=== PATIENT | male | born 1975 | race Hispanic/Latino ===

== ENCOUNTER 2017-07-21 18:07 | Inpatient (IN) | payer SELFPAY ==
[2017-07-21 19:30] LABS: Hematocrit 21.2 % (42.0-52.0); Mean Platelet Volume 7.4 fL (7.4-10.4); Red Blood Cell (RBC) Count 2.09 mill/uL (4.70-6.10); White Blood Cell (WBC) Count 7.4 thou/uL (4.8-10.8)
[2017-07-21 19:42] LABS: ALT (SGPT) 27 U/L (8-55); AST (SGOT) 47 U/L (5-34); Alkaline Phosphatase 99 U/L (40-150); Anion Gap 10 mmol/L (10-20); BUN (Urea Nitrogen) 8 mg/dL (8.9-20.6); Bilirubin, Total 2.2 mg/dL (0.2-1.2); Calc. Creatinine Clearance 0 mL/min (70-130); Calcium 8.4 mg/dL (7.8-10.44); Carbon Dioxide 21 mmol/L (22-29); Chloride 88 mmol/L (98-107); Estimated GFR-MDRD 59; Globulin 4.4 g/dL (2.4-3.5); Protein, Total 6.5 g/dL (6.0-8.3)
[2017-07-21 19:53] LABS: Macrocytosis SLIGHT = 6-15 cells (100X) (0-5/hpf); Neutrophil 27 % (42-75); Polychromasia SLIGHT = 2-3 cells (100X) (0-2/hpf); Reactive Lymphocytes 1 % (0-10)
[2017-07-21] MEDS ORDERED: Potassium Chloride 20 MEQ TAB ONE (20:04)
[2017-07-21] MEDS ORDERED: Potassium Chloride 40 MEQ in Sodium Chloride 0.9% 500 ML IVPB SCH (21:00)
--- NOTE | 2017-07-21 21:43 | HP ---
PRIMARY CARE PROVIDER: [facility]. CHIEF COMPLAINT: Generalized weakness. HISTORY OF PRESENT ILLNESS: Mr. Ortiz is a pleasant 42-year-old gentleman, who was seen at [facility] on 07/21/2017. He was sent to the emergency room by his primary care pro vider. He reports that he has a history of liver disease. He was on medications and ran out of his medicat ions a week ago. He went to his clinic for a refill of medications. He was advised to have blood w ork prior refill. He had the blood work done. He was contacted by his primary care provider office earlier today and advised to go to the emergency room because of electrolyte abnormalities. He reports that he has been feeling weak over the last several days. Yesterday and today, he report s having falls at home. He denies any head trauma. He denies any loss of consciousness. He denies any chest pain. His family reports that there has been no confusion or agitation. REVIEW OF SYSTEMS: The following complete review of systems was negative, unless otherwise mentione d in the HPI or below: Constitutional: Weight loss or gain, sense of well-being, ability to conduc t usual activities, exercise tolerance. Skin/Breast: Rash, itching, changes in hair growth or loss , nail changes, breast lumps, tenderness, swelling, nipple discharge. Eyes: Vision, double vision, tearing, blind spots, pain. ENT/Mouth: Headaches (location, time of onset, duration, precipitatin g factors), vertigo, lightheadedness, injury. Vision, double vision, tearing, blind spots, pain, nos e bleeding, colds, obstruction, discharge, dental difficulties, gingival bleeding, dentures, neck st iffness, pain, tenderness, masses in thyroid or other areas. Cardiovascular: Precordial pain, subs ternal distress, palpitations, syncope, dyspnea on exertion, orthopnea, nocturnal paroxysmal dyspnea , edema, cyanosis, hypertension, heart murmurs, varicosities, phlebitis, claudication. Respiratory: Pain, shortness of breath, wheezing, stridor, cough, hemoptysis, fever or night sweats. Gastroint estinal: Poor appetite, dysphagia, indigestion, abdominal pain, heartburn, eructation, nausea, vomi ting, hematemesis, jaundice, constipation, or diarrhea, abnormal stools (rayna-colored, tarry, bloody , greasy, foul smelling), flatulence, hemorrhoids, recent changes in bowel habits. Genitourinary: Urgency, frequency, dysuria, nocturia, hematuria, polyuria, oliguria, unusual (or change in) color o f urine, stones, hesitancy, change in size of stream, dribbling, acute retention or incontinence, li francois, potency. Musculoskeletal: Pain, swelling, redness or heat of muscles or joints, limitation, of motion, muscular weakness, atrophy, cramps. Neurologic/Psychiatric: Convulsions, paralyses, jennifer mor, incoordination, parasthesias, difficulties with memory of speech, sensory or motor disturbances , or muscular coordination (ataxia, tremor), emotional problems, anxiety, depression, previous psych iatric care, unusual perceptions, hallucinations. Allergy/Immunologic: Skin rash, anemia, bleeding tendency, polydipsia, polyuria, intolerance to heat or cold. PAST MEDICAL HISTORY: Significant for alcohol abuse, liver cirrhosis, diabetes mellitus type 2, rec suman abscess. PAST SURGICAL HISTORY: Significant for incision and drainage of rectal abscess. SOCIAL HISTORY: The patient reports that he has not had any alcohol in 3 months. He denies tobacco use. He denies recreational drug use. PSYCHIATRIC HISTORY: Significant for anxiety and depression. FAMILY HISTORY: He denies any family history of liver disease. ALLERGIES: No known drug allergies. CURRENT MEDICATIONS: He is not taking any medications at this time. He does not recall the names o f his previous medications. PHYSICAL EXAMINATION: GENERAL: Mr. Ortiz is awake and alert, not in acute distress. VITAL SIGNS: Blood pressure is 144/68, pulse is 73. His breathing at rate of 16, and saturating 99 % on room air. He is afebrile. EYES He has scleral icterus. He has conjunctival pallor. ENT: Moist mucosal membranes, no oropharyngeal erythema or exudates. NECK: Supple, nontender, normal range of movement. Trachea is midline. RESPIRATORY: Accessory muscles of breathing are not active. Chest wall movements are symmetric hari aterally. LUNGS: Clear to auscultation without wheeze, rhonchi, or crepitations. CARDIOVASCULAR: S1 and S2 are heard, regular. Peripheral pulses are palpable. No carotid bruit, n o pericardial rub. ABDOMEN: Soft, nontender, bowel sounds heard, distended, no hepatomegaly, no splenomegaly. MUSCULOSKELETAL: Power is 5/5 in all 4 extremities. He has bilateral lower extremity pitting edema . NEUROLOGIC: Cranial nerves II through XII are intact. Deep tendon reflexes are 2+. He has a flapp ing tremor. PSYCHIATRIC: Normal mood, normal affect, patient is oriented to time, place, and person. SKIN: No rashes or subcutaneous nodules. LYMPHATIC: No cervical lymphadenopathy. LABORATORY DATA: Mr. Ortiz's labs and investigations were reviewed. He had an electrocardiogram, which shows normal sinus rhythm, no ST changes to suggest an acute coronary syndrome. Laboratory in vestigation show hyponatremia with sodium of 117, hypokalemia with potassium 2.3, decreased carbon d ioxide of 21, elevated creatinine of 1.33, last known creatinine 0.79 on 03/17/2017, elevated total bilirubin 2.2, last known total bilirubin 2.0 on 03/17/2017, elevated AST of 47, normal ALT, normal alkaline phosphatase, elevated BNP of 187.9, and decreased albumin of 2.1. He has a white count of 7400, macrocytic anemia with hemoglobin of 7.1, last known hemoglobin 9.4 on 03/17/2017, and thrombo cytopenia with platelet count of 123,000, last known platelet count 54,000 on 03/17/2017. ASSESSMENT AND PLAN: Mr. Ortiz is a pleasant 42-year-old gentleman, who was seen at [facility]. His problem list includes: 1. Hyponatremia: The etiology is unclear, could be secondary to liver disease or due to medication s. We will start normal saline. Consult Nephrology. Repeat sodium level. 2. Hypokalemia: Could be secondary to medications, which he is no longer taking. We will replenis h potassium and recheck potassium level. 3. Anemia: Most likely anemia of liver disease. We will repeat hemoglobin level. 4. Chronic liver disease. His liver function tests appear to be stable. 5. Thrombocytopenia: Stable, likely secondary to liver disease. 6. Diabetes mellitus type 2: Start Accu-Cheks and insulin sliding scale. 7. Acute on chronic renal failure: Hydrate and recheck creatinine. Consult Nephrology for renal i nsufficiency as well as for electrolyte abnormalities. LEVEL OF RISK: Moderate. LEVEL OF COMPLEXITY: Moderate.
[2017-07-21 21:50] LABS: Cholesterol 68 mg/dl (< 200 Desired); LDL Cholesterol, Calculated 45 mg/dL
[2017-07-21] MEDS ORDERED: Ondansetron ODT 4 MG TAB SL PRN (22:33)
[2017-07-21] MEDS ORDERED: Ondansetron HCl/PF 4 MG/2 ML Vial IVP PRN (22:33)
[2017-07-21] MEDS ORDERED: Acetaminophen 325 MG TAB PO PRN (22:33)
[2017-07-21] MEDS ORDERED: Sodium Chloride 0.9% 1,000 ML IV SCH (22:33)
[2017-07-21 22:53] VITALS: BMI 35.2
[2017-07-21] MEDS: NS 0.9% w/ 40 MEQ KCL 1,000 ML IV SCH (23:51)
[2017-07-22] MEDS: NS 0.9% w/ 40 MEQ KCL 1,000 ML IV SCH (01:19)
[2017-07-22] MEDS: Potassium Chloride 40 MEQ in Sodium Chloride 0.9% 500 ML IVPB SCH ×3 (02:05→14:31)
[2017-07-22 04:13] LABS: Potassium, Urine Less than 10.0 mmol/L; Sodium, Urine Less than 20 mmol/L (Not Available)
[2017-07-22 05:31] LABS: Anion Gap 4 mmol/L (10-20); BUN (Urea Nitrogen) 7 mg/dL (8.9-20.6); Calc. Creatinine Clearance 166 mL/min (70-130); Calcium 8.4 mg/dL (7.8-10.44); Carbon Dioxide 28 mmol/L (22-29); Chloride 97 mmol/L (98-107); Estimated GFR-MDRD Greater than 90
[2017-07-22 05:40] LABS: Band 3 % (5-11); Hematocrit 19.5 % (42.0-52.0); Mean Platelet Volume 6.8 fL (7.4-10.4); Neutrophil 38 % (42-75); Red Blood Cell (RBC) Count 1.92 mill/uL (4.70-6.10); White Blood Cell (WBC) Count 5.4 thou/uL (4.8-10.8)
--- NOTE | 2017-07-22 10:12 | CON ---
DATE OF CONSULTATION: 07/22/2017 CONSULTING PHYSICIAN: Dr. Aguilar REASON FOR CONSULTATION: Acute anemia and hyponatremia. REASON FOR ADMISSION: Weakness. HISTORY OF PRESENT ILLNESS: This is a 42-year-old male with history of alcohol use, liver cirrhosis who came to the hospital with weakness and was found to have hyponatremia with hypokalemia . Nephrology was consulted. The sodium was 118, 117 yesterday and this morning was 126 with IV hyd ration and potassium was 2.5. The patient is still very weak and family was at the bedside. PAST MEDICAL HISTORY: Positive for alcohol abuse, also liver cirrhosis, type 2 diabetes and sepsis. PAST SURGICAL HISTORY: Incision and drainage of rectal abscess. HOME MEDICATIONS: None. ALLERGIES: No known drug allergies. SOCIAL HISTORY: No smoking, alcohol or drug abuse. The patient did not have any alcohol in the las t 3 months. FAMILY HISTORY: No history of any kidney disease. REVIEW OF SYSTEMS: The following complete review of systems was negative, unless otherwise mentioned in the HPI or below: Constitutional: Weight loss or gain, ability to conduct usual activities. Skin: Rash, itching. Eyes: Double vision, pain. ENT/Mouth: Nose bleeding, neck stiffness, pain, tenderness. Cardiovascular: Palpitations, dyspnea on exertion, orthopnea. Respiratory: Shortness of breath, wheezing, cough, hemoptysis, fever or night sweats. Gastrointestinal: Poor appetite, abdominal pain, heartburn, nausea, vomiting, constipation, or diarrhea. Genitourinary: Urgency, frequency, dysuria, nocturia. Musculoskeletal: Pain, swelling. Neurologic/Psychiatric: Anxiety, depression. Allergy/Immunologic: Skin rash, bleeding tendency. PHYSICAL EXAMINATION: GENERAL: This is a well-built male in no apparent distress. VITAL SIGNS: Temperature 98.4, pulse 70, respirations 18, blood pressure 132/73. HEENT: Atraumatic, normocephalic. Oral mucosa is moist. NECK: Supple, no masses. CARDIOVASCULAR: S1, S2 heard. Rate and rhythm regular. RESPIRATORY: Clear. ABDOMEN: Soft. MUSCULOSKELETAL: No tenderness noted. DERMATOLOGIC: No skin rash. NEUROLOGIC: Alert, awake. PSYCHIATRIC: Mood and affect normal. LABORATORY: Sodium is 126, 117, potassium is 2.5, BUN 4, creatinine is 3.8. ASSESSMENT AND PLAN: 1. Severe hyponatremia, sodium level is corrected too fast and recommend to stop the IV fluids, viraj l give 1 dose of desmopressin and continue to replace potassium. 2. Hypokalemia, replaced. 3. Hypochloremia. 4. Edema, controlled. 5. Anemia, rule out any bleed. 6. Cirrhosis. Overall, prognosis is poor. Would recommend desmopressin and stop IV fluids. Continue close monito ring of sodium and monitor sodium q.6 h. We will follow.
--- NOTE | 2017-07-22 10:12 | PDOC.PN ---
- Subjective Encounter Start Date: 07/22/17 Encounter Start Time: 07:20 Pt seen for followup re: hyponatremia. Says he feels better. denies chest pain , shortness of breath, fevers or chills. no nausea or vomiting. - Objective MAR Reviewed: Yes Vital Signs & Weight: Vital Signs (12 hours) Temp Pulse Resp BP BP Pulse Ox 07/22/17 08:25 96.2 F L 73 18 137/83 99 07/22/17 04:00 98.4 F 71 18 132/73 100 07/21/17 22:30 97.8 F 71 18 145/73 H 100 Weight Weight 231 lb 5 oz I&O: 07/21/17 07/22/17 07/23/17 06:59 06:59 06:59 Intake Total 240 Output Total 1450 Balance -1210 Result Diagrams: 07/22/17 04:59 07/22/17 04:59 EKG Reviewed by me: Yes (tele: NSR) Phys Exam - Physical Examination Obese HEENT: moist MMs, oral pharynx no lesions Neck: supple Respiratory: no wheezing, no rales, no rhonchi, clear to auscultation bilateral Cardiovascular: RRR, no rub Gastrointestinal: soft, non-tender, no distention, positive bowel sounds Musculoskeletal: pulses present, edema present Neurological: non-focal, normal sensation, moves all 4 limbs Lymphatic: no nodes Psychiatric: normal affect, A&O x 3 Skin: no rash, normal turgor, cap refill <2 seconds Dx/Plan (1) Hyponatremia Code(s): E87.1 - HYPO-OSMOLALITY AND HYPONATREMIA Status: Acute (2) Hypokalemia Code(s): E87.6 - HYPOKALEMIA Status: Acute (3) Hypomagnesemia Code(s): E83.42 - HYPOMAGNESEMIA Status: Acute (4) DM2 (diabetes mellitus, type 2) Status: Chronic (5) Alcoholic liver disease Code(s): K70.9 - ALCOHOLIC LIVER DISEASE, UNSPECIFIED Status: Chronic (6) Obesity (BMI 30-39.9) Code(s): E66.9 - OBESITY, UNSPECIFIED Status: Chronic - Plan plan discussed w/ family, PT/OT, out of bed/ambulate, DVT proph w/SCDs * . Replace potassium and magnesium. Continue normal saline. RAEGAN resolved. Continue insulin sliding scale. Review of Systems - Review of Systems Constitutional: Weakness. negative: Fever, Chills, Sweats, Malaise Respiratory: negative: Cough, Dry, Shortness of Breath, Hemoptysis, SOB with Excertion, Pleuritic Pain, Sputum, Wheezing Cardiovascular: negative: Chest Pain, Palpitations, Orthopnea, Paroxysmal Noc. Dyspnea, Edema, Light Headedness Gastrointestinal: negative: Nausea, Vomiting, Abdominal Pain, Diarrhea, Constipation, Melena, Hematochezia Genitourinary: negative: Dysuria, Frequency, Incontinence, Hematuria, Retention - Medications/Allergies Allergies/Adverse Reactions: Allergies Allergy/AdvReac Type Severity Reaction Status Date / Time No Known Drug Allergies Allergy Verified 01/10/17 16:55 Medications: Current Medications Potassium Chloride 40 meq/ (Sodium Chloride) 520 mls @ 130 mls/hr IVPB Q6H [facility] Stop: 07/22/17 17:59 Last Admin: 07/22/17 09:16 Dose: 520 mls Sodium Chloride (Flush - Normal Saline) 10 ml IVF Q12HR [facility] Last Admin: 07/22/17 09:17 Dose: 10 ml Sodium Chloride (Flush - Normal Saline) 10 ml IVF PRN PRN PRN Reason: Saline Flush
[2017-07-22] MEDS ORDERED: Dextrose 5% in Water 500 ML IV SCH (13:00)
[2017-07-22] MEDS ORDERED: Dextrose 50% Abboject 50 ML SYRINGE SLOW IVP PRN (15:20)
[2017-07-22] MEDS ORDERED: Dextrose 5% in Water 1,000 ML IV PRN (15:20)
[2017-07-22] MEDS ORDERED: Magnesium Sulfate 3 GM in Sodium Chloride 0.9% 100 ML IVPB SCH (15:30)
[2017-07-22] MEDS: HumaLOG 300 UNITS/3 ML VIAL SC PRN (18:10)
[2017-07-23 06:03] LABS: Anion Gap 6 mmol/L (10-20); BUN (Urea Nitrogen) 6 mg/dL (8.9-20.6); Calc. Creatinine Clearance 172 mL/min (70-130); Calcium 8.7 mg/dL (7.8-10.44); Carbon Dioxide 26 mmol/L (22-29); Chloride 104 mmol/L (98-107); Estimated GFR-MDRD Greater than 90
[2017-07-23 06:17] LABS: Anisocytosis SLIGHT = 6-15 cells (100X) (0-5/hpf); Hematocrit 21.2 % (42.0-52.0); Hypochromia SLIGHT = 6-15 cells (100X) (0-5/hpf); Macrocytosis SLIGHT = 6-15 cells (100X) (0-5/hpf); Mean Platelet Volume 7.2 fL (7.4-10.4); Polychromasia SLIGHT = 2-3 cells (100X) (0-2/hpf); Red Blood Cell (RBC) Count 2.07 mill/uL (4.70-6.10); White Blood Cell (WBC) Count 5.6 thou/uL (4.8-10.8)
[2017-07-23 06:23] LABS: Neutrophil 31 % (42-75)
[2017-07-23 06:25] LABS: Target Cells SLIGHT = 2-5 cells (100X) (0-1/hpf)
[2017-07-23] MEDS ORDERED: Potassium Chloride 20 MEQ TAB PO SCH (06:30)
[2017-07-23] MEDS ORDERED: Potassium Chloride 40 MEQ in Sodium Chloride 0.9% 500 ML IVPB SCH (07:00)
[2017-07-23] MEDS: Potassium Chloride 20 MEQ TAB PO SCH ×2 (09:58→14:43)
[2017-07-23] MEDS: HumaLOG 300 UNITS/3 ML VIAL SC PRN (11:39)
--- NOTE | 2017-07-23 13:05 | PDOC.PN ---
- Subjective Encounter Start Date: 07/23/17 Encounter Start Time: 08:00 Pt seen for followup re: hyponatremia. Denies chest pain, shortness of breath, fevers or chills. No nausea or vomiting. - Objective MAR Reviewed: Yes Vital Signs & Weight: Vital Signs (12 hours) Temp Pulse Resp BP BP BP Pulse Ox 07/23/17 12:38 98.1 F 76 16 123/73 100 07/23/17 08:00 97.8 F 81 16 128/76 100 07/23/17 04:00 99.1 F 85 20 148/72 H 98 Weight Weight 222 lb 3.2 oz I&O: 07/22/17 07/23/17 07/24/17 06:59 06:59 06:59 Intake Total 240 2057 920 Output Total 1450 2250 Balance -1210 -193 920 Result Diagrams: 07/23/17 05:03 07/23/17 05:03 Additional Labs: Accuchecks 07/23/17 07/23/17 07/22/17 11:07 05:35 20:28 POC Glucose 209 H 121 H 131 H 07/22/17 07/22/17 17:03 07:03 POC Glucose 193 H 143 H EKG Reviewed by me: Yes (Tele: NSR) Phys Exam - Physical Examination Constitutional: NAD HEENT: sclera anicteric, oral pharynx no lesions Neck: supple Respiratory: no wheezing, no rales, no rhonchi, clear to auscultation bilateral Cardiovascular: RRR, gallop Gastrointestinal: soft, positive bowel sounds Musculoskeletal: pulses present Neurological: moves all 4 limbs Psychiatric: normal affect Skin: no rash, cap refill <2 seconds Dx/Plan (1) Hyponatremia Code(s): E87.1 - HYPO-OSMOLALITY AND HYPONATREMIA Status: Acute (2) Hypokalemia Code(s): E87.6 - HYPOKALEMIA Status: Acute (3) Hypomagnesemia Code(s): E83.42 - HYPOMAGNESEMIA Status: Acute (4) DM2 (diabetes mellitus, type 2) Status: Chronic (5) Alcoholic liver disease Code(s): K70.9 - ALCOHOLIC LIVER DISEASE, UNSPECIFIED Status: Chronic (6) Obesity (BMI 30-39.9) Code(s): E66.9 - OBESITY, UNSPECIFIED Status: Chronic - Plan DVT proph w/SCDs * . Replace potassium Sodium level improved. Check magnesium, phosphorus. Likely home 1-2 days. DC telemetry, transfer to medical floor. Review of Systems - Review of Systems Constitutional: negative: Fever, Chills, Sweats, Weakness, Malaise Respiratory: negative: Cough, Dry, Shortness of Breath, Hemoptysis, SOB with Excertion, Pleuritic Pain, Sputum, Wheezing Cardiovascular: negative: Chest Pain, Palpitations, Orthopnea, Paroxysmal Noc. Dyspnea, Edema, Light Headedness Gastrointestinal: negative: Nausea, Vomiting, Abdominal Pain, Diarrhea, Constipation, Melena, Hematochezia - Medications/Allergies Allergies/Adverse Reactions: Allergies Allergy/AdvReac Type Severity Reaction Status Date / Time No Known Drug Allergies Allergy Verified 01/10/17 16:55 Medications: Current Medications Dextrose/Water (Dextrose 50%) 25 gm SLOW IVP PRN PRN PRN Reason: Hypoglycemia Glucagon (Glucagon) 1 mg IM PRN PRN PRN Reason: Hypoglycemia Dextrose/Water (D5w) 1,000 mls @ 0 mls/hr IV .Q0M PRN; As Directed PRN Reason: Hypoglycemia Insulin Human Lispro (Humalog) 0 units SC .MILD SLIDING SCALE PRN PRN Reason: Mild Correctional Scale Last Admin: 07/23/17 11:39 Dose: 4 unit Potassium Chloride (K-Dur) 40 meq PO Q4H [facility] Stop: 07/23/17 13:31 Last Admin: 07/23/17 09:58 Dose: 40 meq Sodium Chloride (Flush - Normal Saline) 10 ml IVF Q12HR [facility] Last Admin: 07/23/17 09:59 Dose: Not Given Sodium Chloride (Flush - Normal Saline) 10 ml IVF PRN PRN PRN Reason: Saline Flush
[2017-07-23 13:30] LABS: ALT (SGPT) 24 U/L (8-55); AST (SGOT) 43 U/L (5-34); Alkaline Phosphatase 105 U/L (40-150); Bilirubin, Total 2.1 mg/dL (0.2-1.2); Protein, Total 6.6 g/dL (6.0-8.3)
[2017-07-23] MEDS ORDERED: SODIUM CHLORIDE 0.9% IVPB SCH (14:15)
[2017-07-23] MEDS ORDERED: POTASSIUM PHOSPHATE IVPB SCH (14:15)
[2017-07-24] MEDS: traMADol HCl 50 MG TAB PO PRN ×2 (00:13→12:58)
[2017-07-24 06:50] LABS: #Eosinphils 0.2 thou/uL (0.0-0.7); #Lymphocytes 2.9 thou/uL (1.20-3.40); #Monocytes 0.9 thou/uL (0.11-0.59); #Neutrophils 2.3 thou/uL (1.40-6.50); %Basophils 0.7 % (0.0-1.0); %Eosinophils 2.4 % (0.0-10.0); %Lymphocytes 46.3 % (21.0-51.0); %Monocytes 14.2 % (0.0-10.0); Hematocrit 20.3 % (42.0-52.0); Mean Platelet Volume 7.4 fL (7.4-10.4); Red Blood Cell (RBC) Count 1.98 mill/uL (4.70-6.10); White Blood Cell (WBC) Count 6.3 thou/uL (4.8-10.8)
[2017-07-24 07:16] LABS: Anion Gap 6 mmol/L (10-20); BUN (Urea Nitrogen) 7 mg/dL (8.9-20.6); Calc. Creatinine Clearance 166 mL/min (70-130); Calcium 8.4 mg/dL (7.8-10.44); Carbon Dioxide 26 mmol/L (22-29); Chloride 107 mmol/L (98-107); Estimated GFR-MDRD Greater than 90
[2017-07-24 09:31] LABS: Magnesium 0.9 mg/dL (1.6-2.6); Phosphorus 3.7 mg/dL (2.3-4.7)
[2017-07-24] MEDS ORDERED: Magnesium Sulfate 4 GM in Sodium Chloride 0.9% 250 ML 250 ML IVPB SCH (11:00)
[2017-07-24] MEDS ORDERED: Magnesium Oxide 400 MG TAB PO SCH ×2 (11:00→21:00)
--- NOTE | 2017-07-24 14:49 | DIS ---
DATE OF ADMISSION: 07/21/2017 DATE OF DISCHARGE: 07/24/2017 PRIMARY CARE PROVIDER: [facility]. DISCHARGE DIAGNOSES: 1. Hyponatremia, improved. 2. Hypokalemia, resolved. 3. Hypomagnesemia, magnesium being replaced. 4. Anemia, received packed RBC transfusion. CONDITION OF PATIENT AT THE TIME OF DISCHARGE: Stable. I assessed Mr. Ortiz on the day of discharge. He denies any chest pain or shortness of breath. Vi suman signs are stable. S1 and S2 are heard, regular. Lungs are clear to auscultation bilaterally. CONSULTATIONS DURING THIS HOSPITALIZATION: Nephrology, Dr. Arndt. DISCHARGE MEDICATIONS: Magnesium 400 mg 2 times a day for 10 days. HOSPITAL COURSE: Mr. Ortiz is a pleasant 42-year-old gentleman, who was admitted to [facility] on 07/21/2017 for multiple electrolyte abnormalities. He received intravenous f luids. He was seen by Nephrology Service. He received potassium and magnesium supplementation. He is being discharged home in a stable condition. He has been advised to follow up with his primary care provider's office in 3-5 days. His electroly kris as well as hemoglobin will need to be checked. He is receiving packed RBC transfusion prior to discharge. On the day of discharge, Mr. Ortiz has sodium 135, potassium 3.7, creatinine 0.84, calcium 8.4, daniel sphorus 3.7, magnesium 0.9, for which he is receiving 4 g of magnesium intravenously as well as oral magnesium supplementation. During this hospitalization, he had total bilirubin 2.1, direct bilirub in 1.0, AST 43, ALT 24, alkaline phosphatase 105, ammonia 62, triglyceride 66, cholesterol 68, LDL c holesterol 45, HDL cholesterol 10. TSH was normal. Cortisol level was also normal. Many thanks for allowing me to participate in your patient's care. Please feel free to contact me w ith any questions or concerns. DISCHARGE DESTINATION: Home. TOTAL AMOUNT OF TIME SPENT COORDINATING THIS DISCHARGE: 35 minutes.
[2017-07-24 15:52] VITALS: BP 130/76; TEMP 98.1
== END 2017-07-24 17:46 | disposition home or self-care (01) | DRG 641 ==
LOC: ERS 18:07 → 2NO 22:21
PROVIDERS: ADMIT Internal Medicine; ATTEND Internal Medicine
PROC: 30233N1 Transfusion of Nonautologous Red Blood Cells into Peripheral Vein, Percutaneous Approach (ICD-10-PCS; principal; 2017-07-24)
DX: E87.1 Hypo-osmolality and hyponatremia (principal); E11.22 Type 2 diabetes mellitus with diabetic chronic kidney disease; D69.6 Thrombocytopenia, unspecified; E83.42 Hypomagnesemia; E87.6 Hypokalemia; K70.30 Alcoholic cirrhosis of liver without ascites; D63.8 Anemia in other chronic diseases classified elsewhere; N18.9 Chronic kidney disease, unspecified
CPT/HCPCS: 36415; 36416; 36430; 80048; 80053; 80061; 80076; 82140; 82436; 82533; 82570; 83735; 83880; 84100; 84133; 84295; 84300; 84443; 85025; 86850; 86900; 86901; 93005; 96361; 96365; A4216; J2597; J3475; J3480; J7050; P9016

== ENCOUNTER 2017-08-02 13:05 | Inpatient (IN) | payer SELFPAY ==
[2017-08-02 13:45] LABS: Hematocrit 22.3 % (42.0-52.0); Mean Platelet Volume 6.6 fL (7.4-10.4); Red Blood Cell (RBC) Count 2.16 mill/uL (4.70-6.10); White Blood Cell (WBC) Count 5.8 thou/uL (4.8-10.8)
[2017-08-02 14:15] LABS: PTT 44.7 SEC (22.9-36.1); Prothrombin Time 24.8 SEC (12.0-14.7)
[2017-08-02 14:19] LABS: ALT (SGPT) 17 U/L (8-55); AST (SGOT) 47 U/L (5-34); Alkaline Phosphatase 127 U/L (40-150); Anion Gap 8 mmol/L (10-20); BUN (Urea Nitrogen) 8 mg/dL (8.9-20.6); Bilirubin, Total 1.8 mg/dL (0.2-1.2); Calc. Creatinine Clearance 0 mL/min (70-130); Carbon Dioxide 23 mmol/L (22-29); Chloride 89 mmol/L (98-107); Estimated GFR-MDRD 83; Globulin 4.5 g/dL (2.4-3.5); Protein, Total 6.4 g/dL (6.0-8.3)
[2017-08-02 14:21] LABS: Anisocytosis SLIGHT = 6-15 cells (100X) (0-5/hpf); Band 1 % (5-11); Hypochromia SLIGHT = 6-15 cells (100X) (0-5/hpf); Metamyelocyte 1 % (0-0); Neutrophil 81 % (42-75)
[2017-08-02] MEDS ORDERED: Potassium Chloride 20 MEQ TAB ONE (14:44)
[2017-08-02] MEDS ORDERED: HumaLOG 300 UNITS/3 ML VIAL SC PRN ×2 (15:51)
[2017-08-02] MEDS ORDERED: Acetaminophen 325 MG TAB PO PRN (15:51)
[2017-08-02] MEDS ORDERED: Dextrose 5% in Water 1,000 ML IV PRN (15:51)
[2017-08-02] MEDS ORDERED: Eucerin (Mineral Oil/Petrolatum,White) 30 gm Jar TOP PRN (15:51)
[2017-08-02] MEDS ORDERED: Ondansetron ODT 4 MG TAB PO PRN (15:51)
[2017-08-02] MEDS ORDERED: Mag-Al 1200 mg/1200 mg/30 ML UDCUP PO PRN (15:51)
[2017-08-02] MEDS ORDERED: Ondansetron HCl/PF 4 MG/2 ML Vial IVP PRN (15:51)
[2017-08-02] MEDS ORDERED: Milk Of Magnesia 30 ML UDCUP PO PRN (15:51)
[2017-08-02] MEDS ORDERED: Sodium Chloride 0.65% Nasal 44 ML BOT EA NARE PRN (15:51)
[2017-08-02] MEDS ORDERED: Artificial Tears 18 DROP/0.9 ML EA EYE PRN (15:51)
[2017-08-02] MEDS ORDERED: Dextrose 50% Abboject 50 ML SYRINGE SLOW IVP PRN (15:51)
[2017-08-02] MEDS ORDERED: Diabetic Tussin 200 MG/10 ML UDCUP PO PRN (15:51)
--- NOTE | 2017-08-02 16:09 | HP ---
PRIMARY CARE PHYSICIAN: [facility]. REASON FOR ADMISSION: Ascites, hyponatremia, and hypokalemia. HISTORY OF PRESENT ILLNESS: A 42-year-old male who has alcoholic cirrhosis who presented t o emergency room with a complaint of gradual distention of abdomen as well as bilateral increasing l ower extremity pitting edema. He reports that he gained almost 40 pounds since last discharge from hospital. This patient was recently discharged from hospital on 07/24/2017. He reports that his ab domen is more distended than before and he has more pedal edema. He is making urine after Lasix, bu t not significantly. He denies any cramps. He denies any chest pain, palpitation, or shortness of breath. He denies any constipation, melena, hematochezia, or diarrhea. Today, in the emergency room, patient had routine workup done and showed hemoglobin 7.3. His previo us hemoglobin was 6.7. His sodium is 117 and potassium is 2.9. His ammonia is also elevated. His magnesium is also low. At this point, we are admitting this patient in the hospital for further jennifer atment. PAST MEDICAL HISTORY: Alcoholic cirrhosis; alcoholism; history of diabetes, diet controlled. PAST SURGICAL HISTORY: Left perirectal abscess requiring incision and drainage. PAST PSYCHIATRIC HISTORY: Anxiety and depression. SOCIAL HISTORY: Patient has a history of alcohol abuse, but he reports that, for the last 5 months, he has not drunk any alcohol. He denies any smoking. He denies any other illicit drug abuse. FAMILY HISTORY: No strong family history of premature coronary artery disease, stroke, or cancer. ALLERGIES: No known drug allergies. CURRENT HOME MEDICATIONS: Lasix 20 mg b.i.d., Aldactone 50 mg p.o. b.i.d., magnesium oxide 400 mg t wice daily, Onglyza 2.5 mg p.o. daily, and aspirin 81 mg p.o. daily. REVIEW OF SYSTEMS: The following complete review of systems was negative, unless otherwise mentione d in the HPI or below: Constitutional: Weight loss or gain, ability to conduct usual activities. Skin: Rash, itching. Eyes: Double vision, pain. ENT/Mouth: Nose bleeding, neck stiffness, pain, tenderness. Cardiovascular: Palpitations, dyspnea on exertion, orthopnea. Respiratory: Shortnes s of breath, wheezing, cough, hemoptysis, fever or night sweats. Gastrointestinal: Poor appetite, abdominal pain, heartburn, nausea, vomiting, constipation, or diarrhea. Genitourinary: Urgency, fr equency, dysuria, nocturia. Musculoskeletal: Pain, swelling. Neurologic/Psychiatric: Anxiety, de pression. Allergy/Immunologic: Skin rash, bleeding tendency. Please see my HPI for pertinent posi tives and negatives. All other review of systems reviewed and negative except as mentioned in the H PI. EMERGENCY ROOM COURSE: Patient is receiving magnesium sulfate 1 gram, potassium chloride 40 mEq p.o . one time dose given. PHYSICAL EXAMINATION: VITAL SIGNS: On arrival, blood pressure 119/73, pulse 86, respiratory rate 20, temperature 98.2, sa turation 100% on room air, weight 115.2 kilograms. GENERAL: Patient is currently alert, awake, in no obvious acute distress. HEENT: Head: Normocephalic and atraumatic. Eyes: Pupils round and reactive to light. Extraocula r muscles intact. ENT: Oropharynx within normal limits. Moist mucous membranes. No oral lesions. No pharyngeal erythema and no exudate. NECK: Supple. Range of motion is normal. No meningeal signs of irritation. LUNGS: Clear to auscultation without any rhonchi or rales. CARDIAC: S1, S2 regular without any murmur. ABDOMEN: Ascites present, obesity present, no peritoneal signs, no guarding, no rigidity, no reboun d. BACK: Unremarkable, no CVA tenderness. EXTREMITIES: Upper extremities, passive movement of all joints are normal. Lower extremity, the lo wer extremity pitting edema noted. Good peripheral pulsation. SKIN: No skin rash. HEMATOLOGICAL SYSTEM: No lymphadenopathy. NEUROLOGIC: The patient is alert and oriented x3. Cranial nerves II-XII intact. Motor and sensati on within normal limits. No asterixis noted. Plantar bilateral flexor. No cerebellar sign. SIGNIFICANT LABS: CBC: WBC 5.8, hemoglobin 7.3, MCV 103, platelets 103. INR 2.2. BMP: Sodium 11 7, potassium 2.8, chloride 89, carbon dioxide 23, BUN 8, creatinine 0.99, glucose 126, calcium 8.0, magnesium 1.2. LFT: Bilirubin 1.8, AST 47, ALT 17, alkaline phosphatase 127, albumin 1.9, ammonia 78. BNP 137.1. Alcohol level less than 10. car refinisher showing normal sinus rhythm. EKG, based on my review, normal sinus rhythm without any ischemic changes. ASSESSMENT AND PLAN: 1. Anasarca. This patient has anasarca clinically. He has ascites, significantly increased bilate ral pitting edema. He has fluid overload status and his anasarca is related with cirrhosis of liver with chronic liver failure. This patient will need aggressive diuresis to make him euvolemic, and during that period, we will monitor renal function, weight, electrolytes, and replace electrolytes a ccordingly. 2. Ascites, likely due to alcoholic liver cirrhosis with portal hypertension. We will do therapeut ic paracentesis, and we will send fluid analysis with albumin, protein, LDH, glucose, culture and ce ll count. 3. Hyperammonemia patient will be given lactulose 20 grams p.o. t.i.d. Patient does not have any h epatic encephalopathy. He does not have any asterixis. We will repeat an ammonia level tomorrow. 4. Coagulopathy due to liver disease. We will give him vitamin K 10 mg p.o. one time dose and we w ill repeat PT/INR tomorrow. 5. Abnormal electrolytes with hyponatremia, likely due to hypervolemic hyponatremia from cirrhosis of liver with portal hypertension. At this point, the patient does not have any symptoms associated with hyponatremia. Patient will not need any specific treatment other than fluid restriction and a ggressive diuresis to treat his sodium. We will monitor BMP daily basis. 6. Hypokalemia. The patient was given potassium chloride 40 mEq p.o. in the emergency room. We wi ll continue with 40 mEq p.o. three times daily and monitor daily BMP. 7. Hypomagnesemia. Patient has received 1 gram magnesium in the emergency room. I will give him a nother 4 gram IV magnesium, and will repeat magnesium level tomorrow. 8. Macrocytic anemia. We will continue with folic acid, vitamin B12, and thiamine therapy while in hospital. 9. Thrombocytopenia. We will avoid antiplatelet as well as avoid heparin product. 10. Severe hypoalbuminemia due to liver disease. If patient's blood pressure goes low, then we viraj l consider giving him albumin infusion for diuretic response. 11. Deep venous thrombosis prophylaxis. Sequential compression device boots. 11. Gastrointestinal prophylaxis. Pepcid 20 mg p.o. b.i.d. 12. Code status: The patient is FULL CODE. The patient is making his decision by himself. Disposition plan based on clinical course. We are expecting patient's stay in hospital more than 2 midnights. Plan of care discussed with the patient and family member at bedside in the emergency ro om.
[2017-08-02] MEDS ORDERED: Magnesium Sulfate 4 GM in Sodium Chloride 0.9% 250 ML 250 ML IVPB SCH (16:15)
[2017-08-02 16:26] LABS: Bilirubin Negative (Negative); Blood, Urine Trace (Negative); Glucose, Urine (Dipstick) Negative (Negative); Ketone, Urine Negative (Negative); Nitrite Negative (Negative); Protein, Urine (Dipstick) Negative (Neg-Trace); Urobilinogen 0.2 mg/dL (0.2-1.0)
[2017-08-02 16:38] LABS: Bacteria/HPF None Seen HPF (None Seen); Hyaline Casts/LPF NONE SEEN LPF (0-3 Hyaline); RBC/HPF None Seen HPF (0-3); Squamous Epithelial 0-3 HPF (0-3); WBC/HPF 0-3 HPF (0-3)
[2017-08-02] MEDS: Potassium Chloride 20 MEQ TAB PO SCH ×2 (17:11→20:30)
[2017-08-02 17:15] VITALS: BMI 35.8
--- NOTE | 2017-08-02 19:58 | ULT ---
LIMITED ULTRASOUND: 08/02/17 HISTORY: Exam requested to evaluate for ascites. FINDINGS/IMPRESSION: The four quadrant evaluation of the abdomen demonstrates a small amount of free fluid in the left up per and lower quadrants. No significant ascites is seen for paracentesis. POS: [facility]
--- NOTE | 2017-08-02 20:27 | ADD-HP ---
ADDENDUM Diabetes type 2. We will continue insulin as per sliding scale per protocol. Diabetic diet will be given.
[2017-08-02] MEDS: Magnesium Oxide 400 MG TAB PO SCH (20:30)
[2017-08-03 04:24] LABS: Anion Gap 5 mmol/L (10-20); BUN (Urea Nitrogen) 7 mg/dL (8.9-20.6); Calc. Creatinine Clearance 190 mL/min (70-130); Calcium 8.2 mg/dL (7.8-10.44); Carbon Dioxide 29 mmol/L (22-29); Chloride 95 mmol/L (98-107); Estimated GFR-MDRD Greater than 90; Magnesium 1.7 mg/dL (1.6-2.6); Phosphorus 2.9 mg/dL (2.3-4.7)
[2017-08-03 04:27] LABS: Band 1 % (5-11); Hematocrit 20.8 % (42.0-52.0); Mean Platelet Volume 7.1 fL (7.4-10.4); Metamyelocyte 1 % (0-0); Neutrophil 42 % (42-75); Red Blood Cell (RBC) Count 2.03 mill/uL (4.70-6.10); Target Cells SLIGHT = 2-5 cells (100X) (0-1/hpf); White Blood Cell (WBC) Count 5.6 thou/uL (4.8-10.8)
[2017-08-03] MEDS: Furosemide 40 MG/4 ML VIAL SLOW IVP SCH ×2 (05:41→14:04)
[2017-08-03] MEDS: Ferrous Sulfate 325 MG TAB PO SCH (08:10)
[2017-08-03] MEDS: Cyanocobalamin (Vitamin B-12) 1,000 MCG TAB PO SCH (08:10)
[2017-08-03] MEDS: Folic Acid 1 MG TAB PO SCH (08:11)
[2017-08-03] MEDS: Potassium Chloride 20 MEQ TAB PO SCH ×3 (08:11→22:19)
[2017-08-03] MEDS: Spironolactone 100 MG TAB PO SCH (08:12)
[2017-08-03] MEDS: Multivitamin W/ Minerals 1 TAB PO SCH (08:12)
[2017-08-03] MEDS: Magnesium Oxide 400 MG TAB PO SCH ×2 (08:12→22:19)
[2017-08-03] MEDS: Phytonadione 10 MG/ML AMP PO SCH (08:13)
--- NOTE | 2017-08-03 10:34 | PDOC.PN ---
- Subjective Encounter Start Date: 08/03/17 Encounter Start Time: 08:55 -: old records requested/rev pt is feeling better, less abdominal distension, less edema leg, no jerome or hematochesia - Objective Resuscitation Status: Resuscitation Status FULL:Full Resuscitation MAR Reviewed: Yes Vital Signs & Weight: Vital Signs (12 hours) Temp Pulse Resp BP Pulse Ox 08/03/17 08:14 98.7 F 89 20 129/71 98 08/03/17 03:55 98.6 F 86 20 127/73 98 08/03/17 00:00 98.6 F 85 20 116/64 97 Weight Weight 226 lb 4.8 oz I&O: 08/02/17 08/03/17 08/04/17 06:59 06:59 06:59 Intake Total 0 Balance 0 Result Diagrams: 08/03/17 03:24 08/03/17 03:24 Additional Labs: Accuchecks 08/03/17 08/02/17 06:26 21:00 POC Glucose 110 114 H Phys Exam - Physical Examination Constitutional: NAD HEENT: PERRLA, moist MMs, sclera anicteric Neck: no JVD, supple Respiratory: no wheezing, no rales, no rhonchi Cardiovascular: RRR, no significant murmur, no rub Gastrointestinal: soft, non-tender ascites+ Musculoskeletal: pulses present, edema present Neurological: non-focal, normal sensation, moves all 4 limbs Lymphatic: no nodes Psychiatric: normal affect, A&O x 3 Skin: no rash, normal turgor Dx/Plan (1) Anasarca Code(s): R60.1 - GENERALIZED EDEMA Status: Acute (2) Hyperammonemia Code(s): E72.20 - DISORDER OF UREA CYCLE METABOLISM, UNSPECIFIED Status: Resolved (3) Hypokalemia Code(s): E87.6 - HYPOKALEMIA Status: Acute (4) Hypomagnesemia Code(s): E83.42 - HYPOMAGNESEMIA Status: Acute (5) Hyponatremia Code(s): E87.1 - HYPO-OSMOLALITY AND HYPONATREMIA Status: Acute (6) Alcoholic cirrhosis of liver with ascites Code(s): K70.31 - ALCOHOLIC CIRRHOSIS OF LIVER WITH ASCITES Status: Chronic (7) Alcoholic liver disease Code(s): K70.9 - ALCOHOLIC LIVER DISEASE, UNSPECIFIED Status: Chronic (8) Alcoholism Code(s): F10.20 - ALCOHOL DEPENDENCE, UNCOMPLICATED Status: Chronic (9) Coagulopathy Status: Chronic (10) DM2 (diabetes mellitus, type 2) Status: Chronic (11) Diabetes type 2, controlled Code(s): E11.9 - TYPE 2 DIABETES MELLITUS WITHOUT COMPLICATIONS Status: Chronic (12) Macrocytic anemia Code(s): D53.9 - NUTRITIONAL ANEMIA, UNSPECIFIED Status: Chronic (13) Obesity (BMI 30-39.9) Code(s): E66.9 - OBESITY, UNSPECIFIED Status: Chronic (14) Thrombocytopenia Code(s): D69.6 - THROMBOCYTOPENIA, UNSPECIFIED Status: Chronic - Plan cont current plan of care * continue IV lasix, aldactone and fluid restriction * sodium improving * will transfuse 1 unit PRBC * consult GI for anemia and cirrhosis * will replace electrolytes and monitor * medication reviewed as below * symptomatic treatment. Review of Systems - Review of Systems ENT: negative: Ear Pain, Ear Discharge, Nose Pain, Nose Discharge, Nose Congestion, Mouth Pain, Mouth Swelling, Throat Pain, Throat Swelling, Other Respiratory: negative: Cough, Dry, Shortness of Breath, Hemoptysis, SOB with Excertion, Pleuritic Pain, Sputum, Wheezing Cardiovascular: Edema. negative: Chest Pain, Palpitations, Orthopnea, Paroxysmal Noc. Dyspnea, Light Headedness, Other Gastrointestinal: negative: Nausea, Vomiting, Abdominal Pain, Diarrhea, Constipation, Melena, Hematochezia, Other Genitourinary: negative: Dysuria, Frequency, Incontinence, Hematuria, Retention , Other Musculoskeletal: negative: Neck Pain, Shoulder Pain, Arm Pain, Back Pain, Hand Pain, Leg Pain, Foot Pain, Other Skin: negative: Rash, Lesions, Antwan, Bruising, Other - Medications/Allergies Allergies/Adverse Reactions: Allergies Allergy/AdvReac Type Severity Reaction Status Date / Time No Known Drug Allergies Allergy Verified 08/02/17 16:40 Medications: Current Medications Acetaminophen (Tylenol) 650 mg PO Q4H PRN PRN Reason: Headache/Fever or Pain Al Hydroxide/Mg Hydroxide (Maalox) 30 ml PO Q6H PRN PRN Reason: Heartburn or Indigestion Artificial Tears (Tears Naturale) 0 drop EA EYE PRN PRN PRN Reason: Dry Eyes Cyanocobalamin (Vitamin B-12) 1,000 mcg PO DAILY [facility] Last Admin: 08/03/17 08:10 Dose: 1,000 mcg Dextrose/Water (Dextrose 50%) 25 gm SLOW IVP PRN PRN PRN Reason: Hypoglycemia Ferrous Sulfate (Feosol) 325 mg PO QAM-WM [facility] Last Admin: 08/03/17 08:10 Dose: 325 mg Folic Acid (Folvite) 1 mg PO DAILY [facility] Last Admin: 08/03/17 08:11 Dose: 1 mg Furosemide (Lasix) 40 mg SLOW IVP 0600,1400 [facility] Last Admin: 08/03/17 05:41 Dose: 40 mg Glucagon (Glucagon) 1 mg IM PRN PRN PRN Reason: Hypoglycemia Guaifenesin (Robitussin Sf) 200 mg PO Q4H PRN PRN Reason: Cough Dextrose/Water (D5w) 1,000 mls @ 0 mls/hr IV .Q0M PRN; As Directed PRN Reason: Hypoglycemia Insulin Human Lispro (Humalog) 0 units SC .MODERATE SLIDING SC PRN PRN Reason: Moderate Correctional Scale Insulin Human Lispro (Humalog) 0 units SC .BEDTIME SLIDING SC PRN PRN Reason: Bedtime Correctional Scale Iron/Minerals/Multivitamins (Theragran M) 1 tab PO DAILY [facility] Last Admin: 08/03/17 08:12 Dose: 1 tab Lactulose (Lactulose) 20 gm PO TID [facility] Last Admin: 08/03/17 08:10 Dose: 20 gm Magnesium Hydroxide (Milk Of Magnesium) 30 ml PO DAILYPRN PRN PRN Reason: Constipation Magnesium Oxide (Magnesium Oxide) 400 mg PO BID [facility] Last Admin: 08/03/17 08:12 Dose: 400 mg Mineral Oil/White Petrolatum (Eucerin Cream) 0 gm TOP BIDPRN PRN PRN Reason: Dry Skin Ondansetron HCl (Zofran Odt) 4 mg PO Q6H PRN PRN Reason: Nausea/Vomiting Ondansetron HCl (Zofran) 4 mg IVP Q6H PRN PRN Reason: Nausea/Vomiting Phytonadione (Aquamephyton) 10 mg PO DAILY [facility] Stop: 08/05/17 09:00 Last Admin: 08/03/17 08:13 Dose: 10 mg Potassium Chloride (K-Dur) 40 meq PO TID [facility] Last Admin: 08/03/17 08:11 Dose: 40 meq Sodium Chloride (Schuyler Nasal [place] 0.65%) 0 ml EA NARE QIDPRN PRN PRN Reason: Nasal Congestion Spironolactone (Aldactone) 50 mg PO QA-[facility] Last Admin: 08/03/17 08:12 Dose: 50 mg Thiamine HCl (Thiamine) 100 mg PO DAILY [facility] Last Admin: 08/03/17 08:13 Dose: 100 mg
[2017-08-03] MEDS ORDERED: ISOVUE-370 76%-LOCM 1 ML ONE (13:33)
[2017-08-03] MEDS ORDERED: GoLYTELY 4,000 ml Bottle PO SCH (18:00)
[2017-08-03 18:55] LABS: Iron 87 ug/dL (65-175)
--- NOTE | 2017-08-03 23:59 | CON ---
DATE OF CONSULTATION: 08/03/2017 REQUESTING PHYSICIAN: Dr. Delgado. REASON FOR CONSULTATION: Cirrhosis and anemia. HISTORY OF PRESENT ILLNESS: Nitin Ortiz junior is a 42-year-old man with a recent diagnosis of alc oholic cirrhosis, diagnosed several months ago. He has a history of diabetes, depression, and anxie ty, and was diagnosed with cirrhosis on the basis of imaging and characteristic lab abnormalities [facility] in January. At that time, he was advised to quit drinking alcohol. He had been drinking beer quite heavily from morning to night every day, and he was actually able to stop this f or the past 5 months. He has not seen a tile erector. He has never undergone EGD or colonoscopy. I do not see any AFP level. He did have an abdominal ultrasound in January, which showed coarsened li romeo echotexture as well as diminished flow in the main portal vein. He has been on diuretics, Lasix 20 mg, and spironolactone 50 mg daily that he has not been following a low sodium diet. He present ed to the hospital with several weeks of weight gain and an increasing lower extremity edema and abd ominal distention. He gained 40 pounds in the past 2-3 weeks, there has been no other symptoms of a bdominal pain or chest pain, diarrhea, constipation, melena, or hematochezia, no altered mental stat us. He denies any overt bleeding from anywhere. On initial evaluation, hemoglobin was found to be 7.3 and this drifted down to 6.9. Note hemoglobin was in the 10-11 range a few months ago. He has been treated with IV Lasix and given oral vitamin K. He says that his swelling and abdominal disten tion are much improved today from yesterday. We are consulted due to the anemia, and history of cir rhosis. REVIEW OF SYSTEMS: Full review of systems including constitutional, head, eyes, ears, nose, throat, GI, , cardiovascular, respiratory, musculoskeletal, and neurologic systems is negative except as noted in the HPI. PAST MEDICAL HISTORY: 1. Alcoholic cirrhosis, perirectal abscess, status post incision and drainage in 2017. 2. Diabetes. 3. Depression/anxiety. ALLERGIES: No known drug allergies. INPATIENT MEDICATIONS: Vitamin B12, ferrous sulfate once daily, folic acid, Lasix 40 mg IV q.12 janet rs, sliding scale insulin, multivitamin, lactulose 20 mg t.i.d., magnesium oxide 400 mg b.i.d., andres min K 10 mg daily, thiamine, Aldactone 50 mg daily. SOCIAL HISTORY: The patient quit drinking alcohol 5 months ago. Prior to that alcohol abuse was quite heavy. No smoking, no drug use. FAMILY HISTORY: Negative for liver disease. Negative for gastrointestinal illness or malignancy. PHYSICAL EXAMINATION: VITAL SIGNS: Temperature 98.7, pulse 89, blood pressure 129/71, and 98% oxygen saturation on room a ir. GENERAL: No acute distress. HEART: Regular rate and rhythm. LUNGS: Clear to auscultation bilaterally. ABDOMEN: Mild distention, but soft and nontender to palpation. No fluid wave. EXTREMITIES: 2+ bilateral lower extremity edema. The patient says is much improved from yesterday. SKIN: No jaundice, no rashes were palpable. EYES: No scleral icterus. Extraocular movements are intact. ENT: Mucous membranes moist, no oral lesions. LYMPH: No submandibular, supraclavicular lymphadenopathy. THYROID: Nontender to palpation. LABORATORY STUDIES: Hemoglobin initially 7.3, drifted down to 6.9 today. MCV elevated to 102. WBC 5.6, platelets low 105. Sodium initially 117, now 126. Potassium is 3.4, BUN 7, creatinine 0.76. INR 2.3, ammonia only 53, total bilirubin 1.8, alkaline phosphatase 127, AST 47, ALT 17, albumin 1. 9. BNP 137.1. Urinalysis negative. Alcohol level is undetectable. Back in 05/2016 viral hepatiti s serologies were negative for hepatitis B and C. IMAGING STUDIES: In 01/2017, abdominal ultrasound showed coarse liver echotexture and diminished fl ow in the main portal vein. Limited ultrasound from earlier today demonstrated some small amount of fluid in the left abdomen, but no significant ascites and so paracenteses was not performed. ASSESSMENT AND PLAN: 1. Alcoholic cirrhosis. 2. Anasarca, improving today with IV diuresis. 3. Coagulopathy, secondary to cirrhosis. 4. Macrocytic anemia, worsening over the past few months, with no evidence of overt gastrointestina l bleeding. I had a long discussion with the patient about what does indeed appear to be alcohol ci rrhosis. It does not appear he has had any real improvement in liver synthetic function, and it jackson s appear he has evidence of portal hypertension, despite having quit alcohol over the past 5 months. I discussed the importance of a low sodium diet with the patient, he needs to be getting less than 2000 mg of sodium per day. Diuretics will probably need to be adjusted upward on hospital discharg e. I would use Lasix and spironolactone at a ratio of 20-50. He does seem to be responding well to IV diuretics at this point. Regarding other potential issues with cirrhosis, he does not appear to have any signs or symptoms of hepatic encephalopathy. The lactulose is giving him diarrhea and I am not really sure that the lac tulose is necessary. He needs a baseline CT scan of the abdomen for HCC screening as well as an AFP level. I will go ahe ad and order this. Regarding the anemia, this is macrocytic, but with quite significant recent decline. Occult GI blee ding is certainly a possibility. He needs an EGD at any rate to screen for esophageal varices. We will plan to perform EGD and colonoscopy this admission. We will administer bowel preparation tonig ht and plan for the procedure tomorrow. Thank you for the consultation. Please call with questions or concerns.
--- NOTE | 2017-08-04 00:29 | CT ---
CT OF THE ABDOMEN WITH CONTRAST 08/03/17 COMPARISON: None. HISTORY: Cirrhosis with ascites. TECHNIQUE: Multiple contiguous axial images were obtained in a CT of the abdomen with contrast. PO contrast was administered. Coronal reformats were performed. FINDINGS: There are calcified gallstones in the gallbladder. The liver is nodular and cirrhotic. The spleen is normal in size. There is a recanalized paraumbilical vein. Minimal retroperitoneal varices are seen . The kidneys, adrenal glands, and pancreas are unremarkable. No focal liver lesions are seen. The por suman vein appears patent without focal abnormality. Atherosclerotic calcifications are seen in the ao rta. Degenerative changes are seen in the spine. The visualized inferior thorax is unremarkable. IMPRESSION: 1. Cholelithiasis. 2. Cirrhosis with mild sequela of portal hypertension. 3. No suspicious liver mass is identified. POS: [facility]
[2017-08-04 05:01] LABS: ALT (SGPT) 17 U/L (8-55); AST (SGOT) 41 U/L (5-34); Alkaline Phosphatase 103 U/L (40-150); Anion Gap 7 mmol/L (10-20); BUN (Urea Nitrogen) 7 mg/dL (8.9-20.6); Bilirubin, Total 1.7 mg/dL (0.2-1.2); Calc. Creatinine Clearance 163 mL/min (70-130); Calcium 8.6 mg/dL (7.8-10.44); Carbon Dioxide 28 mmol/L (22-29); Chloride 100 mmol/L (98-107); Estimated GFR-MDRD Greater than 90; Globulin 4.3 g/dL (2.4-3.5); Phosphorus 3.2 mg/dL (2.3-4.7); Protein, Total 6.2 g/dL (6.0-8.3)
[2017-08-04 05:21] LABS: Hematocrit 22.5 % (42.0-52.0); Hypochromia SLIGHT = 6-15 cells (100X) (0-5/hpf); Mean Platelet Volume 7.1 fL (7.4-10.4); Neutrophil 61 % (42-75); Red Blood Cell (RBC) Count 2.17 mill/uL (4.70-6.10); Target Cells SLIGHT = 2-5 cells (100X) (0-1/hpf); White Blood Cell (WBC) Count 5.5 thou/uL (4.8-10.8)
[2017-08-04] MEDS: Furosemide 40 MG/4 ML VIAL SLOW IVP SCH ×2 (06:08→14:52)
[2017-08-04] MEDS: Spironolactone 100 MG TAB PO SCH (08:38)
[2017-08-04] MEDS: Ferrous Sulfate 325 MG TAB PO SCH (08:40)
[2017-08-04] MEDS: Cyanocobalamin (Vitamin B-12) 1,000 MCG TAB PO SCH (08:41)
[2017-08-04] MEDS: Magnesium Oxide 400 MG TAB PO SCH ×2 (08:42→20:52)
[2017-08-04] MEDS: Folic Acid 1 MG TAB PO SCH (08:42)
[2017-08-04] MEDS: Multivitamin W/ Minerals 1 TAB PO SCH (08:42)
[2017-08-04] MEDS: Phytonadione 10 MG/ML AMP PO SCH (08:42)
[2017-08-04] MEDS: Potassium Chloride 20 MEQ TAB PO SCH ×3 (08:44→20:51)
[2017-08-04] MEDS ORDERED: Magnesium Sulfate 4 GM in Sodium Chloride 0.9% 250 ML 250 ML IVPB SCH (09:45)
--- NOTE | 2017-08-04 10:45 | PDOC.PN ---
- Subjective Encounter Start Date: 08/04/17 Encounter Start Time: 08:55 Patient seen and examined. No new complaints. No overnight events - Objective Resuscitation Status: Resuscitation Status FULL:Full Resuscitation MAR Reviewed: Yes Vital Signs & Weight: Vital Signs (12 hours) Temp Pulse Resp BP BP Pulse Ox 08/04/17 08:00 98.1 F 99 18 141/74 H 98 08/04/17 05:12 98.4 F 96 18 118/64 95 08/04/17 00:26 97.7 F 91 20 159/74 H 96 Weight Weight 226 lb 6.636 oz I&O: 08/03/17 08/04/17 08/05/17 06:59 06:59 06:59 Intake Total 1450 Balance 1450 Result Diagrams: 08/04/17 04:20 08/04/17 04:20 Additional Labs: Accuchecks 08/04/17 08/03/17 08/03/17 05:14 19:46 17:41 POC Glucose 105 131 H 133 H 08/03/17 12:05 POC Glucose 172 H Phys Exam - Physical Examination Constitutional: NAD HEENT: PERRLA, moist MMs, sclera anicteric Neck: no JVD, supple Respiratory: no wheezing, no rales, no rhonchi Cardiovascular: RRR, no significant murmur, no rub Gastrointestinal: soft, non-tender, no distention, positive bowel sounds Musculoskeletal: pulses present, edema present Neurological: non-focal, normal sensation, moves all 4 limbs Psychiatric: normal affect, A&O x 3 Skin: no rash, normal turgor Dx/Plan (1) Anasarca Code(s): R60.1 - GENERALIZED EDEMA Status: Acute (2) Hyperammonemia Code(s): E72.20 - DISORDER OF UREA CYCLE METABOLISM, UNSPECIFIED Status: Resolved (3) Hypokalemia Code(s): E87.6 - HYPOKALEMIA Status: Resolved (4) Hypomagnesemia Code(s): E83.42 - HYPOMAGNESEMIA Status: Acute (5) Hyponatremia Code(s): E87.1 - HYPO-OSMOLALITY AND HYPONATREMIA Status: Resolved (6) Alcoholic cirrhosis of liver with ascites Code(s): K70.31 - ALCOHOLIC CIRRHOSIS OF LIVER WITH ASCITES Status: Chronic (7) Alcoholic liver disease Code(s): K70.9 - ALCOHOLIC LIVER DISEASE, UNSPECIFIED Status: Chronic (8) Alcoholism Code(s): F10.20 - ALCOHOL DEPENDENCE, UNCOMPLICATED Status: Chronic (9) Coagulopathy Status: Chronic (10) DM2 (diabetes mellitus, type 2) Status: Chronic (11) Diabetes type 2, controlled Code(s): E11.9 - TYPE 2 DIABETES MELLITUS WITHOUT COMPLICATIONS Status: Chronic (12) Macrocytic anemia Code(s): D53.9 - NUTRITIONAL ANEMIA, UNSPECIFIED Status: Chronic (13) Obesity (BMI 30-39.9) Code(s): E66.9 - OBESITY, UNSPECIFIED Status: Chronic (14) Thrombocytopenia Code(s): D69.6 - THROMBOCYTOPENIA, UNSPECIFIED Status: Chronic - Plan cont current plan of care, plan discussed w/ family * today plan for EGD and colonoscopy * continue diuresis * replace magnesium * medication reviewed as below * symptomatic treatment * will consider discharge tomorrow. Review of Systems - Review of Systems ENT: negative: Ear Pain, Ear Discharge, Nose Pain, Nose Discharge, Nose Congestion, Mouth Pain, Mouth Swelling, Throat Pain, Throat Swelling, Other Respiratory: negative: Cough, Dry, Shortness of Breath, Hemoptysis, SOB with Excertion, Pleuritic Pain, Sputum, Wheezing Cardiovascular: Edema. negative: Chest Pain, Palpitations, Orthopnea, Paroxysmal Noc. Dyspnea, Light Headedness, Other Gastrointestinal: negative: Nausea, Vomiting, Abdominal Pain, Diarrhea, Constipation, Melena, Hematochezia, Other Genitourinary: negative: Dysuria, Frequency, Incontinence, Hematuria, Retention , Other Musculoskeletal: negative: Neck Pain, Shoulder Pain, Arm Pain, Back Pain, Hand Pain, Leg Pain, Foot Pain, Other Skin: negative: Rash, Lesions, Antwan, Bruising, Other - Medications/Allergies Allergies/Adverse Reactions: Allergies Allergy/AdvReac Type Severity Reaction Status Date / Time No Known Drug Allergies Allergy Verified 08/02/17 16:40 Medications: Current Medications Acetaminophen (Tylenol) 650 mg PO Q4H PRN PRN Reason: Headache/Fever or Pain Al Hydroxide/Mg Hydroxide (Maalox) 30 ml PO Q6H PRN PRN Reason: Heartburn or Indigestion Artificial Tears (Tears Naturale) 0 drop EA EYE PRN PRN PRN Reason: Dry Eyes Cyanocobalamin (Vitamin B-12) 1,000 mcg PO DAILY [facility] Last Admin: 08/04/17 08:41 Dose: Not Given Dextrose/Water (Dextrose 50%) 25 gm SLOW IVP PRN PRN PRN Reason: Hypoglycemia Ferrous Sulfate (Feosol) 325 mg PO QAM-WM [facility] Last Admin: 08/04/17 08:40 Dose: Not Given Folic Acid (Folvite) 1 mg PO DAILY [facility] Last Admin: 08/04/17 08:42 Dose: Not Given Furosemide (Lasix) 40 mg SLOW IVP 0600,1400 [facility] Last Admin: 08/04/17 06:08 Dose: Not Given Glucagon (Glucagon) 1 mg IM PRN PRN PRN Reason: Hypoglycemia Guaifenesin (Robitussin Sf) 200 mg PO Q4H PRN PRN Reason: Cough Dextrose/Water (D5w) 1,000 mls @ 0 mls/hr IV .Q0M PRN; As Directed PRN Reason: Hypoglycemia Magnesium Sulfate 4 gm/ Sodium (Chloride) 258 mls @ 86 mls/hr IVPB 0945 [facility] Stop: 08/04/17 12:44 Insulin Human Lispro (Humalog) 0 units SC .MODERATE SLIDING SC PRN PRN Reason: Moderate Correctional Scale Last Admin: 08/03/17 14:03 Dose: 2 unit Insulin Human Lispro (Humalog) 0 units SC .BEDTIME SLIDING SC PRN PRN Reason: Bedtime Correctional Scale Iron/Minerals/Multivitamins (Theragran M) 1 tab PO DAILY [facility] Last Admin: 08/04/17 08:42 Dose: Not Given Lactulose (Lactulose) 20 gm PO TID [facility] Last Admin: 08/04/17 08:42 Dose: Not Given Magnesium Hydroxide (Milk Of Magnesium) 30 ml PO DAILYPRN PRN PRN Reason: Constipation Magnesium Oxide (Magnesium Oxide) 400 mg PO BID [facility] Last Admin: 08/04/17 08:42 Dose: Not Given Mineral Oil/White Petrolatum (Eucerin Cream) 0 gm TOP BIDPRN PRN PRN Reason: Dry Skin Ondansetron HCl (Zofran Odt) 4 mg PO Q6H PRN PRN Reason: Nausea/Vomiting Ondansetron HCl (Zofran) 4 mg IVP Q6H PRN PRN Reason: Nausea/Vomiting Phytonadione (Aquamephyton) 10 mg PO DAILY [facility] Stop: 08/05/17 09:00 Last Admin: 08/04/17 08:42 Dose: Not Given Potassium Chloride (K-Dur) 40 meq PO TID [facility] Last Admin: 08/04/17 08:44 Dose: Not Given Sodium Chloride ([place] Nasal [place] 0.65%) 0 ml EA NARE QIDPRN PRN PRN Reason: Nasal Congestion Spironolactone (Aldactone) 50 mg PO QA-[facility] Last Admin: 08/04/17 08:38 Dose: 50 mg Thiamine HCl (Thiamine) 100 mg PO DAILY [facility] Last Admin: 08/04/17 08:44 Dose: Not Given
[2017-08-04] MEDS ORDERED: Propofol 200 MG/20 ML VIAL ONE (15:44)
--- NOTE | 2017-08-04 20:54 | OP ---
DATE OF PROCEDURE: 08/04/2017 PROCEDURE: Esophagogastroduodenoscopy and colonoscopy. PREOPERATIVE DIAGNOSIS: Severe anemia and cirrhosis. PROCEDURE IN DETAIL: Informed consent was obtained from the patient. He was sedated with total int ravenous anesthesia. The bite block was placed and the endoscope was advanced easily to the second portion of the duodenum and retroflexion was performed in the stomach. The esophagus had one column of grade II small varices and 2 columns grade I small varices. The GE junction was normal. There was a cluster of varices in the gastric fundus without stigmata of recent bleeding. The stomach was otherwise normal. The pylorus and first and second portions of the duodenum were normal. The sandra ent was turned around. Rectal exam was performed and was normal. The colonoscope was advanced to t he terminal ileum without difficulty. The mucosa of the terminal ileum was normal. The ileocecal v alve and appendiceal orifice were clearly identified. The preparation quality was good. The coloni c mucosa was normal throughout. Retroflexed views in the rectum were normal. IMPRESSION: 1. Single column of grade II small varix and two small grade I varices. 2. Cluster of varices in the gastric fundus without stigmata of recent bleeding. 3. Otherwise normal esophagogastroduodenoscopy. 4. Normal colonoscopy. RECOMMENDATIONS: 1. Start propranolol 10 mg 3 times a day. 2. Low salt diet. 3. Dr. Lin will be back tomorrow.
[2017-08-05 05:50] LABS: Anion Gap 10 mmol/L (10-20); BUN (Urea Nitrogen) 7 mg/dL (8.9-20.6); Calc. Creatinine Clearance 157 mL/min (70-130); Calcium 8.8 mg/dL (7.8-10.44); Carbon Dioxide 26 mmol/L (22-29); Chloride 101 mmol/L (98-107); Estimated GFR-MDRD Greater than 90; Magnesium 1.3 mg/dL (1.6-2.6)
[2017-08-05] MEDS: Furosemide 40 MG/4 ML VIAL SLOW IVP SCH ×2 (06:13→13:32)
[2017-08-05] MEDS ORDERED: Magnesium Sulfate 4 GM, Admixture Fee 1 EACH in Sodium Chloride 0.9% 250 ML 250 ML IVPB SCH (07:45)
[2017-08-05] MEDS ORDERED: Potassium Chloride 20 MEQ TAB PO SCH (08:00)
[2017-08-05] MEDS: Ferrous Sulfate 325 MG TAB PO SCH (09:40)
[2017-08-05] MEDS: Magnesium Oxide 400 MG TAB PO SCH (09:41)
[2017-08-05] MEDS: Cyanocobalamin (Vitamin B-12) 1,000 MCG TAB PO SCH (09:41)
[2017-08-05] MEDS: Multivitamin W/ Minerals 1 TAB PO SCH (09:41)
[2017-08-05] MEDS: Folic Acid 1 MG TAB PO SCH (09:41)
[2017-08-05] MEDS: Spironolactone 100 MG TAB PO SCH (09:42)
[2017-08-05] MEDS: Phytonadione 10 MG/ML AMP PO SCH (09:45)
--- NOTE | 2017-08-05 11:48 | PDOC.PN ---
- Subjective Encounter Start Date: 08/05/17 Encounter Start Time: 09:35 Patient seen and examined. No new complaints. No overnight events - Objective Resuscitation Status: Resuscitation Status FULL:Full Resuscitation MAR Reviewed: Yes Vital Signs & Weight: Vital Signs (12 hours) Temp Pulse Resp BP Pulse Ox 08/05/17 08:00 97.2 F L 71 16 08/05/17 07:43 97.2 F L 71 16 121/75 97 08/05/17 04:00 98.5 F 76 18 143/79 H 97 08/05/17 00:00 98.2 F 79 18 123/73 97 Weight Weight 212 lb 1 oz I&O: 08/04/17 08/05/17 08/06/17 06:59 06:59 06:59 Intake Total 1450 1500 240 Balance 1450 1500 240 Result Diagrams: 08/04/17 04:20 08/05/17 04:35 Additional Labs: Accuchecks 08/05/17 08/04/17 08/04/17 04:30 19:40 17:11 POC Glucose 102 156 H 105 08/04/17 11:42 POC Glucose 109 Phys Exam - Physical Examination Constitutional: NAD HEENT: PERRLA, moist MMs, sclera anicteric Neck: no JVD, supple Respiratory: no wheezing, no rales, no rhonchi Cardiovascular: RRR, no significant murmur, no rub Gastrointestinal: soft, non-tender, no distention, positive bowel sounds Musculoskeletal: no edema, pulses present Neurological: non-focal, normal sensation, moves all 4 limbs Psychiatric: normal affect, A&O x 3 Skin: no rash, normal turgor Dx/Plan (1) Anasarca Code(s): R60.1 - GENERALIZED EDEMA Status: Acute (2) Hyperammonemia Code(s): E72.20 - DISORDER OF UREA CYCLE METABOLISM, UNSPECIFIED Status: Resolved (3) Hypokalemia Code(s): E87.6 - HYPOKALEMIA Status: Resolved (4) Hypomagnesemia Code(s): E83.42 - HYPOMAGNESEMIA Status: Acute (5) Hyponatremia Code(s): E87.1 - HYPO-OSMOLALITY AND HYPONATREMIA Status: Resolved (6) Alcoholic cirrhosis of liver with ascites Code(s): K70.31 - ALCOHOLIC CIRRHOSIS OF LIVER WITH ASCITES Status: Chronic (7) Alcoholic liver disease Code(s): K70.9 - ALCOHOLIC LIVER DISEASE, UNSPECIFIED Status: Chronic (8) Alcoholism Code(s): F10.20 - ALCOHOL DEPENDENCE, UNCOMPLICATED Status: Chronic (9) Coagulopathy Status: Chronic (10) DM2 (diabetes mellitus, type 2) Status: Chronic (11) Diabetes type 2, controlled Code(s): E11.9 - TYPE 2 DIABETES MELLITUS WITHOUT COMPLICATIONS Status: Chronic (12) Macrocytic anemia Code(s): D53.9 - NUTRITIONAL ANEMIA, UNSPECIFIED Status: Chronic (13) Obesity (BMI 30-39.9) Code(s): E66.9 - OBESITY, UNSPECIFIED Status: Chronic (14) Thrombocytopenia Code(s): D69.6 - THROMBOCYTOPENIA, UNSPECIFIED Status: Chronic - Plan cont current plan of care * medication reviewed as below * symptomatic treatment * see discharge marine. Review of Systems - Review of Systems ENT: negative: Ear Pain, Ear Discharge, Nose Pain, Nose Discharge, Nose Congestion, Mouth Pain, Mouth Swelling, Throat Pain, Throat Swelling, Other Respiratory: negative: Cough, Dry, Shortness of Breath, Hemoptysis, SOB with Excertion, Pleuritic Pain, Sputum, Wheezing Cardiovascular: negative: Chest Pain, Palpitations, Orthopnea, Paroxysmal Noc. Dyspnea, Edema, Light Headedness, Other Gastrointestinal: negative: Nausea, Vomiting, Abdominal Pain, Diarrhea, Constipation, Melena, Hematochezia, Other Genitourinary: negative: Dysuria, Frequency, Incontinence, Hematuria, Retention , Other Musculoskeletal: negative: Neck Pain, Shoulder Pain, Arm Pain, Back Pain, Hand Pain, Leg Pain, Foot Pain, Other - Medications/Allergies Allergies/Adverse Reactions: Allergies Allergy/AdvReac Type Severity Reaction Status Date / Time No Known Drug Allergies Allergy Verified 08/02/17 16:40 Medications: Current Medications Acetaminophen (Tylenol) 650 mg PO Q4H PRN PRN Reason: Headache/Fever or Pain Al Hydroxide/Mg Hydroxide (Maalox) 30 ml PO Q6H PRN PRN Reason: Heartburn or Indigestion Artificial Tears (Tears Naturale) 0 drop EA EYE PRN PRN PRN Reason: Dry Eyes Cyanocobalamin (Vitamin B-12) 1,000 mcg PO DAILY [facility] Last Admin: 08/05/17 09:41 Dose: 1,000 mcg Dextrose/Water (Dextrose 50%) 25 gm SLOW IVP PRN PRN PRN Reason: Hypoglycemia Ferrous Sulfate (Feosol) 325 mg PO QAM-[facility] Last Admin: 08/05/17 09:40 Dose: 325 mg Folic Acid (Folvite) 1 mg PO DAILY [facility] Last Admin: 08/05/17 09:41 Dose: 1 mg Furosemide (Lasix) 40 mg SLOW IVP 0600,1400 [facility] Last Admin: 08/05/17 06:13 Dose: 40 mg Glucagon (Glucagon) 1 mg IM PRN PRN PRN Reason: Hypoglycemia Guaifenesin (Robitussin Sf) 200 mg PO Q4H PRN PRN Reason: Cough Dextrose/Water (D5w) 1,000 mls @ 0 mls/hr IV .Q0M PRN; As Directed PRN Reason: Hypoglycemia Insulin Human Lispro (Humalog) 0 units SC .MODERATE SLIDING SC PRN PRN Reason: Moderate Correctional Scale Last Admin: 08/03/17 14:03 Dose: 2 unit Insulin Human Lispro (Humalog) 0 units SC .BEDTIME SLIDING SC PRN PRN Reason: Bedtime Correctional Scale Iron/Minerals/Multivitamins (Theragran M) 1 tab PO DAILY [facility] Last Admin: 08/05/17 09:41 Dose: 1 tab Lactulose (Lactulose) 20 gm PO TID [facility] Last Admin: 08/05/17 09:41 Dose: 20 gm Magnesium Hydroxide (Milk Of Magnesium) 30 ml PO DAILYPRN PRN PRN Reason: Constipation Magnesium Oxide (Magnesium Oxide) 400 mg PO BID [facility] Last Admin: 08/05/17 09:41 Dose: 400 mg Mineral Oil/White Petrolatum (Eucerin Cream) 0 gm TOP BIDPRN PRN PRN Reason: Dry Skin Ondansetron HCl (Zofran Odt) 4 mg PO Q6H PRN PRN Reason: Nausea/Vomiting Ondansetron HCl (Zofran) 4 mg IVP Q6H PRN PRN Reason: Nausea/Vomiting Potassium Chloride (K-Dur) 40 meq PO QAM-[facility] Last Admin: 08/05/17 09:40 Dose: 40 meq Propranolol HCl (Inderal) 10 mg PO Q8H [facility] Last Admin: 08/05/17 09:44 Dose: 10 mg Sodium Chloride ([place] Nasal [place] 0.65%) 0 ml EA NARE QIDPRN PRN PRN Reason: Nasal Congestion Sodium Chloride (Flush - Normal Saline) 10 ml IVF Q12HR [facility] Last Admin: 08/05/17 09:53 Dose: 10 ml Sodium Chloride (Flush - Normal Saline) 10 ml IVF PRN PRN PRN Reason: Saline Flush Spironolactone (Aldactone) 50 mg PO QAM-WM [facility] Last Admin: 08/05/17 09:42 Dose: 50 mg Thiamine HCl (Thiamine) 100 mg PO DAILY [facility] Last Admin: 08/05/17 09:41 Dose: 100 mg
--- NOTE | 2017-08-05 13:45 | DIS ---
DATE OF ADMISSION: 08/02/2017 DATE OF DISCHARGE: 08/05/2017 PRIMARY CARE PHYSICIAN: [facility]. DISCHARGE DISPOSITION: Home. PRIMARY DISCHARGE DIAGNOSES: 1. Anasarca due to cirrhosis of liver. 2. Hypomagnesemia. 3. Hypokalemia, hyponatremia, hyperammonemia. 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 PRIMARY PROCEDURE/OPERATION: The patient had upper endoscopy which showed esophageal varices. Lower endoscopy was normal. RADIOLOGICAL INVESTIGATION: Abdomen ultrasound and CT abdomen and pelvis was consistent with cirrhosis of liver with ascites. SIGNIFICANT LABORATORY DATA: WBC 5.5, hemoglobin 7.7, platelet 104, INR 2.3, sodium 132, potassium 4.5, BUN 7, creatinine 0.88, calcium 8.8, magnesium 1.3, AST 47, ALT 17, alkaline phosphatase 127, BNP 137.1, ferritin 717.86. Tumor marker 33.9. Urinalysis unremarkable. Alcohol level less than 10. ANDREWS negative. DISCHARGE MEDICATIONS: Vitamin B12 1000 mcg p.o. daily, ferrous sulfate 325 mg p.o. daily, folic acid 1 mg p.o. daily, Lasix 40 mg p.o. daily, lactulose 20 grams p.o. t.i.d., magnesium oxide 400 mg p.o. b.i.d., multivitamin 1 tablet p.o. daily, potassium chloride 20 mEq p.o. daily, Inderal 10 mg p.o. q.8 hourly , Onglyza 2.5 mg p.o. daily, Aldactone 100 mg p.o. daily, thiamine 100 mg p.o. daily. CONTRAINDICATIONS: None. CODE STATUS: FULL CODE. INPATIENT GLASS ENGRAVER: Dr. Christina was consulted while in the hospital and he did upper and lower endoscopy. TEST RESULTS PENDING ON DISCHARGE: None. ALLERGIES: No known drug allergy. DISCHARGE PLAN: Post hospital, the patient will follow up with Dr. Lin and primary care physician. The patient is given instruction about diet as well as fluid restriction 1000 mL per day. HOSPITAL COURSE: A 42-year-old male who has previous history of alcoholism and chronic alcoholic liver disease, which gradually converted to alcoholic cirrhosis of liver. At this time, the patient came to emergency room with abdominal distention and increasing bilateral lower extremity edema. Patient was found with anasarca. He was having ascites. This patient was also having very low dilutional hyponatremia with sodium 117. We admitted him to medical floor. We treated him with aggressive diuresis. With diuresis, his sodium improved to 132. By the time of discharge, his potassium was replaced with potassium supplementation. His magnesium was also replaced with IV as well as oral magnesium supplementation while in hospital. This patient has a hemoglobin low while in hospital 6.9 and he was given 1 unit of blood transfusion. Because of anemia and cirrhosis history, we consulted GI and they did upper and lower endoscopy and patient was found with varices. After that we started Inderal therapy. Lower endoscopy and colonoscopy was normal. While in hospital, the patient had significant good diuretic response, now his ascites completely resolved. He did not require any paracentesis. His edema is significantly improved. We discussed with the patient about salt restriction and fluid restriction. At this point, I strongly advised this patient to follow up with the GI periodically for monitoring of cirrhosis. The patient is seen and examined at bedside today. Please see my progress note from today for further details. All new medication prescriptions given to him. Total time spent on discharge day 31 minutes. MTDD
[2017-08-05 14:06] VITALS: BP 132/76; TEMP 98.8
== END 2017-08-05 15:12 | disposition home or self-care (01) | DRG 433 ==
LOC: ERS 13:05 → T4-B 14:49
PROVIDERS: ADMIT Internal Medicine; ATTEND Internal Medicine
PROC: 30233N1 Transfusion of Nonautologous Red Blood Cells into Peripheral Vein, Percutaneous Approach (ICD-10-PCS; 2017-08-03)
PROC: 0DJ08ZZ Inspection of Upper Intestinal Tract, Via Natural or Artificial Opening Endoscopic (ICD-10-PCS; principal; 2017-08-04)
PROC: 0DJD8ZZ Inspection of Lower Intestinal Tract, Via Natural or Artificial Opening Endoscopic (ICD-10-PCS; 2017-08-04)
DX: K70.31 Alcoholic cirrhosis of liver with ascites (principal); E87.1 Hypo-osmolality and hyponatremia; D68.4 Acquired coagulation factor deficiency; E72.20 Disorder of urea cycle metabolism, unspecified; K76.6 Portal hypertension; E11.8 Type 2 diabetes mellitus with unspecified complications; I85.10 Secondary esophageal varices without bleeding; D69.6 Thrombocytopenia, unspecified; E83.42 Hypomagnesemia; E87.6 Hypokalemia; F10.20 Alcohol dependence, uncomplicated; E88.09 Other disorders of plasma-protein metabolism, not elsewhere classified; F41.9 Anxiety disorder, unspecified; F32.9 Major depressive disorder, single episode, unspecified; E66.9 Obesity, unspecified; Z68.32 Body mass index [BMI] 32.0-32.9, adult; D53.9 Nutritional anemia, unspecified; I86.4 Gastric varices
CPT/HCPCS: 36415; 36416; 36430; 74160; 76705; 80048; 80053; 80307; 81003; 81015; 82105; 82140; 82390; 82728; 83516; 83540; 83550; 83735; 83880; 84100; 85025; 85610; 85730; 86038; 86850; 86900; 86901; 93005; 96365; A4216; J1940; J2704; J3430; J3475; J7050; P9016

== ENCOUNTER 2017-09-28 14:49 | Inpatient (IN) | payer SELFPAY ==
[2017-09-28] MEDS ORDERED: Ibuprofen 800 MG TAB ONE (15:45)
--- NOTE | 2017-09-28 16:29 | RAD ---
SINGLE VIEW CHEST: Date: 09/28/17 COMPARISON: None. HISTORY: Right foot infection after stepping on a screw 2 weeks ago. Chest pain. FINDINGS: Single view of the chest shows an enlarged cardiomediastinal silhouette. There is no evidence of cons olidation, mass, or pleural effusion. IMPRESSION: Cardiomegaly. POS: NANI
--- NOTE | 2017-09-28 16:30 | RAD ---
3 VIEWS RIGHT FOOT: Date: 09/28/17 COMPARISON: 06/25/14. HISTORY: Right foot pain after stepping on a screw 2 weeks ago. Right foot infection. FINDINGS: Three views of the right foot show moderate diffuse soft tissue swelling. Diabetic vascular calcifica tions are seen. No osseous erosions are seen. No radiopaque foreign body is present. IMPRESSION: No evidence of radiopaque foreign body or significant osseous erosions. POS: KANDY
[2017-09-28 17:00] LABS: #Lymphocytes 1.1 thou/uL (1.20-3.40); #Monocytes 1.4 thou/uL (0.11-0.59); #Neutrophils 6.8 thou/uL (1.40-6.50); %Basophils 0.1 % (0.0-1.0); %Eosinophils 0.5 % (0.0-10.0); %Monocytes 14.7 % (0.0-10.0); Hematocrit 21.5 % (42.0-52.0); Mean Platelet Volume 7.9 fL (7.4-10.4); Red Blood Cell (RBC) Count 2.03 mill/uL (4.70-6.10); White Blood Cell (WBC) Count 9.3 thou/uL (4.8-10.8)
[2017-09-28 17:24] LABS: Macrocytosis SLIGHT = 6-15 cells (100X) (0-5/hpf); Polychromasia SLIGHT = 2-3 cells (100X) (0-2/hpf); Target Cells SLIGHT = 2-5 cells (100X) (0-1/hpf)
[2017-09-28 17:27] LABS: ALT (SGPT) 11 U/L (8-55); AST (SGOT) 22 U/L (5-34); Alkaline Phosphatase 116 U/L (40-150); Anion Gap 12 mmol/L (10-20); BUN (Urea Nitrogen) 21 mg/dL (8.9-20.6); Bilirubin, Total 1.5 mg/dL (0.2-1.2); CK (CPK) 111 U/L (30-200); Calc. Creatinine Clearance 0 mL/min (70-130); Calcium 8.2 mg/dL (7.8-10.44); Carbon Dioxide 19 mmol/L (22-29); Chloride 97 mmol/L (98-107); Estimated GFR-MDRD 45; Globulin 4.5 g/dL (2.4-3.5); Protein, Total 6.6 g/dL (6.0-8.3)
[2017-09-28] MEDS ORDERED: Piperacillin/Tazobactam 4.5 GM in Sodium Chloride 0.9% 100 ML IVPB SCH (17:45)
[2017-09-28] MEDS ORDERED: Dextrose 5% in Water 1,000 ML IV PRN (19:27)
[2017-09-28] MEDS ORDERED: Dextrose 50% Abboject 50 ML SYRINGE SLOW IVP PRN (19:27)
[2017-09-28] MEDS ORDERED: Clindamycin/D5W 300 MG/50 ML BAG IVPB SCH (19:29)
[2017-09-28] MEDS: Clindamycin/D5W 300 MG in Premix Bag 1 BAG IVPB SCH (21:37)
[2017-09-28 22:01] VITALS: BMI 33.7
--- NOTE | 2017-09-28 22:31 | CON ---
DATE OF CONSULTATION: 09/28/2017 HISTORY OF PRESENT ILLNESS: This is a 42-year-old with alcoholic cirrhosis who also has diabetes alex litus followed by the [facility]. He evidently stepped on a screw with his right foot danita r the fifth metatarsal head about 2 weeks ago and he though this healed up. He was seen at the [facility] yesterday for a medicine refill and evidently nothing was addressed in regards to hi s foot, but he presented here due to a worsening appearance of his foot with no fever. He reports so me chills, but once again, no fever and states he is very anxious and may have just been shaking. He was admitted by the hospitalist service following evaluation in the emergency room. His white count on admission was normal and his hemoglobin was depressed at 7.2 with a platelet count of 95,000. Fo ot x-ray showed no gas in the subcutaneous tissues. PAST MEDICAL HISTORY: As noted includes alcoholic cirrhosis, although the patient has abstained from alcohol use for the past 6 months according to his spouse. He was admitted recently for ascites and hypokalemia and began on spironolactone as well as vitamin supplements. PAST SURGICAL HISTORY: Includes a left perirectal abscess I&D about 1 year ago per the patient. SOCIAL HISTORY: He is , nonsmoker and nondrinker. ALLERGIES: None known. CURRENT MEDICATIONS: Includes spironolactone 100 mg a day. He was Onglyza 2.5 a day and aspirin 81 a day; however, he ran out of Onglyza and was started on metformin by the [facility] yeste rday. PHYSICAL EXAMINATION: GENERAL: He is an alert and cooperative gentleman. VITAL SIGNS: Afebrile. Blood pressure 140/80 and heart rate 80. NECK: No carotid bruits, no JVD. LUNGS: Clear to auscultation. CARDIAC: Regular rate and rhythm and he does have a holosystolic murmur at the left lower sternal ivanna rder. ABDOMEN: Obese and nontender. No palpable liver. EXTREMITIES: He has palpable femoral, popliteal and dorsalis pedis pulses bilateral. He has swellin g of his right foot with no tenderness over the dorsum of his foot. There is erythema at the dorsal area adjacent to the toes. He has some purple discoloration of the fifth toe with a slight skin da kdown between the toes. He has no significant swelling over the plantar aspect of his foot and no te nderness or erythema. ASSESSMENT PLAN: At this time, the patient is to be admitted for IV antibiotics and will be reassess ed tomorrow to determine whether any surgical intervention is needed.
--- NOTE | 2017-09-28 23:23 | HP ---
DATE OF ADMISSION: 09/28/2017 PRIMARY CARE PHYSICIAN: [facility]. CHIEF COMPLAINT: Injury to right foot. HISTORY OF PRESENT ILLNESS: The patient is a 42-year-old diabetic who presents to the emergency depa rtment complaining of right foot infection. The patient reportedly stepped on a screw approximately 2 weeks ago. The patient was seen and assessed at another facility and has been on Levaquin and clin damycin since yesterday, he has taken a total of 2 doses. He reports that his foot is more swollen a nd he does have pus, oozing from the site. The patient reports that his capillary blood glucose was 198 today. He also reports that he has a history of liver cirrhosis and diabetic neuropathy. He den ies chest pain, fever, diarrhea or constipation. He does report possible subjective chills. REVIEW OF SYSTEMS: The following complete review of systems was negative, unless otherwise mentioned in the HPI or below: Constitutional: Weight loss or gain, sense of well-being, ability to conduct usual activities, exerc ise tolerance. Skin/Breast: Rash, itching, changes in hair growth or loss, nail changes, breast lumps, tenderness, swelling, nipple discharge. Eyes: Vision, double vision, tearing, blind spots, pain. ENT/Mouth: Headaches (location, time of onset, duration, precipitating factors), vertigo, lightheade dness, injury. Vision, double vision, tearing, blind spots, pain, nose bleeding, colds, obstruction, discharge, dental difficulties, gingival bleeding, dentures, neck stiffness, pain, tenderness, masses in thyroid or other areas. Cardiovascular: Precordial pain, substernal distress, palpitations, syncope, dyspnea on exertion, or thopnea, nocturnal paroxysmal dyspnea, edema, cyanosis, hypertension, heart murmurs, varicosities, ph lebitis, claudication. Respiratory: Pain, shortness of breath, wheezing, stridor, cough, hemoptysis, fever or night sweats. Gastrointestinal: Poor appetite, dysphagia, indigestion, abdominal pain, heartburn, eructation, naus ea, vomiting, hematemesis, jaundice, constipation, or diarrhea, abnormal stools (aryna-colored, tarry, bloody, greasy, foul smelling), flatulence, hemorrhoids, recent changes in bowel habits. Genitourinary: Urgency, frequency, dysuria, nocturia, hematuria, polyuria, oliguria, unusual (or brittany nge in) color of urine, stones, hesitancy, change in size of stream, dribbling, acute retention or in continence, libido, potency. Musculoskeletal: Pain, swelling, redness or heat of muscles or joints, limitation, of motion, muscul ar weakness, atrophy, cramps. Neurologic/Psychiatric: Convulsions, paralyses, tremor, incoordination, paresthesias, difficulties w ith memory of speech, sensory or motor disturbances, or muscular coordination (ataxia, tremor), emoti onal problems, anxiety, depression, previous psychiatric care, unusual perceptions, hallucinations. Allergy/Immunologic: Skin rash, anemia, bleeding tendency, polydipsia, polyuria, intolerance to heat or cold. PAST MEDICAL HISTORY: Significant for diabetes type 2, uncontrolled; diabetic neuropathy; hepatic ci rrhosis; hyponatremia. The patient reports that his tetanus immunization is within the last 5-6 year s. PAST SURGICAL HISTORY: Positive for rectal abscess removal in 02/2017. PSYCHIATRIC HISTORY: Positive for depression and anxiety. SOCIAL HISTORY: Positive for a drinker, former alcoholic. He has been clean for approximately 5-6 m [facility]. Denies drug use. Lives at home. FAMILY HISTORY: Reviewed and noncontributory to this case. HOME MEDICATIONS: Include aspirin 81 mg q. day, Lasix 20 mg b.i.d., Onglyza 2.5 mg q. day, Aldactone 50 mg once a day, magnesium oxide 400 mg b.i.d., propranolol 10 mg t.i.d., clindamycin 300 mg t.i.d. , Levaquin 750 mg q. day. DRUG ALLERGIES: The patient has no known drug allergies. PHYSICAL EXAMINATION: VITAL SIGNS: Temperature of 98.2, blood pressure 109/64, pulse 85, respirations 18, satting 100% on room air. GENERAL: He is in no acute distress, pleasant, cooperative, coherent. HEAD: Normocephalic and atraumatic. EYES: PERRL. Extraocular muscles are intact. There is scleral icterus. NECK: Normal range of motion. Trachea is midline. LUNGS: Clear to auscultation. No wheezing, no rhonchi. CARDIAC: Normal sinus rhythm. No murmurs, regurgitation or gallops. The patient does have a systol ic ejection murmur 3/6. ABDOMEN: Nontender, nondistended. Positive bowel sounds. EXTREMITIES: No clubbing or cyanosis. There is erythema with purulent discharge on the fifth metata rsal of the right foot. SKIN: As stated, erythema and increased warmth on the ventral surface of the right lower extremity. PSYCHIATRIC: Normal affect. NEUROLOGIC: Full range of motion in all extremities. Cranial nerves II-XII grossly intact. Alert a nd oriented x3. LABORATORY DATA AND IMAGES: CMP shows sodium of 124, potassium 4.0, chloride 97, CO2 of 19, BUN 21, creatinine 1.67, creatine kinase of 111, glucose 207, total bilirubin 1.5, albumin 2.1, alkaline phos phatase 116, AST 22, ALT 11. CBC shows a white count of 9.3, hemoglobin 7.2, hematocrit 21.5, MCV 10 6.0, platelet count 95. CRP of 2.66. ESR of 34. X-ray of the right foot shows no evidence of radio paque foreign body or significant osseous erosions. Chest x-ray shows cardiomegaly, no acute pulmona ry disease. ASSESSMENT: 1. Diabetic foot infection. 2. Diabetes, type 2, uncontrolled. 3. Hepatic cirrhosis. 4. Chronic kidney injury, stage 3. PLAN: The patient will be admitted to the medicine floor. General Surgery evaluated the patient in the emergency department. The General Surgery felt that it was appropriate for the Vascular Surgery Service to assess the patient for possible incision and drainage. We will also consult the Infectiou s Disease Service as the patient is immunosuppressed. We will empirically treat him with Zosyn and c lindamycin. We will place the patient on sliding scale insulin regimen with capillary blood glucose checks q.a.c. and at bedtime. The patient's electrolytes will be followed via daily labs and we will replete any deficiencies accordingly. Deep venous thrombosis prophylaxis will be provided with sequ ential compression devices.
[2017-09-29] MEDS: Clindamycin/D5W 300 MG in Premix Bag 1 BAG IVPB SCH ×2 (03:11→13:20)
[2017-09-29 04:44] LABS: #Eosinphils 0.1 thou/uL (0.0-0.7); #Lymphocytes 1.7 thou/uL (1.20-3.40); #Monocytes 1.2 thou/uL (0.11-0.59); #Neutrophils 5.6 thou/uL (1.40-6.50); %Lymphocytes 19.9 % (21.0-51.0); %Monocytes 14.1 % (0.0-10.0); Hematocrit 19.4 % (42.0-52.0); Mean Platelet Volume 7.7 fL (7.4-10.4); Red Blood Cell (RBC) Count 1.85 mill/uL (4.70-6.10); White Blood Cell (WBC) Count 8.6 thou/uL (4.8-10.8)
[2017-09-29] MEDS ORDERED: FLU VACC QS2017-18 36 mo. & older 0.5 ML SYRINGE IM ONE (09:00)
--- NOTE | 2017-09-29 11:29 | CON ---
DATE OF CONSULTATION: 09/29/2017 REASON FOR CONSULTATION: Right foot perforating injury with inflammatory process. HISTORY OF PRESENT ILLNESS: A 42-year-old who has a history of type 2 diabetes, neuropathy, liver di sease secondary to alcoholism who sustained a perforating injury to the right forefoot lateral aspect while he was wearing his shoes and walking outside. The event occurred about 2 weeks prior to admission and initially no inflammatory changes were noticed and then a week before he noticed worsening inflammatory changes; went to his physician at [facility], was given Levaqu in and clindamycin, which he took one day of treatment thus far and because of persistence of changes , he came to the emergency room and was admitted. Initial findings; the vital signs were essentially normal and physical exam not remarkable except for the erythema and purulent discharge in the distal lateral forefoot. White cell count 9.3, hemoglobin 7.2 and platelets 95. CRP 2.66, creatinine 1.67 , CK 111, bilirubin 1.5, AST 22, ALT 11 and alkaline phosphatase 116. Blood cultures thus far negati ve and patient currently receiving clindamycin. Denies headaches, no visual symptoms, sore throat, o dynophagia, dysphagia, no chest pain, no dyspnea, no abdominal pain. Some diarrhea, voiding without difficulty. No back pain. No other joint symptoms. PAST MEDICAL HISTORY: Type 2 diabetes with neuropathy; liver cirrhosis, probably from alcoholism in the past and rectal abscess removal earlier this year. SOCIAL HISTORY: Former alcoholism. Nonsmoker. Lives with his mother. FAMILY HISTORY: Noncontributory. ALLERGIES: Negative. PHYSICAL EXAMINATION: VITAL SIGNS: Essentially normal. SKIN: Shows the area of erythema in the fifth digit right foot at the MPJ skin site with purulent dr ainage perforating entry site on the bottom aspect, an area of ulceration in the dorsal aspect at the MPJ had skin site. No lymphadenopathy. HEENT: Ocular movements are conjugate. Sclerae are white. Pupils are equal. Oral cavity with nume michelle teeth in fairly decent shape. NECK: Supple. No jugular venous distention. LUNGS: Clear to auscultation and percussion. HEART: S1, S2 with regular rate. No S3 or S4. ABDOMEN: Soft without ascites. No distention, no organomegaly, no bladder distention. EXTREMITIES: No joint inflammatory activity outside the involved area. Pulses are 2+ in dorsalis pe dis and posterior tibialis. Plantar responses are flexure. NEUROLOGIC: Cognitive function appears to be intact. LABORATORY AND IMAGING DATA: His white cell count is 8.6, hemoglobin 6.5, MCV 104 and platelets 87,0 00. Creatinine 1.67, sodium 124, carbon dioxide 19. Liver profile with bilirubin of 1.5. Transamin ases normal, alkaline phosphatase normal, albumin 2.1 and 2 sets of blood cultures pending thus far. We have an imaging study with foot x-ray with diffuse soft tissue swelling and some vascular calcifi cations. No bony abnormalities. Chest x-ray with cardiomegaly. ASSESSMENT: Type 2 diabetes with neuropathy, perforating injury, right foot with inflammatory proces s of fifth MPJ. DISCUSSION: Differential diagnosis includes cellulitis abscess and septic arthritis/osteomyelitis. MRI without contrast right foot to determine further intervention if necessary, switch him to Zosyn a nd view the nature of the injury.
--- NOTE | 2017-09-29 12:46 | PDOC.PN ---
- Subjective Encounter Start Date: 09/29/17 Encounter Start Time: 10:15 Subjective: is npo, going to OR at 12 noon -: no pain now - Objective MAR Reviewed: Yes Vital Signs & Weight: Vital Signs (12 hours) Temp Pulse Pulse Resp BP BP Pulse Ox 09/29/17 08:00 97.8 F 76 18 135/72 100 09/29/17 06:25 98.4 F 75 16 134/74 100 09/29/17 06:12 98.3 F 76 16 137/77 100 09/29/17 04:00 98.3 F 76 18 137/77 100 Weight Admit Weight 222 lb Weight 222 lb I&O: 09/28/17 09/29/17 09/30/17 06:59 06:59 06:59 Intake Total 950 Balance 950 Result Diagrams: 09/29/17 04:29 09/28/17 16:47 Additional Labs: Accuchecks 09/28/17 22:05 POC Glucose 277 H Phys Exam - Physical Examination HEENT: PERRLA, moist MMs Neck: no JVD, supple Respiratory: no wheezing, no rales Cardiovascular: RRR, no significant murmur Gastrointestinal: soft, non-tender, positive bowel sounds Musculoskeletal: pulses present right 5th toe and web has purulence with edema Neurological: non-focal, moves all 4 limbs Psychiatric: A&O x 3 Dx/Plan (1) Right foot ulcer Code(s): L97.519 - NON-PRS CHRONIC ULCER OTH PRT RIGHT FOOT W UNSP SEVERITY Status: Acute (2) Alcoholic liver disease Code(s): K70.9 - ALCOHOLIC LIVER DISEASE, UNSPECIFIED Status: Chronic (3) DM2 (diabetes mellitus, type 2) Status: Chronic Qualifiers: Diabetes mellitus complication status: with unspecified complications Diabetes mellitus snf insulin use: without adjunct faculty for medical terminology use Qualified Code( s): E11.8 - Type 2 diabetes mellitus with unspecified complications (4) Macrocytic anemia Code(s): D53.9 - NUTRITIONAL ANEMIA, UNSPECIFIED Status: Chronic (5) Obesity (BMI 30-39.9) Code(s): E66.9 - OBESITY, UNSPECIFIED Status: Chronic - Plan got 1 unit prbc this am, repeat cbc at 4pm, may transfuse if Hb<7g -: is on zosyn -: on lasix, spironolactone and feso4 -: alb is 2.1 -: is going to OR for debridement, await culture results * . Review of Systems - Medications/Allergies Allergies/Adverse Reactions: Allergies Allergy/AdvReac Type Severity Reaction Status Date / Time No Known Drug Allergies Allergy Verified 08/02/17 16:40 Medications: Current Medications Dextrose/Water (Dextrose 50%) 25 gm SLOW IVP PRN PRN PRN Reason: Hypoglycemia Ferrous Sulfate (Feosol) 325 mg PO QAM-[facility] Folic Acid (Folvite) 1 mg PO DAILY [facility] Furosemide (Lasix) 40 mg PO DAILY [facility] Glucagon (Glucagon) 1 mg IM PRN PRN PRN Reason: Hypoglycemia Dextrose/Water (D5w) 1,000 mls @ 0 mls/hr IV .Q0M PRN; As Directed PRN Reason: Hypoglycemia Piperacillin Sod/Tazobactam Sod 3.375 gm/ Miscellaneous Medication 1 each/ Sodium Chloride 100 mls @ 200 mls/hr IVPB Q6HR [facility] Insulin Human Regular (Humulin R) 0 units SC .MILD SLIDING SCALE PRN PRN Reason: Mild Correctional Scale Lactulose (Lactulose) 20 gm PO TID [facility] Last Admin: 09/28/17 21:37 Dose: 20 gm Propranolol HCl (Inderal) 10 mg PO Q8H [facility] Last Admin: 09/29/17 07:40 Dose: 10 mg Sodium Chloride (Flush - Normal Saline) 10 ml IVF Q12HR [facility] Last Admin: 09/28/17 22:14 Dose: 10 ml Sodium Chloride (Flush - Normal Saline) 10 ml IVF PRN PRN PRN Reason: Saline Flush Spironolactone (Aldactone) 100 mg PO QAM-[facility] Thiamine HCl (Thiamine) 100 mg PO DAILY [facility]
[2017-09-29] MEDS: Spironolactone 100 MG TAB PO SCH (13:16)
[2017-09-29] MEDS: Ferrous Sulfate 325 MG TAB PO SCH (13:16)
[2017-09-29] MEDS: Furosemide 40 MG TAB PO SCH (13:16)
[2017-09-29] MEDS: Folic Acid 1 MG TAB PO SCH (13:16)
[2017-09-29] MEDS: Piperacillin/Tazobactam 3.375 GM, Admixture Fee 1 EACH in Sodium Chloride 0.9% 100 ML IVPB SCH ×2 (13:40→18:57)
[2017-09-29] MEDS ORDERED: Ondansetron HCl/PF 4 MG/2 ML Vial ONE (15:18)
[2017-09-29] MEDS ORDERED: Propofol 200 MG/20 ML VIAL ONE (15:18)
[2017-09-29] MEDS ORDERED: PHENYLEPHRINE-NS 100 MCG/ML 10 ML SYRINGE ONE (15:18)
[2017-09-29] MEDS ORDERED: Lidocaine 1% PF 5 ML VIAL ONE (15:18)
[2017-09-29] MEDS ORDERED: Fentanyl 100 MCG/2 ML VIAL ONE (17:06)
[2017-09-29] MEDS ORDERED: Midazolam HCl 2 mg/2 ml Vial ONE (17:06)
[2017-09-29] MEDS ORDERED: HYDROcodone/Acetaminophen 5/325 mg Tablet PO PRN (18:33)
[2017-09-29] MEDS ORDERED: Fentanyl 100 MCG/2 ML VIAL SLOW IVP PRN (18:33)
[2017-09-29 19:36] LABS: #Lymphocytes 1.6 thou/uL (1.20-3.40); #Neutrophils 5.4 thou/uL (1.40-6.50); %Basophils 0.1 % (0.0-1.0); %Eosinophils 0.6 % (0.0-10.0); %Lymphocytes 19.7 % (21.0-51.0); %Monocytes 12.9 % (0.0-10.0); Hematocrit 22.4 % (42.0-52.0); Mean Platelet Volume 7.4 fL (7.4-10.4); Red Blood Cell (RBC) Count 2.19 mill/uL (4.70-6.10); White Blood Cell (WBC) Count 8.1 thou/uL (4.8-10.8)
--- NOTE | 2017-09-29 20:33 | OP ---
PREOPERATIVE DIAGNOSIS: Gangrene, right foot. POSTOPERATIVE DIAGNOSIS: Gangrene, right foot. PROCEDURE: Amputation of the right fifth toe and metatarsal head with debridement of necrotic tissue . SURGEON: Costa Mendez M.D. ANESTHESIA: LMA. ESTIMATED BLOOD LOSS: Less than 10 mL PROCEDURE IN DETAIL: After adequate anesthesia had been obtained, the patient was prepped and draped . Purulent material was emanating from the base of the fifth toe and this was cultured. The toe was then amputated and examination revealed that the infection had tracked proximally along the dorsal a spect of the fifth metatarsal. Metatarsal head was amputated and necrotic tissue debrided. There wa s no evidence of deep plantar space infection. Vessels for the most part were thrombosed in regards to the digital vessels. After irrigation, the wound was packed and dressed. The patient tolerated t he procedure well.
[2017-09-30] MEDS: Piperacillin/Tazobactam 3.375 GM, Admixture Fee 1 EACH in Sodium Chloride 0.9% 100 ML IVPB SCH ×5 (00:27→23:23)
[2017-09-30 04:49] LABS: Anion Gap 8 mmol/L (10-20); BUN (Urea Nitrogen) 16 mg/dL (8.9-20.6); Calc. Creatinine Clearance 98 mL/min (70-130); Calcium 7.9 mg/dL (7.8-10.44); Carbon Dioxide 21 mmol/L (22-29); Chloride 106 mmol/L (98-107); Estimated GFR-MDRD 56
[2017-09-30 05:09] LABS: Band 1 % (5-11); Hematocrit 21.2 % (42.0-52.0); Macrocytosis SLIGHT = 6-15 cells (100X) (0-5/hpf); Mean Platelet Volume 7.7 fL (7.4-10.4); Metamyelocyte 1 % (0-0); Myelocyte 1 % (0-0); Neutrophil 40 % (42-75); Red Blood Cell (RBC) Count 2.07 mill/uL (4.70-6.10); Rouleaux Formation SLIGHT = 1-5 cells (100X) (None Seen); White Blood Cell (WBC) Count 7.8 thou/uL (4.8-10.8)
[2017-09-30] MEDS: HYDROcodone/Acetaminophen 5/325 mg Tablet PO PRN ×2 (08:55→18:11)
[2017-09-30] MEDS: Furosemide 40 MG TAB PO SCH (08:56)
[2017-09-30] MEDS: Folic Acid 1 MG TAB PO SCH (08:56)
[2017-09-30] MEDS: Ferrous Sulfate 325 MG TAB PO SCH (08:56)
[2017-09-30] MEDS: Spironolactone 100 MG TAB PO SCH (08:57)
--- NOTE | 2017-09-30 12:30 | PRG ---
DATE OF SERVICE: 09/30/2017 SUBJECTIVE: Patient had an amputation of the right fifth toe and distal metatarsal yesterday. MRI w as canceled because of that. The patient denies any headaches. No shortness of breath or cough. No chest pain, no abdominal pain. OBJECTIVE: VITAL SIGNS: Normal. LUNGS: Clear. HEART: S1, S2 regular rate. ABDOMEN: Soft, not distended. EXTREMITIES: Right foot with bulky dressing, which was not removed. Microbiology with Staph aureus, pending susceptibilities. One set of blood cultures with gram-positi ve cocci. ASSESSMENT AND DISCUSSION: Type 2 diabetes with neuropathy and perforating injury with right foot, s tatus post fifth ray amputation of his right foot with no Staphylococcus aureus retrieved from the si te. One out of two sets of blood cultures with gram-positive cocci yet to be fully identified and robledo sceptibility tested. Depending on the results of the blood culture, then patient might need IV or ju st oral antimicrobial therapy following the susceptibilities of the organism isolated from the foot. If the patient has Staphylococcus aureus retrieved from one set of blood culture, then he will requi re at least 2 weeks of IV Rocephin in the outpatient setting. If the blood culture is just a coagula se-negative Staphylococcus, then we can probably treat him with oral Keflex or a different combinatio n if it is MRSA retrieved from the foot. The patient has adequate blood supply and should be able to heal. The duration of therapy will be around 14 days.
--- NOTE | 2017-09-30 13:36 | PDOC.PN ---
- Subjective Encounter Start Date: 09/30/17 Encounter Start Time: 09:35 Subjective: feels better, no pain - Objective MAR Reviewed: Yes Vital Signs & Weight: Vital Signs (12 hours) Temp Pulse Resp BP BP Pulse Ox 09/30/17 11:51 98.1 F 71 18 107/69 100 09/30/17 08:00 98.8 F 75 18 136/73 99 09/30/17 04:38 98.8 F 76 20 147/80 H 100 Weight Admit Weight 222 lb Weight 222 lb I&O: 09/29/17 09/30/17 10/01/17 06:59 06:59 06:59 Intake Total 950 1500 Output Total 1200 Balance 950 300 Result Diagrams: 09/30/17 03:11 09/30/17 03:11 Additional Labs: Accuchecks 09/30/17 09/30/17 09/30/17 11:43 07:50 04:06 POC Glucose 171 H 140 H 129 H 09/29/17 09/29/17 21:27 16:46 POC Glucose 176 H 130 H Phys Exam - Physical Examination HEENT: PERRLA, moist MMs Neck: no JVD, supple Respiratory: no wheezing, no rales Cardiovascular: RRR, no significant murmur Gastrointestinal: soft, non-tender, positive bowel sounds Musculoskeletal: pulses present right foot in dressing Neurological: non-focal, moves all 4 limbs Psychiatric: A&O x 3 Dx/Plan (1) Right foot ulcer Code(s): L97.519 - NON-PRS CHRONIC ULCER OTH PRT RIGHT FOOT W UNSP SEVERITY Status: Acute Comment: s/p amp of right 5th toe with metatarsal head 09/30/17 (2) Alcoholic liver disease Code(s): K70.9 - ALCOHOLIC LIVER DISEASE, UNSPECIFIED Status: Chronic (3) DM2 (diabetes mellitus, type 2) Status: Chronic Qualifiers: Diabetes mellitus complication status: with unspecified complications Diabetes mellitus parts counterman insulin use: without parts counterman use Qualified Code( s): E11.8 - Type 2 diabetes mellitus with unspecified complications (4) Macrocytic anemia Code(s): D53.9 - NUTRITIONAL ANEMIA, UNSPECIFIED Status: Chronic (5) Obesity (BMI 30-39.9) Code(s): E66.9 - OBESITY, UNSPECIFIED Status: Chronic - Plan is on zosyn -: await final culture results, prelim blood cs has gm+ve cocci -: wound cs are growing staph aureus -: is on lasix, spirono and propranolol for liver disease -: oral iron, to amb in hallway as tolerated * . Review of Systems - Medications/Allergies Allergies/Adverse Reactions: Allergies Allergy/AdvReac Type Severity Reaction Status Date / Time No Known Drug Allergies Allergy Verified 08/02/17 16:40 Medications: Current Medications Hydrocodone Bitart/Acetaminophen (Marissa 5/325) 1 tab PO Q4H PRN PRN Reason: Mild-Moderate Pain (1-5) Hydrocodone Bitart/Acetaminophen (Marissa 5/325) 2 tab PO Q4H PRN PRN Reason: Moderate to Severe Pain (6-10) Last Admin: 09/30/17 08:55 Dose: 2 tab Dextrose/Water (Dextrose 50%) 25 gm SLOW IVP PRN PRN PRN Reason: Hypoglycemia Fentanyl (Sublimaze) 25 mcg SLOW IVP Q2H PRN PRN Reason: Severe Pain (7-10) Ferrous Sulfate (Feosol) 325 mg PO QAM-[facility] Last Admin: 09/30/17 08:56 Dose: 325 mg Folic Acid (Folvite) 1 mg PO DAILY [facility] Last Admin: 09/30/17 08:56 Dose: 1 mg Furosemide (Lasix) 40 mg PO DAILY [facility] Last Admin: 09/30/17 08:56 Dose: 40 mg Glucagon (Glucagon) 1 mg IM PRN PRN PRN Reason: Hypoglycemia Dextrose/Water (D5w) 1,000 mls @ 0 mls/hr IV .Q0M PRN; As Directed PRN Reason: Hypoglycemia Piperacillin Sod/Tazobactam Sod 3.375 gm/ Miscellaneous Medication 1 each/ Sodium Chloride 100 mls @ 200 mls/hr IVPB Q6HR [facility] Last Admin: 09/30/17 12:18 Dose: 100 mls Insulin Human Regular (Humulin R) 0 units SC .MILD SLIDING SCALE PRN PRN Reason: Mild Correctional Scale Lactulose (Lactulose) 20 gm PO TID [facility] Last Admin: 09/30/17 08:57 Dose: 20 gm Pantoprazole Sodium (Protonix) 40 mg PO BID [facility] Last Admin: 09/30/17 08:57 Dose: 40 mg Propranolol HCl (Inderal) 10 mg PO Q8H [facility] Last Admin: 09/30/17 12:18 Dose: Not Given Sodium Chloride (Flush - Normal Saline) 10 ml IVF Q12HR [facility] Last Admin: 09/30/17 08:57 Dose: 10 ml Sodium Chloride (Flush - Normal Saline) 10 ml IVF PRN PRN PRN Reason: Saline Flush Spironolactone (Aldactone) 100 mg PO QAM-[facility] Last Admin: 09/30/17 08:57 Dose: 100 mg Thiamine HCl (Thiamine) 100 mg PO DAILY [facility] Last Admin: 09/30/17 08:56 Dose: 100 mg
[2017-09-30] MEDS: Insulin Regular 300 UNITS/3 ML VIAL SC PRN (21:17)
[2017-10-01] MEDS: Piperacillin/Tazobactam 3.375 GM, Admixture Fee 1 EACH in Sodium Chloride 0.9% 100 ML IVPB SCH ×4 (05:57→23:29)
[2017-10-01 06:02] LABS: Anion Gap 7 mmol/L (10-20); BUN (Urea Nitrogen) 15 mg/dL (8.9-20.6); Calc. Creatinine Clearance 104 mL/min (70-130); Carbon Dioxide 22 mmol/L (22-29); Chloride 106 mmol/L (98-107); Estimated GFR-MDRD 60
[2017-10-01 06:09] LABS: Band 6 % (5-11); Hematocrit 21.4 % (42.0-52.0); Hypochromia SLIGHT = 6-15 cells (100X) (0-5/hpf); Mean Platelet Volume 7.6 fL (7.4-10.4); Neutrophil 27 % (42-75); Red Blood Cell (RBC) Count 2.07 mill/uL (4.70-6.10); White Blood Cell (WBC) Count 5.9 thou/uL (4.8-10.8)
[2017-10-01] MEDS: Ferrous Sulfate 325 MG TAB PO SCH (08:30)
[2017-10-01] MEDS: Folic Acid 1 MG TAB PO SCH (08:30)
[2017-10-01] MEDS: Spironolactone 100 MG TAB PO SCH (08:30)
[2017-10-01] MEDS: Furosemide 40 MG TAB PO SCH (08:30)
--- NOTE | 2017-10-01 11:45 | PDOC.PN ---
- Subjective Encounter Start Date: 10/01/17 Encounter Start Time: 10:10 Subjective: feels better, is amb in room - Objective MAR Reviewed: Yes Vital Signs & Weight: Vital Signs (12 hours) Temp Pulse Resp BP BP Pulse Ox 10/01/17 08:00 98.2 F 70 16 10/01/17 07:52 98.2 F 70 16 149/81 H 98 10/01/17 05:09 97.6 F 70 16 105/63 99 10/01/17 00:00 97.6 F 67 18 109/63 100 Weight Admit Weight 222 lb Weight 222 lb I&O: 09/30/17 10/01/17 10/02/17 06:59 06:59 06:59 Intake Total 1500 Output Total 1200 Balance 300 Result Diagrams: 10/01/17 04:33 10/01/17 04:33 Additional Labs: Accuchecks 10/01/17 09/30/17 09/30/17 04:07 16:44 11:43 POC Glucose 140 H 156 H 171 H Phys Exam - Physical Examination HEENT: PERRLA, moist MMs Neck: no JVD, supple Respiratory: no wheezing, no rales Cardiovascular: RRR, no significant murmur Gastrointestinal: soft, non-tender, positive bowel sounds Musculoskeletal: pulses present right forefoot in dressing Neurological: non-focal, moves all 4 limbs Psychiatric: A&O x 3 Dx/Plan (1) Right foot ulcer Code(s): L97.519 - NON-PRS CHRONIC ULCER OTH PRT RIGHT FOOT W UNSP SEVERITY Status: Acute Comment: s/p amp of right 5th toe with metatarsal head 09/30/17 (2) Alcoholic liver disease Code(s): K70.9 - ALCOHOLIC LIVER DISEASE, UNSPECIFIED Status: Chronic (3) DM2 (diabetes mellitus, type 2) Status: Chronic Qualifiers: Diabetes mellitus complication status: with unspecified complications Diabetes mellitus fci insulin use: without intermediate school teacher use Qualified Code( s): E11.8 - Type 2 diabetes mellitus with unspecified complications (4) Macrocytic anemia Code(s): D53.9 - NUTRITIONAL ANEMIA, UNSPECIFIED Status: Chronic (5) Obesity (BMI 30-39.9) Code(s): E66.9 - OBESITY, UNSPECIFIED Status: Chronic - Plan wound cs shows mssa -: blood cs 1/2 is growing micrococcus likely contaminant -: is on zosyn for now -: on propranolol, spirono and lasix for cirrhosis -: oral iron, fentanyl and narco prn for pain * . Review of Systems - Medications/Allergies Allergies/Adverse Reactions: Allergies Allergy/AdvReac Type Severity Reaction Status Date / Time No Known Drug Allergies Allergy Verified 08/02/17 16:40 Medications: Current Medications Hydrocodone Bitart/Acetaminophen (Bylas 5/325) 1 tab PO Q4H PRN PRN Reason: Mild-Moderate Pain (1-5) Last Admin: 10/01/17 08:30 Dose: 1 tab Hydrocodone Bitart/Acetaminophen (Bylas 5/325) 2 tab PO Q4H PRN PRN Reason: Moderate to Severe Pain (6-10) Last Admin: 09/30/17 18:11 Dose: 2 tab Dextrose/Water (Dextrose 50%) 25 gm SLOW IVP PRN PRN PRN Reason: Hypoglycemia Fentanyl (Sublimaze) 25 mcg SLOW IVP Q2H PRN PRN Reason: Severe Pain (7-10) Ferrous Sulfate (Feosol) 325 mg PO QAM-[facility] Last Admin: 10/01/17 08:30 Dose: 325 mg Folic Acid (Folvite) 1 mg PO DAILY [facility] Last Admin: 10/01/17 08:30 Dose: 1 mg Furosemide (Lasix) 40 mg PO DAILY [facility] Last Admin: 10/01/17 08:30 Dose: 40 mg Glucagon (Glucagon) 1 mg IM PRN PRN PRN Reason: Hypoglycemia Dextrose/Water (D5w) 1,000 mls @ 0 mls/hr IV .Q0M PRN; As Directed PRN Reason: Hypoglycemia Piperacillin Sod/Tazobactam Sod 3.375 gm/ Miscellaneous Medication 1 each/ Sodium Chloride 100 mls @ 200 mls/hr IVPB Q6HR [facility] Last Admin: 10/01/17 05:57 Dose: 100 mls Insulin Human Regular (Humulin R) 0 units SC .MILD SLIDING SCALE PRN PRN Reason: Mild Correctional Scale Last Admin: 09/30/17 21:17 Dose: 2 unit Lactulose (Lactulose) 20 gm PO TID [facility] Last Admin: 10/01/17 08:31 Dose: 20 gm Pantoprazole Sodium (Protonix) 40 mg PO BID [facility] Last Admin: 10/01/17 08:30 Dose: 40 mg Propranolol HCl (Inderal) 10 mg PO Q8H [facility] Last Admin: 10/01/17 03:47 Dose: 10 mg Sodium Chloride (Flush - Normal Saline) 10 ml IVF Q12HR [facility] Last Admin: 10/01/17 08:31 Dose: 10 ml Sodium Chloride (Flush - Normal Saline) 10 ml IVF PRN PRN PRN Reason: Saline Flush Last Admin: 10/01/17 05:58 Dose: 10 ml Spironolactone (Aldactone) 100 mg PO QAM-[facility] Last Admin: 10/01/17 08:30 Dose: 100 mg Thiamine HCl (Thiamine) 100 mg PO DAILY [facility] Last Admin: 10/01/17 08:30 Dose: 100 mg
[2017-10-01] MEDS: Insulin Regular 300 UNITS/3 ML VIAL SC PRN (13:10)
[2017-10-01] MEDS: HYDROcodone/Acetaminophen 5/325 mg Tablet PO PRN (18:03)
[2017-10-02] MEDS: Piperacillin/Tazobactam 3.375 GM, Admixture Fee 1 EACH in Sodium Chloride 0.9% 100 ML IVPB SCH ×2 (05:45→12:33)
[2017-10-02 07:48] VITALS: TEMP 97.4
[2017-10-02] MEDS: Folic Acid 1 MG TAB PO SCH (08:40)
[2017-10-02] MEDS: Furosemide 40 MG TAB PO SCH (08:40)
[2017-10-02] MEDS: Ferrous Sulfate 325 MG TAB PO SCH (08:40)
[2017-10-02] MEDS: Spironolactone 100 MG TAB PO SCH (08:40)
--- NOTE | 2017-10-02 11:55 | PDOC.PN ---
- Subjective Encounter Start Date: 10/02/17 Encounter Start Time: 08:00 Subjective: feels better, is amb in room - Objective MAR Reviewed: Yes Vital Signs & Weight: Vital Signs (12 hours) Temp Pulse Resp BP BP Pulse Ox 10/02/17 08:18 97.4 F L 73 16 10/02/17 07:45 97.4 F L 73 16 148/82 H 99 10/02/17 05:51 72 120/75 10/02/17 04:53 97.7 F 71 18 132/76 99 10/02/17 01:10 97.8 F 71 18 154/84 H 100 Weight Admit Weight 222 lb Weight 222 lb Result Diagrams: 10/01/17 04:33 10/01/17 04:33 Additional Labs: Accuchecks 10/02/17 10/02/17 10/01/17 11:35 06:30 20:37 POC Glucose 292 H 108 162 H 10/01/17 10/01/17 09/30/17 16:47 11:25 20:45 POC Glucose 140 H 215 H 180 H Phys Exam - Physical Examination HEENT: PERRLA, moist MMs Neck: no JVD, supple Respiratory: no wheezing, no rales Cardiovascular: RRR, no significant murmur Gastrointestinal: soft, non-tender, positive bowel sounds Musculoskeletal: pulses present right forefoot in dressing Neurological: non-focal, moves all 4 limbs Psychiatric: A&O x 3 Dx/Plan (1) Right foot ulcer Code(s): L97.519 - NON-PRS CHRONIC ULCER OTH PRT RIGHT FOOT W UNSP SEVERITY Status: Acute Comment: s/p amp of right 5th toe with metatarsal head 09/30/17 (2) Alcoholic liver disease Code(s): K70.9 - ALCOHOLIC LIVER DISEASE, UNSPECIFIED Status: Chronic (3) DM2 (diabetes mellitus, type 2) Status: Chronic Qualifiers: Diabetes mellitus complication status: with unspecified complications Diabetes mellitus alf insulin use: without tank terminal gauger use Qualified Code( s): E11.8 - Type 2 diabetes mellitus with unspecified complications (4) Macrocytic anemia Code(s): D53.9 - NUTRITIONAL ANEMIA, UNSPECIFIED Status: Chronic (5) Obesity (BMI 30-39.9) Code(s): E66.9 - OBESITY, UNSPECIFIED Status: Chronic - Plan keflex for 14 days -: wound care to teach dressing changes to pt and -: may dc home * .
[2017-10-02] MEDS: Insulin Regular 300 UNITS/3 ML VIAL SC PRN (12:33)
[2017-10-02] MEDS: HYDROcodone/Acetaminophen 5/325 mg Tablet PO PRN (14:27)
[2017-10-02 15:57] VITALS: BP 132/72
--- NOTE | 2017-10-02 19:13 | DIS ---
DATE OF ADMISSION: 09/28/2017 DATE OF DISCHARGE: 10/02/2017 DISCHARGE DISPOSITION: Home. PRIMARY DISCHARGE DIAGNOSIS: Right 5th toe ulcer, status post amputation of 5th toe with metatarsal head. SECONDARY DISCHARGE DIAGNOSES: Chronic microcytic anemia due to cirrhosis, alcoholic liver disease, diabetes mellitus type 2 and obesity. PROCEDURES DONE DURING HOSPITALIZATION: Right foot x-ray done showed no radiopaque foreign body or s ignificant osseous erosions. The patient had amputation of right fifth toe and metatarsal head with debridement of necrotic tissue, done by Dr. Mendez on 09/29/2017. Wound cultures grew Staph aureus se nsitive to cephalosporins. Discharge hemoglobin and hematocrit 7 and 21. Had a drop of hemoglobin t o 6.5 grams on the with transfusion of 2 units, MCV is 103, platelet count is chronically low at 89. Discharge BUN and creatinine is 15 and 1.3. Total bilirubin 1.5, CRP was 2.6, albumin 2.1, hep atitis C antibody nonreactive, HIV 1 and 2 nonreactive. INPATIENT CONSULTS: Dr. Gonzalez for Infectious Disease and Dr. Mendez for Vascular Surgery. DISCHARGE MEDICATIONS: Keflex 500 mg p.o. three times daily for a total of 14 days, ferrous sulfate 325 mg p.o. twice daily, vitamin B12 1000 mcg p.o. daily, Lasix 40 mg p.o. daily, metformin 500 mg p. o. twice daily, multivitamin 1 tab once daily, Protonix 40 mg p.o. daily, K-Dur 20 mEq p.o. daily, pr opranolol 10 mg p.o. 3 times daily and spironolactone 100 mg p.o. daily. ALLERGIES: No known drug allergies. BRIEF COURSE DURING HOSPITALIZATION: The patient initially got admitted on the with the right f ifth toe ulcer. He apparently stepped down a screw approximately 2 weeks prior to hospitalization. The right forefoot was swollen with pus oozing from the web between 5th and 4th toes on the right joaquín t. of above between fifth and fourth toes on the right foot with necrotic tissue. He was evaluated by Dr. Mendez. The patient had amputation of right fifth toe with metatarsal head. He was on IV anti biotics and has been switched over to Keflex based on cultures. The patient was also given 2 units o f packed cells for his chronic microcytic anemia which worsened during his stay here. He needs to co ntinue ferrous sulfate, vitamin B12, and folic acid as before. Wound Care consultation was requested during his stay here postop and patient and family will be taught dressing changes. He needs to con tinue Keflex for another 14 days. He needs to follow up with Dr. Mendez in 2 weeks. Otherwise, hemod ynamically stable and will be shortly discharged home. Please see a [id number] documentation on [facility] for the day of discharge.
== END 2017-10-02 15:55 | disposition home or self-care (01) | DRG 256 ==
LOC: ERS 14:49 → T4-B 19:49
PROVIDERS: ADMIT Internal Medicine Addiction Medicine; ATTEND Internal Medicine Addiction Medicine
PROC: 0Y6X0Z0 Detachment at Right 5th Toe, Complete, Open Approach (ICD-10-PCS; principal; 2017-09-28)
PROC: 0JDQ0ZZ Extraction of Right Foot Subcutaneous Tissue and Fascia, Open Approach (ICD-10-PCS; 2017-09-28)
PROC: 30233N1 Transfusion of Nonautologous Red Blood Cells into Peripheral Vein, Percutaneous Approach (ICD-10-PCS; 2017-09-29)
DX: E11.52 Type 2 diabetes mellitus with diabetic peripheral angiopathy with gangrene (principal); E11.22 Type 2 diabetes mellitus with diabetic chronic kidney disease; E11.40 Type 2 diabetes mellitus with diabetic neuropathy, unspecified; N18.3 Chronic kidney disease, stage 3 (moderate); E11.65 Type 2 diabetes mellitus with hyperglycemia; E11.621 Type 2 diabetes mellitus with foot ulcer; D50.9 Iron deficiency anemia, unspecified; K70.30 Alcoholic cirrhosis of liver without ascites; E66.9 Obesity, unspecified; S99.821A Other specified injuries of right foot, initial encounter; L97.519 Non-pressure chronic ulcer of other part of right foot with unspecified severity
CPT/HCPCS: 36415; 36416; 36430; 71010; 80048; 80053; 82550; 85025; 85652; 86140; 86803; 86850; 86900; 86901; 87040; 87070; 87077; 87149; 87186; 87205; 87389; 88305; 90471; 90682; 93005; 96365; 96366; 96375; A4216; G0008; J1815; J2001; J2250; J2405; J2543; J2704; J3010; J3370; J3490; J7050; P9016; Q2036

== ENCOUNTER 2017-11-23 18:50 | Inpatient (IN) | payer OTHER, SELFPAY ==
[2017-11-23 19:15] LABS: Base Excess-Venous -2.7 mmol/L (-30.0-30.0); CO2 Tension (PvCO2) 36.8 mmHg (41.0-51.0); Calcium, Ionized 1.19 mmol/L (1.12-1.32); O2 Tension (PvO2) 36.9 mmHg (35.0-45.0); Potassium 3.5 mmol/L (3.4-4.7); T. Carbon Dioxide 23.1 mmol/L (1.0-85.0); pH (Venous) 7.384 (7.35-7.45); vO2 Saturation-calc 69.9 % (0.0-100.0)
[2017-11-23 19:24] LABS: #Eosinphils 0.1 thou/uL (0.0-0.7); #Lymphocytes 1.5 thou/uL (1.20-3.40); #Monocytes 0.5 thou/uL (0.11-0.59); #Neutrophils 2.1 thou/uL (1.40-6.50); %Basophils 0.2 % (0.0-1.0); %Eosinophils 2.4 % (0.0-10.0); %Lymphocytes 36.2 % (21.0-51.0); %Monocytes 11.4 % (0.0-10.0); %Neutrophils 49.8 % (42.0-75.0); Hemoglobin 9.1 g/dL (14.0-18.0); Mean Corpuscular HGB CONC 31.1 g/dL (32.0-36.0); Mean Corpuscular Hemoglobin 33.2 pg (27.0-31.0); Mean Platelet Volume 9.7 fL (7.4-10.4); Platelet Count 72 thou/uL (130-400); RBC Distribution Width 13.2 % (11.5-14.5); Red Blood Cell (RBC) Count 2.72 mill/uL (4.70-6.10); White Blood Cell (WBC) Count 4.2 thou/uL (4.8-10.8)
[2017-11-23 19:27] LABS: Bilirubin Negative (Negative); Blood, Urine Small (Negative); Clarity CLEAR (Clear); Glucose, Urine (Dipstick) >=1000 mg/dL (Negative); Leukocyte Negative (Negative); Nitrite Negative (Negative); Protein, Urine (Dipstick) Negative (Neg-Trace); Specific Gravity, Urine 1.029 (1.002-1.036); Urobilinogen 0.2 mg/dL (0.2-1.0); pH, Urine 6.5 (5.0-9.0)
[2017-11-23 19:39] LABS: Squamous Epithelial 0-3 HPF (0-3); WBC/HPF 0-3 HPF (0-3)
[2017-11-23 19:40] LABS: Bacteria/HPF None Seen HPF (None Seen); Hyaline Casts/LPF NONE SEEN LPF (0-3 Hyaline)
[2017-11-23 19:43] LABS: MDiff Complete? YES; Macrocytosis SLIGHT = 6-15 cells (100X) (0-5/hpf); PLT Morphology Comment Appears Decreased; Polychromasia SLIGHT = 2-3 cells (100X) (0-2/hpf); Target Cells SLIGHT = 2-5 cells (100X) (0-1/hpf); Tear Drops SLIGHT = 2-5 cells (100X) (0-1/hpf)
[2017-11-23 19:52] LABS: ALT (SGPT) 32 U/L (8-55); AST (SGOT) 48 U/L (5-34); Albumin 2.5 g/dL (3.5-5.0); Alkaline Phosphatase 361 U/L (40-150); Anion Gap 13 mmol/L (10-20); BUN (Urea Nitrogen) 8 mg/dL (8.9-20.6); Bilirubin, Total 1.7 mg/dL (0.2-1.2); Calc. Creatinine Clearance 0 mL/min (70-130); Carbon Dioxide 20 mmol/L (22-29); Chloride 90 mmol/L (98-107); Estimated GFR-MDRD 42; Globulin 5.2 g/dL (2.4-3.5); Potassium 3.5 mmol/L (3.5-5.1); Protein, Total 7.7 g/dL (6.0-8.3)
[2017-11-23 20:05] LABS: Glucose 914 mg/dL (70-105); Sodium 119 mmol/L (136-145)
[2017-11-23] MEDS ORDERED: Potassium Chloride 20 MEQ TAB ONE (20:14)
[2017-11-23] MEDS ORDERED: Insulin Regular 100 units/100 ml in NS IVPB SCH (20:15)
[2017-11-23] MEDS ORDERED: Ondansetron ODT 4 MG TAB SL PRN (23:42)
[2017-11-23] MEDS ORDERED: Ondansetron HCl/PF 4 MG/2 ML Vial IVP PRN (23:42)
[2017-11-23] MEDS ORDERED: Acetaminophen 325 MG TAB PO PRN (23:42)
[2017-11-24 01:54] VITALS: BMI 32.0
[2017-11-24 02:23] LABS: Hemoglobin A1c 9.5 % (4.0-6.0)
[2017-11-24 02:37] LABS: Anion Gap 8 mmol/L (10-20); BUN (Urea Nitrogen) 7 mg/dL (8.9-20.6); Calc. Creatinine Clearance 113 mL/min (70-130); Calcium 8.7 mg/dL (7.8-10.44); Carbon Dioxide 24 mmol/L (22-29); Chloride 104 mmol/L (98-107); Estimated GFR-MDRD 70; Glucose 352 mg/dL (70-105); Potassium 3.1 mmol/L (3.5-5.1); Sodium 133 mmol/L (136-145)
[2017-11-24] MEDS ORDERED: Insulin Regular 300 UNITS/3 ML VIAL SC PRN (03:07)
[2017-11-24] MEDS ORDERED: Dextrose 50% Abboject 50 ML SYRINGE SLOW IVP PRN (03:07)
[2017-11-24] MEDS ORDERED: Dextrose 5% in Water 1,000 ML IV PRN (03:07)
[2017-11-24] MEDS ORDERED: Potassium Chloride 20 MEQ TAB PO SCH (03:15)
[2017-11-24] MEDS ORDERED: Calcium Carbonate 500 MG ChewTAB PO PRN (05:23)
[2017-11-24] MEDS ORDERED: Senokot 8.6 MG TAB PO PRN (05:23)
[2017-11-24] MEDS ORDERED: Ondansetron HCl/PF 4 MG/2 ML Vial IVP PRN (05:23)
[2017-11-24] MEDS ORDERED: Ondansetron ODT 4 MG TAB PO PRN (05:23)
[2017-11-24 05:42] LABS: Magnesium 1.4 mg/dL (1.6-2.6)
--- NOTE | 2017-11-24 05:43 | HP ---
DATE OF ADMISSION: 11/23/2017 PRIMARY CARE PHYSICIAN: [facility]. CHIEF COMPLAINT: High blood sugar. HISTORY OF PRESENT ILLNESS: Patient is a 42-year-old male with diabetes mellitus type 2 and liver ci rrhosis, presented to the hospital with elevated blood sugar. His blood glucometer kept reading high . He also complained of polydipsia, polyuria. He has been noncompliant with his medications except for metformin. He has been drinking a lot of sugary sodas recently. He denies any fevers, chills, f ocal neurologic deficit, chest pain, nausea, vomiting, diarrhea. In the emergency room, his blood glucose was 914 with a sodium of 119. He was started on insulin dri p. His serum osmolarity was 308 with negative ketones. PAST MEDICAL HISTORY: 1. Diabetes mellitus type 2. 2. Cirrhosis of the liver. 3. Chronic alcoholism, quit drinking last year. 4. Medication noncompliance. 5. Anxiety and depression. PAST SURGICAL HISTORY: Rectal abscess removal in 2017. ALLERGIES: The patient denies any drug allergies. CURRENT HOME MEDICATIONS: Inderal 10 mg three times daily, Aldactone 100 mg daily, Lasix 40 mg daily , gabapentin 300 mg at bedtime. He used to be on Onglyza in the past. SOCIAL HISTORY: Patient currently lives at home. He is a former alcoholic. He has been clean for l ast 7-8 months. No drug use. FAMILY HISTORY: Negative for premature coronary artery disease. REVIEW OF SYSTEMS: The following complete review of systems was negative, unless otherwise mentioned in the HPI or below: Constitutional: Weight loss or gain, ability to conduct usual activities. Skin: Rash, itching. Eyes: Double vision, pain. ENT/Mouth: Nose bleeding, neck stiffness, pain, tenderness. Cardiovascular: Palpitations, dyspnea on exertion, orthopnea. Respiratory: Shortness of breath, wheezing, cough, hemoptysis, fever or night sweats. Gastrointestinal: Poor appetite, abdominal pain, heartburn, nausea, vomiting, constipation, or diarr hea. Genitourinary: Urgency, frequency, dysuria, nocturia. Musculoskeletal: Pain, swelling. Neurologic/Psychiatric: Anxiety, depression. Allergy/Immunologic: Skin rash, bleeding tendency. PHYSICAL EXAMINATION: VITAL SIGNS: Temperature 98.5, respirations 20, pulse rate of 106, blood pressure 169/94 with O2 sat uration 100% on room air. GENERAL: A 42-year-old male in no apparent distress, on insulin drip. HEENT: Head is atraumatic, normocephalic. Sclerae are anicteric. Dry mucous membrane, no oral lesi on. NECK: Supple, no JVD appreciated. No carotid bruit. LUNGS: Clear to auscultation bilaterally. No wheezing, rales or rhonchi. HEART: S1, S2 present. Regular rate and rhythm. No murmur, rubs or gallops. ABDOMEN: Soft, nontender, bowel sounds present. EXTREMITIES: No edema or calf tenderness. NEUROLOGIC: Grossly nonfocal, moves all four extremities. PSYCHIATRY: Alert, awake, oriented x3. SKIN: Warm and dry. LYMPH NODES: No palpable lymph nodes in the neck. PERIPHERAL VASCULAR: Radial pulses palpable bilaterally. MUSCULOSKELETAL: No joint swelling or tenderness. LABORATORY FINDINGS: As discussed above. Ketones were negative. Repeat serum osmolality is 289, po tassium on admission was 3.5, repeat potassium was 3.1, creatinine 1.76 on admission, total bilirubin 1.7, albumin 2.5. CBC showed WBC 4.2 with hemoglobin 9.1. IMPRESSION: 1. Severe hyperglycemia requiring insulin drip. 2. Uncontrolled diabetes mellitus type 2. 3. Cirrhosis of the liver with thrombocytopenia, hypoalbuminemia. 4. Acute kidney injury on chronic kidney disease stage 2 secondary to osmotic diuresis. 5. Abnormal liver function tests secondary to cirrhosis. 6. Hyponatremia secondary to hyperglycemia. 7. Medication noncompliance. 8. Obesity with a BMI of 32. 9. The patient is currently admitted to intermediate care unit. Insulin drip will be discontinued. We will start him on sliding scale. We will replace electrolytes. We will check magnesium and phos phorus. We will transfer the patient to medical floor. We will consult dietitian for education. Hi s A1c this admission is 9.5. Lifestyle modification was emphasized. We will discontinue fluids late r today. DISPOSITION: Probably home in 24-48 hours. Plan of care was discussed with the patient in detail. He stated understanding.
[2017-11-24] MEDS ORDERED: Magnesium 2 GM/NS 0.9% 100 ML 2 GM in Premix Bag 1 BAG IVPB SCH (06:00)
[2017-11-24 06:01] LABS: Phosphorus 1.6 mg/dL (2.3-4.7)
[2017-11-24] MEDS: NS 0.9% w/ 40 MEQ KCL 1,000 ML IV SCH ×2 (06:07→12:03)
[2017-11-24 07:58] LABS: #Eosinphils 0.2 thou/uL (0.0-0.7); #Lymphocytes 2.3 thou/uL (1.20-3.40); #Monocytes 0.5 thou/uL (0.11-0.59); #Neutrophils 2.5 thou/uL (1.40-6.50); %Basophils 0.5 % (0.0-1.0); %Eosinophils 3.1 % (0.0-10.0); %Lymphocytes 41.8 % (21.0-51.0); %Monocytes 8.9 % (0.0-10.0); %Neutrophils 45.7 % (42.0-75.0); Hemoglobin 8.7 g/dL (14.0-18.0); Mean Corpuscular Hemoglobin 34.8 pg (27.0-31.0); Mean Platelet Volume 9.1 fL (7.4-10.4); Platelet Count 71 thou/uL (130-400); RBC Distribution Width 13.4 % (11.5-14.5); Red Blood Cell (RBC) Count 2.49 mill/uL (4.70-6.10); White Blood Cell (WBC) Count 5.5 thou/uL (4.8-10.8)
[2017-11-24 08:17] LABS: Anion Gap 9 mmol/L (10-20); BUN (Urea Nitrogen) 6 mg/dL (8.9-20.6); Calc. Creatinine Clearance 123 mL/min (70-130); Calcium 8.6 mg/dL (7.8-10.44); Carbon Dioxide 23 mmol/L (22-29); Chloride 106 mmol/L (98-107); Estimated GFR-MDRD 77; Glucose 258 mg/dL (70-105); Magnesium 1.8 mg/dL (1.6-2.6); Potassium 3.6 mmol/L (3.5-5.1); Sodium 134 mmol/L (136-145)
[2017-11-24] MEDS: Famotidine 20 MG TAB PO SCH ×2 (08:30→21:40)
[2017-11-24] MEDS: Docusate 100 MG CAP PO SCH ×2 (08:30→21:40)
[2017-11-24] MEDS: NPH, Human Insulin Isophane 300 UNIT/3 ML VIAL SC SCH (09:38)
[2017-11-24] MEDS: K-Phos Neutral 250 MG TAB PO SCH ×4 (09:38→21:40)
[2017-11-24] MEDS: Propranolol 10 MG TAB PO SCH ×3 (09:38→21:40)
[2017-11-24] MEDS: Insulin Regular 300 UNITS/3 ML VIAL SC PRN (17:32)
[2017-11-25 04:54] LABS: Anion Gap 8 mmol/L (10-20); BUN (Urea Nitrogen) 6 mg/dL (8.9-20.6); Calc. Creatinine Clearance 121 mL/min (70-130); Calcium 8.6 mg/dL (7.8-10.44); Carbon Dioxide 24 mmol/L (22-29); Chloride 105 mmol/L (98-107); Estimated GFR-MDRD 76; Glucose 245 mg/dL (70-105); Magnesium 1.2 mg/dL (1.6-2.6); Potassium 3.7 mmol/L (3.5-5.1); Sodium 133 mmol/L (136-145)
[2017-11-25] MEDS: Insulin Regular 300 UNITS/3 ML VIAL SC PRN ×2 (05:52→11:33)
[2017-11-25 07:41] VITALS: BP 132/76; TEMP 98
[2017-11-25] MEDS ORDERED: Magnesium 2 GM/NS 0.9% 100 ML 4 GM in Premix Bag 1 BAG IVPB SCH (08:00)
[2017-11-25] MEDS ORDERED: Magnesium Sulfate 4 GM, Admixture Fee 1 EACH in Sodium Chloride 0.9% 250 ML 250 ML IVPB SCH (08:15)
[2017-11-25] MEDS: Propranolol 10 MG TAB PO SCH ×2 (08:18→14:56)
[2017-11-25] MEDS: NPH, Human Insulin Isophane 300 UNIT/3 ML VIAL SC SCH (08:18)
[2017-11-25] MEDS: Docusate 100 MG CAP PO SCH (08:18)
[2017-11-25] MEDS: Famotidine 20 MG TAB PO SCH (08:18)
[2017-11-25] MEDS: K-Phos Neutral 250 MG TAB PO SCH ×2 (08:18→11:38)
[2017-11-25] MEDS ORDERED: hydrOXYzine Pamoate 25 mg Capsule PO PRN (08:40)
[2017-11-25] MEDS ORDERED: traMADol HCl 50 MG TAB PO PRN (08:40)
[2017-11-25] MEDS ORDERED: metFORMIN 500 MG TAB PO SCH ×2 (08:45→17:00)
[2017-11-25] MEDS ORDERED: FLU VACC QS2017-18 36 mo. & older 0.5 ML SYRINGE IM ONE (09:00)
[2017-11-25] MEDS ORDERED: Spironolactone 100 MG TAB PO SCH (09:00)
[2017-11-25] MEDS ORDERED: Ferrous Sulfate 325 MG TAB PO SCH (09:00)
[2017-11-25] MEDS ORDERED: Clopidogrel Bisulfate 75 MG TAB ONE (14:40)
--- NOTE | 2017-11-25 18:00 | DIS ---
DATE OF ADMISSION: 11/24/2017 DATE OF DISCHARGE: 11/25/2017 DISCHARGE DIAGNOSES: 1. Medical noncompliance. 2. Hyperglycemia. 3. Diabetes mellitus type 2, uncontrolled. 4. History of liver cirrhosis. 5. Chronic alcoholism, status post remission. 6. Anxiety. 7. Depression. 8. Dehydration secondary to osmotic diuresis. CONSULTATIONS: None. PROCEDURES: None. HISTORY AND PHYSICAL: Mr. Ortiz is a 42-year-old male with diabetes. His said he takes his medicines as prescribed, but continues to drink sugary sodas. He presented in the emerg ency department 11/24/2017 complaining of high blood sugar. When it was checked, it was found to be in the 900 range. He had polydipsia, polyuria. We were subsequently called for admission for acute kidney injury due to increased creatinine, and blood sugar of . Of note, his ketones were negat ramo. Sodium was originally read as low, though likely due to pseudohyponatremia. HOSPITAL COURSE: The patient was seen and examined by Dr. Jules on the morning of 11/24/2017. He wa s started on insulin drip and IV fluids. His gap quickly closed and he was weaned off the drip and p laced on the sliding scale insulin and transferred to the floor. Overnight on 11/24/2017 to 11/25/19, the patient's blood sugar remained in the 200 range. He was eating well. He was no longer dehyd rated and repeat creatinine in the morning of 11/25/2017 was normal at 1.0. He was subsequently disc harged with outpatient followup, a new prescription for his diabetic medications and told to take the m and follow up with his primary doctor. PHYSICAL EXAMINATION: The patient was seen and examined on the day of discharge. Discharge plan and disposition were discussed with the patient [id number] at the bedside. DISCHARGE MEDICATIONS: 1. Iron sulfate 325 mg p.o. b.i.d. 2. Lasix 40 mg p.o. daily, hold until he sees his PCP. 3. Gabapentin 300 mg p.o. at bedtime. 4. Hydroxyzine 25 mg p.o. at bedtime p.r.n. insomnia. 5. Metformin 500 mg p.o. b.i.d. 6. Pantoprazole 40 mg p.o. daily. 7. Potassium chloride 20 mEq daily, to hold until he sees his PCP. 8. Inderal 10 mg p.o. t.i.d. 9. Spironolactone 100 mg p.o. daily, to hold until he sees his PCP. 10. Tramadol 50 mg p.o. q.6 hours p.r.n. A new script was sent in for his metformin. FOLLOWUP APPOINTMENTS: Primary care physician, [facility] within a week. DISCHARGE CONDITION: Stable. DISPOSITION: Being discharged home via private vehicle. DISCHARGE DIET: Diabetic, heart healthy diet recommended. DISCHARGE ACTIVITY: As tolerated.
== END 2017-11-25 15:39 | disposition home or self-care (01) | DRG 638 ==
LOC: ERS 18:50 → IMCU/EMU 20:28 → T4-B 11-24 07:21
PROVIDERS: ADMIT Internal Medicine; ATTEND Internal Medicine
DX: E11.65 Type 2 diabetes mellitus with hyperglycemia (principal); N17.9 Acute kidney failure, unspecified; K70.30 Alcoholic cirrhosis of liver without ascites; E87.1 Hypo-osmolality and hyponatremia; Z79.4 Long term (current) use of insulin; Z79.84 Long term (current) use of oral hypoglycemic drugs; R63.1 Polydipsia; Z91.14 Patient's other noncompliance with medication regimen; F41.8 Other specified anxiety disorders; N18.2 Chronic kidney disease, stage 2 (mild); E66.9 Obesity, unspecified; Z68.32 Body mass index [BMI] 32.0-32.9, adult
CPT/HCPCS: 36415; 36416; 80048; 80053; 81003; 81015; 82010; 82330; 82803; 83036; 83735; 83930; 84100; 85025; 96361; 96365; 96366; J1815; J3475; J7050

== ENCOUNTER 2018-05-27 19:43 | Emergency (ER) | payer OTHER, SELFPAY | END 2018-05-27 20:07 | disposition left against medical advice (07) | LOC: ERS 19:43 | DX: Z53.21 Procedure and treatment not carried out due to patient leaving prior to being seen by health care provider (principal) | CPT/HCPCS: 93005 ==

== ENCOUNTER 2018-11-29 20:26 | Inpatient (IN) | payer SELFPAY ==
[2018-11-29 21:25] LABS: #Eosinphils 0.1 thou/uL (0.0-0.7); #Lymphocytes 1.6 thou/uL (1.20-3.40); #Monocytes 0.8 thou/uL (0.11-0.59); #Neutrophils 3.3 thou/uL (1.40-6.50); %Basophils 0.8 % (0.0-1.0); %Eosinophils 1.1 % (0.0-10.0); %Lymphocytes 27.5 % (21.0-51.0); %Monocytes 14.1 % (0.0-10.0); %Neutrophils 56.5 % (42.0-75.0); Hemoglobin 7.2 g/dL (14.0-18.0); Mean Corpuscular HGB CONC 34.5 g/dL (32.0-36.0); Mean Platelet Volume 6.6 fL (7.4-10.4); Platelet Count 155 thou/uL (130-400); RBC Distribution Width 11.5 % (11.5-14.5); Red Blood Cell (RBC) Count 2.05 mill/uL (4.70-6.10); White Blood Cell (WBC) Count 5.8 thou/uL (4.8-10.8)
--- NOTE | 2018-11-29 21:39 | RAD ---
PORTABLE CHEST: 11/29/18 HISTORY: Altered mental status. Confusion. COMPARISON: 09/28/17 study. Heart size is enlarged. Pulmonary vessels are mildly prominent. Appears stable as compared to the juvenal or exam. No interstitial edema or focal infiltrate. IMPRESSION: Marked cardiomegaly. POS: [facility]
[2018-11-29 21:42] LABS: Acetaminophen Less than 6.0 mcg/mL (10.0-30.0); Alcohol 38 mg/dL (Less than 10); Salicylate Less than 8.0 mg/dL (15.0-30.0)
[2018-11-29 21:44] LABS: ALT (SGPT) 36 U/L (8-55); AST (SGOT) 76 U/L (5-34); Albumin 2.6 g/dL (3.5-5.0); Alkaline Phosphatase 112 U/L (40-150); Anion Gap 13 mmol/L (10-20); BUN (Urea Nitrogen) 30 mg/dL (8.9-20.6); Bilirubin, Total 0.6 mg/dL (0.2-1.2); CK (CPK) 1143 U/L (30-200); Calc. Creatinine Clearance 0 mL/min (70-130); Calcium 8.2 mg/dL (7.8-10.44); Carbon Dioxide 19 mmol/L (22-29); Chloride 97 mmol/L (98-107); Estimated GFR-MDRD 52; Globulin 3.3 g/dL (2.4-3.5); Glucose 149 mg/dL (70-105); Lipase 36 U/L (8-78); Potassium 4.9 mmol/L (3.5-5.1); Protein, Total 5.9 g/dL (6.0-8.3); Sodium 124 mmol/L (136-145)
--- NOTE | 2018-11-29 21:46 | CT ---
CT OF BRAIN PERFORMED WITHOUT CONTRAST ENHANCEMENT: 11/29/18 HISTORY: Altered mental status. COMPARISON: 12/16/16 study. Ventricular and cisternal system is within normal limits. There is no signs of intracerebral hemorrha ge or extra-axial fluid collections. Mastoid air cells and visualized sinuses are clear. IMPRESSION: No acute intracranial abnormalities. POS: [facility]
[2018-11-29 21:56] LABS: INR-International Normal Ratio 1.3; Prothrombin Time 16.5 SEC (12.0-14.7)
[2018-11-30] MEDS ORDERED: Dextrose 5 % And 0.9 % NaCl 1,000 ML IV SCH (00:45)
[2018-11-30] MEDS ORDERED: Dextrose 50% Abboject 50 ML SYRINGE SLOW IVP PRN (05:03)
[2018-11-30] MEDS ORDERED: Dextrose 5% in Water 1,000 ML IV PRN (05:03)
[2018-11-30] MEDS ORDERED: Albumin 25% 25 GM/100 ML BOT IVPB ONE (05:05)
[2018-11-30] MEDS ORDERED: Lorazepam 2 MG/ML VIAL ONE (05:12)
[2018-11-30] MEDS ORDERED: Lorazepam 2 MG/ML VIAL SLOW IVP SCH (05:30)
[2018-11-30] MEDS: cefTRIAXone\\ROCEPHIN 1 GM in Sodium Chloride 0.9% 100 ML IVPB SCH (05:34)
[2018-11-30 06:42] LABS: #Lymphocytes 0.6 thou/uL (1.20-3.40); #Monocytes 0.4 thou/uL (0.11-0.59); #Neutrophils 2.2 thou/uL (1.40-6.50); %Basophils 0.8 % (0.0-1.0); %Eosinophils 0.6 % (0.0-10.0); %Lymphocytes 19.2 % (21.0-51.0); %Monocytes 13.2 % (0.0-10.0); %Neutrophils 66.2 % (42.0-75.0); Hemoglobin 7.6 g/dL (14.0-18.0); Mean Corpuscular HGB CONC 33.7 g/dL (32.0-36.0); Mean Corpuscular Hemoglobin 34.2 pg (27.0-31.0); Mean Platelet Volume 6.4 fL (7.4-10.4); Platelet Count 153 thou/uL (130-400); RBC Distribution Width 11.6 % (11.5-14.5); Red Blood Cell (RBC) Count 2.24 mill/uL (4.70-6.10); White Blood Cell (WBC) Count 3.3 thou/uL (4.8-10.8)
[2018-11-30 07:02] LABS: Anion Gap 14 mmol/L (10-20); BUN (Urea Nitrogen) 29 mg/dL (8.9-20.6); Calc. Creatinine Clearance 99 mL/min (70-130); Calcium 8.6 mg/dL (7.8-10.44); Carbon Dioxide 18 mmol/L (22-29); Chloride 102 mmol/L (98-107); Estimated GFR-MDRD 58; Glucose 223 mg/dL (70-105); Potassium 4.9 mmol/L (3.5-5.1); Sodium 129 mmol/L (136-145)
--- NOTE | 2018-11-30 07:36 | HP ---
PRIMARY CARE DOCTOR: Daniel Levine MD CODE STATUS: Full code. TIME OF EVALUATION: 12:00. CHIEF COMPLAINT: Change in mental status. HISTORY OF PRESENT ILLNESS: This is a 43-year-old male patient with past medical history of cirrhosis of the liver, came to the hospital after having confusion. As reported, the patient has symptoms since this afternoon and was shaky, family reported to the ER that this has not happened before, and he also had some nose bleeding associated to the main problem. This information was gathered from records and from the ER. By the time I have examined the patient, the patient is alone in the room. The patient is confused, lumber, but unable to give any information. PAST MEDICAL HISTORY: Cirrhosis of the liver and diabetes type 2. SURGICAL HISTORY: Right pinky toe amputation, right thigh abscess removed. PSYCHIATRIC HISTORY: Anxiety and alcohol abuse. SOCIAL HISTORY: The patient drinks on a daily basis, 8 drinks per day. No drugs. No smoking history. FAMILY HISTORY: Reviewed and non contributory to current presentation. REVIEW OF SYSTEMS: Unable to obtain. The patient is confused. KNOWN ALLERGIES: No known drug allergies. REPORTED MEDICATIONS: 1. Gabapentin. 2. Potassium chloride. 3. FeroSul. 1. Hydroxyzine. 2. Furosemide. 3. Pantoprazole. 4. Metformin. 5. Januvia. 6. Spironolactone. 7. Folic acid. PHYSICAL EXAMINATION: VITAL SIGNS: On presentation, blood pressure 158/79 with heart rate 91, temperature 98.1, oxygen saturation was 100 on room air. GENERAL APPEARANCE: The patient is confused, nonverbal, can follow simple commands. HEENT: Eyes, normal conjunctivae. Moist oral mucosa. Anicteric. No JVD. RESPIRATORY: Bilateral air entry. No rales. No wheezes. Symmetric expansion. CARDIOVASCULAR: Normal rate, regular rhythm. No murmurs. No gallop. Bilateral leg edema. ABDOMEN: Soft, normal bowel sounds. MUSCULOSKELETAL: Baseline range of motion and strength. No tenderness. SKIN: Warm, intact. No pallor. No rash. No redness. Peripheral pulses are present. Capillary refill seems to be intact. NEUROLOGIC: The patient is confused, unable to fully explore. PSYCHIATRIC: The patient is confused and unable to fully explore. DIAGNOSTIC DATA: CT head was done, the patient has no acute intracranial abnormalities. The chest x-ray was done. The patient has marked cardiomegaly. LABORATORY DATA: Labs were reviewed. The patient has white count 5.8, hemoglobin 7.2; on previous admission, hemoglobin was 8. MCV 102, platelet count 155. Chemistry; sodium 124, potassium 4.9, chloride 97, carbon dioxide 19, anion gap 13. BUN 30, creatinine 1.48; on previous admission, creatinine was 1.06. GFR 52, glucose 149, calcium 8.2, total bilirubin 0.6, AST 76, ALT 36, alkaline phosphatase 112, ammonia 180. CK 1143. Serum total protein 5.9, albumin 2.6, globulin 3.3, albumin to globulin ratio is 0.8. Lipase 36. TSH 2.5. Toxicology, salicylate and acetaminophen is 9 and 6 respectively. Plasma alcohol was 38. ASSESSMENT AND PLAN: The patient will be placed in the hospital with following medical problems: 1. Chronic macrocytic anemia secondary to alcoholism. Hemoglobin is about the same, no evidence of any acute bleeding, we will monitor. We will treat accordingly. 2. Hyponatremia. Sodium 134, the patient has a history of previous admission with sodium that has been as low as 119, we will consult Nephrology for assistance for this patient. It seems to be a chronic problem for this patient. 3. Acute kidney injury. On previous admission, creatinine was normal; today is 1.4 with an elevated BUN, Nephrology has been consulted for further recommendations. The patient is in fluid overload, might benefit from some . 4. Uncontrolled diabetes, blood sugar 149. We will reconcile home medications. We will hold on coverage at this point since the patient is not eating properly. 5. Hyperammonemia. The patient's ammonia level was 180. The patient has been started on lactulose and rifaximin. 6. Hepatic encephalopathy. The patient's ammonia level is 180. The patient is started on rifaximin/lactulose, we will monitor ammonia level. We will monitor mental status. 7. Mildly elevated CK 1143. The patient might need some hydration; however, the patient seems to be hepatorenal with some third spacing. Might need assistance from Nephrology for fluid balance and management. 8. Toxicology. The patient tested positive for alcohol, 38. 9. Deep venous thrombosis prophylaxis. 10. Risk assessment, the patient is a high risk due to acute hepatic encephalopathy. Job ID: [id number] [facility]
[2018-11-30] MEDS: Rifaximin 550 MG TAB PO SCH ×2 (08:52→20:53)
[2018-11-30] MEDS ORDERED: Sodium Chloride 0.9% 1,000 ML IV SCH (10:45)
--- NOTE | 2018-11-30 12:20 | PDOC.PN ---
- Subjective Encounter Start Date: 11/30/18 Encounter Start Time: 08:00 Subjective: is obtunded, does not wake to sternal rub -: is maintaining airway - Objective Resuscitation Status - Order Detail: 11/30/18 00:33 Resuscitation Status Routine Resuscitation Status: FULL: Full Resuscitation MAR Reviewed: Yes Vital Signs & Weight: Vital Signs (12 hours) Temp Pulse Resp BP Pulse Ox 11/30/18 07:58 98.2 F 91 16 160/93 H 99 11/30/18 04:33 97 20 165/74 H 97 11/30/18 00:40 98.5 F 83 20 121/75 99 Weight Weight 217 lb 14.4 oz I&O: 11/29/18 11/30/18 12/01/18 06:59 06:59 06:59 Intake Total 400 Output Total 0 Balance 400 Result Diagrams: 11/30/18 06:10 11/30/18 06:10 Additional Labs: Accuchecks 11/30/18 11/30/18 11:34 05:00 POC Glucose 228 H 248 H Phys Exam - Physical Examination HEENT: PERRLA, moist MMs Neck: no JVD, supple Respiratory: no wheezing, no rales Cardiovascular: RRR, no significant murmur Gastrointestinal: soft, non-tender, positive bowel sounds Musculoskeletal: no edema, pulses present Neurological: non-focal, moves all 4 limbs Dx/Plan (1) Hepatic encephalopathy Code(s): K72.90 - HEPATIC FAILURE, UNSPECIFIED WITHOUT COMA Status: Acute (2) Cirrhosis Code(s): K74.60 - UNSPECIFIED CIRRHOSIS OF LIVER Status: Chronic Qualifiers: Hepatic cirrhosis type: alcoholic cirrhosis Ascites presence: without ascites Qualified Code(s): K70.30 - Alcoholic cirrhosis of liver without ascites (3) Chronic anemia Code(s): D64.9 - ANEMIA, UNSPECIFIED Status: Chronic (4) Hypoalbuminemia Code(s): E88.09 - OTH DISORDERS OF PLASMA-PROTEIN METABOLISM, NEC Status: Chronic Comment: sec to liver disease (5) RAEGAN (acute kidney injury) Code(s): N17.9 - ACUTE KIDNEY FAILURE, UNSPECIFIED Status: Acute (6) Metabolic acidosis Code(s): E87.2 - ACIDOSIS Status: Acute (7) Alcoholism Code(s): F10.20 - ALCOHOL DEPENDENCE, UNCOMPLICATED Status: Chronic (8) DM2 (diabetes mellitus, type 2) Status: Chronic Qualifiers: Diabetes mellitus manager terminal insulin use: without manager terminal use Diabetes mellitus complication status: with unspecified complications Qualified Code(s) : E11.8 - Type 2 diabetes mellitus with unspecified complications (9) Thrombocytopenia Code(s): D69.6 - THROMBOCYTOPENIA, UNSPECIFIED Status: Chronic - Plan re-evaluated pt around 10am, is confused and trying to get out of bed -: watch for airway/aspiration -: lactulose 5xdaily per rectal, may give po if awake -: empiric ceftriaxone, GI consult -: normal saline, dc D5 drip (hyperglycemia). * . Review of Systems - Medications/Allergies Allergies/Adverse Reactions: Allergies Allergy/AdvReac Type Severity Reaction Status Date / Time No Known Drug Allergies Allergy Verified 08/02/17 16:40 Medications: Current Medications Dextrose/Water (Dextrose 50%) 25 gm SLOW IVP PRN PRN PRN Reason: Hypoglycemia Glucagon (Glucagon) 1 mg IM PRN PRN PRN Reason: Hypoglycemia Ceftriaxone Sodium 1 gm/ (Sodium Chloride) 100 mls @ 200 mls/hr IVPB Q24HR [facility] Last Admin: 11/30/18 05:34 Dose: 100 mls Dextrose/Water (D5w) 1,000 mls @ 0 mls/hr IV .Q0M PRN PRN Reason: Hypoglycemia Sodium Chloride (Normal Saline 0.9%) 1,000 mls @ 100 mls/hr IV .Q10H [facility] Last Admin: 11/30/18 12:05 Dose: 1,000 mls Insulin Human Lispro (Humalog) 0 units SC .MILD SLIDING SCALE PRN PRN Reason: Mild Correctional Scale Lactulose (Lactulose) 30 gm SC Q5H [facility] Last Admin: 11/30/18 12:05 Dose: 30 gm Pantoprazole Sodium (Protonix) 40 mg IVP Q12HR [facility] Rifaximin (Xifaxan) 550 mg PO BID [facility] Last Admin: 11/30/18 08:52 Dose: Not Given Sodium Chloride (Flush - Normal Saline) 10 ml IVF Q12HR [facility] Sodium Chloride (Flush - Normal Saline) 10 ml IVF PRN PRN PRN Reason: Saline Flush
[2018-11-30 12:30] LABS: Hemoglobin 7.9 g/dL (14.0-18.0)
[2018-11-30 12:51] LABS: Anion Gap 13 mmol/L (10-20); BUN (Urea Nitrogen) 25 mg/dL (8.9-20.6); Calc. Creatinine Clearance 100 mL/min (70-130); Calcium 9.1 mg/dL (7.8-10.44); Carbon Dioxide 18 mmol/L (22-29); Chloride 109 mmol/L (98-107); Estimated GFR-MDRD 59; Glucose 226 mg/dL (70-105); Potassium 4.5 mmol/L (3.5-5.1); Sodium 135 mmol/L (136-145)
[2018-11-30 13:23] LABS: Amphetamine Not Detected (NotDetected); Barbiturates Screen Not Detected (NotDetected); Benzodiazepine Screen Not Detected (NotDetected); Cocaine Metabolite Screen Not Detected (NotDetected); Medtox Control Line Valid? VALID (VALID); Medtox Reader # READER 1; Methadone Not Detected (NotDetected); Methamphetamine Not Detected (NotDetected); Opiate Screen Not Detected (NotDetected); Oxycodone Screen Not Detected (NotDetected); Phencyclidine (PCP) Not Detected (NotDetected); THC/Cannabinoid Screen Not Detected (NotDetected); Tricyclic Screen Not Detected (NotDetected)
--- NOTE | 2018-11-30 15:09 | CON ---
DATE OF CONSULTATION: 11/30/2018 REASON FOR CONSULTATION: Hyponatremia. TIME OF CONSULTATION: Around 11:00 a.m. HISTORY OF PRESENT ILLNESS: This is a 43-year-old gentleman, who presented to the hospital early this morning for altered mental status. The patient was noted to have a sodium of 124, which has improved to 129 at 6:10 a.m. from last night, so I was consulted. The patient can give no further history. PAST MEDICAL HISTORY: Significant for cirrhosis, diabetes mellitus, history of right pinky toe amputation, abscess removed. ALLERGIES: REVIEWED. REVIEW OF SYSTEMS: Unobtainable. MEDICATIONS: Home medication list reviewed. PHYSICAL EXAMINATION: GENERAL: The patient is confused. VITAL SIGNS: Afebrile, pulse , breathing 16, blood pressure 121/74. GENERAL APPEARANCE AND MENTAL STATUS: Fair. HEAD/NECK: Normocephalic. Atraumatic. EYES: EOMI. No deformity. EARS: Clear. No ulcers. NOSE: Intact. No lesions. MOUTH: Clear. No discharge. THROAT: Clear. No exudate. LUNGS: Clear. No crackles. CARDIAC: S1, S2. No rub. ABDOMEN: Benign. Bowel sounds positive. GENITALIA/RECTUM: Deejsus absent. BACK/EXTREMITIES: Edema 0+. NEUROLOGIC: The patient is confused. ASSESSMENT/RECOMMENDATIONS: Hyponatremia most likely because of liver failure and acute kidney injury. No need for hypertonic saline. Low-grade rhabdomyolysis. Discontinue gentle hydration. Altered mental status is not because of hyponatremia. It is because of liver failure or other neurological etiologies. I am going to repeat labs. No further workup for hyponatremia is needed. Job ID: [id number]
--- NOTE | 2018-11-30 16:17 | ULT ---
BILATERAL RENAL ULTRASOUND: HISTORY: Acute kidney injury. TECHNIQUE: Multiplanar, leal scale, and color Doppler images were obtained in a thyroid ultrasound. FINDINGS: The kidneys are normal in echogenicity without hydronephrosis or calculi and measure 12.2 and 11.9 cm in length on the right and left, respectively. Limited visualization of the urinary bladder is unremarkable. IMPRESSION: Unremarkable renal ultrasound. POS: [facility]
[2018-11-30 17:16] LABS: Hemoglobin 8.3 g/dL (14.0-18.0)
[2018-11-30] MEDS: Pantoprazole 40 MG VIAL IVP SCH (20:52)
[2018-11-30] MEDS: Dextrose 5% in Water 1,000 ML IV SCH (20:53)
--- NOTE | 2018-11-30 23:09 | CON ---
DATE OF CONSULTATION: HISTORY OF PRESENT ILLNESS: The patient is a 43-year-old gentleman, who presented with several day history of feeling dizzy. He had no nausea or vomiting. He has had no weight loss. He has had no melena or hematochezia. He has had some occasional nose bleeds. He has been confused over several days as well. He was seen by my partner, Dr. Lin, on 08/03/2017, and diagnosed with alcoholic cirrhosis. He also had anasarca, coagulopathy, and macrocytic anemia at that time. Subsequently, he underwent an upper endoscopy by Dr. Wallace and showed a single column of grade 2 varices and some gastric fundic varices, started on propranolol and recommended to be on a low-sodium diet. Discharge medications at that time included vitamin B12, ferrous sulfate, folic acid, Lasix, lactulose, magnesium oxide, multivitamin, potassium chloride, Inderal, Aldactone, and thiamine. PAST MEDICAL HISTORY: Includes diabetes mellitus. PAST SURGICAL HISTORY: Includes toe amputation, thigh abscess. ALLERGIES: NO KNOWN MEDICAL ALLERGIES. MEDICATIONS: Include: 1. Folic acid 0.4 mg p.o. daily. 2. Januvia 25 mg p.o. daily. 3. Iron sulfate 325 mg p.o. daily. 4. Gabapentin 600 mg p.o. daily. 5. Potassium chloride 20 mEq p.o. q.a.m. 6. Lasix 40 mg p.o. q.a.m. 7. Hydroxyzine 25 mg p.o. q.h.s. p.r.n. 8. Spironolactone 100 mg p.o. daily. 9. Pantoprazole 40 mg p.o. daily. 10. Metformin 500 mg p.o. b.i.d. SOCIAL HISTORY: Continues to drink what he says is eight beers every day. FAMILY HISTORY: Negative for GI or liver disease. REVIEW OF SYSTEMS: CONSTITUTIONAL: No fever or chills. No weight loss. HEENT: Eyes, no blurred vision or double vision. ENT, no sore throat or earaches. CARDIOVASCULAR: No chest pain or palpitations. PULMONARY: No shortness of breath, cough, or wheezing. GI: See above. : No hematuria or dysuria. MUSCULOSKELETAL: No joint pain or muscle weakness. No appreciable edema is noted. PHYSICAL EXAMINATION: VITAL SIGNS: Temperature 98.2, pulse 91, respiratory rate 16, blood pressure 160/93. HEENT: Unremarkable. NECK: Supple. CHEST: Clear. CARDIOVASCULAR: Regular rate and rhythm. ABDOMEN: Soft, nontender, without organomegaly or masses. RECTAL: Deferred. EXTREMITIES: Showed no pitting edema. LABORATORY DATA: On admission shows a hemoglobin of 7.2, hematocrit of 20.8, MCV of 102, platelet counts 155. Repeat hemoglobin shows hemoglobin of 7.9. PT is 16.3 with an INR of 1.3. Admission laboratory shows sodium of 124, CO2 19, BUN 30, creatinine 1.48, glucose 149, AST 76, CK of 1143, albumin 2.6. Plasma alcohol was 38. Acetaminophen was less than 6, salicylates less than 8. Renal ultrasound was unremarkable. ASSESSMENT: 1. Alcoholic cirrhosis. 2. Alcoholic hepatitis. 3. Hepatic encephalopathy. 4. Active alcohol abuse. 5. Hyponatremia. 6. Diabetes mellitus. 7. Esophageal and gastric varices noted on the EGD on July of 2017. RECOMMENDATIONS: 1. Lactulose to achieve four bowel movements per day. 2. Begin Xifaxan. 3. Okay to feed. 4. Alcohol abstinence. 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 6. Serial ammonia levels. Job ID: [id number]
[2018-11-30 23:54] LABS: Hemoglobin 7.6 g/dL (14.0-18.0)
[2018-12-01 04:29] LABS: Anion Gap 13 mmol/L (10-20); BUN (Urea Nitrogen) 15 mg/dL (8.9-20.6); Calc. Creatinine Clearance 111 mL/min (70-130); Calcium 8.9 mg/dL (7.8-10.44); Carbon Dioxide 17 mmol/L (22-29); Chloride 109 mmol/L (98-107); Estimated GFR-MDRD 66; Glucose 210 mg/dL (70-105); Sodium 135 mmol/L (136-145)
[2018-12-01] MEDS: cefTRIAXone\\ROCEPHIN 1 GM in Sodium Chloride 0.9% 100 ML IVPB SCH (04:31)
[2018-12-01] MEDS: HumaLOG 300 UNITS/3 ML VIAL SC PRN ×3 (05:53→20:56)
--- NOTE | 2018-12-01 09:13 | PRG ---
DATE OF SERVICE: 12/01/2018 SUBJECTIVE: A 43-year-old male, being seen for acute kidney injury. The patient denied any nausea, vomiting, or chest pain/ OBJECTIVE: CONSTITUTIONAL: The patient is awake and alert. VITAL SIGNS: Afebrile, pulse 67, breathing 16, blood pressure 163/90. GENERAL APPEARANCE AND MENTAL STATUS: Fair. HEAD/NECK: Normocephalic. Atraumatic. EYES: EOMI. No deformity. EARS: Clear. No ulcers. NOSE: Intact. No lesions. MOUTH: Clear. No discharge. THROAT: Clear. No exudate. LUNGS: Clear. No crackles. CARDIAC: S1, S2. No rub. ABDOMEN: Benign. Bowel sounds positive. GENITALIA/RECTUM: Dejesus absent. BACK/EXTREMITIES: Edema 0+. NEUROLOGICAL: Alert and motor intact. SKIN: LYMPHATICS: ASSESSMENT AND PLAN: 1. Acute kidney injury . 2. Hypertension, stable. 3. Anemia, stable. 4. Metabolic acidosis, start sodium bicarbonate. No indication for dialysis at this time. Job ID: [id number]
[2018-12-01] MEDS: Pantoprazole 40 MG VIAL IVP SCH ×2 (10:18→20:21)
[2018-12-01] MEDS: Rifaximin 550 MG TAB PO SCH ×2 (10:19→20:21)
--- NOTE | 2018-12-01 12:56 | PRG ---
DATE OF SERVICE: 12/01/2018 SUBJECTIVE: The patient is feeling much better. He is much more alert and oriented. He has had multiple multiple stools. OBJECTIVE: VITAL SIGNS: Temperature 97.7, pulse 97, respiratory rate 18, blood pressure 163/92. CHEST: Clear. CARDIOVASCULAR: Regular rate and rhythm. ABDOMEN: Soft, nontender, without organomegaly or masses. LABORATORY DATA: Shows a hemoglobin of 7.6, hematocrit of 22.6. Laboratory shows ammonia of 67. ASSESSMENT: 1. Hepatic encephalopathy-resolved. 2. Alcoholic cirrhosis. 3. Alcoholic hepatitis. 4. Alcoholism. 5. Diabetes mellitus. 6. History of esophageal varices. 7. Anemia. RECOMMENDATIONS: 1. Decrease dose of lactulose. 2. Advance diet. 3. EGD in a.m. Job ID: [id number]
--- NOTE | 2018-12-01 16:35 | PDOC.PN ---
- Subjective Encounter Start Date: 12/01/18 Encounter Start Time: 09:40 Pt seen for followup re: hepatic encephalopathy. Feels better. - Objective Resuscitation Status - Order Detail: 11/30/18 00:33 Resuscitation Status Routine Resuscitation Status: FULL: Full Resuscitation MAR Reviewed: Yes Vital Signs & Weight: Vital Signs (12 hours) Temp Pulse Resp BP Pulse Ox 12/01/18 11:54 97.7 F 97 18 163/92 H 99 12/01/18 08:00 99 12/01/18 07:56 98.1 F 87 18 173/81 H 98 Weight Weight 217 lb 14.4 oz I&O: 11/30/18 12/01/18 12/02/18 06:59 06:59 06:59 Intake Total 400 2680 Output Total 0 Balance 400 2680 Result Diagrams: 11/30/18 23:36 12/01/18 04:03 Additional Labs: Accuchecks 12/01/18 12/01/18 11/30/18 11:58 05:31 21:09 POC Glucose 273 H 226 H 186 H 11/30/18 16:49 POC Glucose 163 H labs reviewed by me Phys Exam - Physical Examination Constitutional: NAD HEENT: moist MMs, sclera anicteric, oral pharynx no lesions, 2+ tonsils Neck: no nodes, no JVD, supple, full ROM Respiratory: clear to auscultation bilateral Cardiovascular: RRR, no rub S1, S2 Gastrointestinal: soft, non-tender, no distention, positive bowel sounds Musculoskeletal: edema present Neurological: moves all 4 limbs flapping tremor Psychiatric: normal affect Deviation from normal: Oriented to person and place, not to time Dx/Plan (1) Hepatic encephalopathy Code(s): K72.90 - HEPATIC FAILURE, UNSPECIFIED WITHOUT COMA Status: Acute Comment: Improved, continue lactulose (2) Cirrhosis Code(s): K74.60 - UNSPECIFIED CIRRHOSIS OF LIVER Status: Chronic Qualifiers: Hepatic cirrhosis type: alcoholic cirrhosis Ascites presence: without ascites Qualified Code(s): K70.30 - Alcoholic cirrhosis of liver without ascites Comment: stable (3) Alcoholic liver disease Code(s): K70.9 - ALCOHOLIC LIVER DISEASE, UNSPECIFIED Status: Chronic Comment: stable (4) DM2 (diabetes mellitus, type 2) Status: Chronic Qualifiers: Diabetes mellitus [employer] insulin use: without senior living use Diabetes mellitus complication status: with unspecified complications Qualified Code(s) : E11.8 - Type 2 diabetes mellitus with unspecified complications Comment: continue accuchecks, insulin sliding scale - Plan * . Review of Systems - Review of Systems Constitutional: negative: fever, chills, sweats, weakness, malaise Respiratory: negative: Cough, Shortness of Breath, SOB with Excertion, Pleuritic Pain, Wheezing Cardiovascular: negative: chest pain, palpitations, orthopnea, paroxysmal nocturnal dyspnea, edema, light headedness Gastrointestinal: negative: Nausea, Vomiting, Abdominal Pain, Diarrhea, Constipation, Melena, Hematochezia Genitourinary: negative: Dysuria, Frequency, Incontinence, Hematuria, Retention Skin: negative: Rash, Lesions, Antwan, Bruising - Medications/Allergies Allergies/Adverse Reactions: Allergies Allergy/AdvReac Type Severity Reaction Status Date / Time No Known Drug Allergies Allergy Verified 08/02/17 16:40 Medications: Current Medications Dextrose/Water (Dextrose 50%) 25 gm SLOW IVP PRN PRN PRN Reason: Hypoglycemia Glucagon (Glucagon) 1 mg IM PRN PRN PRN Reason: Hypoglycemia Ceftriaxone Sodium 1 gm/ (Sodium Chloride) 100 mls @ 200 mls/hr IVPB Q24HR [facility] Last Admin: 12/01/18 04:31 Dose: 100 mls Dextrose/Water (D5w) 1,000 mls @ 0 mls/hr IV .Q0M PRN PRN Reason: Hypoglycemia Dextrose/Water (D5w) 1,000 mls @ 50 mls/hr IV .Q20H [facility] Last Admin: 11/30/18 20:53 Dose: 1,000 mls Insulin Human Lispro (Humalog) 0 units SC .MILD SLIDING SCALE PRN PRN Reason: Mild Correctional Scale Last Admin: 12/01/18 13:17 Dose: 4 unit Lactulose (Lactulose) 10 gm PO BID MARS Pantoprazole Sodium (Protonix) 40 mg IVP Q12HR [facility] Last Admin: 12/01/18 10:18 Dose: 40 mg Rifaximin (Xifaxan) 550 mg PO BID [facility] Last Admin: 12/01/18 10:19 Dose: 550 mg Sodium Chloride (Flush - Normal Saline) 10 ml IVF Q12HR [facility] Last Admin: 12/01/18 10:19 Dose: 10 ml Sodium Chloride (Flush - Normal Saline) 10 ml IVF PRN PRN PRN Reason: Saline Flush
[2018-12-01] MEDS: hydrALAZINE 20 MG/ML VIAL SLOW IVP PRN (18:16)
[2018-12-01] MEDS: Dextrose 5% in Water 1,000 ML IV SCH (20:21)
[2018-12-02] MEDS: hydrALAZINE 20 MG/ML VIAL SLOW IVP PRN (00:14)
[2018-12-02] MEDS: cefTRIAXone\\ROCEPHIN 1 GM in Sodium Chloride 0.9% 100 ML IVPB SCH (05:37)
[2018-12-02] MEDS: Dextrose 5% in Water 1,000 ML IV SCH (05:38)
[2018-12-02] MEDS: HumaLOG 300 UNITS/3 ML VIAL SC PRN ×3 (06:35→17:32)
[2018-12-02] MEDS: Rifaximin 550 MG TAB PO SCH (10:57)
[2018-12-02] MEDS: Metoclopramide 10 MG/10 ML UDCUP PO SCH ×2 (10:57→16:48)
[2018-12-02] MEDS: Pantoprazole 40 MG VIAL IVP SCH (10:58)
--- NOTE | 2018-12-02 11:19 | OP ---
DATE OF PROCEDURE: 12/02/2018 PREOPERATIVE DIAGNOSES: Melena and anemia. DESCRIPTION OF PROCEDURE: After informed consent was obtained, the patient was placed in the left lateral decubitus position. Anesthesia was administered per the Anesthesia Department. Forward-viewing endoscope was inserted into the esophagus under direct visualization with ease and passed to the second portion of the duodenum with ease. Second portion of duodenum and duodenal bulb were normal. No blood was seen in the upper GI tract. The pylorus, antrum, body, fundus, and cardia were normal, although full visualization could not be achieved because of the large amount of retained gastric contents. Retroflexion in the stomach showed no obvious gastric varices. There were grade 1 esophageal varices without stigmata of recent hemorrhage. ASSESSMENT: 1. Grade 1 esophageal varices without stigmata of hemorrhage. 2. Large amount of retained gastric contents. RECOMMENDATIONS: 1. Trial of Reglan. 2. No need for beta blockers at this time. 3. Stable for discharge from GI standpoint. Job ID: [id number]
[2018-12-02 11:50] LABS: Anion Gap 12 mmol/L (10-20); BUN (Urea Nitrogen) 15 mg/dL (8.9-20.6); Calc. Creatinine Clearance 95 mL/min (70-130); Calcium 8.5 mg/dL (7.8-10.44); Carbon Dioxide 18 mmol/L (22-29); Chloride 107 mmol/L (98-107); Estimated GFR-MDRD 56; Glucose 221 mg/dL (70-105); Potassium 4.2 mmol/L (3.5-5.1)
[2018-12-02 12:03] LABS: Sodium 133 mmol/L (136-145)
--- NOTE | 2018-12-02 13:17 | PRG ---
DATE OF SERVICE: 12/02/2018 SUBJECTIVE: A 43-year-old gentleman, being seen for acute kidney injury. The patient denied any nausea, vomiting, or chest pain. OBJECTIVE: See above. Awake, alert, in no acute distress. VITAL SIGNS: Afebrile. Pulse 91, breathing 16, blood pressure 107/65. GENERAL APPEARANCE AND MENTAL STATUS: Fair. HEAD/NECK: Normocephalic. Atraumatic. EYES: EOMI. No deformity. EARS: Clear. No ulcers. NOSE: Intact. No lesions. MOUTH: Clear. No discharge. THROAT: Clear. No exudate. LUNGS: Clear. No crackles. CARDIAC: S1, S2. No rub. ABDOMEN: Benign. Bowel sounds positive. GENITALIA/RECTUM: Dejesus absent. BACK/EXTREMITIES: Edema 0+. NEUROLOGICAL: Alert and motor intact. SKIN: LYMPHATICS: LABORATORY DATA: Hemoglobin 7.6. Sodium 133. ASSESSMENT AND PLAN: 1. Hyponatremia, stable. 2. Hypertension, stable. 3. Anemia, stable. 4. Chronic kidney disease stage 3, stable. The patient will follow up to see me in one month. I will sign off on this patient. The patient's IV fluids can be discontinued. Job ID: [id number]
[2018-12-02] MEDS ORDERED: PROPOFOL 200 MG/20 ML VIAL ONE (13:55)
[2018-12-02 17:05] VITALS: BP 155/75; TEMP 97.8
--- NOTE | 2018-12-03 03:54 | DIS ---
DATE OF ADMISSION: 11/30/2018 DATE OF DISCHARGE: 12/02/2018 PRIMARY CARE PROVIDER: Dr. Daniel Levine. DISCHARGE DIAGNOSES: 1. Hepatic encephalopathy. 2. Acute on chronic stage 3 renal failure. 3. Hyponatremia. CONDITION OF PATIENT ON THE DAY OF DISCHARGE: Stable. I assessed Mr. Ortiz on the day of discharge. He denies any chest pain or shortness of breath. Vital signs are stable. S1 and S2 are heard, regular. Lungs are clear to auscultation bilaterally. CONSULTATIONS DURING THIS HOSPITALIZATION: Nephrology, Dr. Leger and Gastroenterology, Dr. Naseem Perez. DISCHARGE MEDICATIONS: 1. Ferrous sulfate 325 mg daily. 2. Folic acid 0.4 mg daily. 3. Gabapentin 600 mg daily. 4. Protonix 40 mg daily. 5. Januvia 25 mg daily. 6. Cefdinir 300 mg two times a day for 1 week. 7. Furosemide 40 mg daily. 8. Lactulose 10 g two times a day. 9. Reglan 10 mg daily. 10. Potassium chloride 20 mEq daily. 11. Spironolactone 100 mg daily. 12. Hydroxyzine 25 mg at bedtime as needed. HOSPITAL COURSE: Mr. Ortiz is a pleasant 43-year-old gentleman who was admitted to [facility] on 11/30/2018 for hepatic encephalopathy. Please refer to Dr. Quinn's history and physical note dated 11/30/2018 for further details. He was also found to have acute on chronic renal insufficiency. He was seen by Nephrology Service. He was also hyponatremic at the time of admission. He had an ammonia level of 180 at the time of admission. This improved to 67 by 12/01 after he received lactulose treatments, initially rectally, subsequently orally. He was treated with empiric antibiotics at the time of admission in case he was encephalopathic from an infection. At the time of this dictation, final blood cultures are pending. He was advised to follow up with his primary care provider for final blood culture report. In terms of renal insufficiency, he had a creatinine of 1.38 on 12/02, 1.19 on 12/01, 1.32 on 11/30. His creatinine was 1.06 on 11/25. Metformin is on hold. He is advised to follow up with his primary care provider to discuss when to resume his metformin. On 12/02, he underwent EGD. He was found to have grade 1 esophageal varices without stigmata of hemorrhage. He also had large amount of retained gastric contents. He has been started on Reglan. On 12/02, he has sodium of 133, potassium 4.2, and creatinine 1.38. On 11/30, he had white count 3300, hemoglobin 7.6, and platelet count 153,000. Many thanks for allowing me to participate in your patient's care. Please feel free to contact me with any questions or concerns. DISCHARGE DESTINATION: Home. TIME SPENT: Total amount of time spent coordinating this discharge: 33 minutes. Job ID: [id number]
== END 2018-12-02 17:47 | disposition home or self-care (01) | DRG 442 ==
LOC: ERS 20:26 → T4-B 11-30 00:40
PROVIDERS: ADMIT Hospitalist; ATTEND Hospitalist
PROC: 0DJ08ZZ Inspection of Upper Intestinal Tract, Via Natural or Artificial Opening Endoscopic (ICD-10-PCS; principal; 2018-12-02)
DX: K72.90 Hepatic failure, unspecified without coma (principal); E87.1 Hypo-osmolality and hyponatremia; N17.9 Acute kidney failure, unspecified; E87.2 Acidosis; I85.00 Esophageal varices without bleeding; F10.229 Alcohol dependence with intoxication, unspecified; Y90.1 Blood alcohol level of 20-39 mg/100 ml; D53.9 Nutritional anemia, unspecified; E11.65 Type 2 diabetes mellitus with hyperglycemia; D69.6 Thrombocytopenia, unspecified; Z89.429 Acquired absence of other toe(s), unspecified side; K70.30 Alcoholic cirrhosis of liver without ascites; E11.22 Type 2 diabetes mellitus with diabetic chronic kidney disease; N18.3 Chronic kidney disease, stage 3 (moderate)
CPT/HCPCS: 36415; 36416; 70450; 71045; 76770; 80048; 80053; 80306; 80307; 82140; 82550; 83690; 84443; 84484; 85025; 85610; 85730; 87040; 90471; 90686; 93005; 96360; 96361; C9113; G0008; J0360; J0696; J2060; J2704; J7050; J8597

== ENCOUNTER 2019-02-07 09:23 | Emergency (ER) | payer SELFPAY ==
[2019-02-07 10:06] LABS: Bilirubin Negative (Negative); Blood, Urine Large (Negative); Clarity CLEAR (Clear); Glucose, Urine (Dipstick) Negative (Negative); Leukocyte Negative (Negative); Nitrite Negative (Negative); Protein, Urine (Dipstick) 100 mg/dL (Neg-Trace); Specific Gravity, Urine 1.003 (1.002-1.036); Urobilinogen 0.2 mg/dL (0.2-1.0); pH, Urine 6.5 (5.0-9.0)
[2019-02-07 10:09] LABS: Bacteria/HPF None Seen HPF (None Seen); Hyaline Casts/LPF 0-3 HYALINE CAST LPF (0-3 Hyaline); RBC/HPF 21-50 HPF (0-3); Squamous Epithelial None Seen HPF (0-3); WBC/HPF None Seen HPF (0-3)
[2019-02-07] MEDS ORDERED: Proparacaine 0.5% Opth 15 ML BOT ONE (10:46)
[2019-02-07] MEDS ORDERED: hydrALAZINE 20 MG/ML VIAL ONE ×2 (10:46→11:29)
[2019-02-07 10:52] LABS: #Eosinphils 0.1 thou/uL (0.0-0.7); #Monocytes 0.7 thou/uL (0.11-0.59); #Neutrophils 1.9 thou/uL (1.40-6.50); %Basophils 0.7 % (0.0-1.0); %Eosinophils 2.5 % (0.0-10.0); %Lymphocytes 42.2 % (21.0-51.0); %Monocytes 14.3 % (0.0-10.0); %Neutrophils 40.3 % (42.0-75.0); Hemoglobin 9.2 g/dL (14.0-18.0); Mean Corpuscular HGB CONC 33.2 g/dL (32.0-36.0); Mean Corpuscular Hemoglobin 32.2 pg (27.0-31.0); Mean Corpuscular Volume 96.9 fL (78.0-98.0); Mean Platelet Volume 7.2 fL (7.4-10.4); Platelet Count 147 thou/uL (130-400); RBC Distribution Width 13.1 % (11.5-14.5); Red Blood Cell (RBC) Count 2.85 mill/uL (4.70-6.10); White Blood Cell (WBC) Count 4.7 thou/uL (4.8-10.8)
[2019-02-07 11:13] LABS: ALT (SGPT) 27 U/L (8-55); AST (SGOT) 66 U/L (5-34); Albumin 2.8 g/dL (3.5-5.0); Alkaline Phosphatase 169 U/L (40-150); Anion Gap 12 mmol/L (10-20); BUN (Urea Nitrogen) 14 mg/dL (8.9-20.6); Bilirubin, Total 0.6 mg/dL (0.2-1.2); Calc. Creatinine Clearance 0 mL/min (70-130); Calcium 8.8 mg/dL (7.8-10.44); Carbon Dioxide 22 mmol/L (22-29); Chloride 100 mmol/L (98-107); Estimated GFR-MDRD 86; Globulin 3.5 g/dL (2.4-3.5); Glucose 179 mg/dL (70-105); Potassium 3.9 mmol/L (3.5-5.1); Protein, Total 6.3 g/dL (6.0-8.3); Sodium 130 mmol/L (136-145)
--- NOTE | 2019-02-07 11:34 | CT ---
CT HEAD WITHOUT CONTRAST: HISTORY: Diabetes. Right eye blurred vision since 12 noon yesterday. COMPARISON: 11/29/2018 FINDINGS: No parenchymal hemorrhage. No extraaxial hematoma. No midline shift. The basilar cisterns are rodarte nt. Brain volume is age appropriate. Cortical leal white matter differentiation is preserved. Vent ricles and sulci are patent and symmetric. Adequate aeration of the sinuses and mastoid air cells. The calvarium is intact. IMPRESSION: No acute intracranial process. POS: [facility]
== END 2019-02-07 13:36 | disposition home or self-care (01) ==
LOC: ERS 09:23
DX: I10 Essential (primary) hypertension (principal); H53.8 Other visual disturbances; E11.9 Type 2 diabetes mellitus without complications; F41.9 Anxiety disorder, unspecified; F32.9 Major depressive disorder, single episode, unspecified; Z79.899 Other long term (current) drug therapy; Z79.84 Long term (current) use of oral hypoglycemic drugs
CPT/HCPCS: 36415; 70450; 80053; 81003; 81015; 82140; 84484; 85025; 93005; 96374; J0360

== ENCOUNTER 2019-03-04 17:46 | Inpatient (IN) | payer SELFPAY ==
[2019-03-04 18:42] LABS: Hemoglobin 8.4 g/dL (14.0-18.0); Mean Corpuscular HGB CONC 34.6 g/dL (32.0-36.0); Mean Corpuscular Hemoglobin 33.6 pg (27.0-31.0); Mean Corpuscular Volume 97.3 fL (78.0-98.0); Mean Platelet Volume 6.6 fL (7.4-10.4); Platelet Count 130 thou/uL (130-400); RBC Distribution Width 12.4 % (11.5-14.5)
[2019-03-04 19:02] LABS: Band 4 % (5-11); Eosinophils 2 % (0-10); Lymphocytes 34 % (21-51); MDiff Complete? YES; Monocytes 20 % (0-10); Neutrophil 40 % (42-75); Platelet Morphology Comment Appears Adequate; RBC Morphology Normal
[2019-03-04 19:10] LABS: ALT (SGPT) 32 U/L (8-55); AST (SGOT) 63 U/L (5-34); Albumin 2.7 g/dL (3.5-5.0); Alkaline Phosphatase 118 U/L (40-150); Anion Gap 16 mmol/L (10-20); BUN (Urea Nitrogen) 31 mg/dL (8.9-20.6); Bilirubin, Total 0.4 mg/dL (0.2-1.2); Calc. Creatinine Clearance 0 mL/min (70-130); Calcium 8.1 mg/dL (7.8-10.44); Carbon Dioxide 15 mmol/L (22-29); Chloride 96 mmol/L (98-107); Estimated GFR-MDRD 41; Glucose 178 mg/dL (70-105); Lipase 43 U/L (8-78); Potassium 4.5 mmol/L (3.5-5.1); Protein, Total 5.7 g/dL (6.0-8.3); Sodium 122 mmol/L (136-145)
[2019-03-04] MEDS ORDERED: Ondansetron PF 4 MG/2 ML Vial IVP PRN ×2 (20:48→23:37)
[2019-03-04] MEDS ORDERED: Sodium Chloride 0.9% 1,000 ML IV SCH (20:48)
[2019-03-04] MEDS ORDERED: Ondansetron ODT 4 MG TAB SL PRN (20:48)
[2019-03-04 20:56] VITALS: BMI 33.5
[2019-03-04] MEDS ORDERED: Insulin Regular 300 UNITS/3 ML VIAL SC PRN ×2 (23:37)
[2019-03-04] MEDS ORDERED: Ondansetron ODT 4 MG TAB PO PRN (23:37)
[2019-03-04] MEDS ORDERED: Dextrose 50% Abboject 50 ML SYRINGE SLOW IVP PRN (23:37)
[2019-03-04] MEDS ORDERED: Calcium Carbonate 500 MG ChewTAB PO PRN (23:37)
[2019-03-04] MEDS ORDERED: Dextrose 5% in Water 1,000 ML IV PRN (23:37)
[2019-03-04] MEDS ORDERED: Thiamine 100 MG TAB PO SCH (23:45)
[2019-03-04] MEDS ORDERED: Folic Acid 1 MG TAB PO SCH (23:45)
[2019-03-05] MEDS: Sodium Chloride 0.9% 1,000 ML IV SCH ×4 (00:03→19:57)
--- NOTE | 2019-03-05 00:29 | HP ---
PRIMARY CARE PHYSICIAN: Dr. Daniel Levine. CHIEF COMPLAINT: The patient was advised by his primary care physician to be seen in the emergency room. HISTORY OF PRESENT ILLNESS: The patient is a 43-year-old male with liver cirrhosis and history of hepatic encephalopathy in the past, currently on lactulose, presented to the emergency room with above complaints. The patient was evaluated by his primary care physician recently and was found to have ammonia level of more than 200. Lactulose dose was increased from 15 mg b.i.d. to 30 mg b.i.d. He also had some confusion 2-3 days ago per ER report that is gradually improved after increasing the lactulose. He was advised by primary care physician to get admitted when his ammonia level was high. However, the patient refused hospital admission. He decided to come back to the emergency room today for ammonia check. The patient is compliant with all of his medication. He had mild nausea, which is gradually improving. He denies any vomiting. No abdominal pain, fever, or chills reported. In the emergency room, initial vital signs showed temperature 99.8 with a blood pressure of 91/52, pulse rate of 103, respirations of 18, O2 saturation of 98% on room air. His ammonia level today was 142. He received 20 g lactulose along with IV fluids in the emergency room. PAST MEDICAL HISTORY: 1. Liver cirrhosis. 2. Alcohol abuse. The patient continues to drink on a daily basis. 3. Diabetes mellitus type 2. 4. Medication noncompliance. 5. Anxiety, depression. PAST SURGICAL HISTORY: 1. Incision and drainage of rectal abscess. 2. Right thigh abscess drainage. 3. Toe amputation. ALLERGIES: NO KNOWN DRUG ALLERGIES. CURRENT HOME MEDICATIONS: The patient is unable to recall any of his home medications. Family to provide accurate list of medication. SOCIAL HISTORY: The patient continues to drink on a daily basis. Denies any drugs or smoking. FAMILY HISTORY: Negative for heart disease or malignancy. REVIEW OF SYSTEMS: The patient denies any chest pain, shortness of breath, neck stiffness, loss of appetite, or dysuria. All other review of systems was reviewed and were found negative. PHYSICAL EXAMINATION: VITAL SIGNS: As discussed above. GENERAL: A 43-year-old male with no apparent distress. HEENT: Head, atraumatic, normocephalic. Sclerae are anicteric. Moist mucous membranes. No oral lesion. NECK: Supple. No JVD appreciated. No carotid bruit. LUNGS: Clear to auscultation bilaterally. No wheezing, rales, or rhonchi. HEART: S1, S2 present. Regular rate and rhythm. No murmurs, rubs, or gallops appreciated. ABDOMEN: Soft, nontender. Bowel sounds are present. No guarding or rigidity. EXTREMITIES: 1+ edema in bilateral lower extremities. SKIN: Warm and dry. LYMPH NODES: No palpable lymph nodes in the neck. PERIPHERAL VASCULAR: Radial pulses are palpable bilaterally. MUSCULOSKELETAL: No joint swelling or tenderness. LABORATORY FINDINGS: CT scan of the brain by my review was negative for acute findings. Sodium 122 from 130 last month, potassium 4.5, chloride 96, bicarb 15, BUN 31, creatinine 1.82. Ammonia of 142, albumin of 2.7, PT earlier this year was 16.5. WBC 5.0 with hemoglobin 8.4, hematocrit 24.3, platelet 130. EGD earlier this year showed grade 1 esophageal viruses. Telemetry monitoring by my review showed sinus rhythm. IMPRESSION: 1. Toxic metabolic encephalopathy/hepatic encephalopathy. 2. Acute kidney injury on chronic kidney disease stage 2. 3. Metabolic acidosis. 4. Hyponatremia of unclear etiology. 5. Chronic anemia. 6. Alcoholic cirrhosis with active drinking. 7. Esophageal and gastric varices secondary to cirrhosis. 8. Hypoalbuminemia and coagulopathy secondary to cirrhosis. 9. Diabetes mellitus type 2. 10. Noncompliance. PLAN: The patient will be monitored in the hospital for hepatic encephalopathy. We will continue lactulose. We will continue IV hydration. We will hold diuretics. Add thiamine, folic acid. The patient was extensively counseled to quit drinking. Monitor labs on a daily basis. Plan of care was discussed with the patient in detail. He stated understanding. Job ID: [id number]
[2019-03-05 04:12] LABS: ALT (SGPT) 31 U/L (8-55); AST (SGOT) 60 U/L (5-34); Albumin 2.7 g/dL (3.5-5.0); Alkaline Phosphatase 132 U/L (40-150); Anion Gap 11 mmol/L (10-20); BUN (Urea Nitrogen) 27 mg/dL (8.9-20.6); Bilirubin, Total 0.4 mg/dL (0.2-1.2); Calc. Creatinine Clearance 98 mL/min (70-130); Calcium 8.6 mg/dL (7.8-10.44); Carbon Dioxide 21 mmol/L (22-29); Chloride 104 mmol/L (98-107); Estimated GFR-MDRD 57; Globulin 3.4 g/dL (2.4-3.5); Glucose 164 mg/dL (70-105); Magnesium 1.6 mg/dL (1.6-2.6); Phosphorus 3.6 mg/dL (2.3-4.7); Potassium 5.4 mmol/L (3.5-5.1); Protein, Total 6.1 g/dL (6.0-8.3); Sodium 131 mmol/L (136-145)
[2019-03-05 04:14] LABS: Eosinophils 1 % (0-10); Lymphocytes 45 % (21-51); MDiff Complete? YES; Mean Corpuscular Hemoglobin 32.9 pg (27.0-31.0); Mean Corpuscular Volume 96.9 fL (78.0-98.0); Mean Platelet Volume 6.6 fL (7.4-10.4); Monocytes 22 % (0-10); Neutrophil 32 % (42-75); Platelet Count 147 thou/uL (130-400); Platelet Morphology Comment Appears Adequate; RBC Distribution Width 12.6 % (11.5-14.5); Red Blood Cell (RBC) Count 2.72 mill/uL (4.70-6.10); White Blood Cell (WBC) Count 3.8 thou/uL (4.8-10.8)
[2019-03-05] MEDS: Thiamine 100 MG TAB PO SCH (09:02)
[2019-03-05] MEDS: Folic Acid 1 MG TAB PO SCH (09:03)
[2019-03-05 12:17] LABS: Potassium 4.8 mmol/L (3.5-5.1)
--- NOTE | 2019-03-05 13:58 | PDOC.PN ---
- Subjective Encounter Start Date: 03/05/19 Encounter Start Time: 13:57 Pt seen for followup re: hepatic encephalopathy. says he feels better. - Objective Resuscitation Status - Order Detail: 03/04/19 23:37 Resuscitation Status Routine Resuscitation Status: FULL: Full Resuscitation Vital Signs & Weight: Vital Signs (12 hours) Temp Pulse Resp BP Pulse Ox 03/05/19 12:50 98.2 F 18 167/91 H 96 03/05/19 07:55 97.1 F L 79 16 166/81 H 97 03/05/19 03:05 98.4 F 84 16 164/80 H 95 Weight Weight 220 lb 4.8 oz Result Diagrams: 03/05/19 03:30 03/05/19 11:53 Additional Labs: Accuchecks 03/05/19 03/05/19 10:51 05:43 POC Glucose 182 H 175 H Phys Exam - Physical Examination Obese HEENT: moist MMs, oral pharynx no lesions, 2+ tonsils scleral icterus Neck: no nodes, no JVD, supple, full ROM Respiratory: clear to auscultation bilateral Cardiovascular: RRR, no rub S1, S2 Gastrointestinal: soft, non-tender, no distention, positive bowel sounds Neurological: moves all 4 limbs Flapping tremor present Psychiatric: normal affect, A&O x 3 Dx/Plan (1) Hepatic encephalopathy Code(s): K72.90 - HEPATIC FAILURE, UNSPECIFIED WITHOUT COMA Status: Acute Comment: Improved, continue lactulose (2) RAEGAN (acute kidney injury) Code(s): N17.9 - ACUTE KIDNEY FAILURE, UNSPECIFIED Status: Acute Comment: creatinine improving, monitor creatinine and lytes. Continue IV fluids. (3) Alcoholic liver disease Code(s): K70.9 - ALCOHOLIC LIVER DISEASE, UNSPECIFIED Status: Chronic Comment: stable (4) DM2 (diabetes mellitus, type 2) Status: Chronic Qualifiers: Diabetes mellitus [facility] insulin use: without [facility] use Diabetes mellitus complication status: with unspecified complications Qualified Code(s) : E11.8 - Type 2 diabetes mellitus with unspecified complications Comment: continue accuchecks, insulin sliding scale - Plan * . Review of Systems - Review of Systems Constitutional: negative: fever, chills, sweats, weakness, malaise Respiratory: negative: Cough, Shortness of Breath, SOB with Excertion, Pleuritic Pain, Wheezing Cardiovascular: negative: chest pain, palpitations, orthopnea, paroxysmal nocturnal dyspnea, edema, light headedness Gastrointestinal: negative: Nausea, Vomiting, Abdominal Pain, Diarrhea, Constipation, Melena, Hematochezia Genitourinary: negative: Dysuria, Frequency, Incontinence, Hematuria, Retention - Medications/Allergies Allergies/Adverse Reactions: Allergies Allergy/AdvReac Type Severity Reaction Status Date / Time No Known Drug Allergies Allergy Verified 03/04/19 21:05 Medications: Current Medications Calcium Carbonate (Tums) 1,000 mg PO Q4H PRN PRN Reason: Heartburn or Indigestion Dextrose/Water (Dextrose 50%) 25 gm SLOW IVP PRN PRN PRN Reason: Hypoglycemia Folic Acid (Folvite) 1 mg PO DAILY [facility] Last Admin: 03/05/19 09:03 Dose: 1 mg Glucagon (Glucagon) 1 mg IM PRN PRN PRN Reason: Hypoglycemia Sodium Chloride (Normal Saline 0.9%) 1,000 mls @ 125 mls/hr IV .Q8H [facility] Stop: 03/06/19 23:46 Last Admin: 03/05/19 13:10 Dose: 1,000 mls Dextrose/Water (D5w) 1,000 mls @ 0 mls/hr IV .Q0M PRN PRN Reason: Hypoglycemia Insulin Human Regular (Humulin R) 0 units SC .MILD SLIDING SCALE PRN PRN Reason: Mild Correctional Scale Insulin Human Regular (Humulin R) 0 units SC .BEDTIME SLIDING SC PRN PRN Reason: Bedtime Correctional Scale Lactulose (Lactulose) 20 gm PO QID [facility] Last Admin: 03/05/19 13:11 Dose: 20 gm Ondansetron HCl (Zofran Odt) 4 mg PO Q6H PRN PRN Reason: Nausea/Vomiting Ondansetron HCl (Zofran) 4 mg IVP Q6H PRN PRN Reason: Nausea/Vomiting Pantoprazole Sodium (Protonix) 40 mg PO DAILY [facility] Last Admin: 03/05/19 09:03 Dose: 40 mg Sodium Chloride (Flush - Normal Saline) 10 ml IVF Q12HR [facility] Last Admin: 03/05/19 09:03 Dose: Not Given Sodium Chloride (Flush - Normal Saline) 10 ml IVF PRN PRN PRN Reason: Saline Flush Thiamine HCl (Thiamine) 100 mg PO DAILY [facility] Last Admin: 03/05/19 09:02 Dose: 100 mg
[2019-03-05] MEDS ORDERED: hydrALAZINE 20 MG/ML VIAL SLOW IVP PRN (15:52)
[2019-03-06 04:10] LABS: ALT (SGPT) 29 U/L (8-55); AST (SGOT) 51 U/L (5-34); Albumin 2.7 g/dL (3.5-5.0); Alkaline Phosphatase 106 U/L (40-150); Anion Gap 9 mmol/L (10-20); BUN (Urea Nitrogen) 16 mg/dL (8.9-20.6); Bilirubin, Total 0.4 mg/dL (0.2-1.2); Calc. Creatinine Clearance 137 mL/min (70-130); Calcium 8.5 mg/dL (7.8-10.44); Carbon Dioxide 21 mmol/L (22-29); Chloride 108 mmol/L (98-107); Estimated GFR-MDRD 84; Globulin 3.2 g/dL (2.4-3.5); Glucose 148 mg/dL (70-105); Magnesium 1.2 mg/dL (1.6-2.6); Phosphorus 3.1 mg/dL (2.3-4.7); Potassium 4.2 mmol/L (3.5-5.1); Protein, Total 5.9 g/dL (6.0-8.3); Sodium 134 mmol/L (136-145)
[2019-03-06 04:23] LABS: Band 2 % (5-11); Hemoglobin 9.1 g/dL (14.0-18.0); Hypochromia SLIGHT = 6-15 cells (100X) (0-5/hpf); Lymphocytes 48 % (21-51); MDiff Complete? YES; Mean Corpuscular HGB CONC 33.2 g/dL (32.0-36.0); Mean Corpuscular Hemoglobin 32.5 pg (27.0-31.0); Mean Corpuscular Volume 97.8 fL (78.0-98.0); Mean Platelet Volume 6.1 fL (7.4-10.4); Monocytes 10 % (0-10); Neutrophil 40 % (42-75); Platelet Count 139 thou/uL (130-400); Platelet Morphology Comment Appears Adequate; RBC Distribution Width 12.7 % (11.5-14.5)
[2019-03-06] MEDS: Sodium Chloride 0.9% 1,000 ML IV SCH (05:59)
[2019-03-06] MEDS: Folic Acid 1 MG TAB PO SCH (09:35)
[2019-03-06] MEDS: Thiamine 100 MG TAB PO SCH (09:35)
[2019-03-06] MEDS ORDERED: Magnesium Sulfate 2 GM in Sodium Chloride 0.9% 100 ML IVPB SCH (12:00)
[2019-03-06 12:06] VITALS: BP 159/84; TEMP 97.6
[2019-03-06] MEDS ORDERED: Magnesium 2 GM/50 ML 2 GM in Premix Bag 1 BAG IVPB SCH (12:15)
--- NOTE | 2019-03-07 06:03 | PQF ---
[facility] Respiratory Therapy Manager Crystal Reports Winform Viewer ENRIQUE CANALES BASSEM ALCARAZ [id number] CLINICAL DOCUMENTATION CLARIFICATION FORM: POST DISCHARGE Addendum to original discharge summary date: 03/07/2019 Late entry note date: __ DATE: 03-07-2019 ATTN: Bassem Magdaleno Please exercise your independent, professional judgment in responding to the clarification form. Clinical indicators are provided on the bottom of this form for your review Can you please specify the type of encephalopathy Please check appropriate box(s): [ ] Encephalopathy: Type: [ ] Acute [ ] Subacute [ ] Chronic Etiology: [ ] Metabolic [ ] Toxic [ ] Hepatic with Coma [ ] Hepatic w/o Coma [ ] Hepatic alcoholic with coma [ ] Hepatic alcoholic w/o coma [ ] Unspecified [ ] in the setting of underlying dementia [ ] Other (please specify) [ ] Other diagnosis please specify: [ ] Unable to determine For continuity of documentation, please document condition throughout progress notes and discharge summary. Thank You. CLINICAL INDICATORS: H&P 05/[address] Jules- found to have ammonia level more than 200. H&P 05/[address] Jules- He also had some confusion 2-3 days ago per ER report. He was advised by the primary physician to get admitted when his ammonia level was high. However the patient refused hospital admission H&P 05/[address] Jules- He had mild nausea, which gradually improving H&P 05/[address] Jules Toxic metabolic encephalopathy/hepatic encephalopathy H&P 05/[address] 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 Jules The patient will be monitored in the hospital for hepatic encephalopathy PN 03/[address] Aguilar Alcoholic liver disease, chronic, RISK FACTORS: ED 03/04 pg.8- Non compliance with lactulose d/t diarrhea it causes H&P 03/04- liver cirrhosis H&P 03/04- hepatic encephalopathy H&P 03/04- Alcohol abuse PN 03/05- DM type 2 TREATMENTS: H&P-Counseled to quit drinking H&P- IV hydration H&P- Continue lactulose (This form is maintained as a part of the permanent medical record) 2014 [employer]. All Rights Reserved Arianne [email or web address] [not provided] MTDD
--- NOTE | 2019-03-07 06:53 | DIS ---
DATE OF ADMISSION: 03/04/2019 DATE OF DISCHARGE: 03/06/2019 PRIMARY CARE PROVIDER: Dr. Daniel Levine. DISCHARGE DIAGNOSES: 1. Hepatic encephalopathy. 2. Acute kidney injury. 3. Metabolic acidosis. 4. Alcoholic cirrhosis. 5. Ongoing alcohol abuse. 6. Hypomagnesemia. CONDITION OF PATIENT ON THE DAY OF DISCHARGE: Stable. I assessed Mr. Diana Correia on the day of discharge. He denies any chest pain or shortness of breath. He is awake, alert and oriented x3. Vital signs are stable. S1 and S2 are heard, regular. Lungs are clear to auscultation bilaterally. There is no flapping tremor. DISCHARGE MEDICATIONS: Lactulose dose has been increased to 30 g 4 times a day. He is being discharged on his other home medications, which include: 1. Ferrous sulfate 325 mg daily. 2. Folic acid 0.4 mg daily. 3. Gabapentin 600 mg daily. 4. Hydroxyzine 25 mg daily as needed. 5. Cozaar 25 mg daily. 6. Metformin 1000 mg 2 times a day. 7. Pantoprazole 40 mg daily. 8. Furosemide 40 mg daily. 9. 10 mg p.o. a.c. at bedtime. 10. Potassium chloride 20 mEq daily. 11. Spironolactone 100 mg daily. HOSPITAL COURSE: Mr. Diana Correia is a pleasant 43-year-old gentleman, who was admitted to [facility] on March 04, 2019, for hepatic encephalopathy. At the time of admission, he had an ammonia level of 142. It improved to 84 on March 05, 2019 after increasing lactulose. It has remained stable, 86 on the day of discharge. His lactulose dose has been increased to 30 g 4 times a day. He is advised to follow up with his primary care provider and have his ammonia level rechecked. He was also hypomagnesemic on March 06, with a magnesium level of 1.2. He is going to receive 2 g intravenous magnesium prior to discharge. His magnesium level will also need to be checked. At the time of admission, he also had acute kidney injury with a creatinine of 1.82. Nephrotoxic medications were held. Creatinine normalized to 0.97 on the day of discharge. His creatinine level will also need to be rechecked when he is seen by his primary care provider's office in 3 days' time. He has been advised not to drive or operate heavy machinery until cleared by primary care provider on the basis of his ammonia level. LABORATORY DATA: On the day of discharge, he has a sodium of 134, potassium 4.2, creatinine 0.97, calcium 8.5, phosphorus 3.1, magnesium 1.2, total bilirubin 0.4, AST 51, ALT 29, and alkaline phosphatase 106. Ammonia is 86. Albumin is 2.7. White count is 4000, hemoglobin 9.1 and platelet count 139,000. Many thanks for allowing me to participate in your patient's care. Please feel free to contact me with any questions or concerns. DISCHARGE DESTINATION: Home. TIME SPENT: Total amount of time spent coordinating this discharge: 32 minutes. ADDENDUM: Mr. Nitin Ortiz 's discharge diagnoses also include acute metabolic encephalopathy, hepatic without coma, present at the time of admission. Job ID: [id number]
== END 2019-03-06 15:55 | disposition home or self-care (01) | DRG 442 ==
LOC: ERS 17:46 → 2NO 19:47
PROVIDERS: ADMIT Family Medicine; ATTEND Family Medicine
DX: K72.00 Acute and subacute hepatic failure without coma (principal); N17.9 Acute kidney failure, unspecified; E87.2 Acidosis; E87.1 Hypo-osmolality and hyponatremia; D68.4 Acquired coagulation factor deficiency; F10.188 Alcohol abuse with other alcohol-induced disorder; I85.10 Secondary esophageal varices without bleeding; I86.4 Gastric varices; K70.30 Alcoholic cirrhosis of liver without ascites; F41.9 Anxiety disorder, unspecified; F32.9 Major depressive disorder, single episode, unspecified; E83.42 Hypomagnesemia; E11.22 Type 2 diabetes mellitus with diabetic chronic kidney disease; N18.2 Chronic kidney disease, stage 2 (mild); D63.1 Anemia in chronic kidney disease; E88.09 Other disorders of plasma-protein metabolism, not elsewhere classified; Z91.14 Patient's other noncompliance with medication regimen; Z72.89 Other problems related to lifestyle; Z89.421 Acquired absence of other right toe(s); Z79.899 Other long term (current) drug therapy; Z79.84 Long term (current) use of oral hypoglycemic drugs
CPT/HCPCS: 36415; 36416; 80053; 82140; 83690; 83735; 84100; 85025; 96360; J0360; J1815; J3475

== ENCOUNTER 2019-11-13 09:20 | Emergency (ER) | payer SELFPAY ==
--- NOTE | 2019-11-13 09:55 | RAD ---
EXAM: Chest PA and lateral: HISTORY: Cough COMPARISON: 11/29/2018 FINDINGS: Lung sexton are clear. Vascular markings are normal. Heart and mediastinum appear unremarkable. Osseous structures are unremarkable. IMPRESSION: Unremarkable chest
[2019-11-13 10:12] LABS: Hemoglobin 10.2 g/dL (14.0-18.0); Mean Corpuscular HGB CONC 34.6 g/dL (32.0-36.0); Mean Corpuscular Hemoglobin 33.3 pg (27.0-31.0); Mean Corpuscular Volume 96.3 fL (78.0-98.0); Mean Platelet Volume 6.6 fL (7.4-10.4); Platelet Count 150 thou/uL (130-400); RBC Distribution Width 11.4 % (11.5-14.5); Red Blood Cell (RBC) Count 3.05 mill/uL (4.70-6.10)
[2019-11-13 10:29] LABS: Eosinophils 1 % (0-10); Lymphocytes 32 % (21-51); MDiff Complete? YES; Monocytes 15 % (0-10); Neutrophil 51 % (42-75); Platelet Morphology Comment Appears Adequate; RBC Morphology 1
[2019-11-13 10:38] LABS: ALT (SGPT) 22 U/L (8-55); AST (SGOT) 52 U/L (5-34); Albumin 2.7 g/dL (3.5-5.0); Alkaline Phosphatase 169 U/L (40-110); Anion Gap 11 mmol/L (10-20); BUN (Urea Nitrogen) 20 mg/dL (8.9-20.6); Bilirubin, Total 0.8 mg/dL (0.2-1.2); Calc. Creatinine Clearance 0 mL/min (70-130); Calcium 8.5 mg/dL (7.8-10.44); Carbon Dioxide 18 mmol/L (22-29); Chloride 102 mmol/L (98-107); Estimated GFR-MDRD 77; Globulin 3.8 g/dL (2.4-3.5); Glucose 168 mg/dL (70-105); Potassium 4.5 mmol/L (3.5-5.1); Protein, Total 6.5 g/dL (6.0-8.3); Sodium 126 mmol/L (136-145)
== END 2019-11-13 10:39 | disposition home or self-care (01) ==
LOC: ERS 09:20
DX: J06.9 Acute upper respiratory infection, unspecified (principal); E11.9 Type 2 diabetes mellitus without complications; F41.9 Anxiety disorder, unspecified; F32.9 Major depressive disorder, single episode, unspecified; F17.210 Nicotine dependence, cigarettes, uncomplicated; Z79.899 Other long term (current) drug therapy
CPT/HCPCS: 36415; 71046; 80053; 82140; 85025; 87804

== ENCOUNTER 2020-10-29 22:52 | Emergency (ER) | payer SELFPAY ==
[2020-10-29 23:27] LABS: Bacteria/HPF None Seen HPF (None Seen); Bilirubin Negative (Negative); Blood, Urine 2+ (Negative); Clarity Clear (Clear); Glucose, Urine (Dipstick) Normal (Negative); Ketone, Urine Negative (Negative); Leukocyte Negative Leu/uL (Negative); Nitrite Negative (Negative); Protein, Urine (Dipstick) 200 mg/dL (Neg-Trace); Specific Gravity, Urine 1.005 (1.002-1.036); Squamous Epithelial None Seen HPF (0-3); Urobilinogen Normal mg/dL (Less than 2); WBC/HPF 0-3 HPF (0-3); pH, Urine 6.5 (5.0-9.0)
== END 2020-10-29 23:49 | disposition left against medical advice (07) ==
LOC: ERS 22:52
DX: Z53.21 Procedure and treatment not carried out due to patient leaving prior to being seen by health care provider (principal)
CPT/HCPCS: 36416; 81003; 81015

== ENCOUNTER 2020-10-30 10:48 | Inpatient (IN) | payer SELFPAY ==
--- NOTE | 2020-10-30 11:47 | RAD ---
XR Chest 1 View Portable HISTORY: Bilateral Lower extremity edema COMPARISON: 11/13/2019 FINDINGS: The heart size is at upper limits of normal. The lungs are well expanded without focal area s of consolidation, pneumothorax or pleural effusions. IMPRESSION: No radiographic evidence of acute cardiopulmonary process.
[2020-10-30 12:00] LABS: #Eosinphils 0.1 thou/uL (0.0-0.7); #Monocytes 0.6 thou/uL (0.11-0.59); #Neutrophils 3.2 thou/uL (1.40-6.50); %Basophils 0.4 % (0.0-1.0); %Eosinophils 1.8 % (0.0-10.0); %Lymphocytes 33.3 % (21.0-51.0); %Monocytes 10.3 % (0.0-10.0); %Neutrophils 54.2 % (42.0-75.0); Hemoglobin 8.4 g/dL (14.0-18.0); Mean Corpuscular Hemoglobin 33.2 pg (27.0-31.0); Mean Corpuscular Volume 97.8 fL (78.0-98.0); Platelet Count 166 thou/uL (130-400); RBC Distribution Width 11.2 % (11.5-14.5); Red Blood Cell (RBC) Count 2.52 mill/uL (4.70-6.10); White Blood Cell (WBC) Count 5.9 thou/uL (4.8-10.8)
[2020-10-30 12:19] LABS: Bacteria/HPF None Seen HPF (None Seen); Bilirubin Negative (Negative); Blood, Urine 2+ (Negative); Clarity Clear (Clear); Glucose, Urine (Dipstick) Normal (Negative); Ketone, Urine Negative (Negative); Leukocyte Negative Leu/uL (Negative); Nitrite Negative (Negative); Protein, Urine (Dipstick) 100 mg/dL (Neg-Trace); Specific Gravity, Urine 1.005 (1.002-1.036); Squamous Epithelial None Seen HPF (0-3); Urobilinogen Normal mg/dL (Less than 2); WBC/HPF 0-3 HPF (0-3); pH, Urine 6.5 (5.0-9.0)
[2020-10-30 12:22] LABS: Anion Gap 15 mmol/L (10-20); BUN (Urea Nitrogen) 18 mg/dL (8.9-20.6); Calc. Creatinine Clearance 0 mL/min (70-130); Carbon Dioxide 19 mmol/L (22-29); Chloride 93 mmol/L (98-107); Potassium 4.5 mmol/L (3.5-5.1); Sodium 122 mmol/L (136-145)
[2020-10-30 12:23] LABS: ALT (SGPT) 24 U/L (8-55); AST (SGOT) 61 U/L (5-34); Albumin 2.5 g/dL (3.5-5.0); Alkaline Phosphatase 195 U/L (40-110); Bilirubin, Total 0.5 mg/dL (0.2-1.2); Calcium 8.1 mg/dL (7.8-10.44); Globulin 3.6 g/dL (2.4-3.5); Glucose 100 mg/dL (70-105); Protein, Total 6.1 g/dL (6.0-8.3)
[2020-10-30] MEDS ORDERED: Thiamine 100 MG TAB ONE (12:58)
[2020-10-30] MEDS ORDERED: Acetaminophen 325 MG TAB PO PRN (15:21)
[2020-10-30] MEDS ORDERED: Senokot S 8.6-50 MG TAB PO PRN (15:21)
[2020-10-30] MEDS ORDERED: Dextrose 5% in Water 1,000 ML IV PRN (15:38)
[2020-10-30] MEDS ORDERED: HumaLOG 300 UNITS/3 ML VIAL SC PRN (15:38)
[2020-10-30] MEDS ORDERED: Dextrose 50% Abboject 50 ML SYRINGE SLOW IVP PRN (15:38)
[2020-10-30 15:46] VITALS: BMI 35.7
--- NOTE | 2020-10-30 16:18 | HP ---
CHIEF COMPLAINT: Altered mentation per his , but the patient is alert and oriented x4. HISTORY OF PRESENT ILLNESS: This 45-year-old male with active ongoing alcohol abuse at least 12 beers a day with chronic hyponatremia, presenting with bilateral lower extremity edema of three-day duration. The patient has no previous history of CHF. Per , he is quite slow in responding to her today, which is a concern that she brought him. On initial evaluation, he did not have any sign of confusion. His sodium is 122, however, he has significant swelling in his lower extremities and his BNP is only around 193, and his creatinine is 1.4 with a baseline previous creatinine of 1.04. The patient is mainly brought in for his evaluation of this new-onset lower extremity edema in the context of cirrhosis and acute kidney injury and ongoing alcohol abuse. The patient denies any recent fever, night sweats, chills, productive cough. No sick exposure. The patient has no previous history of MN or CVA. He is diabetic. He has not noticed any blood in the urine or stool. No hemoptysis or hematemesis. REVIEW OF SYSTEMS: A 13-point review of systems reviewed with the patient and pertinence addressed in the history of present illness and the rest are negative including no headache, blurriness, tingling, numbness in his extremities. He denies any abdominal pain. No rash in the body. ALLERGIES: HE HAS NO KNOWN DRUG ALLERGY. PAST MEDICAL HISTORY: 1. Several episodes of metabolic encephalopathy possibly hepatic encephalopathy in the past. 2. Chronic kidney disease stage 2. 3. Hyponatremia. 4. Alcoholic cirrhosis with active drinking. 5. History of esophageal and gastric varices secondary to cirrhosis. 6. Hypoalbuminemia. 7. Type 2 diabetes mellitus. 8. Noncompliance. MEDICATIONS: 1. Metformin 1000 twice a day. 2. Hydroxyzine 25 as needed. 3. Potassium chloride 20 mEq daily. 4. Protonix 40 mg daily. 5. Metoclopramide 10 mg p.o. before meals and at bedtime. 6. Losartan 25 mg daily. 7. Gabapentin 600 mg daily. 8. Lasix 40 mg daily. 9. Folic acid 0.4 mg daily. 10. Ferrous sulfate 325 mg daily. SOCIAL HISTORY: 1. The patient drinks heavily at least 12 packs a day. 2. He smokes half a pack a day at least since 17 years old. 3. He lives with his . FAMILY HISTORY: No significant medical issues of cancer or cirrhosis. PHYSICAL EXAMINATION: VITAL SIGNS: He is normotensive, afebrile. GENERAL: He is nontoxic looking. He is alert and oriented x4. No sign of any withdrawal symptoms at this time. He says that he came mainly because of his three-day duration of this lower extremity edema. HEENT: Pupils are equal, round, and reactive to light. Anicteric. Mucous membranes moist. CARDIOVASCULAR: Regular rate and rhythm without murmurs, rubs, or gallops. LUNGS: Clear to auscultation. ABDOMEN: Distended with palpation. I did not appreciate any tenderness. It is soft and good bowel sounds. He states that he just gained lot of weight and fat, but no pain in the stomach with palpation. EXTREMITIES: Lower extremity about 2+ pitting edema without any rash. NEUROLOGIC: No focal deficits. PSYCHIATRIC: Appropriate mood and affect. LABORATORY DATA: Sodium 122, potassium 4.5, creatinine 1.4. AST 61, ALT 24, alkaline phosphatase 195. BNP 193. Albumin is about 2.5. Hemoglobin 8.5, platelet 166. UA showed hematuria, but no nitrite and esterase. IMAGING DATA: Chest x-ray, no acute cardiopulmonary process. IMPRESSION AND PLAN: This is a 45-year-old, active alcohol abuser and noncompliance, presenting with the followin. Chronic hyponatremia. 2. Lower extremity edema in the context of acute kidney injury as well as elevated BNP and hyponatremia. 3. Acute kidney injury with baseline creatinine 1.04. 4. Elevated BNP without the previous history of congestive heart failure. 5. Hematuria without any symptoms. 6. Type 2 diabetes mellitus. Regarding his alcohol use and abuse, check B12 and folate, TSH as well as mag level. Abstinence has been advised. Daily banana bag for three days. Hyponatremia seems to be a chronic one. He has no sign of hepatic encephalopathy. Acute kidney injury. Hold his losartan for now. He has several risk factors for CHF including possible right heart failure, portal hypertension, and ongoing alcohol abuse causing alcohol-induced cardiomyopathy. We will check echo. I will be very cautious in diuresing him at this time in the context of chronic hyponatremia. So I would start with Lasix 20 IV twice a day, and if the sodium drops further, then we need to hold back on the Lasix. Type 2 diabetes mellitus. Given the creatinine of 1.4, I will hold his metformin, initiate the sliding scale for blood glucose management. He does have elevated AST, which is consistent with his alcohol use. However, he also has alkaline phosphatase elevated at 195. We will check the right upper quadrant ultrasound as well as hepatitis panel. DVT prophylaxis with heparin b.i.d. Further management based on the clinical course. Job ID: [id number] MTDD
[2020-10-30] MEDS: Multivitamins, Adult 10 ML, Folic Acid 1 MG, Thiamine HCl 100 MG in Dextrose 5 %-0.45 %... IV SCH (17:10)
[2020-10-30 17:37] LABS: Thyroid Stimulating Hormone 1.2086 uIU/mL (0.35-4.94)
[2020-10-30] MEDS: hydrALAZINE 20 MG/ML VIAL SLOW IVP PRN (17:52)
[2020-10-30] MEDS: Famotidine 20 MG TAB PO SCH (20:55)
[2020-10-30] MEDS ORDERED: Furosemide 20 MG/2 ML VIAL SLOW IVP SCH (21:00)
[2020-10-30 21:54] LABS: SARS-CoV-2 PCR by NAA Not Detected (NotDetected)
[2020-10-30 22:42] LABS: HBCM Index 0.09 S/CO (0-0.79); HBSAg Index 0.15 S/CO (0-0.99); Hep A IgM AB Non-Reactive (NonReactive); Hep A IgM S/CO 0.25 S/CO (0-0.79); Hep B Surf Ag Non-Reactive S/CO (NonReactive); Hep C IgG Ab Non-Reactive (NonReactive); Hep C Index 0.14 S/CO (0-0.79); Hepatitis B Core IgM Abs Non-Reactive (NonReactive)
[2020-10-31 06:45] LABS: #Eosinphils 0.1 thou/uL (0.0-0.7); #Lymphocytes 1.1 thou/uL (1.20-3.40); #Monocytes 0.6 thou/uL (0.11-0.59); #Neutrophils 2.3 thou/uL (1.40-6.50); %Basophils 0.4 % (0.0-1.0); %Eosinophils 2.1 % (0.0-10.0); %Lymphocytes 26.5 % (21.0-51.0); %Monocytes 14.4 % (0.0-10.0); %Neutrophils 56.6 % (42.0-75.0); Hemoglobin 8.4 g/dL (14.0-18.0); Mean Corpuscular HGB CONC 34.4 g/dL (32.0-36.0); Mean Corpuscular Hemoglobin 34.1 pg (27.0-31.0); Mean Corpuscular Volume 98.9 fL (78.0-98.0); Platelet Count 159 thou/uL (130-400); RBC Distribution Width 11.2 % (11.5-14.5); Red Blood Cell (RBC) Count 2.47 mill/uL (4.70-6.10); White Blood Cell (WBC) Count 4.1 thou/uL (4.8-10.8)
[2020-10-31 07:00] LABS: ALT (SGPT) 20 U/L (8-55); AST (SGOT) 47 U/L (5-34); Albumin 2.3 g/dL (3.5-5.0); Alkaline Phosphatase 152 U/L (40-110); Anion Gap 11 mmol/L (10-20); BUN (Urea Nitrogen) 23 mg/dL (8.9-20.6); Bilirubin, Total 0.8 mg/dL (0.2-1.2); Calc. Creatinine Clearance 104 mL/min (70-130); Carbon Dioxide 20 mmol/L (22-29); Chloride 100 mmol/L (98-107); Globulin 3.4 g/dL (2.4-3.5); Glucose 139 mg/dL (70-105); Potassium 4.3 mmol/L (3.5-5.1); Protein, Total 5.7 g/dL (6.0-8.3); Sodium 127 mmol/L (136-145)
[2020-10-31] MEDS: Folic Acid 1 MG TAB PO SCH (08:25)
[2020-10-31] MEDS: Famotidine 20 MG TAB PO SCH ×2 (08:25→20:03)
[2020-10-31] MEDS: Ferrous Sulfate 325 MG TAB PO SCH (08:25)
[2020-10-31] MEDS: hydrOXYzine Pamoate 25 mg Capsule PO SCH (08:26)
[2020-10-31] MEDS: Losartan 25 MG TAB PO SCH (08:26)
[2020-10-31] MEDS ORDERED: Furosemide 20 MG/2 ML VIAL SLOW IVP SCH (09:00)
[2020-10-31] MEDS ORDERED: Furosemide 40 MG TAB PO SCH (09:00)
[2020-10-31] MEDS ORDERED: FLU VACC QS2020-21(6MOS UP)/PF 60 MCG/0.5 ML SYRINGE IM ONE (09:00)
[2020-10-31] MEDS ORDERED: Spironolactone 100 MG TAB PO SCH (09:00)
--- NOTE | 2020-10-31 09:16 | ULT ---
GALLBLADDER ULTRASOUND: Date: 10/31/2020 HISTORY: Right upper quadrant pain. FINDINGS: Real-time imaging of the right upper quadrant shows echogenicity foci with shadowing within the gallb ladder lumen consistent with stones. Common duct is 3-4 mm. The liver measures 19.5 cm in length with mild increased echogenicity. Right kidney is normal in size and not obstructed. The pancreas is fairly well imaged. IMPRESSION: 1. Fatty changes of the liver, which is borderline in size. 2. Multiple cholelithiasis with a normal caliber common duct. POS: MILDRED
[2020-10-31] MEDS ORDERED: Furosemide 40 MG/4 ML VIAL SLOW IVP SCH (11:45)
--- NOTE | 2020-10-31 13:51 | PDOC.HOSPP ---
- Subjective Encounter Date: 10/31/20 Encounter Time: 10:10 Subjective: Patient resting well. He feels that he lost quite a bit of weight. His lower extremity edema as well as abdominal distention seems to be improving significantly. His creatinine is holding of his sodium is slight improvement to 129. He is blood pressure is slightly elevated will follow the [facility] protocol for alcohol withdrawal. - Objective Vital Signs & Weight: Vital Signs (12 hours) Temp Pulse Resp BP Pulse Ox 10/31/20 08:00 99.1 F 78 18 180/88 H 97 10/31/20 04:25 98.1 F 77 16 176/88 H 97 Weight Weight 235 lb I&O: 10/30/20 10/31/20 11/01/20 06:59 06:59 06:59 Intake Total 400 Output Total 1500 Balance -1500 400 Result Diagrams: 10/31/20 06:26 10/31/20 06:26 Additional Labs: Accuchecks 10/31/20 10/31/20 10/30/20 10:51 05:52 20:33 POC Glucose 163 H 132 H 146 H 10/30/20 17:07 POC Glucose 111 H Hospitalist ROS - Medication Medications: Active Medications Generic Name Dose Route Start Last Admin Trade Name Freq PRN Reason Stop Dose Admin Famotidine 20 mg 10/30/20 21:00 10/31/20 08:25 Famotidine 20 Mg Tab PO 20 mg BID MARS Administration Ferrous Sulfate 325 mg 10/31/20 08:00 10/31/20 08:25 Ferrous Sulfate 325 Mg Tab PO 325 mg QAM-WM MARS Administration Folic Acid 0.5 mg 10/31/20 09:00 10/31/20 08:25 Folic Acid 1 Mg Tab PO 0.5 mg DAILY MARS Administration Hydralazine HCl 10 mg 10/30/20 16:30 10/30/20 17:52 Hydralazine 20 Mg/Ml Vial SLOW IVP 10 mg Q4H PRN Administration SBP >150 Hydroxyzine Pamoate 25 mg 10/31/20 09:00 10/31/20 08:26 Hydroxyzine Pamoate 25 Mg Capsule PO 25 mg DAILY MARS Administration Multivitamins 10 ml/ Folic 1,011.2 mls @ 75 mls/hr 10/30/20 16:00 10/30/20 17:10 Acid 1 mg/ Thiamine HCl 100 mg IV 11/02/20 05:29 1,011.2 mls / Dextrose/Sodium Chloride 1600 MARS Administration Lactulose 15 gm 10/30/20 21:00 10/31/20 08:26 Lactulose 20 Gm/30 Ml Udcup PO 15 gm BID MARS Administration Losartan Potassium 25 mg 10/31/20 09:00 10/31/20 08:26 Losartan 25 Mg Tab PO 25 mg DAILY MARS Administration - Exam General Appearance: NAD, awake alert Eye: PERRL ENT: normocephalic atraumatic Neck: supple Heart: RRR Respiratory: CTAB, normal chest expansion Gastrointestinal: soft, no guarding Neurological: cranial nerve grossly intact, no weakness Hosp A/P - Plan Alcohol induced chronic hyponatremia Acute kidney injury with baseline creatinine 1.04 Type 2 diabetes mellitus Elevated BNP -His echo is 65% EF with normal right and left ventricular size trace tricuspid regurgitation no significant stenosis or regurgitation seen the aortic valve area. Titrating his medications to reduce the spironolactone and increase the Lasix diuresis. He is negative balance of 1500 mL. Continued IV diuresis. Caution with creatinine level. Alcohol abuse on a daily basis about 12 beers a day [facility] protocol initiated His B12 folate seems to be in the normal range. Portal congestion If improved diuresis probable discharge home tomorrow. I reduce the dose of spironolactone and can increase the Lasix to even 40 mg p.o. twice a day for more aggressive diuresis at home. He does not need potassium supplement as he is on spironolactone.
[2020-10-31] MEDS ORDERED: Spironolactone 25 MG TAB PO SCH (14:00)
[2020-10-31] MEDS ORDERED: Lorazepam 2 MG/ML VIAL SLOW IVP PRN (15:11)
[2020-10-31] MEDS: hydrALAZINE 20 MG/ML VIAL SLOW IVP PRN ×2 (16:33→23:54)
[2020-10-31] MEDS: Multivitamins, Adult 10 ML, Folic Acid 1 MG, Thiamine HCl 100 MG in Dextrose 5 %-0.45 %... IV SCH (18:23)
[2020-10-31] MEDS: BEER 1 CAN PO SCH (19:28)
[2020-10-31] MEDS ORDERED: Diazepam 5 MG TAB PO PRN (19:47)
[2020-10-31] MEDS ORDERED: Diazepam 5 MG TAB PO SCH (20:00)
[2020-10-31] MEDS: Furosemide 20 MG/2 ML VIAL SLOW IVP SCH (20:04)
[2020-11-01] MEDS ORDERED: Diazepam 5 MG TAB PO PRN (04:00)
[2020-11-01] MEDS ORDERED: Electrolyte Replacement Protocol 1 EACH FS SCH (04:30)
[2020-11-01] MEDS: hydrALAZINE 20 MG/ML VIAL SLOW IVP PRN (04:39)
[2020-11-01 05:27] LABS: Anion Gap 14 mmol/L (10-20); BUN (Urea Nitrogen) 23 mg/dL (8.9-20.6); Calc. Creatinine Clearance 97 mL/min (70-130); Calcium 8.3 mg/dL (7.8-10.44); Carbon Dioxide 21 mmol/L (22-29); Chloride 102 mmol/L (98-107); Glucose 137 mg/dL (70-105); Magnesium 1.7 mg/dL (1.6-2.6); Potassium 3.7 mmol/L (3.5-5.1); Sodium 133 mmol/L (136-145)
[2020-11-01] MEDS ORDERED: Magnesium 2 GM/50 ML 2 GM in Premix Bag 1 BAG IVPB SCH (06:30)
[2020-11-01] MEDS ORDERED: Spironolactone 25 MG TAB PO SCH (08:00)
[2020-11-01 08:37] VITALS: BP 122/59; TEMP 98.7
[2020-11-01] MEDS ORDERED: Magnesium Oxide 400 MG TAB PO SCH (09:00)
[2020-11-01] MEDS: Furosemide 20 MG/2 ML VIAL SLOW IVP SCH (09:43)
[2020-11-01] MEDS: Famotidine 20 MG TAB PO SCH (09:43)
[2020-11-01] MEDS: Losartan 25 MG TAB PO SCH (09:44)
[2020-11-01] MEDS: Ferrous Sulfate 325 MG TAB PO SCH (09:44)
[2020-11-01] MEDS: hydrOXYzine Pamoate 25 mg Capsule PO SCH (09:44)
[2020-11-01] MEDS: BEER 1 CAN PO SCH (09:45)
[2020-11-01] MEDS: Folic Acid 1 MG TAB PO SCH (09:45)
--- NOTE | 2020-11-01 10:41 | PDOC.DS.DS ---
Provider - Provider Date of Admission: 10/30/20 14:00 Date of Discharge: 11/01/20 Admitting Provider: Rito Christian MD Primary Care Physician: YUMIKO WOOD MD Course - Hospital Course Hospital Course: Discharge Diagnoses: 1. Hyponatremia secondary to alcohol abuse 2. Peripheral edema likely from CKD/liver disease 3. Fatty liver disease 4. Macrocytic anemia 5. Transaminitis 6. Cholelithiasis Brief HPI: This is a 45 year old male with past medical history of CKD, alcoholism who presented to the hospital with bilateral lower extremity edema. He had a sodium of 122. He admitted to drinking 12 beers daily. He was admitted to the hospital for further workup Hospital Course: the patient was diuresed with IV lasix 20 mg IV bid. His swelling significantly improved. His sodium improved to 133. His creatinine remained stable at 1.3 to 1.4. He denied dizziness or lightheadedness. ECHO showed a normal EF of 60-65% with no pleural effusion. Abdominal ultrasound showed a fatty liver and gallstones. The patient denies any abdominal pain and has no evidence of jaundice. He will be discharged with his home lasix 40 mg daily and spironolactone 100 mg daily and losartan. I suspect that he is noncompliant with his medications. He will be advised to follow a 2L fluid restriction and a 2 gram sodium diet as well. I advised him to follow up with his PCP in a week and get his creatinine rechecked Alcohol abuse: the patient drinks 12 beers daily. He was advised to quit drinking, which he states he has done "cold turkey" before. He states that he started drinking again after his first divorce. He is currently from his second , so has become depressed. I advised him to taper his drinking gradually. He declined going to a rehab program and states he has a child at home that he is responsible for, which will motivate him to stop drinking. Pertinent Studies: Chest X ray 10/30: normal Abdominal US: multiple gallstones, fatty liver ECHO: EF 60-65%, no effusion - Labs Lab Results: 10/31/20 06:26 11/01/20 04:30 Abnormal Lab Results - Last 48 hrs 10/30/20 11:35: Urine Protein 100 A, Urine Blood 2+ A, Urine RBC 7-10 A 10/30/20 11:41: B-Natriuretic Peptide 193.6 H 10/30/20 11:41: RBC 2.52 L, Hgb 8.4 L, Hct 24.7 L, MCH 33.2 H, RDW 11.2 L, MPV 6.0 L, Monocytes % 10.3 H, Monocytes # 0.6 H 10/30/20 11:41: Sodium 122 L, Chloride 93 L, Carbon Dioxide 19 L, Creatinine 1.40 H, AST 61 H, Alkaline Phosphatase 195 H, Albumin 2.5 L, Globulin 3.6 H, Albumin/Globulin Ratio 0.7 L 10/30/20 16:06: Vitamin B12 1173 H 10/31/20 06:26: Sodium 127 L, Carbon Dioxide 20 L, BUN 23 H, Creatinine 1.34 H, AST 47 H, Alkaline Phosphatase 152 H, Serum Total Protein 5.7 L, Albumin 2.3 L, Albumin/Globulin Ratio 0.7 L 10/31/20 06:26: WBC 4.1 L, RBC 2.47 L, Hgb 8.4 L, Hct 24.5 L, MCV 98.9 H, MCH 34 .1 H, RDW 11.2 L, MPV 6.0 L, Monocytes % 14.4 H, Lymphocytes # 1.1 L, Monocytes # 0.6 H 11/01/20 04:30: Sodium 133 L, Carbon Dioxide 21 L, BUN 23 H, Creatinine 1.44 H - Physical Exam Vitals: Vital Signs (12 hours) Temp Pulse Resp BP BP BP BP 11/01/20 08:00 98.7 F 84 18 122/59 L 11/01/20 05:05 90 147/70 H 11/01/20 04:39 84 176/81 H 11/01/20 04:30 176/81 H 11/01/20 04:26 98.1 F 84 16 176/81 H 11/01/20 00:28 97 164/73 H 10/31/20 23:54 88 176/81 H 10/31/20 23:50 176/81 H 10/31/20 23:22 98.2 F 88 16 176/81 H Pulse Ox 11/01/20 08:00 97 11/01/20 05:05 11/01/20 04:39 11/01/20 04:30 11/01/20 04:26 97 11/01/20 00:28 10/31/20 23:54 10/31/20 23:50 10/31/20 23:22 98 Weight Weight 235 lb Physical Exam: The patient was seen and examined on the day of discharge. General: morbidly obese CVS: RRR, no murmurs, rubs, gallops Lungs: CTAB Abdomen: +BS, soft, nontender, nondistended Extremities: 1-2+ edema Problem - Time spent with Patient (mins): 30 Plan - Discharge Medications Prescriptions: Thiamine 100 mg PO DAILY #30 tab Home Medications: Medication Instructions Recorded Confirmed Type hydrOXYzine Pamoate [Hydroxyzine 25 mg PO DAILY 11/24/17 10/30/20 History Pamoate] Furosemide 40 mg PO QAM #0 11/25/17 10/30/20 Rx Spironolactone 100 mg PO DAILY #0 11/25/17 10/30/20 Rx Folic Acid 0.4 mg PO DAILY 11/30/18 10/30/20 History Losartan [Cozaar] 25 mg PO DAILY 03/04/19 10/30/20 History Ferrous Sulfate [Iron] 1 tab PO DAILY 10/30/20 10/30/20 History Lactulose 15 ml PO BID 10/30/20 10/30/20 History metFORMIN [Glucophage] 0.5 tab PO DAILY 10/30/20 10/30/20 History Thiamine 100 mg PO DAILY #30 tab 11/01/20 Rx Allergies: No Known Drug Allergies Allergy (Verified 03/04/19 21:05) - Discharge Instructions Activity:: Activity as Tolerated Nourishment:: Fluid Restriction Diet (2L), Heart Healthy Diet - Follow up Plan Referrals: YUMIKO WOOD MD [Primary Care Provider] - Disposition: HOME Quality - Care Measures CORE MEASURES:: N/A
--- NOTE | 2020-11-01 14:26 | EKG ---
Test Reason : Blood Pressure : / mmHG Vent. Rate : 077 BPM Atrial Rate : 077 BPM P-R Int : 164 ms QRS Dur : 104 ms QT Int : 394 ms P-R-T Axes : 053 012 016 degrees QTc Int : 445 ms Normal sinus rhythm Possible Left atrial enlargement Borderline ECG Confirmed by FLOWER BOO DO ([id number]), senior technical editor BRAXTON SMITH ([id number]) on 11/01/2020 2:26:40 PM Referred By: Confirmed By:FLOWER BOO DO
[2020-11-02] MEDS ORDERED: Thiamine 100 MG TAB PO SCH (09:00)
[2020-11-02] MEDS ORDERED: Folic Acid 1 MG TAB PO SCH (09:00)
[2020-11-02] MEDS ORDERED: Multivitamin W/ Minerals 1 TAB PO SCH (09:00)
--- NOTE | 2020-11-04 03:04 | PQF ---
CLINICAL DOCUMENTATION CLARIFICATION FORM: Dear : Natalie Quarles Date / Time: 11/04/20302 Please exercise your independent, professional judgment in responding to the clarification form. Clinical indicators are provided on the bottom of this form for your review Please check appropriate box(es): HEART FAILURE: A. ACUITY [ ] Acute [ ] Acute on Chronic [ ] Chronic B. TYPE: [ ] Systolic / HFrEF [ ] Diastolic / HFpEF [ ] Combined Systolic / Diastolic [ X] Other diagnosis, please specify see dc summary diagnosis ___ [ ] Unable to determine In addition, please specify: Present on Admission (POA): X ] Yes [ ] No [ ] Unable to determine Physician Signature: Date/Time: For continuity of documentation, please document condition throughout progress notes and discharge summary. Thank You. To be completed by CDI/Coding staff for physician review: Present Clinical Indicators - Signs / Symptoms / Labs Results and Location in Medical Record [x] BNP 193.6 Laboratory 10/30 [x] BP 175/84, Pulse 78, Resp 18, Temp 97.3 Vital signs 10/30 [x] EF 50-65&, Left ventricular size is normal Echocardiogram 10/31 Dr Vee [x] Presents with 2+ pitting edema to bilateral LE for the last 3 days ED notes p7 10/30 [x] CHF ED notes p7 10/30 [x] Elevated BNP without previous history of congestive heart failure H&P p3 10/30 Dr Christian [x] Chest Xray: no pleural effusion Chest Xray 10/30 [x] Abdominal distention HP 10/30 Present Risk Factors Results and Location in Medical Record [x] CKD 2 H&P p1 10/30 Dr Christian [x] Alcoholic cirrhosis H&P p1 10/30 Dr Christian [x] DM H&P p1 10/30 Dr Christian [x] Smoker H&P p1 10/30 Dr Christian [x] RAEGAN H&P p3 10/30 Dr Christian Present Treatments Results and Location in Medical Record [x] IV Lasix 20 mg DEC 15 [x] Aldactone 100 mg oral DEC 15 CDS/Physiatrist Signature: Charley Moss Phone #: ext [phone] Date/Time: 11/04/20302 This is a permanent part of the Medical Record [facility]
== END 2020-11-01 11:20 | disposition home or self-care (01) | DRG 433 ==
LOC: ERS 10:48 → ONC 14:00
PROVIDERS: ADMIT Internal Medicine; ATTEND Internal Medicine
DX: K70.30 Alcoholic cirrhosis of liver without ascites (principal); N17.9 Acute kidney failure, unspecified; E87.1 Hypo-osmolality and hyponatremia; I85.10 Secondary esophageal varices without bleeding; Z20.822 Contact with and (suspected) exposure to COVID-19; F10.10 Alcohol abuse, uncomplicated; K76.0 Fatty (change of) liver, not elsewhere classified; D53.9 Nutritional anemia, unspecified; R74.01 Elevation of levels of liver transaminase levels; K80.20 Calculus of gallbladder without cholecystitis without obstruction; F41.9 Anxiety disorder, unspecified; F32.9 Major depressive disorder, single episode, unspecified; F17.210 Nicotine dependence, cigarettes, uncomplicated; N18.2 Chronic kidney disease, stage 2 (mild); E11.22 Type 2 diabetes mellitus with diabetic chronic kidney disease; I12.9 Hypertensive chronic kidney disease with stage 1 through stage 4 chronic kidney disease, or unspecified chronic kidney disease; I07.1 Rheumatic tricuspid insufficiency; R31.9 Hematuria, unspecified; Z79.899 Other long term (current) drug therapy; Z89.421 Acquired absence of other right toe(s); Z91.19 Patient's noncompliance with other medical treatment and regimen; Z79.84 Long term (current) use of oral hypoglycemic drugs; Z28.21 Immunization not carried out because of patient refusal
CPT/HCPCS: 36415; 36416; 71045; 76705; 80048; 80053; 80074; 81003; 82140; 82607; 82746; 83735; 83880; 84443; 85025; 87635; 93005; 93306; J0360; J1940; J2060; J3411; J3475; J3490; J7042; Q0177; U0003; U0005

== ENCOUNTER 2020-12-14 11:36 | Inpatient (IN) | payer SELFPAY ==
[2020-12-14 12:16] LABS: #Lymphocytes 1.3 thou/uL (1.20-3.40); #Monocytes 0.6 thou/uL (0.11-0.59); #Neutrophils 2.3 thou/uL (1.40-6.50); %Basophils 0.5 % (0.0-1.0); %Monocytes 13.8 % (0.0-10.0); %Neutrophils 53.8 % (42.0-75.0); Hemoglobin 6.6 g/dL (14.0-18.0); Mean Corpuscular HGB CONC 35.1 g/dL (32.0-36.0); Mean Corpuscular Hemoglobin 34.1 pg (27.0-31.0); Mean Corpuscular Volume 97.3 fL (78.0-98.0); Mean Platelet Volume 5.7 fL (7.4-10.4); Platelet Count 171 thou/uL (130-400); RBC Distribution Width 10.9 % (11.5-14.5); Red Blood Cell (RBC) Count 1.93 mill/uL (4.70-6.10); White Blood Cell (WBC) Count 4.3 thou/uL (4.8-10.8)
[2020-12-14 12:39] LABS: ALT (SGPT) 21 U/L (8-55); AST (SGOT) 62 U/L (5-34); Albumin 2.5 g/dL (3.5-5.0); Alkaline Phosphatase 140 U/L (40-110); Anion Gap 13 mmol/L (10-20); BUN (Urea Nitrogen) 24 mg/dL (8.9-20.6); Bilirubin, Total 0.3 mg/dL (0.2-1.2); Calc. Creatinine Clearance 0 mL/min (70-130); Carbon Dioxide 14 mmol/L (22-29); Chloride 91 mmol/L (98-107); Globulin 3.4 g/dL (2.4-3.5); Glucose 93 mg/dL (70-105); Potassium 5.4 mmol/L (3.5-5.1); Protein, Total 5.9 g/dL (6.0-8.3)
--- NOTE | 2020-12-14 12:42 | ULT ---
EXAM: Right lower extremity venous Doppler HISTORY: Redness extending up calf. Left great toe pain. FINDINGS: Grayscale, color-flow, Doppler evaluation, spectral analysis of the right lower extremity venous stru ctures is performed with 2-D imaging. The right common femoral, superficial femoral, popliteal, posterior tibial, proximal greater saphenous and profunda femoral veins are imaged. There is normal luminal compressibility, flow, and augmentation in the visualized deep venous structu res of the right lower extremity. Mild subcutaneous edema is seen to the level of the calf. IMPRESSION: 1. No evidence of a deep vein thrombosis in the visualized deep venous structures right lower extremi ty. 2. Subcutaneous edema at the level of the calf.
--- NOTE | 2020-12-14 12:42 | RAD ---
EXAM: XR Foot Lt 3 View STANDARD PROVIDED CLINICAL HISTORY: Pain COMPARISON: None FINDINGS: There is a comminuted intra-articular fracture involving the base of the third digit proximal phalanx . There is a comminuted intra-articular fracture involving the base of the great toe distal phalanx. No additional fracture is evident. Joint spaces appear preserved. No evidence for dislocatio n. IMPRESSION: Comminuted great toe and third digit fractures.
[2020-12-14 12:48] LABS: Sodium 113 mmol/L (136-145)
--- NOTE | 2020-12-14 13:43 | RAD ---
EXAM: XR Chest 1 View Portable PROVIDED CLINICAL HISTORY: Toe injury COMPARISON: 10/30/2020 FINDINGS: The cardiac silhouette remains enlarged. Prominence of the pulmonary vasculature and pulmonary inters titium are redemonstrated. No focal consolidation, pleural fluid or pneumothorax apparent. IMPRESSION: Cardiomegaly and prominent pulmonary vasculature.
[2020-12-14 15:39] LABS: Reticulocyte Count 2.1 % (0.5-1.5)
[2020-12-14 16:00] LABS: Anion Gap 12 mmol/L (10-20); BUN (Urea Nitrogen) 24 mg/dL (8.9-20.6); Calc. Creatinine Clearance 0 mL/min (70-130); Calcium 7.9 mg/dL (7.8-10.44); Carbon Dioxide 15 mmol/L (22-29); Chloride 93 mmol/L (98-107); Glucose 72 mg/dL (70-105); Phosphorus 4.4 mg/dL (2.3-4.7); Potassium 5.6 mmol/L (3.5-5.1)
[2020-12-14 16:03] LABS: Magnesium 1.9 mg/dL (1.6-2.6)
[2020-12-14 16:15] LABS: Sodium 114 mmol/L (136-145)
--- NOTE | 2020-12-14 17:09 | PDOC.HHP ---
Hospitalist HPI Wound Evaluation History of Present Illness: PCP: Dr. Sanchez The patient is a 45-year-old male with a past medical history significant for HTN, DMII, peripheral neuropathy, cirrhosis and anxiety and depression that presents emergency department for the above complaint. Patient reports increased swelling and redness to his left great toe over the past several days. Originally, he injured the toe while wearing ill fitted steel toed boots. He did see his PCP, who placed him on unknown antibiotic regimen, which she has been compliant. However, over the past several days he has noticed increased swelling and redness to the affected toe. He has a history of peripheral neuropathy, so therefore the pain is mildly detectable. He is diabetic and takes Metformin daily. He has chronic swelling to his bilateral lower extremities, however, he says that has been worse lately. He takes Lasix 20 mg twice daily, which she has been compliant. He denies any history of DVT/PE. He denies any abdominal pain, nausea, vomiting or hematochezia/melena. Denies chest pain or heart palpitations, shortness of breath and hemoptysis. Denies any fever or chills. ED Course: VITAL SIGNS TueDec 14, 2020 11:38 CINDY Ortiz Dannette BP: 144/64, Pulse: 73, Resp: 20, Temp: 98.1 (Oral), Pain: 0, O2 sat: 97 on (Room Air), Time: 12/14/2020 11:38. VITAL SIGNS TueDec 14, 2020 13:32 CINDY Kuo Saundra BP: 149/83, Pulse: 75, Resp: 18, Pain: 0, O2 sat: 97 on (Room Air), Time: 12/14/2020 13:32. VITAL SIGNS TueDec 14, 2020 14:02 CINDY Kuo Saundra BP: 153/81, Pulse: 77, Resp: 18, Time: 12/14/2020 14:02. VITAL SIGNS TueDec 14, 2020 15:53 CINDY Jackson Sarah BP: 153/73, Pulse: 68, Resp: 18, Temp: 98.3 (Oral), Pain: 0, O2 sat: 100 on (Room Air), Time: 12/14/2020 15:53. VITAL SIGNS TueDec 14, 2020 16:46 Wiprud, RN, Yocasta BP: 169/76, Pulse: 72, Resp: 16, Pain: 0, O2 sat: 99 on (Room Air), Time: 12/14/2020 16:46. Sodium 114, potassium 5.6, chloride 93, CO2 15, BUN 24, creatinine 2.11 Serum osmolality 256 Troponin 0.023, BNP 526, mag 1.9 WBC 4.3, LA 0.8 Hemoglobin 6.6, hematocrit 18.8, platelets 171 Medication: 1 unit PRBCs One and bicarb Normal saline at 125 mils per hour Allergies/Adverse Reactions: Allergy/AdvReac Type Severity Reaction Status Date / Time No Known Drug Allergies Allergy Verified 03/04/19 21:05 Home Medications: Medication Instructions Recorded Confirmed Type hydrOXYzine Pamoate [Hydroxyzine 25 mg PO DAILY 11/24/17 12/14/20 History Pamoate] Furosemide 40 mg PO QAM #0 11/25/17 12/14/20 Rx Spironolactone 100 mg PO DAILY #0 11/25/17 12/14/20 Rx Folic Acid 0.4 mg PO DAILY 11/30/18 12/14/20 History Losartan [Cozaar] 25 mg PO BID 03/04/19 12/14/20 History Ferrous Sulfate [Iron] 1 tab PO DAILY 10/30/20 12/14/20 History Lactulose 15 ml PO BID 10/30/20 12/14/20 History metFORMIN [Glucophage] 0.5 tab PO DAILY 10/30/20 12/14/20 History Magnesium Oxide [Magnesium] 400 mg PO DAILY 12/14/20 12/14/20 History Past History: PMH: HTN, DM two, cirrhosis, anxiety depression, peripheral neuropathy PSX: Right pinky toe amputation Social history: Smokes half pack per day cigarettes. Previously drank 15 beers per day, now drinks six beers per day. Last drink today. No history of illicit drug use. Lives with his mother. Does not work. Independent. Family history: Negative for cardiac disease Hospitalist HPI ROS All other systems reviewed; all pertinent +/- noted in HPI/Subj Hospitalist Exam General Appearance: NAD, awake alert. negative: ill appearing Eye: PERRL, anicteric sclera ENT: normocephalic atraumatic, moist mucosa Neck: supple, no JVD, no lymphadenopathy Heart: RRR, no gallops, no rubs, normal peripheral pulses, III/IV Respiratory: CTAB, no wheezes, no rales, no ronchi, normal chest expansion, no tachypnea Gastrointestinal: soft, non-tender, normal bowel sounds, no guarding, no rigidity, distended Gastrointestinal - other findings: Negative Rovsing sign, negative Coon sign Extremities: 2+ LE edema (Bilaterally) Extremities - other findings: Left lower extremity Mario wrap with walking boot Neurological: cranial nerve grossly intact, no focal deficits Musculoskeletal: normal tone, normal strength Psychiatric: normal affect, A&O x 3 Hospitalist Results Result Diagrams: 12/14/20 22:19 12/15/20 01:04 Lab results: Laboratory Last Values WBC 4.3 thou/uL (4.8-10.8) L 12/14/20 12:07 RBC 1.93 mill/uL (4.70-6.10) L 12/14/20 12:07 Hgb 6.6 g/dL (14.0-18.0) L 12/14/20 12:07 Hct 18.8 % (42.0-52.0) L 12/14/20 12:07 MCV 97.3 fL (78.0-98.0) 12/14/20 12:07 MCH 34.1 pg (27.0-31.0) H 12/14/20 12:07 MCHC 35.1 g/dL (32.0-36.0) 12/14/20 12:07 RDW 10.9 % (11.5-14.5) L 12/14/20 12:07 Plt Count 171 thou/uL (130-400) 12/14/20 12:07 MPV 5.7 fL (7.4-10.4) L 12/14/20 12:07 Neutrophils % 53.8 % (42.0-75.0) 12/14/20 12:07 Lymphocytes % 31.0 % (21.0-51.0) 12/14/20 12:07 Monocytes % 13.8 % (0.0-10.0) H 12/14/20 12:07 Eosinophils % 1.0 % (0.0-10.0) 12/14/20 12:07 Basophils % 0.5 % (0.0-1.0) 12/14/20 12:07 Neutrophils # 2.3 thou/uL (1.40-6.50) 12/14/20 12:07 Lymphocytes # 1.3 thou/uL (1.20-3.40) 12/14/20 12:07 Monocytes # 0.6 thou/uL (0.11-0.59) H 12/14/20 12:07 Eosinophils # 0.0 thou/uL (0.0-0.7) 12/14/20 12:07 Basophils # 0.0 thou/uL (0.0-0.2) 12/14/20 12:07 Retic Count 2.1 % (0.5-1.5) H 12/14/20 15:31 Immature Retic Fraction 0.183 Ratio (0.163-0.362) 12/14/20 15:31 Sodium 114 mmol/L (136-145) L* 12/14/20 15:24 Potassium 5.6 mmol/L (3.5-5.1) H 12/14/20 15:24 Chloride 93 mmol/L (98-107) L 12/14/20 15:24 Carbon Dioxide 15 mmol/L (22-29) L 12/14/20 15:24 Anion Gap 12 mmol/L (10-20) 12/14/20 15:24 BUN 24 mg/dL (8.9-20.6) H 12/14/20 15:24 Creatinine 2.11 mg/dL (0.7-1.3) H 12/14/20 15:24 Estimated GFR (MDRD) 34 12/14/20 15:24 Glucose 72 mg/dL (70-105) 12/14/20 15:24 Serum Osmolality 256 mOsm/kg (280-295) L 12/14/20 15:24 Lactic Acid 0.8 mmol/L (0.5-2.2) 12/14/20 12:07 Calcium 7.9 mg/dL (7.8-10.44) 12/14/20 15:24 Phosphorus 4.4 mg/dL (2.3-4.7) 12/14/20 15:24 Magnesium 1.9 mg/dL (1.6-2.6) 12/14/20 15:24 Total Bilirubin 0.3 mg/dL (0.2-1.2) 12/14/20 12:07 AST 62 U/L (5-34) H 12/14/20 12:07 ALT 21 U/L (8-55) 12/14/20 12:07 Alkaline Phosphatase 140 U/L (40-110) H 12/14/20 12:07 Creatine Kinase 429 U/L (30-200) H 12/14/20 15:24 Troponin I 0.023 ng/mL (< 0.028) 12/14/20 12:07 B-Natriuretic Peptide 526.4 pg/mL (0-100) H 12/14/20 12:07 Serum Total Protein 5.9 g/dL (6.0-8.3) L 12/14/20 12:07 Albumin 2.5 g/dL (3.5-5.0) L 12/14/20 12:07 Globulin 3.4 g/dL (2.4-3.5) 12/14/20 12:07 Albumin/Globulin Ratio 0.7 g/dL (1.2-2.2) L 12/14/20 12:07 Blood Type O POSITIVE 12/14/20 15:31 Antibody Screen NEGATIVE 12/14/20 15:31 Crossmatch See Detail 12/14/20 15:31 EKG Status: image reviewed by me, report reviewed by me Additional Comments: 12 lead EKG interpreted by Emergency Department Physician at time of study, 12 lead EKG shows normal sinus rhythm, Rate (beats per minute): 69, Conduction normal, ST segments normal, T waves normal, [place] normal, Clinical impression: Normal EKG. Chest x-ray Status: report reviewed by me Additional Comments: IMPRESSION: Cardiomegaly and prominent pulmonary vasculature Other Status: report reviewed by me Additional Comments: RLE venous doppler: IMPRESSION: 1. No evidence of a deep vein thrombosis in the visualized deep venous structures right lower extremity. 2. Subcutaneous edema at the level of the calf. XR Left foot: IMPRESSION: Comminuted great toe and third digit fractures. Hospitalist H&P A/P (1) RAEGAN (acute kidney injury) Code(s): N17.9 - ACUTE KIDNEY FAILURE, UNSPECIFIED Status: Acute (2) Hyponatremia with decreased serum osmolality Code(s): E87.1 - HYPO-OSMOLALITY AND HYPONATREMIA Status: Acute (3) Hyperkalemia Code(s): E87.5 - HYPERKALEMIA Status: Acute (4) Anemia Code(s): D64.9 - ANEMIA, UNSPECIFIED Status: Acute (5) Fracture of left great toe Code(s): S92.402A - DISPLACED UNSP FRACTURE OF LEFT GREAT TOE, INIT FOR CLOS FX Status: Acute (6) Pulmonary congestion Code(s): R09.89 - OTH SYMPTOMS AND SIGNS INVOLVING THE CIRC AND RESP SYSTEMS Status: Acute (7) DM2 (diabetes mellitus, type 2) Status: Chronic Qualifiers: Diabetes mellitus [facility] insulin use: without [facility] use (8) HTN (hypertension) Code(s): I10 - ESSENTIAL (PRIMARY) HYPERTENSION Status: Chronic (9) Cirrhosis of liver Code(s): K74.60 - UNSPECIFIED CIRRHOSIS OF LIVER Status: Chronic (10) Peripheral neuropathy Code(s): G62.9 - POLYNEUROPATHY, UNSPECIFIED Status: Chronic (11) Anxiety and depression Code(s): F41.9 - ANXIETY DISORDER, UNSPECIFIED; F32.9 - MAJOR DEPRESSIVE DISORDE R, SINGLE EPISODE, UNSPECIFIED Status: Chronic Plan: A patient with alcoholic cirrhosis, HTN, DM two and peripheral neuropathy presents for injury to left great toe. Radiology shows comminuted fracture of the left great toe and third digit fracture. Venous ultrasound negative for DVT. Sodium 113, serum osmolality 256, potassium 5.6, CXR pulmonary congestion, BNP 526. #RAEGAN Presented creatinine 2.11 GFR 34 Baseline appears to be 1.3-1.4, GFR 50s CXR performed congestion, BNP [address] abdomen pelvis Consult nephrology, Dr. Leger. Hold nephrotoxic medications. #Hyponatremia with decreased urine osmolality Multifactorial. FVO, beer potomania?? Dr. Coburn seeing patient in ED. Plan per nephrology. #Hyperkalemia Presented K5.6. Patient given one amp of sodium bicarb in ED. Plan per nephrology. Hold spironolactone. #Anemia Presented hemoglobin 6.6, hematocrit 18.8 Baseline appears to be Hgb. 8 Patient denies hemoptysis, hematochezia/melena. Potassium and BUN are elevated in setting RAEGAN Given Hx of cirrhosis, possible UGIB. Patient typed and crossed. Give you 1 unit PRBCs. Trend H&H. Check coags. Iron studies, B12 and folate. Consult GI. PPI. Orthostatics VS. #Fracture of left great toe Splinted in ED. Consult orthopedic, PT/OT. No leukocytosis, afebrile. #Pulmonary congestion CXR pulmonary congestion, BNP 526, was 193 previously. A: NAD, 3/ cardiac murmur pulmonic listening point Recent echocardiogram (11/06) Suspect fluid volume overload. Consult cardiology. Trend troponins. #DM2 Hold home dose Metformin. Moderate ISS. Accu-Cheks ACH S. #HTN Hold home dose losartan, spironolactone, Lasix D/T problem #1 Hydralazine as needed. #Cirrhosis of the liver Chronic. A: A&O x4, no asterixis. Get CT abdomen pelvis. Check coags. Check lactulose level. Continue lactulose home medication. Hold home dose spironolactone and Lasix. #Peripheral neuropathy Restart home dose gabapentin when reconciled by nursing. #Anxiety and depression Denies SI/HI Restart home dose hydroxyzine. No pharmacologic or SCDs for DVT prophylaxis. Protonix for GI prophylaxis. CODE STATUS full code. Discussed case with attending physician, Dr. Jules who agrees with plan of care.
[2020-12-14 17:51] LABS: Anion Gap 13 mmol/L (10-20); BUN (Urea Nitrogen) 24 mg/dL (8.9-20.6); Calc. Creatinine Clearance 0 mL/min (70-130); Calcium 8.1 mg/dL (7.8-10.44); Carbon Dioxide 15 mmol/L (22-29); Chloride 93 mmol/L (98-107); Glucose 72 mg/dL (70-105); Potassium 5.6 mmol/L (3.5-5.1)
[2020-12-14 17:55] LABS: Sodium 115 mmol/L (136-145); Troponin I 0.013 ng/mL (< 0.028)
[2020-12-14] MEDS ORDERED: Sodium Bicarb 50 MEQ/50 ML Abboject 8.4% SYRINGE ONE (18:10)
[2020-12-14 18:34] LABS: INR-International Normal Ratio 1.2; Prothrombin Time 15.4 sec (12.0-14.7)
[2020-12-14 18:43] LABS: Anion Gap 13 mmol/L (10-20); BUN (Urea Nitrogen) 24 mg/dL (8.9-20.6); Calc. Creatinine Clearance 0 mL/min (70-130); Calcium 7.9 mg/dL (7.8-10.44); Carbon Dioxide 14 mmol/L (22-29); Chloride 93 mmol/L (98-107); Glucose 82 mg/dL (70-105); Potassium 5.4 mmol/L (3.5-5.1)
[2020-12-14 18:51] LABS: Sodium 115 mmol/L (136-145)
[2020-12-14] MEDS ORDERED: Lorazepam 2 MG/ML VIAL SLOW IVP PRN ×3 (18:57→19:39)
[2020-12-14] MEDS ORDERED: Sodium Chloride 0.9% 1,000 ML IV SCH ×2 (19:00→21:45)
--- NOTE | 2020-12-14 19:11 | CON ---
DATE OF CONSULTATION: REASON FOR CONSULTATION: Acute renal failure, hyperkalemia, metabolic acidosis, and hyponatremia. HISTORY OF PRESENTING ILLNESS: This is a very pleasant 45-year-old gentleman, who presented to the hospital noted to have a sodium of 114 and a potassium of 5.6 with bicarb, so I was consulted for further evaluation and workup. The patient denies drinking any methanol, but has been drinking alcohol. The patient denies any nausea, vomiting, or chest pain. PAST MEDICAL HISTORY: Significant for laceration of the toe, diabetes mellitus, cirrhosis, alcohol abuse, anxiety, depression, rectal abscess, thigh abscess, toe amputation. SOCIOECONOMIC HISTORY: Positive for alcohol abuse. ALLERGIES: REVIEWED. HOME MEDICATIONS: List reviewed. HOSPITAL MEDICATIONS: List reviewed. FAMILY HISTORY: Negative for ESRD. REVIEW OF SYSTEMS: 15-point review of systems was performed, was negative except for positives noted above. HEENT: Eyes intact, no diplopia. Ears: No hearing loss or earache. Nose: No discharge or bleeding. CHEST: No cough or phlegm. ABDOMEN: No nausea or vomiting. GENITOURINARY: No hematuria. No Dejesus catheter. MUSCULOSKELETAL: No low back pain. No joint swelling or pain. NEUROLOGICAL: No syncope. No seizures. SKIN: No complaints of rash or itching. PSYCHIATRIC: No depression. CONSTITUTIONAL: No weight loss or loss of appetite. PHYSICAL EXAMINATION: GENERAL: The patient is awake and alert. VITAL SIGNS: Afebrile, pulse 75, breathing at 16, blood pressure 122/59. HEENT: Head normocephalic and atraumatic. Eyes intact, no ulcers. Nose intact, no ulcers. Ears intact, no ulcers. NECK: Supple. No JVD. CHEST: Symmetrical and clear. CARDIOVASCULAR: Shows S1 and S2, no rub, no murmur. GASTROINTESTINAL: Abdomen is soft, bowel sounds positive. EXTREMITIES: He has 2+ edema. SKIN: Shows no rash or petechiae. MUSCULOSKELETAL: Shows no joint swelling or stiffness. GENITOURINARY: Shows no Dejesus or CVA tenderness. NEUROLOGIC: Motor intact. Cranial nerves intact. LABORATORY DATA: Show creatinine is 2.1, sodium 115, and albumin of 2.5. ASSESSMENT AND RECOMMENDATION: 1. Acute kidney injury with chronic kidney disease, most likely due to decreased effective arterial blood volume in the setting of possible gastrointestinal bleed. Continue gentle hydration. 2. Metabolic acidosis. I would recommend GI workup, possibly because of renal failure. Give sodium bicarbonate and recommend doing an ABG. 3. Hyperkalemia due to metabolic acidosis and possibly . Continue Kayexalate. Medication based on GFR appropriate. Overall prognosis is poor. Job ID: [id number]
[2020-12-14] MEDS ORDERED: Ondansetron PF 4 MG/2 ML Vial IVP PRN (19:13)
[2020-12-14] MEDS ORDERED: Ondansetron ODT 4 MG TAB PO PRN (19:13)
[2020-12-14 19:14] LABS: SARS-CoV-2 NAA Rapid Test Not Detected (NotDetected)
[2020-12-14] MEDS ORDERED: Sodium Bicarb 50 MEQ/50 ML VIAL IVP SCH (19:15)
[2020-12-14] MEDS ORDERED: Dextrose 50% Abboject 50 ML SYRINGE SLOW IVP PRN (19:17)
[2020-12-14] MEDS ORDERED: Dextrose 5% in Water 1,000 ML IV PRN (19:17)
[2020-12-14] MEDS ORDERED: HumaLOG 300 UNITS/3 ML VIAL SC PRN ×2 (19:17)
--- NOTE | 2020-12-14 19:18 | CT ---
Exam: Abdomen CT without contrast HISTORY: Acute kidney insufficiency. Fever of unknown origin. Cirrhosis. COMPARISON: None FINDINGS: Abdomen CT: Lung bases:Minimal atelectasis. Small bleb is noted in the right lower lobe Heart size: Upper normal heart size. No significant pericardial effusion. Minimal calcification of th e mitral annulus Aorta: Normal caliber. No periaortic fat stranding. Minimal atherosclerosis Solid organs: Limited evaluation by the absence of intravenous contrast administration. Nodularity of liver compatible with patient's history of cirrhosis. No evidence of splenomegaly. Grossly unremarkable adrenal glands and pancreas Lymph nodes: No gastrohepatic, retrocrural or periportal lymphadenopathy Gallbladder: Cholelithiasis, without evidence of cholecystitis. Mild gallbladder contraction Mesentery: No mass, lymphadenopathy, free air or free fluid Kidneys: Bilaterally, no hydronephrosis, nephrolithiasis or perinephric fat stranding. Bilateral uret ers have a normal caliber. No hydroureter, periureteral fat stranding or ureterolithiasis in the visualized ureters. Alimentary canal: Grossly unremarkable alimentary canal. Normal caliber appendix is identified Additional findings: There is evidence of gastroesophageal varices Soft tissues: Soft tissue edema is noted Osseous structures: No lytic or blastic lesions. Bilateral spondylolysis at L5 without associated spo ndylolisthesis. IMPRESSION: 1. No acute abnormality in the abdomen or pelvis 2. Cirrhosis. Gastroesophageal varices. 3. Normal caliber appendix 4. Soft tissue edema.
[2020-12-14] MEDS ORDERED: Diazepam 5 MG TAB PO PRN (19:34)
[2020-12-14] MEDS ORDERED: hydrALAZINE 20 MG/ML VIAL SLOW IVP PRN (19:40)
[2020-12-14] MEDS ORDERED: Sodium Chloride 0.9% (PF) 10 ML VIAL FS PRN (19:45)
[2020-12-14] MEDS ORDERED: Aspirin Chewable 81 MG TAB PO SCH (19:45)
[2020-12-14] MEDS ORDERED: Diazepam 5 MG TAB PO SCH (20:00)
[2020-12-14] MEDS ORDERED: Thiamine HCl 200 MG/2 ML VIAL IM SCH (20:00)
[2020-12-14 20:15] LABS: Reticulocyte Count 1.9 % (0.5-1.5)
[2020-12-14 20:21] LABS: INR-International Normal Ratio 1.2; Prothrombin Time 15.1 sec (12.0-14.7)
[2020-12-14 20:22] LABS: PTT 33.2 sec (22.9-36.1)
[2020-12-14 20:35] LABS: Anion Gap 12 mmol/L (10-20); BUN (Urea Nitrogen) 25 mg/dL (8.9-20.6); Calc. Creatinine Clearance 0 mL/min (70-130); Carbon Dioxide 17 mmol/L (22-29); Chloride 93 mmol/L (98-107); Glucose 86 mg/dL (70-105); Potassium 5.1 mmol/L (3.5-5.1)
[2020-12-14 20:36] LABS: Iron 106 ug/dL (65-175); Iron Binding Capacity, Total 278 mcg/dL (261-462)
[2020-12-14 20:40] LABS: Troponin I Less than 0.010 ng/mL (< 0.028)
[2020-12-14 20:50] LABS: Sodium 117 mmol/L (136-145)
[2020-12-14] MEDS ORDERED: Adacel (T-DAP) 0.5 ML SYRINGE IM ONE (21:00)
[2020-12-14 21:01] LABS: Ferritin 208.64 ng/mL (22-322)
[2020-12-14 22:09] VITALS: BMI 36.5
[2020-12-14 22:28] LABS: Hemoglobin 6.9 g/dL (14.0-18.0)
[2020-12-14 23:01] LABS: Anion Gap 12 mmol/L (10-20); BUN (Urea Nitrogen) 26 mg/dL (8.9-20.6); Calc. Creatinine Clearance 63 mL/min (70-130); Calcium 7.8 mg/dL (7.8-10.44); Carbon Dioxide 16 mmol/L (22-29); Chloride 95 mmol/L (98-107); Glucose 81 mg/dL (70-105); Potassium 5.1 mmol/L (3.5-5.1)
[2020-12-14 23:12] LABS: Sodium 118 mmol/L (136-145)
[2020-12-15 01:36] LABS: Anion Gap 13 mmol/L (10-20); BUN (Urea Nitrogen) 26 mg/dL (8.9-20.6); Calc. Creatinine Clearance 59 mL/min (70-130); Calcium 8.4 mg/dL (7.8-10.44); Carbon Dioxide 15 mmol/L (22-29); Chloride 99 mmol/L (98-107); Glucose 90 mg/dL (70-105); Potassium 4.9 mmol/L (3.5-5.1); Sodium 122 mmol/L (136-145)
[2020-12-15] MEDS ORDERED: Diazepam 5 MG TAB PO PRN (04:00)
[2020-12-15 06:08] LABS: #Basophils 0.1 thou/uL (0.0-0.2); #Lymphocytes 0.9 thou/uL (1.20-3.40); #Monocytes 0.5 thou/uL (0.11-0.59); #Neutrophils 2.2 thou/uL (1.40-6.50); %Basophils 1.5 % (0.0-1.0); %Eosinophils 1.3 % (0.0-10.0); %Lymphocytes 24.6 % (21.0-51.0); %Monocytes 13.1 % (0.0-10.0); %Neutrophils 59.5 % (42.0-75.0); Hemoglobin 7.7 g/dL (14.0-18.0); Mean Corpuscular HGB CONC 34.7 g/dL (32.0-36.0); Mean Corpuscular Hemoglobin 33.2 pg (27.0-31.0); Mean Corpuscular Volume 95.8 fL (78.0-98.0); Mean Platelet Volume 6.2 fL (7.4-10.4); Platelet Count 149 thou/uL (130-400); Red Blood Cell (RBC) Count 2.33 mill/uL (4.70-6.10); White Blood Cell (WBC) Count 3.7 thou/uL (4.8-10.8)
[2020-12-15 06:14] LABS: Anion Gap 11 mmol/L (10-20); BUN (Urea Nitrogen) 26 mg/dL (8.9-20.6); Calc. Creatinine Clearance 63 mL/min (70-130); Carbon Dioxide 18 mmol/L (22-29); Chloride 100 mmol/L (98-107); Glucose 90 mg/dL (70-105); Potassium 5.1 mmol/L (3.5-5.1); Sodium 124 mmol/L (136-145)
[2020-12-15] MEDS ORDERED: Non-Formulary Item 1 EACH (Folic Acid [Folic Acid] 0.4 MG Tablet) PO SCH (09:00)
[2020-12-15] MEDS ORDERED: Aspirin 81 mg Enteric Coated Tablet PO SCH (09:00)
[2020-12-15] MEDS ORDERED: Thiamine 100 MG TAB PO SCH (09:00)
[2020-12-15] MEDS ORDERED: Pantoprazole 40 MG VIAL IVP SCH ×2 (09:00)
--- NOTE | 2020-12-15 09:22 | CON ---
DATE OF CONSULTATION: CHIEF COMPLAINT: Right foot pain. HISTORY OF PRESENT ILLNESS: Mr. Ortiz is a 45-year-old male who presents to the emergency department for his foot. The patient is unsure how he injured his foot. He has been wearing steel-toed boots, but these are old and poor fitting. He thinks these may have been rubbing on his foot. It is possible, he says, that when he got up to go to the bathroom at night barefoot, he may have struck his foot. He has dense neuropathy and does not feel his foot. He has had a previous amputation on the right fifth toe. He has been admitted overnight for electrolyte abnormalities with elevated potassium and sodium of 114. The patient is resting comfortably. He has been splinted. He has been elevating the foot. PAST MEDICAL HISTORY: Diabetes, cirrhosis with history of alcohol abuse, anxiety, depression, history of multiple abscess, previous right small toe amputation. SOCIAL HISTORY: The patient is positive for alcohol abuse. He denies drug or tobacco use. ALLERGIES: NO KNOWN DRUG ALLERGIES. MEDICATIONS: Not currently available. FAMILY MEDICAL HISTORY: Noncontributory. REVIEW OF SYSTEMS: Positive for occasional foot pain. Otherwise, negative 10-point review of systems. IMAGES: Left foot x-rays demonstrated comminuted fracture of the proximal phalanx of the third toe as well as a comminuted fracture at the base of the great toe phalanx. PHYSICAL EXAMINATION: VITAL SIGNS: Temperature is 98.2, pulse is 70, respiratory rate of 18, oxygen saturation 95%, and blood pressure is 157/72. GENERAL: He is alert and oriented, sitting upright, in no apparent distress. Breathing comfortably. ABDOMEN: Soft, nontender, and nondistended. MUSCULOSKELETAL: The patient's left foot splint was removed. He has edema of his great toe. There is serous drainage which is scant from the nail bed. Otherwise, no ulceration is noted. SKIN: Otherwise intact. He does have inflamed appearance to the great toe. There is no pain to palpation or significant swelling of the third toe. Sensation is poor throughout. The foot is warm and well perfused. IMPRESSION: Diabetic male with toe injury, including great toe distal phalanx fracture and third toe proximal phalanx fracture. PLAN: At this point, the patient will be treated nonoperatively. I will convert him to an open shoe. He can weight bear on his heel. He should continue elevation of the foot. He is to check his skin and avoid any pressure on the skin. I do think he should be covered with an oral antibiotic for the next week as he is having some slight drainage from his nail bed to prevent further infection. I would like to see him back in the clinic in one month for x-rays of the foot to evaluate healing. Job ID: [id number]
[2020-12-15 10:19] LABS: Hemoglobin 7.7 g/dL (14.0-18.0)
[2020-12-15] MEDS: Magnesium Oxide 400 MG TAB PO SCH (10:44)
[2020-12-15] MEDS: Folic Acid 1 MG TAB PO SCH (10:44)
[2020-12-15] MEDS: Multivitamin W/ Minerals 1 TAB PO SCH (10:44)
[2020-12-15] MEDS: Thiamine 100 MG TAB PO SCH (10:47)
--- NOTE | 2020-12-15 12:40 | CON ---
DATE OF CONSULTATION: 12/15/2020 REASON FOR CONSULTATION: Anemia, history of cirrhosis with esophageal varices. CONSULTING PROVIDER: Yayo Jules MD HISTORY OF PRESENT ILLNESS: The patient is a 45-year-old male with past medical history of hypertension, diabetes with peripheral neuropathy, anxiety, depression, and alcoholic cirrhosis complicated by esophageal varices and bilateral lower extremity edema, initially presenting to the hospital with left great toe redness. He states that he was in his usual state of health until approximately 1 week ago when he began having increased erythema/redness of his left great toe. This was not associated with any significant increase in pain in the region, but the patient also does have a concurrent diagnosis of peripheral neuropathy with significantly decreased sensation in his bilateral feet. With increased redness, it prompted him to seek healthcare assistance at the [facility] and during the evaluation in the ER, he was noted to have a significant anemia concerning for possible bleeding source. Upon speaking with the patient today, he states that yes he was diagnosed with cirrhosis approximately 3 years ago and has been consuming increase of alcohol since then, but currently denies any nausea, vomiting, fevers, chills, hematemesis, melena, hematochezia, abdominal pain, dysphagia, odynophagia, diarrhea, constipation, or weight loss. In fact, the patient has been relatively asymptomatic until the appearance of the redness in his left great toe. He does take acetaminophen (approximately 500 to 1000 mg per day) for general aches and pains and headaches. He currently denies any NSAIDs. He does continue to take spironolactone and furosemide, which was given him in the past for diuretic purposes, but he could not specifically name the medications. He could not recall ever being placed on a nonselective beta-merlin like propranolol or nadolol. Of note, the patient has not followed up in the GI Clinic since his last upper endoscopy in July 2017 with the EGD at that point showing grade 1/2 distal esophageal varices with recommendations to place on nonselective beta-blockade. Colonoscopy performed at the same time was normal with no abnormality seen. REVIEW OF SYSTEMS: A 10-category review of systems was obtained with all responses negative except for the pertinent positives as listed in the HPI. PAST MEDICAL HISTORY: As per HPI. PAST SURGICAL HISTORY: Right foot small toe amputation. FAMILY HISTORY: Denies any GI malignancies. SOCIAL HISTORY: Smokes approximately 1/2 pack of cigarettes per day. Drinks approximately 6 beers per day with a previous history of drinking approximately 15 beers per day. He currently denies any illicit drug use. OUTPATIENT MEDICATIONS: Reviewed. ALLERGIES: NO KNOWN DRUG ALLERGIES. PHYSICAL EXAMINATION: VITAL SIGNS: Temperature 98.8, pulse 70, blood pressure 157/72, respiratory rate 18, saturating 95% on room air. GENERAL: The patient was lying in bed, in no acute distress. Alert and oriented x4. HEENT: Normocephalic, atraumatic. NECK: Supple. No JVD or scleral icterus noted, although multiple spider angiomata were seen on the lower neck/upper chest. CARDIOVASCULAR: A 4/6 systolic murmur was best heard at the left upper sternal border, but no discernible gallops or rubs. RESPIRATORY: Clear to auscultation bilaterally. ABDOMEN: Normoactive bowel sounds. Soft, nontender. [id number] abdominal distention, but difficult to assess for shifting dullness. EXTREMITIES: 1+ bilateral lower extremity edema was extending to just beneath the knee, increased skin erythema was noted on the left great toe, but no evidence of skin breakdown or purulence. LABORATORY DATA: CBC with a white blood cell count of 3.7, hemoglobin 7.7, hematocrit 22.3, platelets 149, MCV 95, RDW 12, reticulocyte count 2.1%. INR 1.2. Chemistry with a sodium of 124, potassium 5.1, chloride 100, CO2 of 18, BUN 26, creatinine 2.24, glucose 90, AST 62, ALT 21, alkaline phosphatase 140, total bilirubin 0.3. BNP 526. Iron indices were obtained yesterday but after blood transfusion with iron of 106, ferritin of 208, and TIBC of 278. IMAGING DATA: CT of the abdomen/pelvis was obtained on December 14, 2020, which showed nodularity of the liver consistent with a diagnosis of cirrhosis. Cholelithiasis was present without any evidence of cholecystitis and there was evidence of esophageal varices with no fluid collection surrounding them. Upon review of the patient's chart, he did have an upper endoscopy performed on August 04, 2017, which showed grade 1/2 distal esophageal varices, but no evidence of portal hypertensive gastropathy. Repeat upper endoscopy was performed on December 02, 2018 (with the indication of melena/anemia) with grade 1 distal esophageal varices seen without stigmata of hemorrhage and a large amount of retained gastric contents. ASSESSMENT AND PLAN: The patient is a 45-year-old male with past medical history of hypertension, diabetes with peripheral neuropathy, anxiety, depression, and alcoholic cirrhosis complicated by esophageal varices and bilateral lower extremity edema, presenting with his left great toe fracture and subsequent overlying erythema, anemia (of probable chronic disease), and acute kidney injury. Anemia. The patient is presenting with anemia with admitting hemoglobin of approximately 6.6. He currently denies any clinical evidence of active GI bleeding including hematemesis, melena, or hematochezia. Upon review of the patient's chart, he does have a chronic anemia with his baseline hemoglobin between 8 and 9. While he does have a mild drop in his H and H, there was no evidence of acute GI bleeding going on. With his elevated BUN to creatinine ratio, most likely a result of his acute kidney injury. At this time, the origin of his anemia could include anemia of chronic disease (although iron indices are worthless at this point given that he has been already transfused 1 unit of PRBCs), esophagitis, gastritis, peptic ulcer disease, esophageal varices (less likely given the last 2 upper endoscopies), portal hypertensive gastropathy, and/or gastrointestinal neoplasm (less likely). Recommendations: 1. Would continue to trend his H and H and transfuse as necessary to maintain an H and H of 7/21. 2. Continue to monitor clinically for signs of active GI bleeding. 3. Would place the patient on pantoprazole 40 mg IV b.i.d. 4. Would place the patient on a clear liquid diet and n.p.o. at midnight in anticipation of EGD tomorrow. 5. Would continue with resuscitative efforts in terms of his hyponatremia and his acute kidney injury and hopefully will be more stabilized prior to upper endoscopy tomorrow. Cirrhosis: The patient is presenting with a previous diagnosis of cirrhosis with most likely etiology being chronic alcohol abuse. He is currently presenting with decompensated disease given the presence of esophageal varices and lower extremity edema and a calculated MELD score of 25 and Child-Fields classification B. He does have a history of esophageal varices in the past, but no evidence of bleeding. He does have a CT scan that was obtained during this admission as well with no evidence of hepatoma. Most recent colonoscopy was performed on August 04, 2017, with normal findings at that time making things like colon cancer much less likely. Recommendations: 1. Highly recommend alcohol cessation in any way he perform. 2. Would place the patient on alcohol withdrawal protocol while inpatient. 3. Would decrease lactulose from 150 g to 20 g b.i.d. 4. Would have the patient follow up in the GI clinic in 2 to 3 weeks after discharge for further management of his chronic liver disease. Acute kidney injury: As part of the evaluation of the patient in the ER, he was noted to have a significant hyponatremia, hyperkalemia, and elevated creatinine (when compared to baseline). With his recent use of diuretics and increased alcohol consumption, this could be likely multifactorial to include pre-renal azotemia (from diuretics), RTA type 4 (from spironolactone), beer drinkers potomania, or hepatorenal syndrome (less likely at this point). Currently being followed by Nephrology service. Recommendations: 1. Would continue with gentle IV fluid resuscitation in light of elevated BNP and possible CHF/coronary artery disease. 2. Would hold diurectics for now due to recent worsening renal function. 3. Defer to Nephrology for further management. We will continue to follow. Please call with any questions. Job ID: [id number] MTDD
[2020-12-15] MEDS: Amoxicillin/Potassium Clav 500 MG TAB PO SCH ×2 (13:45→20:02)
--- NOTE | 2020-12-15 15:11 | PRG ---
DATE OF SERVICE: 12/15/2020 SUBJECTIVE: Patient was seen and examined at bedside and overnight events noted. Patient denies any shortness of breath or chest pain or palpitation. No history of nausea or vomiting or diarrhea or fever or chills or cramps. OBJECTIVE: GENERAL: This is an obese male, in no apparent distress. VITAL SIGNS: Temperature 98.4. Heart Rate 70. Respiratory rate 18. Blood pressure 163/72. HEENT: Atraumatic, normocephalic. Oral mucosa is moist. NECK: Supple. CARDIOVASCULAR: S1, S2 heard. Rate and rhythm regular. RESPIRATORY: Clear to auscultation. GASTROINTESTINAL: Abdomen is soft. MUSCULOSKELETAL: No tenderness. No edema. DERMATOLOGIC: No skin rash. NEUROLOGIC: Alert and awake and oriented x3. No focal neurologic deficits. Moving all the extremities. PSYCHIATRIC: Mood and affect normal. LABORATORY DATA: Sodium is 124, creatinine is 2.2. ASSESSMENT AND PLAN: 1. Acute kidney injury on chronic kidney disease stage 3. Sodium level is improved, much better now, so plan is to hold IV fluids. We will continue to monitor. 2. Hyponatremia, better. 3. Hyperkalemia, better. 4. Metabolic acidosis. Limit potassium intake. We will stop IV fluids. Recheck labs in the morning. We will follow. Job ID: [id number]
[2020-12-15] MEDS ORDERED: Amlodipine 5 MG TAB PO SCH (17:00)
--- NOTE | 2020-12-15 18:09 | CON ---
DATE OF CONSULTATION: 12/15/2020 INDICATION FOR CONSULTATION: 45-year-old gentleman with elevated BNP. We were asked to see the patient due to his elevation of BNP and congestive heart failure symptoms. He is a very unfortunate 45-year-old gentleman who has multiple issues which consist of diabetes type 2, which he has had for more than 20 years, hypertension. He has a history of cirrhosis and also depression. He continues to drink alcohol. He also has peripheral neuropathy. He has lost toes in the past due to chronic ulcerations. He came to the hospital at this time since he knows he had some more swelling, edema, and redness to the toe, but he was found at that time to be anemic and also had some what appeared to be some mild cellulitis, was admitted to the hospital for further evaluation and treatment. He denies any previous cardiac history. He has no chest pain and no shortness of breath. PAST MEDICAL HISTORY: Significant for cirrhosis of the liver. He has had toe amputations of the right 5th digit. He has hypertension and peripheral neuropathy. MEDICATIONS: Prior to admission included; 1. Hydroxyzine pamoate. 2. Furosemide 40 mg a day. 3. Aldactone 100 mg a day. 4. Folic acid 0.4 mg a day. 5. Cozaar 25 mg b.i.d. 6. Ferrous sulfate one tablet daily. 7. Lactulose. He is supposed to be taken on a routine basis. He only takes it on a p.r.n. basis. He is supposed to take 15 mL b.i.d. 8. He is on metformin 0.5 mg a day. 9. Magnesium. SOCIAL HISTORY: He smokes. He only started smoking about 6 months ago, but smokes about a half a pack a day. He drinks alcohol on a routine basis at least a six pack a day, but up to 2 six packs a day or more. He has no other significant illicit drug use. Apparently, he lives with his mother, but does have a significant other. He has a child about 7-year-old girl. FAMILY HISTORY: Unremarkable for any early heart disease. REVIEW OF SYSTEMS: He denied any HEENT complaints. He denied any pulmonary complaints or GI or complaints. He denied any hematemesis. He admit that he does not like to take the lactulose. Neurologically, no history of seizures or syncope. PHYSICAL EXAMINATION: GENERAL: Reveals a well-developed, well-nourished gentleman, in no acute distress. VITAL SIGNS: His blood pressure is 163/72; heart rate is 70 and regular; temperature, he is afebrile; respiratory rate is 18; O2 saturation 97%. HEENT: Unremarkable. Carotid pulses are present without bruits. CHEST: Clear to auscultation without rales, rhonchi, or wheezing. CARDIOVASCULAR: Reveals a regular rate and rhythm. No heaves or thrills. He does have a murmur of the aortic area at 2/6 to 3/6 as well as also at the apex. ABDOMEN: Soft and nontender. Positive bowel sounds are present. EXTREMITIES: Showed mild edema. He does have some mild erythema, most on the left leg than the right. He is status post amputation of the right fifth toe. His lower extremities does feel warm. However, more so than the remaining body. NEUROLOGICAL: He does appear to have some peripheral neuropathy. Otherwise, he was able to ambulate, is grossly intact. SKIN: Warm and dry. LABORATORY DATA: Shows a WBC of 3.7; hemoglobin is 7.7, on admission it was 6.6. He has received 1 unit of blood or two, hematocrit was 23.3, platelet count of 149,000. His sodium on admission was 118, is now up to 124; potassium was 5.1; bicarb was 18; BUN was 26; creatinine of 2.26; and blood sugar was 90. His troponin I is negative. BNP was 526. Chest x-ray shows mild congestion with cardiomegaly. EKG shows a normal sinus rhythm with no acute changes. He did have an echocardiogram in October of this year, which showed an ejection fraction of 60% to 65% with normal left ventricular systolic function. He had an echocardiogram in 2016 which showed ejection fraction of 55% to 60% with mild tricuspid valve regurgitation. CT of the abdomen shows cirrhosis with gastroesophageal varices. IMPRESSION: 1. Abnormal BNP of 526 for which we were asked to see the patient. However, given his other multiple problems with the anemia and the cirrhosis, this would not be unexpected. I would correct his underlying problem with the anemia and perhaps this will also improve his edema. I am uncertain whether or not he takes his medicines on a routine basis, but does not sound like and he needs to stay on his Aldactone. We would also advise increasing the dose of his Lasix as necessary. He most likely will need to be seen by Nephrology if this has not already been done to ensure that his kidney function does not worsen also. 2. History of hyponatremia. This seems to improve. He will need to have fluid restrictions and hopefully this will stabilize. As far as his cardiac status is concerned at this time, no further workup is indicated. At this time, we will correct the underlying problem. If he still continues to have edema or shortness of breath or elevated BNP, then further evaluation may be indicated, especially in view of his history of diabetes. 3. Diabetes which will be dealt with by the primary care service. 4. Hypertension. Blood pressure is slightly elevated. We will need to make some changes in his medications. We will need to add perhaps other medications to lower the blood pressure. We can try Amlodipine to see if this will help some with his BP. However, he may also develop more edema. 5. Peripheral neuropathy. He had not been taking his gabapentin apparently. This will then be resumed. 6. Cirrhosis, which also should be dealt with by the plastic extruding machine operator. Job ID: [id number] [facility]
[2020-12-15] MEDS ORDERED: NIFEdipine XL 30 MG TAB PO SCH (18:21)
--- NOTE | 2020-12-15 18:26 | PDOC.HOSPP ---
- Subjective Encounter Date: 12/15/20 Subjective: No acute events overnight. Patient is feeling slightly better. - Objective Vital Signs & Weight: Vital Signs (12 hours) Temp Pulse Resp BP BP Pulse Ox 12/15/20 17:09 92 185/80 H 12/15/20 17:00 98.4 F 92 18 185/80 H 95 12/15/20 11:00 98.4 F 70 18 163/72 H 97 12/15/20 07:00 98.8 F 70 18 157/72 H 95 Weight Admit Weight 240 lb 2 oz Weight 240 lb 2 oz I&O: 12/14/20 12/15/20 12/16/20 06:59 06:59 06:59 Intake Total 772 Output Total 225 Balance 547 Result Diagrams: 12/15/20 10:13 12/15/20 05:14 Additional Labs: Accuchecks 12/15/20 17:07 POC Glucose 130 H Hospitalist ROS - Medication Medications: Active Medications Generic Name Dose Route Start Last Admin Trade Name Freq PRN Reason Stop Dose Admin Amlodipine Besylate 2.5 mg 12/15/20 17:00 12/15/20 17:09 Amlodipine 5 Mg Tab PO 12/15/20 19:00 2.5 mg NOW MARS Administration Amoxicillin/Clavulanate Potassium 500 mg 12/15/20 09:00 12/15/20 13:45 Amoxicillin/Potassium Clav 500 Mg Tab PO 12/20/20 09:01 500 mg Q12HR MARS Administration Folic Acid 1 mg 12/15/20 09:00 12/15/20 10:44 Folic Acid 1 Mg Tab PO 1 mg DAILY MARS Administration Iron/Minerals/Multivitamins 1 tab 12/15/20 09:00 12/15/20 10:44 Multivitamin W/ Minerals 1 Tab PO 1 tab DAILY MARS Administration Magnesium Oxide 400 mg 12/15/20 09:00 12/15/20 10:44 Magnesium Oxide 400 Mg Tab PO 400 mg DAILY MARS Administration Thiamine HCl 100 mg 12/15/20 09:00 12/15/20 10:47 Thiamine 100 Mg Tab PO 100 mg DAILY MARS Administration Hospitalist Exam Vitals: Vital Signs (12 hours) Temp Pulse Resp BP BP Pulse Ox 12/15/20 17:09 92 185/80 H 12/15/20 17:00 98.4 F 92 18 185/80 H 95 12/15/20 11:00 98.4 F 70 18 163/72 H 97 12/15/20 07:00 98.8 F 70 18 157/72 H 95 Weight Admit Weight 240 lb 2 oz Weight 240 lb 2 oz General - other findings: lethargic ENT: normocephalic atraumatic Neck: supple Heart: RRR, no murmur, no gallops, no rubs Respiratory: CTAB, no wheezes, no rales, no ronchi Gastrointestinal: soft, non-tender, non-distended Extremities: 1+ LE edema Extremities - other findings: B/L LE edema Psychiatric: lethargic Hosp A/P (1) RAEGAN (acute kidney injury) Code(s): N17.9 - ACUTE KIDNEY FAILURE, UNSPECIFIED Status: Acute (2) Anemia Code(s): D64.9 - ANEMIA, UNSPECIFIED Status: Acute (3) Fracture of left great toe Code(s): S92.402A - DISPLACED UNSP FRACTURE OF LEFT GREAT TOE, INIT FOR CLOS FX Status: Acute (4) Hyperkalemia Code(s): E87.5 - HYPERKALEMIA Status: Acute (5) Hyponatremia with decreased serum osmolality Code(s): E87.1 - HYPO-OSMOLALITY AND HYPONATREMIA Status: Acute (6) Cirrhosis of liver Code(s): K74.60 - UNSPECIFIED CIRRHOSIS OF LIVER Status: Chronic (7) DM2 (diabetes mellitus, type 2) Status: Chronic Qualifiers: Diabetes mellitus custodial insulin use: without custodial use (8) HTN (hypertension) Code(s): I10 - ESSENTIAL (PRIMARY) HYPERTENSION Status: Chronic (9) Peripheral neuropathy Code(s): G62.9 - POLYNEUROPATHY, UNSPECIFIED Status: Chronic - Plan Assessment Patient is a 45 year old male with a known PMH of decompensated alcoholic cirrhosis with GE varices who presented to the ER with bilateral toe swelling after wearing ill-fitted steel toe shoes. He was found to have comminuted fractures of the great toe and third digit fractures. Injuries deemed non-op by Ortho. Additional work up during this stay also revealed severe anemia with a Hb of 6.6. He required blood transfusion. GI opted for non-invasive approach given lack of sx suggestive of GI bleeding. He's had 2 EGD in the past w/o evidence of bleeding. Drop in Hb attributed to anemia of chronic disease due to CKD Anemia Toe fractures Decompensated alcoholic cirrhosis GE varices Hyponatremia Hyperkalemia - resolved plan: Continue monitoring H/H, transfuse if Hb < 7. Baseline Hb 8-9 Weight bearing on his heel, keep foot elevated Empiric antibiotic coverage with Augmentin given purulence from the nail beds Continue folic acid, thiamine and multi-vitamins ASE protocol and alcohol cessation BP control: currently on norvasc, hydralazine added this afternoon. PRN IV hydralazine also on board Daily monitoring of Na+ levels. Continue fluid restriction. I would not add salt tabs given accelerated HTN PT/OT while in-house
[2020-12-15] MEDS ORDERED: hydrALAZINE 25 MG TAB PO SCH (18:30)
[2020-12-15] MEDS: hydrOXYzine Pamoate 25 mg Capsule PO SCH (20:01)
[2020-12-15] MEDS: Pantoprazole 40 MG VIAL IVP SCH (20:18)
[2020-12-16 05:05] LABS: #Eosinphils 0.1 thou/uL (0.0-0.7); #Lymphocytes 1.1 thou/uL (1.20-3.40); #Monocytes 0.5 thou/uL (0.11-0.59); %Eosinophils 2.6 % (0.0-10.0); %Lymphocytes 30.4 % (21.0-51.0); Hemoglobin 7.7 g/dL (14.0-18.0); Mean Corpuscular HGB CONC 34.1 g/dL (32.0-36.0); Mean Corpuscular Hemoglobin 33.6 pg (27.0-31.0); Mean Corpuscular Volume 98.6 fL (78.0-98.0); Mean Platelet Volume 5.9 fL (7.4-10.4); Platelet Count 147 thou/uL (130-400); RBC Distribution Width 12.2 % (11.5-14.5); Red Blood Cell (RBC) Count 2.28 mill/uL (4.70-6.10); White Blood Cell (WBC) Count 3.7 thou/uL (4.8-10.8)
[2020-12-16 05:22] LABS: Anion Gap 11 mmol/L (10-20); BUN (Urea Nitrogen) 26 mg/dL (8.9-20.6); Calc. Creatinine Clearance 62 mL/min (70-130); Carbon Dioxide 15 mmol/L (22-29); Chloride 107 mmol/L (98-107); Glucose 97 mg/dL (70-105); Potassium 4.7 mmol/L (3.5-5.1); Sodium 128 mmol/L (136-145)
[2020-12-16] MEDS: hydrALAZINE 25 MG TAB PO SCH ×4 (09:00→22:21)
[2020-12-16] MEDS ORDERED: Lidocaine 1% PF 5 ML VIAL ONE (09:59)
[2020-12-16] MEDS ORDERED: PROPOFOL 200 MG/20 ML VIAL ONE (09:59)
[2020-12-16] MEDS: Folic Acid 1 MG TAB PO SCH (10:02)
[2020-12-16] MEDS: Amlodipine 5 MG TAB PO SCH ×2 (10:03→11:14)
[2020-12-16] MEDS: Magnesium Oxide 400 MG TAB PO SCH (10:03)
[2020-12-16] MEDS: Amoxicillin/Potassium Clav 500 MG TAB PO SCH ×3 (10:03→22:21)
[2020-12-16] MEDS: Thiamine 100 MG TAB PO SCH (10:04)
[2020-12-16] MEDS: Multivitamin W/ Minerals 1 TAB PO SCH (10:04)
[2020-12-16] MEDS: Pantoprazole 40 MG VIAL IVP SCH ×2 (10:04→22:25)
--- NOTE | 2020-12-16 10:45 | OP ---
DATE OF PROCEDURE: 12/16/2020 This is a GI endoscopy note. COMPLIANCE REVIEW OFFICER SURGEON: None. PROCEDURE: Esophagogastroduodenoscopy, diagnostic. INDICATIONS: 1. Chronic anemia. 2. History of esophageal varices and portal hypertension. MEDICATIONS: See Anesthesia record. FINDINGS: After discussion of the risks, benefits, and alternatives of the procedure, informed consent was obtained and witnessed. Pre-endoscopic cardiopulmonary examination was satisfactory. Time-out was performed before sedation was achieved. Sedation was achieved with Anesthesia assistance in the endoscopy unit. A Pentax adult upper endoscope was placed into the oropharynx and passed through the cricopharyngeus under direct visualization. The esophageal mucosa appeared normal throughout with a normal-appearing Z-line. In the distal esophagus, there are 2 trunks of small grade 1 esophageal varices. These flattened out completely with air insufflation. There are no high-risk stigmata for bleeding. The endoscope was advanced into the stomach. Forward and retroflexed views of the entire gastric mucosa were obtained. There was no evidence of any old blood or active bleeding in the stomach. The gastric mucosa appears normal throughout. There is a small cluster of gastric varices within the gastric fundus. These were noted on a 2017 examination as well, but remains small. There are no stigmata of hemorrhage. The endoscope was advanced beyond a normal-appearing pylorus and into the first and second portions of the duodenum, which also appeared normal. The upper endoscope was then completely withdrawn and the patient allowed to recover. The patient tolerated the procedure well. There were no immediate postprocedure complications. IMPRESSION: 1. Two columns of small grade 1 distal esophageal varices, with no stigmata of hemorrhage. 2. Small cluster of gastric varices in the fundus, with no stigmata of hemorrhage. 3. Otherwise normal esophagogastroduodenoscopy. 4. Essentially, no change from 2017 exam. RECOMMENDATION: 1. Resume low-sodium diet. 2. I would recommend starting the patient on low-dose nadolol once daily at night. Dose could be titrated as blood pressure tolerates to goal resting heart rate 55 to 60. 3. Stop all alcohol use. 4. The patient can follow up in the GI/Liver Clinic as an outpatient. 5. GI will sign off. Please call back anytime with questions or concerns. Job ID: [id number]
--- NOTE | 2020-12-16 11:45 | PRG ---
DATE OF SERVICE: 12/16/2020 SUBJECTIVE: Patient was seen and examined at bedside and overnight events noted. Patient denies any shortness of breath or chest pain or palpitation. No history of nausea or vomiting or diarrhea or fever or chills or cramps. OBJECTIVE: GENERAL: This is a well-built male, in no apparent distress. VITAL SIGNS: Temperature 97.6. Heart Rate 75. Respiratory rate 20. Blood Pressure 122/70. HEENT: Atraumatic, normocephalic. Oral mucosa is moist. NECK: Supple. CARDIOVASCULAR: S1, S2 heard. Rate and rhythm regular. RESPIRATORY: Clear to auscultation. GASTROINTESTINAL: Abdomen is soft. MUSCULOSKELETAL: No tenderness. No edema. DERMATOLOGIC: No skin rash. NEUROLOGIC: Alert and awake and oriented x3. No focal neurologic deficits. Moving all the extremities. PSYCHIATRIC: Mood and affect normal. LABORATORY DATA: Sodium is 128, potassium 4.7, BUN 26, and creatinine is 2.3. ASSESSMENT AND PLAN: 1. Acute kidney injury on chronic kidney stage 3, stable labs. 2. Hyponatremia, better. 3. Hyperkalemia. 4. Metabolic acidosis. Overall, labs are better. We will monitor. Job ID: [id number]
--- NOTE | 2020-12-16 15:29 | PDOC.CPN ---
- Subjective Date: 12/16/20 Time: 14:20 Interval history: Patient sitting in chair. Patient asking to go home. He had an EGD today. He denies any complaints today. He states he is feeling better. - Review of Systems General: denies: fever/chills, weight/appetite/sleep changes, night sweats, fatigue Respiratory: denies: cough, congestion, shortness of breath, exercise intolerance Cardiovascular: denies: chest pain, palpitation, edema, paroxysmal nocturnal dyspnea, orthopnea Gastrointestinal: denies: nausea, vomiting, diarrhea, constipation, abd pain, GI bleeding Musculoskeletal: denies: pain, tenderness, stiffness, swelling, arthritis/arthralgias Neurological: denies: numbness, syncope, seizure, weakness - Objective Allergies/Adverse Reactions: Allergies Allergy/AdvReac Type Severity Reaction Status Date / Time No Known Drug Allergies Allergy Verified 03/04/19 21:05 Visit Medications: Current Medications Amlodipine Besylate (Amlodipine 5 Mg Tab) 2.5 mg PO DAILY [facility] Last Admin: 12/16/20 11:14 Dose: 2.5 mg Documented by: Amoxicillin/Clavulanate Potassium (Amoxicillin/Potassium Clav 500 Mg Tab) 500 mg PO Q12HR [facility] Stop: 12/20/20 09:01 Last Admin: 12/16/20 11:15 Dose: 500 mg Documented by: Dextrose/Water (Dextrose 50% Abboject 50 Ml Syringe) 25 gm SLOW IVP PRN PRN PRN Reason: Hypoglycemia Folic Acid (Folic Acid 1 Mg Tab) 1 mg PO DAILY [facility] Last Admin: 12/16/20 10:02 Dose: Not Given Documented by: Glucagon (Glucagon 1 Mg/Ml Vial) 1 mg IM PRN PRN PRN Reason: Hypoglycemia Hydralazine HCl (Hydralazine 20 Mg/Ml Vial) 10 mg SLOW IVP Q4H PRN PRN Reason: SBP > 180 or DBP > 105 Hydralazine HCl (Hydralazine 25 Mg Tab) 50 mg PO TID [facility] Last Admin: 12/16/20 15:23 Dose: 50 mg Documented by: Hydroxyzine Pamoate (Hydroxyzine Pamoate 25 Mg Capsule) 25 mg PO HS [facility] Last Admin: 12/15/20 20:01 Dose: 25 mg Documented by: Insulin Human Lispro (Humalog 300 Units/3 Ml Vial) 0 units SC .MODERATE SLIDING SC PRN PRN Reason: Moderate Correctional Scale Insulin Human Lispro (Humalog 300 Units/3 Ml Vial) 0 units SC .BEDTIME SLIDING SC PRN PRN Reason: Bedtime Correctional Scale Iron/Minerals/Multivitamins (Multivitamin W/ Minerals 1 Tab) 1 tab PO DAILY [facility] Last Admin: 12/16/20 10:04 Dose: Not Given Documented by: Lactulose (Lactulose 20 Gm/30 Ml Udcup) 20 gm PO BID [facility] Last Admin: 12/16/20 11:15 Dose: 20 gm Documented by: Lorazepam (Lorazepam 2 Mg/Ml Vial) 2 mg SLOW IVP Q15MIN PRN PRN Reason: Seizures Lorazepam (Lorazepam 2 Mg/Ml Vial) 2 mg SLOW IVP Q4H PRN PRN Reason: ASE > 9 Magnesium Oxide (Magnesium Oxide 400 Mg Tab) 400 mg PO DAILY [facility] Last Admin: 12/16/20 10:03 Dose: Not Given Documented by: Nadolol (Nadolol 40 Mg Tab) 20 mg PO [facility] Ondansetron HCl (Ondansetron Odt 4 Mg Tab) 4 mg PO Q6H PRN PRN Reason: Nausea/Vomiting Ondansetron HCl (Ondansetron Pf 4 Mg/2 Ml Vial) 4 mg IVP Q6H PRN PRN Reason: Nausea/Vomiting Pantoprazole Sodium (Pantoprazole 40 Mg Vial) 40 mg IVP BID [facility] Last Admin: 12/16/20 10:04 Dose: Not Given Documented by: Sodium Chloride (Sodium Chloride 0.9% (Pf) 10 Ml Vial) 10 ml FS PRN PRN PRN Reason: RECONSTITUTION Thiamine HCl (Thiamine 100 Mg Tab) 100 mg PO DAILY [facility] Last Admin: 12/16/20 10:04 Dose: Not Given Documented by: Vital Signs & Weight: Vital Signs Temp Pulse Resp BP BP BP BP 12/16/20 15:23 70 186/86 H 12/16/20 15:18 98.3 F 70 16 186/86 H 12/16/20 12:03 97.9 F 72 14 148/68 H 12/16/20 10:32 97.8 F 72 20 165/85 H 12/16/20 04:00 97.6 F 75 20 122/70 122/70 Pulse Ox 12/16/20 15:23 12/16/20 15:18 97 12/16/20 12:03 96 12/16/20 10:32 98 12/16/20 04:00 96 Admit Weight 240 lb 2 oz Weight 240 lb 2 oz - Physical Exam General: alert & oriented x3, appears well, no apparent distress HEENT: mucus membranes moist Neck: no JVD/HJR, no bruit Cardiac: no murmur, regular rate, regular rhythm, S1/S2 Lungs: normal breath sounds, normal exam, no wheeze, rales, rhonchi Neuro: grossly intact, motor function intact Abdomen: active bowel sounds, soft, non-tender Extremities: no cyanosis, no clubbing, 1+ LE edema, other: (ortho boot to left foot for broken toes) Skin: clear Musculoskeletal: no pain - Labs Result Diagrams: 12/16/20 04:33 12/16/20 04:33 Troponin/CKMB Troponin I Less than 0.010 ng/mL (< 0.028) 12/14/20 19:58 - EKG Interpretation EKG Method: Telemetry EKG: sinus rhythm - Assessment/Plan Assessment/Plan: 1. Elevated BNP level: more than likely related to anemia and other underlying cirrhosis, will need to re-start Spironolactone 2. Hyponatremia: resolving, he is on fluid restrictions 3. Diabetes: treated by primary care services 4. Hypertension: he is currently on Amlodipine 2.5 mg daily, Hydralazine 50 mg PO TID his most recent BP was 146/86 5. Peripheral neuropathy 6. Cirrhosis 7. Anemia: Hgb 7.7 today, he had an EGD earlier today which revealed distal esophageal varices and gastric varices, Nadolol 20 mg PO HS has been added for this. Pt. seen and eval. by me. I agree with the a/P by the SEARCH ENGINE MARKETING SPECIALIST. He continues to have lower leg edema. The aldactone will be resumed, follow the K and the creat. carefully.I ncrease amlodipine. chest clear. RRR gjm
--- NOTE | 2020-12-16 16:20 | PDOC.HOSPP ---
- Subjective Encounter Date: 12/16/20 Subjective: Patient seen by me after his EGD. Doing well. Seen sitting in chair without distress. - Objective Vital Signs & Weight: Vital Signs (12 hours) Temp Pulse Resp BP BP BP Pulse Ox 12/16/20 15:23 70 186/86 H 12/16/20 15:18 98.3 F 70 16 186/86 H 97 12/16/20 12:03 97.9 F 72 14 148/68 H 96 12/16/20 10:32 97.8 F 72 20 165/85 H 98 Weight Admit Weight 240 lb 2 oz Weight 240 lb 2 oz I&O: 12/15/20 12/16/20 12/17/20 06:59 06:59 06:59 Intake Total 772 990 Output Total 225 Balance 547 990 Result Diagrams: 12/16/20 04:33 12/16/20 04:33 Additional Labs: Accuchecks 12/16/20 12/16/20 12/15/20 11:20 05:19 19:59 POC Glucose 96 88 95 12/15/20 17:07 POC Glucose 130 H Hospitalist ROS - Medication Medications: Active Medications Generic Name Dose Route Start Last Admin Trade Name Freq PRN Reason Stop Dose Admin Amlodipine Besylate 2.5 mg 12/16/20 09:00 12/16/20 11:14 Amlodipine 5 Mg Tab PO 2.5 mg DAILY [facility] Administration Amoxicillin/Clavulanate Potassium 500 mg 12/15/20 09:00 12/16/20 11:15 Amoxicillin/Potassium Clav 500 Mg Tab PO 12/20/20 09:01 500 mg Q12HR [facility] Administration Folic Acid 1 mg 12/15/20 09:00 12/16/20 10:02 Folic Acid 1 Mg Tab PO Not Given DAILY [facility] Hydralazine HCl 50 mg 12/16/20 09:00 12/16/20 15:23 Hydralazine 25 Mg Tab PO 50 mg TID [facility] Administration Hydroxyzine Pamoate 25 mg 12/15/20 21:00 12/15/20 20:01 Hydroxyzine Pamoate 25 Mg Capsule PO 25 mg HS [facility] Administration Iron/Minerals/Multivitamins 1 tab 12/15/20 09:00 12/16/20 10:04 Multivitamin W/ Minerals 1 Tab PO Not Given DAILY [facility] Lactulose 20 gm 12/15/20 21:00 12/16/20 11:15 Lactulose 20 Gm/30 Ml Udcup PO 20 gm BID [facility] Administration Magnesium Oxide 400 mg 12/15/20 09:00 12/16/20 10:03 Magnesium Oxide 400 Mg Tab PO Not Given DAILY [facility] Pantoprazole Sodium 40 mg 12/15/20 21:00 12/16/20 10:04 Pantoprazole 40 Mg Vial IVP Not Given BID [facility] Thiamine HCl 100 mg 12/15/20 09:00 12/16/20 10:04 Thiamine 100 Mg Tab PO Not Given DAILY [facility] Hospitalist Exam Vitals: Vital Signs (12 hours) Temp Pulse Resp BP BP BP Pulse Ox 12/16/20 15:23 70 186/86 H 12/16/20 15:18 98.3 F 70 16 186/86 H 97 12/16/20 12:03 97.9 F 72 14 148/68 H 96 12/16/20 10:32 97.8 F 72 20 165/85 H 98 Weight Admit Weight 240 lb 2 oz Weight 240 lb 2 oz General Appearance: NAD, awake alert ENT: normocephalic atraumatic Heart: RRR, murmur present Respiratory: CTAB, no wheezes, no rales, no ronchi Gastrointestinal: soft, non-tender, non-distended Gastrointestinal - other findings: obese abdomen Extremities: 2+ LE edema Extremities - other findings: B/L LE edema Neurological: cranial nerve grossly intact Musculoskeletal: normal tone, normal strength Psychiatric: normal affect, normal behavior Hosp A/P (1) RAEGAN (acute kidney injury) Code(s): N17.9 - ACUTE KIDNEY FAILURE, UNSPECIFIED Status: Acute (2) Anemia Code(s): D64.9 - ANEMIA, UNSPECIFIED Status: Acute (3) Fracture of left great toe Code(s): S92.402A - DISPLACED UNSP FRACTURE OF LEFT GREAT TOE, INIT FOR CLOS FX Status: Acute (4) Hyperkalemia Code(s): E87.5 - HYPERKALEMIA Status: Acute (5) Hyponatremia with decreased serum osmolality Code(s): E87.1 - HYPO-OSMOLALITY AND HYPONATREMIA Status: Acute (6) Cirrhosis of liver Code(s): K74.60 - UNSPECIFIED CIRRHOSIS OF LIVER Status: Chronic (7) DM2 (diabetes mellitus, type 2) Status: Chronic Qualifiers: Diabetes mellitus skilled nursing insulin use: without skilled nursing use (8) HTN (hypertension) Code(s): I10 - ESSENTIAL (PRIMARY) HYPERTENSION Status: Chronic (9) Peripheral neuropathy Code(s): G62.9 - POLYNEUROPATHY, UNSPECIFIED Status: Chronic - Plan Assessment Patient is a 45 year old male with a known PMH of decompensated alcoholic cirrhosis with GE varices who presented to the ER with bilateral toe swelling after wearing ill-fitted steel toe shoes. He was found to have comminuted fractures of the great toe and third digit fractures. Injuries deemed non-op by Ortho. Additional work up during this stay also revealed severe anemia with a Hb of 6.6. He required blood transfusion. He underwent EGD on 12/16 which showed a small clusters of gastric varices, otherwise unchanged since 2016. Post procedure course marked by severe hypertension. He has been started on nadolol by GI. Anemia Toe fractures Decompensated alcoholic cirrhosis GE varices Hyponatremia Hyperkalemia - resolved plan: Keep overnight for BP control Continue nadolol, norvasc and hydralazine. PRN hydralazine on board Continue monitoring H/H, transfuse if Hb < 7. Baseline Hb 8-9 Discharge tomorrow if H/H stable GI has signed off. Follow up with GI clinic upon discharge Weight bearing on his heel, keep foot elevated Empiric antibiotic coverage with Augmentin given purulence from the nail beds Continue folic acid, thiamine and multi-vitamins ASE protocol and alcohol cessation
[2020-12-16] MEDS ORDERED: Amlodipine 5 MG TAB PO SCH (17:30)
[2020-12-16] MEDS ORDERED: Nadolol 40 MG TAB PO SCH (21:00)
[2020-12-16] MEDS: hydrOXYzine Pamoate 25 mg Capsule PO SCH (22:22)
[2020-12-17 06:50] LABS: Anion Gap 10 mmol/L (10-20); BUN (Urea Nitrogen) 26 mg/dL (8.9-20.6); Calc. Creatinine Clearance 71 mL/min (70-130); Carbon Dioxide 16 mmol/L (22-29); Chloride 107 mmol/L (98-107); Glucose 101 mg/dL (70-105); Potassium 4.7 mmol/L (3.5-5.1); Sodium 128 mmol/L (136-145)
[2020-12-17] MEDS ORDERED: Spironolactone 100 MG TAB PO SCH (08:00)
[2020-12-17] MEDS ORDERED: Amlodipine 5 MG TAB PO SCH (09:00)
[2020-12-17] MEDS: Amoxicillin/Potassium Clav 500 MG TAB PO SCH (09:47)
[2020-12-17] MEDS: hydrALAZINE 25 MG TAB PO SCH ×2 (09:47→15:44)
[2020-12-17] MEDS: Pantoprazole 40 MG VIAL IVP SCH (09:48)
[2020-12-17] MEDS: Thiamine 100 MG TAB PO SCH (09:48)
[2020-12-17] MEDS: Magnesium Oxide 400 MG TAB PO SCH (09:48)
[2020-12-17] MEDS: Folic Acid 1 MG TAB PO SCH (09:48)
[2020-12-17 09:54] LABS: #Eosinphils 0.1 thou/uL (0.0-0.7); #Lymphocytes 1.1 thou/uL (1.20-3.40); #Monocytes 0.5 thou/uL (0.11-0.59); #Neutrophils 2.3 thou/uL (1.40-6.50); %Basophils 1.1 % (0.0-1.0); %Eosinophils 1.6 % (0.0-10.0); %Lymphocytes 27.3 % (21.0-51.0); %Monocytes 13.1 % (0.0-10.0); %Neutrophils 56.9 % (42.0-75.0); Hemoglobin 7.9 g/dL (14.0-18.0); Mean Corpuscular HGB CONC 32.6 g/dL (32.0-36.0); Mean Corpuscular Hemoglobin 32.6 pg (27.0-31.0); Platelet Count 177 thou/uL (130-400); RBC Distribution Width 12.2 % (11.5-14.5); Red Blood Cell (RBC) Count 2.44 mill/uL (4.70-6.10)
[2020-12-17] MEDS ORDERED: Sodium Chloride 0.9% 1,000 ML IV SCH (10:00)
[2020-12-17] MEDS: Multivitamin W/ Minerals 1 TAB PO SCH (10:26)
[2020-12-17 10:58] VITALS: BP 111/54; TEMP 98.2
--- NOTE | 2020-12-17 11:10 | PRG ---
DATE OF SERVICE: 12/17/2020 SUBJECTIVE: Patient was seen and examined at bedside and overnight events noted. Patient denies any shortness of breath or chest pain or palpitation. No history of nausea or vomiting or diarrhea or fever or chills or cramps. OBJECTIVE: GENERAL: This is a well-built male, in no apparent distress. VITAL SIGNS: Temperature 98.2. Heart rate 69. Respiratory rate 18. Blood pressure 150/85. HEENT: Atraumatic, normocephalic. Oral mucosa is moist. NECK: Supple. CARDIOVASCULAR: S1, S2 heard. Rate and rhythm regular. RESPIRATORY: Clear to auscultation. GASTROINTESTINAL: Abdomen is soft. MUSCULOSKELETAL: No tenderness. No edema. DERMATOLOGIC: No skin rash. NEUROLOGIC: Alert and awake and oriented x3. No focal neurologic deficits. Moving all the extremities. PSYCHIATRIC: Mood and affect normal. LABORATORY DATA: Potassium 4.7, sodium 128, BUN 26, and creatinine is 1.9. ASSESSMENT AND PLAN: 1. Acute kidney injury . Labs are better. 2. Hyponatremia, better. Continue IV fluids. 3. Hyperkalemia. 4. Acidosis, stable. Continue to monitor. Job ID: [id number]
--- NOTE | 2020-12-17 13:11 | PDOC.CPN ---
- Subjective Date: 12/17/20 Time: 13:09 Interval history: Patient sitting up in bed, he states he will be discharged home today. He denies any complaints today. He states he feels good. - Review of Systems General: denies: fever/chills, weight/appetite/sleep changes, night sweats, fatigue Respiratory: denies: cough, congestion, shortness of breath, exercise intolerance Cardiovascular: denies: chest pain, palpitation, edema, paroxysmal nocturnal dyspnea, orthopnea Gastrointestinal: denies: nausea, vomiting, diarrhea, constipation, abd pain, GI bleeding Musculoskeletal: denies: pain, tenderness, stiffness, swelling, arthritis/arthralgias Neurological: denies: numbness, syncope, seizure, weakness - Objective Allergies/Adverse Reactions: Allergies Allergy/AdvReac Type Severity Reaction Status Date / Time No Known Drug Allergies Allergy Verified 03/04/19 21:05 Visit Medications: Current Medications Amlodipine Besylate (Amlodipine 5 Mg Tab) 5 mg PO DAILY [facility] Last Admin: 12/17/20 09:48 Dose: 5 mg Documented by: Amoxicillin/Clavulanate Potassium (Amoxicillin/Potassium Clav 500 Mg Tab) 500 mg PO Q12HR [facility] Stop: 12/20/20 09:01 Last Admin: 12/17/20 09:47 Dose: 500 mg Documented by: Dextrose/Water (Dextrose 50% Abboject 50 Ml Syringe) 25 gm SLOW IVP PRN PRN PRN Reason: Hypoglycemia Folic Acid (Folic Acid 1 Mg Tab) 1 mg PO DAILY [facility] Last Admin: 12/17/20 09:48 Dose: 1 mg Documented by: Glucagon (Glucagon 1 Mg/Ml Vial) 1 mg IM PRN PRN PRN Reason: Hypoglycemia Hydralazine HCl (Hydralazine 20 Mg/Ml Vial) 10 mg SLOW IVP Q4H PRN PRN Reason: SBP > 180 or DBP > 105 Hydralazine HCl (Hydralazine 25 Mg Tab) 50 mg PO TID [facility] Last Admin: 12/17/20 09:47 Dose: 50 mg Documented by: Hydroxyzine Pamoate (Hydroxyzine Pamoate 25 Mg Capsule) 25 mg PO HS [facility] Last Admin: 12/16/20 22:22 Dose: 25 mg Documented by: Sodium Chloride (Normal Saline 0.9%) 1,000 mls @ 50 mls/hr IV .Q20H [facility] Last Admin: 12/17/20 10:26 Dose: 1,000 mls Documented by: Insulin Human Lispro (Humalog 300 Units/3 Ml Vial) 0 units SC .MODERATE SLIDING SC PRN PRN Reason: Moderate Correctional Scale Insulin Human Lispro (Humalog 300 Units/3 Ml Vial) 0 units SC .BEDTIME SLIDING SC PRN PRN Reason: Bedtime Correctional Scale Iron/Minerals/Multivitamins (Multivitamin W/ Minerals 1 Tab) 1 tab PO DAILY [facility] Last Admin: 12/17/20 10:26 Dose: 1 tab Documented by: Lactulose (Lactulose 20 Gm/30 Ml Udcup) 20 gm PO BID [facility] Last Admin: 12/17/20 09:47 Dose: 20 gm Documented by: Lorazepam (Lorazepam 2 Mg/Ml Vial) 2 mg SLOW IVP Q15MIN PRN PRN Reason: Seizures Lorazepam (Lorazepam 2 Mg/Ml Vial) 2 mg SLOW IVP Q4H PRN PRN Reason: ASE > 9 Magnesium Oxide (Magnesium Oxide 400 Mg Tab) 400 mg PO DAILY [facility] Last Admin: 12/17/20 09:48 Dose: 400 mg Documented by: Nadolol (Nadolol 40 Mg Tab) 20 mg PO HS [facility] Last Admin: 12/16/20 22:23 Dose: 20 mg Documented by: Ondansetron HCl (Ondansetron Odt 4 Mg Tab) 4 mg PO Q6H PRN PRN Reason: Nausea/Vomiting Ondansetron HCl (Ondansetron Pf 4 Mg/2 Ml Vial) 4 mg IVP Q6H PRN PRN Reason: Nausea/Vomiting Pantoprazole Sodium (Pantoprazole 40 Mg Vial) 40 mg IVP BID [facility] Last Admin: 12/17/20 09:48 Dose: 40 mg Documented by: Sodium Chloride (Sodium Chloride 0.9% (Pf) 10 Ml Vial) 10 ml FS PRN PRN PRN Reason: RECONSTITUTION Spironolactone (Spironolactone 100 Mg Tab) 100 mg PO QAM-WM [facility] Last Admin: 12/17/20 09:48 Dose: 100 mg Documented by: Thiamine HCl (Thiamine 100 Mg Tab) 100 mg PO DAILY [facility] Last Admin: 12/17/20 09:48 Dose: 100 mg Documented by: Vital Signs & Weight: Vital Signs Temp Pulse Resp BP BP Pulse Ox 12/17/20 10:57 98.2 F 69 17 111/54 L 97 12/17/20 08:00 98.6 F 62 17 150/85 H 98 12/17/20 03:50 98.1 F 68 12 131/66 96 Admit Weight 240 lb 2 oz Weight 240 lb 2 oz - Physical Exam General: alert & oriented x3, appears well, no apparent distress HEENT: mucus membranes moist Neck: no JVD/HJR, no bruit Cardiac: no murmur, regular rate, regular rhythm, S1/S2, systolic murmur Lungs: normal breath sounds, normal exam, no wheeze, rales, rhonchi Neuro: grossly intact, motor function intact Abdomen: active bowel sounds, soft, non-tender Extremities: no cyanosis, no clubbing, other: (slight edema, improved from yesterday) Skin: clear, wound, other (wound to left great toe, covered with bandage) Musculoskeletal: no pain - Labs Result Diagrams: 12/17/20 08:43 12/17/20 05:44 Troponin/CKMB Troponin I Less than 0.010 ng/mL (< 0.028) 12/14/20 19:58 - EKG Interpretation EKG Method: Telemetry EKG: sinus rhythm (SR, HR 75) - Assessment/Plan Assessment/Plan: 1. Elevated BNP level: more than likely related to anemia and other underlying cirrhosis, his Spironolactone has been restarted his Creatinine is also improved today to 1.99, his potassium remains stable at 4.7 today 2. Hyponatremia: improving, his sodium level is 128 today. He is receiving iv fluids 3. Diabetes: treated by primary care services 4. Hypertension: his Amlodipine has been increased, his BP is under better control today 5. Peripheral neuropathy 6. Cirrhosis 7. Anemia: Hgb 7.9 today His edema has improved compared to yesterday, his BP is also under better control today. From a cardiology standpoint, he could be stable for discharge, he could follow- up as an out patient in 4 weeks with an outpatient ECHO for his systolic murmur.
--- NOTE | 2020-12-17 14:55 | PDOC.DS.DS ---
Provider Date of Admission: 12/14/20 15:26 Admitting Provider: Yayo Jules MD Consultations: Cardiology, Gastroentrology, Nephrology Primary Care Physician: YUMIKO WOOD MD Course Hospital Course: Patient is a 45 year old male with a known PMH of decompensated alcoholic cirrhosis with GE varices who presented to the ER with bilateral toe swelling after wearing ill-fitted steel toe shoes. He was found to have comminuted fractures of the great toe and third digit fractures. Injuries were managed non-operatively. He currently has a boot in place. Additional work up during this stay also revealed severe anemia with a Hb of 6.6. He required blood transfusion. He underwent EGD on 12/16 which showed a small clusters of gastric varices, otherwise unchanged since 2016. Post procedure course marked by severe hypertension. He has been started on nadolol by GI. Resuscitation Status: 12/14/20 19:12 Resuscitation Status Routine Co-Sign Provider: Resuscitation Status: FULL: Full Resuscitation Discussed with: patient Lab Results: 12/17/20 08:43 12/17/20 05:44 Abnormal Lab Results - Last 48 hrs 12/16/20 04:33: Sodium 128 L, Carbon Dioxide 15 L, BUN 26 H, Creatinine 2.30 H 12/16/20 04:33: WBC 3.7 L, RBC 2.28 L, Hgb 7.7 L, Hct 22.5 L, MCV 98.6 H, MCH 33.6 H, MPV 5.9 L, Monocytes % 14.0 H, Lymphocytes # 1.1 L 12/17/20 05:44: Sodium 128 L, Carbon Dioxide 16 L, BUN 26 H, Creatinine 1.99 H 12/17/20 08:43: WBC 4.0 L, RBC 2.44 L, Hgb 7.9 L, Hct 24.4 L, MCV 100.0 H, MCH 32.6 H, MPV 6.0 L, Monocytes % 13.1 H, Basophils % 1.1 H, Lymphocytes # 1.1 L Microbiology - Entire Visit 12/14/20 12:07 Venous blood - Left Arm Blood Culture - Preliminary NO GROWTH AT 48 HOURS 12/14/20 12:07 Venous blood - Right Arm Blood Culture - Preliminary NO GROWTH AT 48 HOURS Vitals: Vital Signs (12 hours) Temp Pulse Resp BP BP Pulse Ox 12/17/20 10:57 98.2 F 69 17 111/54 L 97 12/17/20 08:00 98.6 F 62 17 150/85 H 98 12/17/20 03:50 98.1 F 68 12 131/66 96 Weight Admit Weight 240 lb 2 oz Weight 240 lb Physical Exam: The patient was seen and examined on the day of discharge. General Appearance: NAD, awake alert ENT: normocephalic atraumatic Neck: supple Respiratory: CTAB Cardiovascular: RRR Gastrointestinal: soft, non-tender, non-distended Extremities - other findings: L foot with boot in place Neurological: cranial nerve grossly intact Musculoskeletal: normal tone, normal strength PSYCH: normal affect, normal behavior Problem (1) RAEGAN (acute kidney injury) Code(s): N17.9 - ACUTE KIDNEY FAILURE, UNSPECIFIED Status: Acute (2) Anemia Code(s): D64.9 - ANEMIA, UNSPECIFIED Status: Acute (3) Fracture of left great toe Code(s): S92.402A - DISPLACED UNSP FRACTURE OF LEFT GREAT TOE, INIT FOR CLOS FX Status: Acute (4) Hyperkalemia Code(s): E87.5 - HYPERKALEMIA Status: Acute (5) Hyponatremia with decreased serum osmolality Code(s): E87.1 - HYPO-OSMOLALITY AND HYPONATREMIA Status: Acute (6) Cirrhosis of liver Code(s): K74.60 - UNSPECIFIED CIRRHOSIS OF LIVER Status: Chronic (7) DM2 (diabetes mellitus, type 2) Status: Chronic Qualifiers: Diabetes mellitus intermodal dispatcher insulin use: without fpc use (8) HTN (hypertension) Code(s): I10 - ESSENTIAL (PRIMARY) HYPERTENSION Status: Chronic (9) Peripheral neuropathy Code(s): G62.9 - POLYNEUROPATHY, UNSPECIFIED Status: Chronic Plan Prescriptions: Amoxicillin/Potassium Clav [Augmentin] 500 mg PO Q12HR #6 tab Nadolol [Corgard] 20 mg PO HS #30 tab Multivitamin W/ Minerals [Theragran M] 1 tab PO DAILY #30 tab Thiamine 100 mg PO DAILY #30 tab Home Medications: Medication Instructions Recorded Confirmed Type Furosemide 40 mg PO QAM #0 11/25/17 12/14/20 Rx Spironolactone 100 mg PO DAILY #0 11/25/17 12/14/20 Rx Folic Acid 0.4 mg PO DAILY 02/14/19 02/28/21 History Losartan [Cozaar] 25 mg PO BID 03/04/19 12/14/20 History Ferrous Sulfate [Iron] 1 tab PO DAILY 10/30/20 12/14/20 History Lactulose 15 ml PO BID 10/30/20 12/14/20 History metFORMIN [Glucophage] 0.5 tab PO DAILY 10/30/20 12/14/20 History Magnesium Oxide [Magnesium] 400 mg PO DAILY 12/14/20 12/14/20 History Amoxicillin/Potassium Clav 500 mg PO Q12HR #6 tab 12/17/20 Rx [Augmentin] Magnesium Oxide 400 mg PO DAILY tab 12/17/20 Rx Multivitamin W/ Minerals 1 tab PO DAILY #30 tab 12/17/20 Rx [Theragran M] Nadolol [Corgard] 20 mg PO HS #30 tab 12/17/20 Rx Thiamine 100 mg PO DAILY #30 tab 12/17/20 Rx Allergies: No Known Drug Allergies Allergy (Verified 03/04/19 21:05) Referrals: YUMIKO WOOD MD [Primary Care Provider] - Disposition: HOME Quality CORE MEASURES:: N/A
--- NOTE | 2020-12-20 16:07 | EKG ---
Test Reason : Blood Pressure : / mmHG Vent. Rate : 069 BPM Atrial Rate : 069 BPM P-R Int : 190 ms QRS Dur : 110 ms QT Int : 390 ms P-R-T Axes : 033 009 012 degrees QTc Int : 417 ms Normal sinus rhythm Normal ECG Confirmed by FLOWER BOO DO ([id number]), editor at large BRAXTON SMITH ([id number]) on 12/20/2020 4:07:10 PM Referred By: Confirmed By:FLOWER BOO DO
== END 2020-12-17 15:58 | disposition home or self-care (01) | DRG 683 ==
LOC: ERS 11:36 → OBSVTOIN 15:26 → 3SE 15:26 → UNDOADMOB 19:00 → 3SE 19:00
PROVIDERS: ADMIT Internal Medicine; ATTEND Internal Medicine
PROC: 30233N1 Transfusion of Nonautologous Red Blood Cells into Peripheral Vein, Percutaneous Approach (ICD-10-PCS; principal; 2020-12-14)
PROC: 0DJ08ZZ Inspection of Upper Intestinal Tract, Via Natural or Artificial Opening Endoscopic (ICD-10-PCS; 2020-12-16)
DX: N17.9 Acute kidney failure, unspecified (principal); E87.1 Hypo-osmolality and hyponatremia; I85.10 Secondary esophageal varices without bleeding; K76.6 Portal hypertension; E87.2 Acidosis; S92.402A Displaced unspecified fracture of left great toe, initial encounter for closed fracture; K70.30 Alcoholic cirrhosis of liver without ascites; Z20.822 Contact with and (suspected) exposure to COVID-19; F32.9 Major depressive disorder, single episode, unspecified; F41.9 Anxiety disorder, unspecified; I12.9 Hypertensive chronic kidney disease with stage 1 through stage 4 chronic kidney disease, or unspecified chronic kidney disease; E11.22 Type 2 diabetes mellitus with diabetic chronic kidney disease; E11.51 Type 2 diabetes mellitus with diabetic peripheral angiopathy without gangrene; F17.210 Nicotine dependence, cigarettes, uncomplicated; N18.30 Chronic kidney disease, stage 3 unspecified; E87.5 Hyperkalemia; X58.XXXA Exposure to other specified factors, initial encounter; Z79.899 Other long term (current) drug therapy; D63.1 Anemia in chronic kidney disease
CPT/HCPCS: 0240U; 36415; 36416; 36430; 71045; 74150; 80048; 80053; 80307; 82010; 82550; 82607; 82728; 82746; 83540; 83550; 83605; 83735; 83880; 83930; 83935; 84100; 84300; 84443; 84484; 85025; 85046; 85610; 85730; 86850; 86900; 86901; 87040; 90715; 93005; C9113; J2704; J3411; J3475; J3490; P9016; Q0177

== ENCOUNTER 2021-01-02 10:35 | Emergency (ER) | payer SELFPAY | END 2021-01-02 11:44 | disposition home or self-care (01) | LOC: ERS 10:35 | DX: S92.422A Displaced fracture of distal phalanx of left great toe, initial encounter for closed fracture (principal); S92.512A Displaced fracture of proximal phalanx of left lesser toe(s), initial encounter for closed fracture; E11.9 Type 2 diabetes mellitus without complications; I10 Essential (primary) hypertension; F17.210 Nicotine dependence, cigarettes, uncomplicated; Z79.899 Other long term (current) drug therapy ==

== ENCOUNTER 2021-06-23 18:43 | Inpatient (IN) | payer SELFPAY ==
[2021-06-23 19:18] LABS: #Lymphocytes 1.9 thou/uL (1.20-3.40); #Monocytes 0.4 thou/uL (0.11-0.59); #Neutrophils 2.6 thou/uL (1.40-6.50); %Eosinophils 0.2 % (0.0-10.0); %Monocytes 7.6 % (0.0-10.0); %Neutrophils 53.2 % (42.0-75.0); Hemoglobin 6.8 g/dL (14.0-18.0); Mean Corpuscular HGB CONC 36.2 g/dL (32.0-36.0); Mean Corpuscular Hemoglobin 35.1 pg (27.0-31.0); Mean Corpuscular Volume 97.1 fL (78.0-98.0); Mean Platelet Volume 5.9 fL (7.4-10.4); Platelet Count 120 thou/uL (130-400); RBC Distribution Width 12.3 % (11.5-14.5); Red Blood Cell (RBC) Count 1.93 mill/uL (4.70-6.10); White Blood Cell (WBC) Count 4.9 thou/uL (4.8-10.8)
[2021-06-23 19:52] LABS: ALT (SGPT) 20 U/L (8-55); AST (SGOT) 83 U/L (5-34); Albumin 2.1 g/dL (3.5-5.0); Alkaline Phosphatase 159 U/L (40-110); Anion Gap 12 mmol/L (10-20); BUN (Urea Nitrogen) 9 mg/dL (8.9-20.6); Bilirubin, Total 0.5 mg/dL (0.2-1.2); Calc. Creatinine Clearance 0 mL/min (70-130); Calcium 7.4 mg/dL (7.8-10.44); Carbon Dioxide 18 mmol/L (22-29); Chloride 77 mmol/L (98-107); Globulin 3.2 g/dL (2.4-3.5); Glucose 85 mg/dL (70-105); Potassium 3.3 mmol/L (3.5-5.1); Protein, Total 5.3 g/dL (6.0-8.3)
[2021-06-23 20:10] LABS: Sodium 104 mmol/L (136-145)
[2021-06-23] MEDS ORDERED: Potassium Chloride 20 MEQ TAB ONE (20:28)
[2021-06-23 21:20] LABS: Bacteria/HPF None Seen HPF (None Seen); Bilirubin Negative (Negative); Blood, Urine 3+ (Negative); Clarity Clear (Clear); Glucose, Urine (Dipstick) Normal (Negative); Ketone, Urine Negative (Negative); Leukocyte Negative Leu/uL (Negative); Nitrite Negative (Negative); Protein, Urine (Dipstick) 100 mg/dL (Neg-Trace); Specific Gravity, Urine 1.004 (1.002-1.036); Squamous Epithelial 0-3 HPF (0-3); Urobilinogen Normal mg/dL (Less than 2); WBC/HPF 0-3 HPF (0-3)
[2021-06-23 21:40] LABS: Anion Gap 13 mmol/L (10-20); BUN (Urea Nitrogen) 9 mg/dL (8.9-20.6); Calc. Creatinine Clearance 0 mL/min (70-130); Calcium 7.2 mg/dL (7.8-10.44); Carbon Dioxide 18 mmol/L (22-29); Chloride 79 mmol/L (98-107); Glucose 78 mg/dL (70-105); Potassium 3.5 mmol/L (3.5-5.1)
[2021-06-23 21:42] LABS: Sodium 106 mmol/L (136-145)
[2021-06-23] MEDS ORDERED: Ondansetron ODT 4 MG TAB PO PRN (22:44)
[2021-06-23] MEDS ORDERED: Dextrose 50% Abboject 50 ML SYRINGE SLOW IVP PRN (22:44)
[2021-06-23] MEDS ORDERED: Ondansetron PF 4 MG/2 ML Vial IVP PRN (22:44)
[2021-06-23] MEDS ORDERED: Acetaminophen 650 MG Suppository PR PRN (22:44)
[2021-06-23] MEDS ORDERED: Acetaminophen 325 MG TAB PO PRN (22:44)
[2021-06-23] MEDS ORDERED: HumaLOG 300 UNITS/3 ML VIAL SC PRN ×2 (22:44)
[2021-06-23] MEDS ORDERED: Dextrose 5% in Water 1,000 ML IV PRN (22:44)
[2021-06-23 23:21] LABS: Anion Gap 13 mmol/L (10-20); BUN (Urea Nitrogen) 10 mg/dL (8.9-20.6); Calc. Creatinine Clearance 0 mL/min (70-130); Calcium 7.3 mg/dL (7.8-10.44); Carbon Dioxide 16 mmol/L (22-29); Chloride 80 mmol/L (98-107); Glucose 79 mg/dL (70-105); Potassium 3.8 mmol/L (3.5-5.1)
[2021-06-23 23:24] LABS: Sodium 105 mmol/L (136-145)
[2021-06-23 23:25] LABS: SARS-CoV-2 NAA Rapid Test Not Detected (NotDetected)
[2021-06-24] MEDS ORDERED: Diazepam 5 MG TAB PO PRN (00:36)
[2021-06-24] MEDS ORDERED: Diazepam 5 MG TAB PO SCH (00:45)
[2021-06-24] MEDS ORDERED: Thiamine HCl 200 MG/2 ML VIAL IM SCH (01:00)
[2021-06-24 02:01] LABS: Anion Gap 11 mmol/L (10-20); BUN (Urea Nitrogen) 10 mg/dL (8.9-20.6); Calc. Creatinine Clearance 0 mL/min (70-130); Calcium 7.4 mg/dL (7.8-10.44); Carbon Dioxide 19 mmol/L (22-29); Chloride 79 mmol/L (98-107); Glucose 75 mg/dL (70-105); Potassium 3.8 mmol/L (3.5-5.1)
[2021-06-24 02:04] LABS: Sodium 105 mmol/L (136-145)
[2021-06-24] MEDS ORDERED: Thiamine 100 MG TAB PO SCH (03:15)
[2021-06-24 03:56] VITALS: BMI 34.9
[2021-06-24 08:01] LABS: #Eosinphils 0.1 thou/uL (0.0-0.7); #Lymphocytes 1.7 thou/uL (1.20-3.40); #Monocytes 0.4 thou/uL (0.11-0.59); #Neutrophils 2.2 thou/uL (1.40-6.50); %Eosinophils 1.9 % (0.0-10.0); %Lymphocytes 37.8 % (21.0-51.0); %Monocytes 9.1 % (0.0-10.0); %Neutrophils 50.2 % (42.0-75.0); Hemoglobin 7.7 g/dL (14.0-18.0); Mean Corpuscular HGB CONC 36.3 g/dL (32.0-36.0); Mean Corpuscular Volume 96.4 fL (78.0-98.0); Mean Platelet Volume 6.3 fL (7.4-10.4); Platelet Count 127 thou/uL (130-400); White Blood Cell (WBC) Count 4.4 thou/uL (4.8-10.8)
[2021-06-24 08:20] LABS: INR-International Normal Ratio 1.4; PTT 38.5 sec (22.9-36.1); Prothrombin Time 16.7 sec (12.0-14.7)
[2021-06-24 08:21] LABS: Iron 195 ug/dL (65-175); Iron Binding Capacity, Total 195 mcg/dL (261-462)
[2021-06-24 08:23] LABS: Anion Gap 11 mmol/L (10-20); BUN (Urea Nitrogen) 11 mg/dL (8.9-20.6); Calc. Creatinine Clearance 128 mL/min (70-130); Calcium 7.4 mg/dL (7.8-10.44); Carbon Dioxide 18 mmol/L (22-29); Chloride 82 mmol/L (98-107); Glucose 65 mg/dL (70-105); Iron 199 ug/dL (65-175); Iron Binding Capacity, Total 198 mcg/dL (261-462); Potassium 3.7 mmol/L (3.5-5.1)
[2021-06-24 08:28] LABS: Sodium 107 mmol/L (136-145)
[2021-06-24 10:04] LABS: Anion Gap 10 mmol/L (10-20); BUN (Urea Nitrogen) 11 mg/dL (8.9-20.6); Calc. Creatinine Clearance 128 mL/min (70-130); Calcium 7.6 mg/dL (7.8-10.44); Carbon Dioxide 19 mmol/L (22-29); Chloride 83 mmol/L (98-107); Glucose 68 mg/dL (70-105); Potassium 3.8 mmol/L (3.5-5.1)
[2021-06-24 10:11] LABS: Sodium 108 mmol/L (136-145)
[2021-06-24] MEDS: Multivitamin W/ Minerals 1 TAB PO SCH (10:33)
[2021-06-24] MEDS: Folic Acid 1 MG TAB PO SCH (10:33)
[2021-06-24 12:33] LABS: Anion Gap 11 mmol/L (10-20); BUN (Urea Nitrogen) 11 mg/dL (8.9-20.6); Calc. Creatinine Clearance 125 mL/min (70-130); Calcium 7.7 mg/dL (7.8-10.44); Carbon Dioxide 19 mmol/L (22-29); Chloride 84 mmol/L (98-107); Glucose 78 mg/dL (70-105)
[2021-06-24 12:38] LABS: Sodium 110 mmol/L (136-145)
[2021-06-24 18:25] LABS: Anion Gap 8 mmol/L (10-20); BUN (Urea Nitrogen) 12 mg/dL (8.9-20.6); Calc. Creatinine Clearance 101 mL/min (70-130); Calcium 7.9 mg/dL (7.8-10.44); Carbon Dioxide 23 mmol/L (22-29); Chloride 85 mmol/L (98-107); Glucose 94 mg/dL (70-105); Potassium 4.3 mmol/L (3.5-5.1)
[2021-06-24 18:36] LABS: Sodium 112 mmol/L (136-145)
[2021-06-25] MEDS ORDERED: Diazepam 5 MG TAB PO PRN (04:00)
[2021-06-25 06:47] LABS: Anion Gap 8 mmol/L (10-20); BUN (Urea Nitrogen) 16 mg/dL (8.9-20.6); Calc. Creatinine Clearance 98 mL/min (70-130); Calcium 7.9 mg/dL (7.8-10.44); Carbon Dioxide 22 mmol/L (22-29); Chloride 92 mmol/L (98-107); Glucose 87 mg/dL (70-105); Magnesium 1.7 mg/dL (1.6-2.6); Potassium 3.6 mmol/L (3.5-5.1)
[2021-06-25 06:50] LABS: Sodium 118 mmol/L (136-145)
[2021-06-25] MEDS: Thiamine 100 MG TAB PO SCH (09:33)
[2021-06-25] MEDS: Multivitamin W/ Minerals 1 TAB PO SCH (09:33)
[2021-06-25] MEDS: Folic Acid 1 MG TAB PO SCH (09:33)
[2021-06-25] MEDS: Magnesium Oxide 400 MG TAB PO SCH (09:33)
[2021-06-25 09:41] LABS: #Lymphocytes 0.9 thou/uL (1.20-3.40); #Monocytes 0.4 thou/uL (0.11-0.59); #Neutrophils 1.8 thou/uL (1.40-6.50); %Basophils 0.5 % (0.0-1.0); %Eosinophils 0.2 % (0.0-10.0); %Monocytes 12.5 % (0.0-10.0); %Neutrophils 58.8 % (42.0-75.0); Hemoglobin 7.5 g/dL (14.0-18.0); Mean Corpuscular Hemoglobin 34.3 pg (27.0-31.0); Mean Corpuscular Volume 98.1 fL (78.0-98.0); Mean Platelet Volume 6.3 fL (7.4-10.4); Platelet Count 112 thou/uL (130-400); RBC Distribution Width 13.3 % (11.5-14.5); Red Blood Cell (RBC) Count 2.19 mill/uL (4.70-6.10); White Blood Cell (WBC) Count 3.1 thou/uL (4.8-10.8)
[2021-06-26 07:02] LABS: #Lymphocytes 1.2 thou/uL (1.20-3.40); #Monocytes 0.5 thou/uL (0.11-0.59); #Neutrophils 1.6 thou/uL (1.40-6.50); %Basophils 0.7 % (0.0-1.0); %Lymphocytes 35.5 % (21.0-51.0); %Monocytes 14.1 % (0.0-10.0); %Neutrophils 48.6 % (42.0-75.0); Hemoglobin 7.4 g/dL (14.0-18.0); Mean Corpuscular Hemoglobin 33.8 pg (27.0-31.0); Mean Corpuscular Volume 99.7 fL (78.0-98.0); Mean Platelet Volume 6.3 fL (7.4-10.4); Platelet Count 102 thou/uL (130-400); RBC Distribution Width 13.5 % (11.5-14.5); Red Blood Cell (RBC) Count 2.18 mill/uL (4.70-6.10); White Blood Cell (WBC) Count 3.3 thou/uL (4.8-10.8)
[2021-06-26 07:57] LABS: Anion Gap 11 mmol/L (10-20); BUN (Urea Nitrogen) 15 mg/dL (8.9-20.6); Calc. Creatinine Clearance 90 mL/min (70-130); Calcium 8.1 mg/dL (7.8-10.44); Carbon Dioxide 22 mmol/L (22-29); Chloride 98 mmol/L (98-107); Glucose 100 mg/dL (70-105); Potassium 3.3 mmol/L (3.5-5.1); Sodium 128 mmol/L (136-145)
[2021-06-26] MEDS ORDERED: Dextrose 5% in Water 1,000 ML IV SCH (08:15)
[2021-06-26] MEDS ORDERED: Potassium Chloride 20 MEQ TAB PO SCH (10:15)
[2021-06-26] MEDS: Thiamine 100 MG TAB PO SCH (10:48)
[2021-06-26] MEDS: Multivitamin W/ Minerals 1 TAB PO SCH (10:48)
[2021-06-26] MEDS: Magnesium Oxide 400 MG TAB PO SCH (10:48)
[2021-06-26] MEDS: Folic Acid 1 MG TAB PO SCH (10:48)
[2021-06-26 11:45] VITALS: BP 160/83; TEMP 97.8
== END 2021-06-26 12:10 | disposition home or self-care (01) | DRG 643 ==
LOC: ERS 18:43 → ERHOLD 20:56 → 3SE 06-24 00:43
PROVIDERS: ADMIT Student in an Organized Health Care Education/Training Program; ATTEND Internal Medicine
DX: E22.2 Syndrome of inappropriate secretion of antidiuretic hormone (principal); G92 Toxic encephalopathy; N17.9 Acute kidney failure, unspecified; Z20.822 Contact with and (suspected) exposure to COVID-19; F41.9 Anxiety disorder, unspecified; F32.9 Major depressive disorder, single episode, unspecified; F17.210 Nicotine dependence, cigarettes, uncomplicated; E87.6 Hypokalemia; F10.229 Alcohol dependence with intoxication, unspecified; K70.31 Alcoholic cirrhosis of liver with ascites; Y90.7 Blood alcohol level of 200-239 mg/100 ml; E11.22 Type 2 diabetes mellitus with diabetic chronic kidney disease; I12.9 Hypertensive chronic kidney disease with stage 1 through stage 4 chronic kidney disease, or unspecified chronic kidney disease; D63.1 Anemia in chronic kidney disease; N18.30 Chronic kidney disease, stage 3 unspecified; E66.9 Obesity, unspecified; E83.42 Hypomagnesemia; Z68.31 Body mass index [BMI] 31.0-31.9, adult; Z79.899 Other long term (current) drug therapy
CPT/HCPCS: 36415; 36416; 36430; 80048; 80053; 80307; 81003; 81015; 82105; 82728; 83540; 83550; 83735; 83930; 83935; 85025; 85610; 85730; 86850; 86900; 86901; 93005; J1815; J3475; J3490; P9016; U0002

== ENCOUNTER 2021-08-31 14:24 | Inpatient (IN) | payer MEDICAID, SELFPAY ==
[2021-08-31] MEDS ORDERED: Dextrose 50% Abboject 50 ML SYRINGE ONE (14:50)
[2021-08-31] MEDS ORDERED: Octreotide Acetate 1,250 MCG in Sodium Chloride 0.9% 250 ML 250 ML IVPB SCH (15:00)
[2021-08-31] MEDS ORDERED: Pantoprazole 40 MG VIAL IVP SCH (15:00)
[2021-08-31] MEDS ORDERED: cefTRIAXone\\ROCEPHIN 2 GM in Sodium Chloride 0.9% 100 ML IVPB SCH (15:00)
[2021-08-31] MEDS ORDERED: Thiamine HCl 200 MG/2 ML VIAL SLOW IVP SCH (15:00)
[2021-08-31] MEDS ORDERED: Dextrose 5 %-0.45 % NaCl 1,000 ML IV SCH (15:00)
[2021-08-31] MEDS ORDERED: cefTRIAXone\\ROCEPHIN 2 GM VIAL ONE (15:06)
[2021-08-31] MEDS ORDERED: Octreotide Acetate 50 MCG/ML AMP ONE ×2 (15:06→16:45)
[2021-08-31] MEDS ORDERED: Octreotide Acetate 50 MCG/ML AMP SLOW IVP SCH (15:15)
[2021-08-31 15:20] LABS: #Lymphocytes 0.7 thou/uL (1.20-3.40); #Monocytes 0.5 thou/uL (0.11-0.59); #Neutrophils 2.7 thou/uL (1.40-6.50); %Basophils 0.6 % (0.0-1.0); %Eosinophils 0.1 % (0.0-10.0); %Lymphocytes 17.4 % (21.0-51.0); %Monocytes 11.9 % (0.0-10.0); %Neutrophils 70.1 % (42.0-75.0); Hemoglobin 5.8 g/dL (14.0-18.0); Mean Corpuscular HGB CONC 34.9 g/dL (32.0-36.0); Mean Corpuscular Hemoglobin 34.1 pg (27.0-31.0); Mean Corpuscular Volume 97.6 fL (78.0-98.0); Mean Platelet Volume 6.3 fL (7.4-10.4); Platelet Count 88 thou/uL (130-400); RBC Distribution Width 12.1 % (11.5-14.5); Red Blood Cell (RBC) Count 1.71 mill/uL (4.70-6.10); White Blood Cell (WBC) Count 3.8 thou/uL (4.8-10.8)
[2021-08-31 15:37] LABS: ALT (SGPT) 22 U/L (8-55); AST (SGOT) 70 U/L (5-34); Albumin 2.3 g/dL (3.5-5.0); Alkaline Phosphatase 134 U/L (40-110); Anion Gap 13 mmol/L (10-20); BUN (Urea Nitrogen) 27 mg/dL (8.9-20.6); Bilirubin, Total 0.5 mg/dL (0.2-1.2); Calc. Creatinine Clearance 0 mL/min (70-130); Calcium 7.6 mg/dL (7.8-10.44); Carbon Dioxide 13 mmol/L (22-29); Chloride 87 mmol/L (98-107); Lipase 58 U/L (8-78); Magnesium 1.8 mg/dL (1.6-2.6); Potassium 4.5 mmol/L (3.5-5.1); Protein, Total 5.3 g/dL (6.0-8.3)
[2021-08-31 15:44] LABS: Glucose 47 mg/dL (70-105); Sodium 108 mmol/L (136-145)
[2021-08-31 15:44] LABS: INR-International Normal Ratio 1.4; Prothrombin Time 17.7 sec (12.0-14.7)
[2021-08-31 15:45] LABS: PTT 33.1 sec (22.9-36.1)
[2021-08-31 17:08] LABS: Sodium 109 mmol/L (136-145)
[2021-08-31] MEDS ORDERED: Sodium Bicarb 50 MEQ/50 ML Abboject 8.4% SYRINGE IVP SCH (18:15)
[2021-08-31 18:29] LABS: Analyzer IN Cardio ER; Base Excess (BEa) -9.4 mEq/L (-2.0 to +3.0); CO2 Tension 26.5 mmHg (35.0-45.0); Calcium, Ionized (arterial) 1.11 mmol/L (1.12-1.30); Carboxyhemoglobin (COHb) 1.6 gm% (0.0-3.0); O2 Tension (PaO2), arterial 96.1 mmHg (80.0-100.0); Potassium - ABG Lab 4.76 mmol/L (3.70-5.30); pH, Arterial 7.37 (7.35-7.45)
[2021-08-31 18:30] LABS: ALV-art Gradient 20.505 mmHg (0-20); Hemoglobin (Hb) 5.8 g/dL (14.0-18.0); Puncture Site LBA
[2021-08-31] MEDS ORDERED: Dextrose 10% in Water 1,000 ML IV SCH (18:30)
[2021-08-31 18:48] LABS: Bacteria/HPF 1+ HPF (None Seen); Bilirubin Negative (Negative); Blood, Urine 1+ (Negative); Clarity Clear (Clear); Glucose, Urine (Dipstick) Normal (Negative); Ketone, Urine Negative (Negative); Leukocyte 25 Leu/uL (Negative); Nitrite Negative (Negative); Protein, Urine (Dipstick) 100 mg/dL (Neg-Trace); RBC/HPF 0-3 HPF (0-3); Specific Gravity, Urine 1.007 (1.002-1.036); Squamous Epithelial 0-3 HPF (0-3); Urobilinogen Normal mg/dL (Less than 2); pH, Urine 5.5 (5.0-9.0)
[2021-08-31 20:19] LABS: Glucose POC Confirmation 98 mg/dl (70-105)
[2021-08-31 20:23] LABS: Anion Gap 12 mmol/L (10-20); BUN (Urea Nitrogen) 26 mg/dL (8.9-20.6); Calc. Creatinine Clearance 0 mL/min (70-130); Carbon Dioxide 15 mmol/L (22-29); Chloride 86 mmol/L (98-107); Glucose 98 mg/dL (70-105)
[2021-08-31 20:51] LABS: Sodium 108 mmol/L (136-145)
[2021-08-31 21:09] LABS: SARS-CoV-2 NAA Rapid Test Not Detected (NotDetected)
[2021-08-31] MEDS ORDERED: Ondansetron ODT 4 MG TAB SL PRN (22:00)
[2021-08-31] MEDS ORDERED: Ondansetron PF 4 MG/2 ML Vial IVP PRN (22:00)
[2021-08-31] MEDS ORDERED: HumaLOG 300 UNITS/3 ML VIAL SC PRN (22:18)
[2021-08-31] MEDS ORDERED: Dextrose 5% in Water 1,000 ML IV PRN (22:18)
[2021-08-31] MEDS ORDERED: Dextrose 50% Abboject 50 ML SYRINGE SLOW IVP PRN (22:18)
[2021-08-31 22:52] LABS: Anion Gap 11 mmol/L (10-20); BUN (Urea Nitrogen) 26 mg/dL (8.9-20.6); Calc. Creatinine Clearance 72 mL/min (70-130); Calcium 7.9 mg/dL (7.8-10.44); Carbon Dioxide 15 mmol/L (22-29); Chloride 87 mmol/L (98-107); Glucose 204 mg/dL (70-105); Phosphorus 3.5 mg/dL (2.3-4.7); Potassium 5.2 mmol/L (3.5-5.1)
[2021-08-31 22:53] LABS: Glucose POC Confirmation 202 mg/dl (70-105)
[2021-08-31 22:56] LABS: Sodium 108 mmol/L (136-145)
[2021-08-31] MEDS: Sodium Chloride 0.9% 1,000 ML IV SCH (23:24)
[2021-08-31] MEDS: Pantoprazole 40 MG VIAL IVP SCH (23:26)
[2021-09-01] MEDS: HumaLOG 300 UNITS/3 ML VIAL SC PRN ×2 (00:38→03:41)
[2021-09-01 03:49] LABS: #Lymphocytes 0.8 thou/uL (1.20-3.40); #Monocytes 0.5 thou/uL (0.11-0.59); %Basophils 0.4 % (0.0-1.0); %Eosinophils 0.2 % (0.0-10.0); %Lymphocytes 24.2 % (21.0-51.0); %Monocytes 14.5 % (0.0-10.0); %Neutrophils 60.8 % (42.0-75.0); Hemoglobin 5.8 g/dL (14.0-18.0); Mean Corpuscular Hemoglobin 33.9 pg (27.0-31.0); Mean Corpuscular Volume 96.7 fL (78.0-98.0); Mean Platelet Volume 6.1 fL (7.4-10.4); Platelet Count 101 thou/uL (130-400); RBC Distribution Width 13.1 % (11.5-14.5); Red Blood Cell (RBC) Count 1.72 mill/uL (4.70-6.10); White Blood Cell (WBC) Count 3.3 thou/uL (4.8-10.8)
[2021-09-01 04:02] LABS: Glucose POC Confirmation 175 mg/dl (70-105)
[2021-09-01 04:06] LABS: Anion Gap 11 mmol/L (10-20); BUN (Urea Nitrogen) 25 mg/dL (8.9-20.6); Calc. Creatinine Clearance 75 mL/min (70-130); Calcium 7.7 mg/dL (7.8-10.44); Carbon Dioxide 16 mmol/L (22-29); Chloride 88 mmol/L (98-107); Glucose 176 mg/dL (70-105); Potassium 4.9 mmol/L (3.5-5.1)
[2021-09-01 04:10] LABS: Sodium 110 mmol/L (136-145)
[2021-09-01 07:46] LABS: Hemoglobin 6.4 g/dL (14.0-18.0); Mean Corpuscular HGB CONC 35.6 g/dL (32.0-36.0); Mean Corpuscular Volume 95.6 fL (78.0-98.0); Mean Platelet Volume 6.1 fL (7.4-10.4); Platelet Count 108 thou/uL (130-400); RBC Distribution Width 12.9 % (11.5-14.5); Red Blood Cell (RBC) Count 1.89 mill/uL (4.70-6.10); White Blood Cell (WBC) Count 3.7 thou/uL (4.8-10.8)
[2021-09-01] MEDS: Pantoprazole 40 MG VIAL IVP SCH ×2 (09:57→22:30)
[2021-09-01 10:14] LABS: #Lymphocytes 0.7 thou/uL (1.20-3.40); #Monocytes 0.4 thou/uL (0.11-0.59); #Neutrophils 2.4 thou/uL (1.40-6.50); %Basophils 0.6 % (0.0-1.0); %Eosinophils 0.2 % (0.0-10.0); %Lymphocytes 18.9 % (21.0-51.0); %Monocytes 12.3 % (0.0-10.0); %Neutrophils 67.9 % (42.0-75.0); Hemoglobin 6.6 g/dL (14.0-18.0); Mean Corpuscular HGB CONC 35.1 g/dL (32.0-36.0); Mean Corpuscular Hemoglobin 33.7 pg (27.0-31.0); Mean Corpuscular Volume 96.2 fL (78.0-98.0); Mean Platelet Volume 5.8 fL (7.4-10.4); Platelet Count 98 thou/uL (130-400); RBC Distribution Width 13.2 % (11.5-14.5); Red Blood Cell (RBC) Count 1.94 mill/uL (4.70-6.10); White Blood Cell (WBC) Count 3.5 thou/uL (4.8-10.8)
[2021-09-01 10:36] LABS: Anion Gap 11 mmol/L (10-20); BUN (Urea Nitrogen) 25 mg/dL (8.9-20.6); Calc. Creatinine Clearance 76 mL/min (70-130); Carbon Dioxide 16 mmol/L (22-29); Chloride 91 mmol/L (98-107); Glucose 143 mg/dL (70-105); Potassium 4.8 mmol/L (3.5-5.1)
[2021-09-01 10:50] LABS: Sodium 113 mmol/L (136-145)
[2021-09-01] MEDS: cefTRIAXone\\ROCEPHIN 1 GM in Sodium Chloride 0.9% 100 ML IVPB SCH (12:55)
[2021-09-01] MEDS: Octreotide Acetate 1,250 MCG in Sodium Chloride 0.9% 250 ML 250 ML IVPB SCH ×2 (16:47→20:54)
[2021-09-01 20:40] LABS: #Lymphocytes 0.8 thou/uL (1.20-3.40); #Monocytes 0.5 thou/uL (0.11-0.59); #Neutrophils 2.4 thou/uL (1.40-6.50); %Basophils 0.1 % (0.0-1.0); %Eosinophils 0.3 % (0.0-10.0); %Lymphocytes 20.8 % (21.0-51.0); %Monocytes 14.2 % (0.0-10.0); %Neutrophils 64.5 % (42.0-75.0); Hemoglobin 7.9 g/dL (14.0-18.0); Mean Corpuscular HGB CONC 36.4 g/dL (32.0-36.0); Mean Corpuscular Hemoglobin 34.7 pg (27.0-31.0); Mean Corpuscular Volume 95.3 fL (78.0-98.0); Mean Platelet Volume 6.3 fL (7.4-10.4); Platelet Count 109 thou/uL (130-400); RBC Distribution Width 13.2 % (11.5-14.5); Red Blood Cell (RBC) Count 2.26 mill/uL (4.70-6.10); White Blood Cell (WBC) Count 3.8 thou/uL (4.8-10.8)
[2021-09-01 20:51] LABS: Anion Gap 11 mmol/L (10-20); BUN (Urea Nitrogen) 25 mg/dL (8.9-20.6); Calc. Creatinine Clearance 74 mL/min (70-130); Calcium 8.3 mg/dL (7.8-10.44); Carbon Dioxide 17 mmol/L (22-29); Chloride 95 mmol/L (98-107); Glucose 157 mg/dL (70-105); Potassium 4.4 mmol/L (3.5-5.1)
[2021-09-01 21:05] LABS: Sodium 119 mmol/L (136-145)
[2021-09-01] MEDS: Sodium Chloride 0.9% 1,000 ML IV SCH (21:11)
[2021-09-01] MEDS: Benzonatate 100 MG CAP PO PRN (22:30)
[2021-09-01] MEDS: hydrALAZINE 20 MG/ML VIAL SLOW IVP PRN (23:55)
[2021-09-02 05:01] LABS: #Lymphocytes 0.7 thou/uL (1.20-3.40); #Monocytes 0.5 thou/uL (0.11-0.59); %Basophils 0.5 % (0.0-1.0); %Eosinophils 0.2 % (0.0-10.0); %Lymphocytes 17.1 % (21.0-51.0); %Monocytes 11.9 % (0.0-10.0); %Neutrophils 70.4 % (42.0-75.0); Hemoglobin 7.7 g/dL (14.0-18.0); Mean Corpuscular HGB CONC 35.8 g/dL (32.0-36.0); Mean Corpuscular Hemoglobin 34.1 pg (27.0-31.0); Mean Corpuscular Volume 95.1 fL (78.0-98.0); Mean Platelet Volume 5.8 fL (7.4-10.4); Platelet Count 98 thou/uL (130-400); RBC Distribution Width 13.1 % (11.5-14.5); Red Blood Cell (RBC) Count 2.26 mill/uL (4.70-6.10); White Blood Cell (WBC) Count 4.2 thou/uL (4.8-10.8)
[2021-09-02 05:09] LABS: INR-International Normal Ratio 1.4; Prothrombin Time 17.1 sec (12.0-14.7)
[2021-09-02 05:25] LABS: ALT (SGPT) 22 U/L (8-55); AST (SGOT) 59 U/L (5-34); Albumin 2.5 g/dL (3.5-5.0); Alkaline Phosphatase 128 U/L (40-110); Anion Gap 10 mmol/L (10-20); BUN (Urea Nitrogen) 25 mg/dL (8.9-20.6); Bilirubin, Total 1.3 mg/dL (0.2-1.2); Calc. Creatinine Clearance 76 mL/min (70-130); Calcium 8.2 mg/dL (7.8-10.44); Carbon Dioxide 17 mmol/L (22-29); Chloride 99 mmol/L (98-107); Globulin 3.2 g/dL (2.4-3.5); Glucose 134 mg/dL (70-105); Protein, Total 5.7 g/dL (6.0-8.3); Sodium 122 mmol/L (136-145)
[2021-09-02 08:01] LABS: #Lymphocytes 0.7 thou/uL (1.20-3.40); #Monocytes 0.7 thou/uL (0.11-0.59); #Neutrophils 3.9 thou/uL (1.40-6.50); %Basophils 0.1 % (0.0-1.0); %Lymphocytes 12.5 % (21.0-51.0); %Monocytes 12.9 % (0.0-10.0); %Neutrophils 74.5 % (42.0-75.0); Hemoglobin 7.9 g/dL (14.0-18.0); Mean Corpuscular HGB CONC 36.4 g/dL (32.0-36.0); Mean Corpuscular Hemoglobin 34.7 pg (27.0-31.0); Mean Corpuscular Volume 95.2 fL (78.0-98.0); Platelet Count 101 thou/uL (130-400); RBC Distribution Width 13.1 % (11.5-14.5); Red Blood Cell (RBC) Count 2.28 mill/uL (4.70-6.10); White Blood Cell (WBC) Count 5.3 thou/uL (4.8-10.8)
[2021-09-02] MEDS: Benzonatate 100 MG CAP PO PRN (09:36)
[2021-09-02] MEDS: cefTRIAXone\\ROCEPHIN 1 GM in Sodium Chloride 0.9% 100 ML IVPB SCH (12:11)
[2021-09-02] MEDS: Pantoprazole 40 MG VIAL IVP SCH ×2 (12:42→22:11)
[2021-09-02] MEDS: Furosemide 40 MG/4 ML VIAL SLOW IVP SCH (15:30)
[2021-09-02 15:54] LABS: #Eosinphils 0.1 thou/uL (0.0-0.7); #Lymphocytes 0.7 thou/uL (1.20-3.40); #Monocytes 0.6 thou/uL (0.11-0.59); #Neutrophils 4.5 thou/uL (1.40-6.50); %Basophils 0.1 % (0.0-1.0); %Eosinophils 0.9 % (0.0-10.0); %Lymphocytes 12.5 % (21.0-51.0); %Monocytes 10.5 % (0.0-10.0); Mean Corpuscular HGB CONC 35.5 g/dL (32.0-36.0); Mean Corpuscular Volume 95.7 fL (78.0-98.0); Platelet Count 109 thou/uL (130-400); RBC Distribution Width 13.2 % (11.5-14.5); Red Blood Cell (RBC) Count 2.36 mill/uL (4.70-6.10); White Blood Cell (WBC) Count 5.9 thou/uL (4.8-10.8)
[2021-09-02] MEDS: Acetaminophen 325 MG TAB PO PRN (16:47)
[2021-09-02] MEDS: hydrALAZINE 20 MG/ML VIAL SLOW IVP PRN (16:47)
[2021-09-02 21:31] LABS: #Lymphocytes 0.3 thou/uL (1.20-3.40); #Monocytes 0.5 thou/uL (0.11-0.59); #Neutrophils 4.4 thou/uL (1.40-6.50); %Basophils 0.1 % (0.0-1.0); %Eosinophils 0.2 % (0.0-10.0); %Lymphocytes 6.1 % (21.0-51.0); %Monocytes 9.8 % (0.0-10.0); %Neutrophils 83.8 % (42.0-75.0); Hemoglobin 7.6 g/dL (14.0-18.0); Mean Corpuscular Hemoglobin 33.1 pg (27.0-31.0); Mean Corpuscular Volume 97.2 fL (78.0-98.0); Mean Platelet Volume 5.7 fL (7.4-10.4); Platelet Count 97 thou/uL (130-400); RBC Distribution Width 13.2 % (11.5-14.5); Red Blood Cell (RBC) Count 2.28 mill/uL (4.70-6.10); White Blood Cell (WBC) Count 5.2 thou/uL (4.8-10.8)
[2021-09-03] MEDS: Acetaminophen 325 MG TAB PO PRN ×2 (04:11→20:42)
[2021-09-03] MEDS: Furosemide 40 MG/4 ML VIAL SLOW IVP SCH ×2 (05:16→16:21)
[2021-09-03 05:32] LABS: #Lymphocytes 0.3 thou/uL (1.20-3.40); #Monocytes 0.5 thou/uL (0.11-0.59); #Neutrophils 3.1 thou/uL (1.40-6.50); %Basophils 0.1 % (0.0-1.0); %Eosinophils 0.2 % (0.0-10.0); %Lymphocytes 8.1 % (21.0-51.0); %Neutrophils 78.5 % (42.0-75.0); Hemoglobin 7.4 g/dL (14.0-18.0); Mean Corpuscular HGB CONC 35.3 g/dL (32.0-36.0); Mean Corpuscular Hemoglobin 33.9 pg (27.0-31.0); Mean Corpuscular Volume 96.1 fL (78.0-98.0); Mean Platelet Volume 5.8 fL (7.4-10.4); Platelet Count 96 thou/uL (130-400); RBC Distribution Width 13.2 % (11.5-14.5); Red Blood Cell (RBC) Count 2.17 mill/uL (4.70-6.10)
[2021-09-03 05:40] LABS: INR-International Normal Ratio 1.5; Prothrombin Time 18.1 sec (12.0-14.7)
[2021-09-03 05:48] LABS: ALT (SGPT) 19 U/L (8-55); AST (SGOT) 49 U/L (5-34); Albumin 2.3 g/dL (3.5-5.0); Alkaline Phosphatase 111 U/L (40-110); Anion Gap 9 mmol/L (10-20); BUN (Urea Nitrogen) 22 mg/dL (8.9-20.6); Bilirubin, Total 0.8 mg/dL (0.2-1.2); Calc. Creatinine Clearance 78 mL/min (70-130); Carbon Dioxide 16 mmol/L (22-29); Chloride 98 mmol/L (98-107); Globulin 3.2 g/dL (2.4-3.5); Glucose 128 mg/dL (70-105); Potassium 3.8 mmol/L (3.5-5.1); Protein, Total 5.5 g/dL (6.0-8.3)
[2021-09-03 05:51] LABS: Sodium 119 mmol/L (136-145)
[2021-09-03] MEDS: PARoxetine 20 MG TAB PO SCH (08:42)
[2021-09-03] MEDS: Thiamine 100 MG TAB PO SCH (08:42)
[2021-09-03] MEDS: Nadolol 40 MG TAB PO SCH (08:42)
[2021-09-03] MEDS: Pantoprazole 40 MG VIAL IVP SCH ×2 (08:42→20:28)
[2021-09-03] MEDS ORDERED: FLU VACC QS2021-22(6MOS UP)/PF 60 MCG/0.5 ML SYRINGE IM ONE (09:00)
[2021-09-03] MEDS ORDERED: Sodium Chloride 0.9% 1,000 ML IV SCH (11:15)
[2021-09-03] MEDS: cefTRIAXone\\ROCEPHIN 1 GM in Sodium Chloride 0.9% 100 ML IVPB SCH (11:35)
[2021-09-03] MEDS ORDERED: Ketamine 50 MG/ML (10ML VIAL) ONE (13:57)
[2021-09-03] MEDS ORDERED: Midazolam HCl 2 mg/2 ml Vial ONE (13:58)
[2021-09-03] MEDS ORDERED: Fentanyl 100 MCG/2 ML VIAL ONE (15:04)
[2021-09-03] MEDS ORDERED: PROPOFOL 200 MG/20 ML VIAL ONE (15:12)
[2021-09-03] MEDS ORDERED: Promethazine HCl 25 MG/ML VIAL IVPB PRN (15:53)
[2021-09-03] MEDS ORDERED: Promethazine HCl 25 MG/ML VIAL IM PRN (15:53)
[2021-09-03] MEDS ORDERED: Ondansetron HCl/PF 4 MG/2 ML Vial IVP PRN (15:53)
[2021-09-03 17:07] LABS: Anion Gap 9 mmol/L (10-20); BUN (Urea Nitrogen) 23 mg/dL (8.9-20.6); Calc. Creatinine Clearance 72 mL/min (70-130); Carbon Dioxide 17 mmol/L (22-29); Chloride 100 mmol/L (98-107); Glucose 106 mg/dL (70-105); Sodium 122 mmol/L (136-145)
[2021-09-03] MEDS: Benzonatate 100 MG CAP PO PRN (20:28)
[2021-09-04] MEDS: hydrALAZINE 20 MG/ML VIAL SLOW IVP PRN (05:04)
[2021-09-04] MEDS: Furosemide 40 MG/4 ML VIAL SLOW IVP SCH ×2 (05:04→13:16)
[2021-09-04 05:09] LABS: Hemoglobin 7.2 g/dL (14.0-18.0); Mean Corpuscular Hemoglobin 34.2 pg (27.0-31.0); Mean Corpuscular Volume 97.7 fL (78.0-98.0); Mean Platelet Volume 5.9 fL (7.4-10.4); Platelet Count 89 thou/uL (130-400); RBC Distribution Width 13.3 % (11.5-14.5); Red Blood Cell (RBC) Count 2.11 mill/uL (4.70-6.10); White Blood Cell (WBC) Count 3.8 thou/uL (4.8-10.8)
[2021-09-04 05:14] LABS: ALT (SGPT) 19 U/L (8-55); AST (SGOT) 47 U/L (5-34); Albumin 2.3 g/dL (3.5-5.0); Alkaline Phosphatase 109 U/L (40-110); Anion Gap 9 mmol/L (10-20); BUN (Urea Nitrogen) 25 mg/dL (8.9-20.6); Bilirubin, Total 0.6 mg/dL (0.2-1.2); Calc. Creatinine Clearance 67 mL/min (70-130); Calcium 7.9 mg/dL (7.8-10.44); Carbon Dioxide 17 mmol/L (22-29); Chloride 99 mmol/L (98-107); Globulin 3.3 g/dL (2.4-3.5); Glucose 122 mg/dL (70-105); Potassium 3.8 mmol/L (3.5-5.1); Protein, Total 5.6 g/dL (6.0-8.3); Sodium 121 mmol/L (136-145)
[2021-09-04 06:04] LABS: Band 22 % (5-11); Lymphocytes 10 % (21-51); MDiff Complete? YES; Metamyelocyte 1 % (0-0); Monocytes 10 % (0-10); Neutrophil 57 % (42-75)
[2021-09-04] MEDS ORDERED: Sodium Chloride 3% 500 ML IVPB SCH (08:00)
[2021-09-04] MEDS: Ferrous Sulfate 325 MG TAB PO SCH ×2 (09:21→16:46)
[2021-09-04] MEDS: Multivitamin W/ Minerals 1 TAB PO SCH (09:21)
[2021-09-04] MEDS: Thiamine 100 MG TAB PO SCH (09:21)
[2021-09-04] MEDS: Ascorbic Acid 500 mg Chewable Tablet PO SCH (09:21)
[2021-09-04] MEDS: PARoxetine 20 MG TAB PO SCH (09:21)
[2021-09-04] MEDS: Nadolol 40 MG TAB PO SCH (09:21)
[2021-09-04] MEDS: Acetaminophen 325 MG TAB PO PRN (09:28)
[2021-09-04] MEDS: Pantoprazole 40 MG VIAL IVP SCH (09:30)
[2021-09-04] MEDS: cefTRIAXone\\ROCEPHIN 1 GM in Sodium Chloride 0.9% 100 ML IVPB SCH (11:32)
[2021-09-04] MEDS ORDERED: NIFEdipine XL 30 MG TAB PO SCH (14:44)
[2021-09-04] MEDS: hydrALAZINE 25 MG TAB PO SCH ×2 (15:36→20:54)
[2021-09-05 04:56] LABS: Hemoglobin 7.5 g/dL (14.0-18.0); Mean Corpuscular HGB CONC 35.6 g/dL (32.0-36.0); Mean Corpuscular Hemoglobin 34.3 pg (27.0-31.0); Mean Corpuscular Volume 96.2 fL (78.0-98.0); Mean Platelet Volume 6.2 fL (7.4-10.4); Platelet Count 87 thou/uL (130-400); RBC Distribution Width 13.2 % (11.5-14.5); Red Blood Cell (RBC) Count 2.17 mill/uL (4.70-6.10); White Blood Cell (WBC) Count 5.7 thou/uL (4.8-10.8)
[2021-09-05 05:38] LABS: Band 13 % (5-11); Lymphocytes 12 % (21-51); MDiff Complete? YES; Monocytes 16 % (0-10); Neutrophil 59 % (42-75)
[2021-09-05] MEDS: PARoxetine 20 MG TAB PO SCH (08:44)
[2021-09-05] MEDS: Ferrous Sulfate 325 MG TAB PO SCH ×2 (08:44→17:05)
[2021-09-05] MEDS: Ascorbic Acid 500 mg Chewable Tablet PO SCH (08:44)
[2021-09-05] MEDS: NIFEdipine XL 30 MG TAB PO SCH (08:45)
[2021-09-05] MEDS: Thiamine 100 MG TAB PO SCH (08:45)
[2021-09-05] MEDS: Nadolol 40 MG TAB PO SCH (08:45)
[2021-09-05] MEDS: Multivitamin W/ Minerals 1 TAB PO SCH (08:45)
[2021-09-05] MEDS: hydrALAZINE 25 MG TAB PO SCH ×3 (08:45→21:52)
[2021-09-05] MEDS: Furosemide 40 MG TAB PO SCH ×2 (08:45→14:55)
[2021-09-05] MEDS: cefTRIAXone\\ROCEPHIN 1 GM in Sodium Chloride 0.9% 100 ML IVPB SCH (11:12)
[2021-09-05] MEDS ORDERED: Furosemide 20 MG/2 ML VIAL SLOW IVP SCH (14:15)
[2021-09-05 15:40] LABS: Anion Gap 13 mmol/L (10-20); BUN (Urea Nitrogen) 34 mg/dL (8.9-20.6); Calc. Creatinine Clearance 58 mL/min (70-130); Calcium 7.7 mg/dL (7.8-10.44); Carbon Dioxide 13 mmol/L (22-29); Chloride 100 mmol/L (98-107); Glucose 162 mg/dL (70-105); Potassium 3.2 mmol/L (3.5-5.1); Sodium 123 mmol/L (136-145)
[2021-09-05] MEDS: Acetaminophen 325 MG TAB PO PRN (20:03)
[2021-09-05] MEDS: Rifaximin 550 MG TAB PO SCH (20:04)
[2021-09-05] MEDS ORDERED: Potassium Chloride 20 MEQ TAB PO SCH (21:30)
[2021-09-06 04:40] LABS: #Lymphocytes 1.1 thou/uL (1.20-3.40); #Monocytes 0.9 thou/uL (0.11-0.59); #Neutrophils 3.9 thou/uL (1.40-6.50); %Basophils 0.2 % (0.0-1.0); %Eosinophils 0.4 % (0.0-10.0); %Lymphocytes 18.7 % (21.0-51.0); %Monocytes 14.6 % (0.0-10.0); %Neutrophils 66.1 % (42.0-75.0); Hemoglobin 7.4 g/dL (14.0-18.0); Mean Corpuscular HGB CONC 34.3 g/dL (32.0-36.0); Mean Corpuscular Hemoglobin 33.7 pg (27.0-31.0); Mean Platelet Volume 6.3 fL (7.4-10.4); Platelet Count 94 thou/uL (130-400); RBC Distribution Width 13.4 % (11.5-14.5); Red Blood Cell (RBC) Count 2.18 mill/uL (4.70-6.10); White Blood Cell (WBC) Count 5.9 thou/uL (4.8-10.8)
[2021-09-06 04:44] LABS: Anion Gap 10 mmol/L (10-20); BUN (Urea Nitrogen) 37 mg/dL (8.9-20.6); Calc. Creatinine Clearance 56 mL/min (70-130); Calcium 7.7 mg/dL (7.8-10.44); Carbon Dioxide 16 mmol/L (22-29); Chloride 100 mmol/L (98-107); Glucose 129 mg/dL (70-105); Magnesium 1.6 mg/dL (1.6-2.6); Potassium 3.2 mmol/L (3.5-5.1); Sodium 123 mmol/L (136-145); Uric Acid 7.4 mg/dL (3.5-7.2)
[2021-09-06] MEDS: PARoxetine 20 MG TAB PO SCH (10:10)
[2021-09-06] MEDS: Furosemide 40 MG TAB PO SCH ×2 (10:10→15:25)
[2021-09-06] MEDS: Ascorbic Acid 500 mg Chewable Tablet PO SCH (10:10)
[2021-09-06] MEDS: Rifaximin 550 MG TAB PO SCH ×2 (10:11→20:41)
[2021-09-06] MEDS: hydrALAZINE 25 MG TAB PO SCH ×3 (10:11→20:39)
[2021-09-06] MEDS: Multivitamin W/ Minerals 1 TAB PO SCH (10:11)
[2021-09-06] MEDS: Thiamine 100 MG TAB PO SCH (10:11)
[2021-09-06] MEDS: Nadolol 40 MG TAB PO SCH (10:12)
[2021-09-06] MEDS: NIFEdipine XL 30 MG TAB PO SCH (10:12)
[2021-09-06] MEDS: Ferrous Sulfate 325 MG TAB PO SCH ×2 (10:12→16:58)
[2021-09-06] MEDS: Benzonatate 100 MG CAP PO PRN ×2 (10:20→19:24)
[2021-09-06] MEDS ORDERED: Potassium Chloride 20 MEQ TAB PO SCH ×2 (11:45→15:00)
[2021-09-06] MEDS ORDERED: Albumin 25% 25 GM/100 ML BOT IVPB SCH (16:15)
[2021-09-06 18:38] LABS: Sodium, Urine Less than 20 mmol/L (Not Available)
[2021-09-06] MEDS: Acetaminophen 325 MG TAB PO PRN (19:25)
[2021-09-06] MEDS: Octreotide Acetate 1,250 MCG in Sodium Chloride 0.9% 250 ML 250 ML IVPB SCH (19:29)
[2021-09-06] MEDS: Midodrine HCl 5 MG TAB PO SCH (20:41)
[2021-09-07 04:13] LABS: ALT (SGPT) 16 U/L (8-55); AST (SGOT) 35 U/L (5-34); Albumin 2.4 g/dL (3.5-5.0); Alkaline Phosphatase 107 U/L (40-110); Anion Gap 12 mmol/L (10-20); BUN (Urea Nitrogen) 43 mg/dL (8.9-20.6); Bilirubin, Total 0.4 mg/dL (0.2-1.2); Calc. Creatinine Clearance 53 mL/min (70-130); Calcium 7.9 mg/dL (7.8-10.44); Carbon Dioxide 13 mmol/L (22-29); Chloride 101 mmol/L (98-107); Globulin 3.2 g/dL (2.4-3.5); Glucose 143 mg/dL (70-105); Potassium 3.9 mmol/L (3.5-5.1); Protein, Total 5.6 g/dL (6.0-8.3); Sodium 122 mmol/L (136-145)
[2021-09-07 05:24] LABS: Band 3 % (5-11); Eosinophils 2 % (0-10); Hemoglobin 7.5 g/dL (14.0-18.0); Lymphocytes 28 % (21-51); MDiff Complete? YES; Mean Corpuscular HGB CONC 33.7 g/dL (32.0-36.0); Mean Corpuscular Hemoglobin 33.1 pg (27.0-31.0); Mean Corpuscular Volume 98.2 fL (78.0-98.0); Mean Platelet Volume 6.3 fL (7.4-10.4); Monocytes 8 % (0-10); Myelocyte 1 % (0-0); Neutrophil 58 % (42-75); Platelet Count 112 thou/uL (130-400); Platelet Morphology Comment Appears Decreased; RBC Distribution Width 13.3 % (11.5-14.5); Red Blood Cell (RBC) Count 2.27 mill/uL (4.70-6.10); White Blood Cell (WBC) Count 5.3 thou/uL (4.8-10.8)
[2021-09-07] MEDS: Thiamine 100 MG TAB PO SCH (08:57)
[2021-09-07] MEDS: Midodrine HCl 5 MG TAB PO SCH ×3 (08:57→22:08)
[2021-09-07] MEDS: Ferrous Sulfate 325 MG TAB PO SCH ×2 (08:57→17:37)
[2021-09-07] MEDS: Multivitamin W/ Minerals 1 TAB PO SCH (08:57)
[2021-09-07] MEDS: Rifaximin 550 MG TAB PO SCH ×2 (08:57→22:11)
[2021-09-07] MEDS: hydrALAZINE 25 MG TAB PO SCH ×3 (08:57→22:11)
[2021-09-07] MEDS: Ascorbic Acid 500 mg Chewable Tablet PO SCH (08:57)
[2021-09-07] MEDS: NIFEdipine XL 30 MG TAB PO SCH (08:58)
[2021-09-07] MEDS: Nadolol 40 MG TAB PO SCH (08:58)
[2021-09-07] MEDS: Furosemide 40 MG TAB PO SCH ×2 (08:58→15:37)
[2021-09-07] MEDS: PARoxetine 20 MG TAB PO SCH (08:58)
[2021-09-07] MEDS ORDERED: Sodium Bicarb 50 MEQ/50 ML Abboject 8.4% SYRINGE IVP SCH (09:15)
[2021-09-07] MEDS: Albumin 25% 25 GM/100 ML BOT IVPB SCH ×3 (11:38→22:12)
[2021-09-07 12:00] LABS: Anion Gap 9 mmol/L (10-20); BUN (Urea Nitrogen) 47 mg/dL (8.9-20.6); Calc. Creatinine Clearance 48 mL/min (70-130); Calcium 7.9 mg/dL (7.8-10.44); Carbon Dioxide 17 mmol/L (22-29); Chloride 101 mmol/L (98-107); Glucose 166 mg/dL (70-105); Potassium 3.7 mmol/L (3.5-5.1); Sodium 123 mmol/L (136-145)
[2021-09-07] MEDS: Benzonatate 100 MG CAP PO PRN (18:02)
[2021-09-07] MEDS: Sodium Bicarbonate Tab 325 MG TAB PO SCH (22:07)
[2021-09-07] MEDS: Acetaminophen 325 MG TAB PO PRN (22:10)
[2021-09-08] MEDS: Octreotide Acetate 1,250 MCG in Sodium Chloride 0.9% 250 ML 250 ML IVPB SCH (00:41)
[2021-09-08] MEDS: Albumin 25% 25 GM/100 ML BOT IVPB SCH ×4 (04:20→23:40)
[2021-09-08 05:33] LABS: #Eosinphils 0.1 thou/uL (0.0-0.7); #Lymphocytes 1.1 thou/uL (1.20-3.40); #Monocytes 0.7 thou/uL (0.11-0.59); #Neutrophils 3.1 thou/uL (1.40-6.50); %Basophils 0.6 % (0.0-1.0); %Eosinophils 2.1 % (0.0-10.0); %Lymphocytes 22.3 % (21.0-51.0); %Monocytes 13.9 % (0.0-10.0); %Neutrophils 61.1 % (42.0-75.0); Hemoglobin 7.3 g/dL (14.0-18.0); Mean Corpuscular HGB CONC 34.4 g/dL (32.0-36.0); Mean Corpuscular Hemoglobin 33.5 pg (27.0-31.0); Mean Corpuscular Volume 97.4 fL (78.0-98.0); Mean Platelet Volume 6.6 fL (7.4-10.4); Platelet Count 114 thou/uL (130-400); RBC Distribution Width 13.4 % (11.5-14.5); Red Blood Cell (RBC) Count 2.17 mill/uL (4.70-6.10); White Blood Cell (WBC) Count 5.1 thou/uL (4.8-10.8)
[2021-09-08 05:36] LABS: ALT (SGPT) 16 U/L (8-55); AST (SGOT) 29 U/L (5-34); Albumin 2.8 g/dL (3.5-5.0); Alkaline Phosphatase 103 U/L (40-110); Anion Gap 11 mmol/L (10-20); BUN (Urea Nitrogen) 50 mg/dL (8.9-20.6); Bilirubin, Total 0.5 mg/dL (0.2-1.2); Calc. Creatinine Clearance 45 mL/min (70-130); Calcium 8.1 mg/dL (7.8-10.44); Carbon Dioxide 16 mmol/L (22-29); Chloride 100 mmol/L (98-107); Globulin 2.9 g/dL (2.4-3.5); Glucose 140 mg/dL (70-105); Potassium 3.2 mmol/L (3.5-5.1); Protein, Total 5.7 g/dL (6.0-8.3); Sodium 124 mmol/L (136-145)
[2021-09-08] MEDS: Sodium Bicarbonate Tab 325 MG TAB PO SCH ×2 (08:31→21:22)
[2021-09-08] MEDS: Multivitamin W/ Minerals 1 TAB PO SCH (08:31)
[2021-09-08] MEDS: Ferrous Sulfate 325 MG TAB PO SCH ×2 (08:31→17:28)
[2021-09-08] MEDS: Midodrine HCl 5 MG TAB PO SCH ×3 (08:31→21:23)
[2021-09-08] MEDS: hydrALAZINE 25 MG TAB PO SCH ×3 (08:31→21:22)
[2021-09-08] MEDS: Nadolol 40 MG TAB PO SCH (08:32)
[2021-09-08] MEDS: NIFEdipine XL 30 MG TAB PO SCH (08:32)
[2021-09-08] MEDS: PARoxetine 20 MG TAB PO SCH (08:32)
[2021-09-08] MEDS: Rifaximin 550 MG TAB PO SCH ×2 (08:32→21:23)
[2021-09-08] MEDS: Furosemide 40 MG TAB PO SCH ×2 (08:32→16:02)
[2021-09-08] MEDS: Ascorbic Acid 500 mg Chewable Tablet PO SCH (08:32)
[2021-09-08] MEDS: Thiamine 100 MG TAB PO SCH (08:32)
[2021-09-08 12:07] LABS: SARS-CoV-2 PCR by NAA Not Detected (NotDetected)
[2021-09-08] MEDS: HumaLOG 300 UNITS/3 ML VIAL SC PRN (17:28)
[2021-09-09 04:52] LABS: #Eosinphils 0.1 thou/uL (0.0-0.7); #Lymphocytes 0.9 thou/uL (1.20-3.40); #Monocytes 0.8 thou/uL (0.11-0.59); #Neutrophils 3.6 thou/uL (1.40-6.50); %Basophils 0.1 % (0.0-1.0); %Eosinophils 1.5 % (0.0-10.0); %Lymphocytes 16.6 % (21.0-51.0); %Monocytes 14.6 % (0.0-10.0); %Neutrophils 67.2 % (42.0-75.0); Hemoglobin 7.3 g/dL (14.0-18.0); Mean Corpuscular Hemoglobin 33.6 pg (27.0-31.0); Mean Corpuscular Volume 98.7 fL (78.0-98.0); Mean Platelet Volume 6.5 fL (7.4-10.4); Platelet Count 118 thou/uL (130-400); RBC Distribution Width 13.4 % (11.5-14.5); Red Blood Cell (RBC) Count 2.16 mill/uL (4.70-6.10); White Blood Cell (WBC) Count 5.3 thou/uL (4.8-10.8)
[2021-09-09 04:59] LABS: ALT (SGPT) 15 U/L (8-55); AST (SGOT) 28 U/L (5-34); Albumin 3.2 g/dL (3.5-5.0); Alkaline Phosphatase 103 U/L (40-110); Anion Gap 14 mmol/L (10-20); BUN (Urea Nitrogen) 58 mg/dL (8.9-20.6); Bilirubin, Total 0.5 mg/dL (0.2-1.2); Calc. Creatinine Clearance 38 mL/min (70-130); Calcium 8.1 mg/dL (7.8-10.44); Carbon Dioxide 14 mmol/L (22-29); Chloride 100 mmol/L (98-107); Globulin 2.8 g/dL (2.4-3.5); Glucose 136 mg/dL (70-105); Sodium 125 mmol/L (136-145)
[2021-09-09 05:06] LABS: Potassium 2.9 mmol/L (3.5-5.1)
[2021-09-09] MEDS: Octreotide Acetate 1,250 MCG in Sodium Chloride 0.9% 250 ML 250 ML IVPB SCH (05:41)
[2021-09-09] MEDS: Albumin 25% 25 GM/100 ML BOT IVPB SCH ×3 (05:41→17:42)
[2021-09-09] MEDS ORDERED: Potassium Chloride 40 MEQ in Premix Bag 1 BAG IVPB SCH (08:00)
[2021-09-09] MEDS: Ascorbic Acid 500 mg Chewable Tablet PO SCH (08:47)
[2021-09-09] MEDS: Midodrine HCl 5 MG TAB PO SCH ×3 (08:47→20:28)
[2021-09-09] MEDS: Furosemide 40 MG TAB PO SCH ×2 (08:47→13:46)
[2021-09-09] MEDS: Ferrous Sulfate 325 MG TAB PO SCH ×2 (08:47→17:40)
[2021-09-09] MEDS: Multivitamin W/ Minerals 1 TAB PO SCH (08:47)
[2021-09-09] MEDS: NIFEdipine XL 30 MG TAB PO SCH (08:48)
[2021-09-09] MEDS: hydrALAZINE 25 MG TAB PO SCH ×3 (08:51→20:29)
[2021-09-09] MEDS: PARoxetine 20 MG TAB PO SCH (08:52)
[2021-09-09] MEDS: Sodium Bicarbonate Tab 325 MG TAB PO SCH (08:52)
[2021-09-09] MEDS: Thiamine 100 MG TAB PO SCH (08:52)
[2021-09-09] MEDS: Rifaximin 550 MG TAB PO SCH ×2 (08:52→20:28)
[2021-09-09] MEDS: Nadolol 40 MG TAB PO SCH (08:54)
[2021-09-09] MEDS: HumaLOG 300 UNITS/3 ML VIAL SC PRN (12:11)
[2021-09-09] MEDS: Guaifenesin DM 100-10/5 ML UDCUP PO PRN ×2 (12:11→19:31)
[2021-09-09 12:30] LABS: Anion Gap 12 mmol/L (10-20); BUN (Urea Nitrogen) 57 mg/dL (8.9-20.6); Calc. Creatinine Clearance 38 mL/min (70-130); Calcium 8.1 mg/dL (7.8-10.44); Carbon Dioxide 15 mmol/L (22-29); Chloride 101 mmol/L (98-107); Glucose 155 mg/dL (70-105); Magnesium 1.8 mg/dL (1.6-2.6); Potassium 3.3 mmol/L (3.5-5.1); Sodium 125 mmol/L (136-145)
[2021-09-09] MEDS: Acetaminophen 325 MG TAB PO PRN (16:00)
[2021-09-09] MEDS ORDERED: Sodium Bicarbonate Tab 325 MG TAB PO SCH (16:15)
[2021-09-10 04:51] LABS: #Eosinphils 0.1 thou/uL (0.0-0.7); #Lymphocytes 0.8 thou/uL (1.20-3.40); #Monocytes 0.6 thou/uL (0.11-0.59); #Neutrophils 2.9 thou/uL (1.40-6.50); %Basophils 0.6 % (0.0-1.0); %Eosinophils 2.3 % (0.0-10.0); %Lymphocytes 17.1 % (21.0-51.0); %Monocytes 14.3 % (0.0-10.0); %Neutrophils 65.7 % (42.0-75.0); Hemoglobin 6.9 g/dL (14.0-18.0); Mean Corpuscular HGB CONC 34.4 g/dL (32.0-36.0); Mean Corpuscular Hemoglobin 33.7 pg (27.0-31.0); Mean Platelet Volume 6.2 fL (7.4-10.4); Platelet Count 106 thou/uL (130-400); RBC Distribution Width 13.4 % (11.5-14.5); Red Blood Cell (RBC) Count 2.05 mill/uL (4.70-6.10); White Blood Cell (WBC) Count 4.4 thou/uL (4.8-10.8)
[2021-09-10 05:04] LABS: ALT (SGPT) 14 U/L (8-55); AST (SGOT) 28 U/L (5-34); Albumin 3.3 g/dL (3.5-5.0); Alkaline Phosphatase 90 U/L (40-110); Anion Gap 12 mmol/L (10-20); BUN (Urea Nitrogen) 62 mg/dL (8.9-20.6); Bilirubin, Total 0.6 mg/dL (0.2-1.2); Calc. Creatinine Clearance 38 mL/min (70-130); Calcium 8.3 mg/dL (7.8-10.44); Carbon Dioxide 16 mmol/L (22-29); Chloride 101 mmol/L (98-107); Globulin 2.7 g/dL (2.4-3.5); Glucose 154 mg/dL (70-105); Sodium 126 mmol/L (136-145)
[2021-09-10 05:07] LABS: Potassium 2.9 mmol/L (3.5-5.1)
[2021-09-10] MEDS: HumaLOG 300 UNITS/3 ML VIAL SC PRN (06:33)
[2021-09-10] MEDS ORDERED: Potassium Chloride 20 MEQ TAB PO SCH (07:45)
[2021-09-10] MEDS: Octreotide Acetate 1,250 MCG in Sodium Chloride 0.9% 250 ML 250 ML IVPB SCH (08:54)
[2021-09-10] MEDS: Nadolol 40 MG TAB PO SCH (08:57)
[2021-09-10] MEDS: Thiamine 100 MG TAB PO SCH (08:59)
[2021-09-10] MEDS: Midodrine HCl 5 MG TAB PO SCH ×3 (08:59→21:23)
[2021-09-10] MEDS: Multivitamin W/ Minerals 1 TAB PO SCH (08:59)
[2021-09-10] MEDS: Ferrous Sulfate 325 MG TAB PO SCH ×2 (08:59→17:22)
[2021-09-10] MEDS: Ascorbic Acid 500 mg Chewable Tablet PO SCH (08:59)
[2021-09-10] MEDS ORDERED: Sodium Bicarbonate Tab 325 MG TAB PO SCH (09:00)
[2021-09-10] MEDS: Rifaximin 550 MG TAB PO SCH ×2 (09:00→21:25)
[2021-09-10] MEDS: hydrALAZINE 25 MG TAB PO SCH ×3 (09:00→21:24)
[2021-09-10] MEDS: NIFEdipine XL 30 MG TAB PO SCH (09:00)
[2021-09-10] MEDS: PARoxetine 20 MG TAB PO SCH (09:00)
[2021-09-10] MEDS: Furosemide 40 MG TAB PO SCH ×2 (09:01→17:22)
[2021-09-10] MEDS: Guaifenesin DM 100-10/5 ML UDCUP PO PRN (11:40)
[2021-09-10 14:13] LABS: Anion Gap 14 mmol/L (10-20); BUN (Urea Nitrogen) 65 mg/dL (8.9-20.6); Calc. Creatinine Clearance 39 mL/min (70-130); Calcium 8.6 mg/dL (7.8-10.44); Carbon Dioxide 14 mmol/L (22-29); Chloride 101 mmol/L (98-107); Glucose 144 mg/dL (70-105); Potassium 3.1 mmol/L (3.5-5.1); Sodium 126 mmol/L (136-145)
[2021-09-10] MEDS: Sodium Bicarbonate Tab 325 MG TAB PO SCH ×2 (17:22→21:24)
[2021-09-10] MEDS: Benzonatate 100 MG CAP PO PRN (17:28)
[2021-09-10] MEDS ORDERED: Albumin 25% 25 GM/100 ML BOT IVPB SCH (18:00)
[2021-09-10] MEDS: Albumin 25% 25 GM/100 ML BOT IVPB SCH (21:32)
[2021-09-11] MEDS: Albumin 25% 25 GM/100 ML BOT IVPB SCH ×4 (03:50→20:24)
[2021-09-11 04:02] LABS: #Eosinphils 0.1 thou/uL (0.0-0.7); #Lymphocytes 0.9 thou/uL (1.20-3.40); #Monocytes 0.7 thou/uL (0.11-0.59); #Neutrophils 3.1 thou/uL (1.40-6.50); %Basophils 0.4 % (0.0-1.0); %Eosinophils 1.3 % (0.0-10.0); %Neutrophils 66.3 % (42.0-75.0); Hemoglobin 7.6 g/dL (14.0-18.0); Mean Corpuscular HGB CONC 34.6 g/dL (32.0-36.0); Mean Corpuscular Hemoglobin 33.4 pg (27.0-31.0); Mean Corpuscular Volume 96.4 fL (78.0-98.0); Mean Platelet Volume 6.9 fL (7.4-10.4); Platelet Count 139 thou/uL (130-400); RBC Distribution Width 13.6 % (11.5-14.5); Red Blood Cell (RBC) Count 2.28 mill/uL (4.70-6.10); White Blood Cell (WBC) Count 4.7 thou/uL (4.8-10.8)
[2021-09-11 04:11] LABS: INR-International Normal Ratio 1.6; Prothrombin Time 19.2 sec (12.0-14.7)
[2021-09-11 04:20] LABS: ALT (SGPT) 18 U/L (8-55); AST (SGOT) 35 U/L (5-34); Albumin 3.6 g/dL (3.5-5.0); Alkaline Phosphatase 85 U/L (40-110); Anion Gap 14 mmol/L (10-20); BUN (Urea Nitrogen) 68 mg/dL (8.9-20.6); Calc. Creatinine Clearance 38 mL/min (70-130); Calcium 8.6 mg/dL (7.8-10.44); Carbon Dioxide 15 mmol/L (22-29); Chloride 103 mmol/L (98-107); Glucose 153 mg/dL (70-105); Magnesium 1.9 mg/dL (1.6-2.6); Potassium 3.1 mmol/L (3.5-5.1); Protein, Total 6.6 g/dL (6.0-8.3); Sodium 129 mmol/L (136-145)
[2021-09-11] MEDS: Thiamine 100 MG TAB PO SCH (09:11)
[2021-09-11] MEDS: PARoxetine 20 MG TAB PO SCH (09:11)
[2021-09-11] MEDS: NIFEdipine XL 30 MG TAB PO SCH (09:12)
[2021-09-11] MEDS: Sodium Bicarbonate Tab 325 MG TAB PO SCH ×3 (09:12→22:46)
[2021-09-11] MEDS: Ferrous Sulfate 325 MG TAB PO SCH ×2 (09:12→16:03)
[2021-09-11] MEDS: hydrALAZINE 25 MG TAB PO SCH ×3 (09:13→20:25)
[2021-09-11] MEDS: Midodrine HCl 5 MG TAB PO SCH ×3 (09:14→20:25)
[2021-09-11] MEDS: Ascorbic Acid 500 mg Chewable Tablet PO SCH (09:14)
[2021-09-11] MEDS: Furosemide 40 MG TAB PO SCH ×2 (09:14→13:28)
[2021-09-11] MEDS: Rifaximin 550 MG TAB PO SCH ×2 (09:15→20:25)
[2021-09-11] MEDS: Multivitamin W/ Minerals 1 TAB PO SCH (09:15)
[2021-09-11] MEDS: Nadolol 40 MG TAB PO SCH (09:15)
[2021-09-11] MEDS: HumaLOG 300 UNITS/3 ML VIAL SC PRN (11:26)
[2021-09-11] MEDS ORDERED: Potassium Chloride 20 MEQ TAB PO SCH (12:15)
[2021-09-11] MEDS: Octreotide Acetate 1,250 MCG in Sodium Chloride 0.9% 250 ML 250 ML IVPB SCH (15:55)
[2021-09-11] MEDS ORDERED: Epoetin (ESRD) 10,000 UNITS/ML VIAL SC SCH (16:15)
[2021-09-11] MEDS: EPOETIN ALFA-EPBX (ESRD) 10,000 UNIT/ML VIAL SC SCH (16:58)
[2021-09-12] MEDS ORDERED: Melatonin 3 MG TAB PO PRN (02:12)
[2021-09-12] MEDS: cefTRIAXone\\ROCEPHIN 2 GM in Sodium Chloride 0.9% 100 ML IVPB SCH (05:33)
[2021-09-12 05:41] LABS: ALT (SGPT) 17 U/L (8-55); AST (SGOT) 33 U/L (5-34); Albumin 3.9 g/dL (3.5-5.0); Alkaline Phosphatase 73 U/L (40-110); Anion Gap 14 mmol/L (10-20); BUN (Urea Nitrogen) 69 mg/dL (8.9-20.6); Bilirubin, Total 0.9 mg/dL (0.2-1.2); Calc. Creatinine Clearance 39 mL/min (70-130); Carbon Dioxide 16 mmol/L (22-29); Chloride 102 mmol/L (98-107); Globulin 2.8 g/dL (2.4-3.5); Glucose 130 mg/dL (70-105); Potassium 3.3 mmol/L (3.5-5.1); Protein, Total 6.7 g/dL (6.0-8.3); Sodium 129 mmol/L (136-145)
[2021-09-12] MEDS ORDERED: VANCOMYCIN 2 GRAM/400 ML BAG 2 GM in Premix Bag 1 BAG IVPB SCH (06:00)
[2021-09-12 06:16] LABS: Band 11 % (5-11); Burr Cells SLIGHT = 2-5 cells (100X) (0-1/hpf); Eosinophils 2 % (0-10); Hemoglobin 7.5 g/dL (14.0-18.0); Lymphocytes 19 % (21-51); MDiff Complete? YES; Mean Corpuscular HGB CONC 36.6 g/dL (32.0-36.0); Mean Corpuscular Hemoglobin 35.3 pg (27.0-31.0); Mean Corpuscular Volume 96.5 fL (78.0-98.0); Monocytes 11 % (0-10); Myelocyte 2 % (0-0); Neutrophil 55 % (42-75); Platelet Count 117 thou/uL (130-400); Platelet Morphology Comment Appears Decreased; Polychromasia SLIGHT = 2-3 cells (100X) (0-2/hpf); RBC Distribution Width 13.5 % (11.5-14.5); Red Blood Cell (RBC) Count 2.13 mill/uL (4.70-6.10); Schistocytes SLIGHT = 2-5 cells (100X) (0-1/hpf); Target Cells SLIGHT = 2-5 cells (100X) (0-1/hpf); White Blood Cell (WBC) Count 2.9 thou/uL (4.8-10.8)
[2021-09-12] MEDS: Octreotide Acetate 1,250 MCG in Sodium Chloride 0.9% 250 ML 250 ML IVPB SCH ×2 (06:24→08:47)
[2021-09-12] MEDS: hydrALAZINE 25 MG TAB PO SCH ×3 (08:22→21:29)
[2021-09-12] MEDS: Midodrine HCl 5 MG TAB PO SCH ×3 (08:23→21:30)
[2021-09-12] MEDS: Sodium Bicarbonate Tab 325 MG TAB PO SCH ×3 (08:23→21:26)
[2021-09-12] MEDS: Furosemide 40 MG TAB PO SCH (08:23)
[2021-09-12] MEDS: Ferrous Sulfate 325 MG TAB PO SCH ×2 (08:23→16:11)
[2021-09-12] MEDS: Rifaximin 550 MG TAB PO SCH ×2 (08:23→21:26)
[2021-09-12] MEDS: Thiamine 100 MG TAB PO SCH (08:24)
[2021-09-12] MEDS: Multivitamin W/ Minerals 1 TAB PO SCH (08:24)
[2021-09-12] MEDS: Ascorbic Acid 500 mg Chewable Tablet PO SCH (08:24)
[2021-09-12] MEDS: NIFEdipine XL 30 MG TAB PO SCH (08:24)
[2021-09-12] MEDS: PARoxetine 20 MG TAB PO SCH (08:24)
[2021-09-12] MEDS: Nadolol 40 MG TAB PO SCH (08:34)
[2021-09-12] MEDS: Lorazepam 2 MG/ML VIAL SLOW IVP PRN ×2 (11:26→19:55)
[2021-09-12] MEDS ORDERED: Furosemide 40 MG/4 ML VIAL SLOW IVP SCH (12:15)
[2021-09-12 12:51] LABS: Actual Bicarbonate (HCO3a) 13.6 mEq/L (22-28); Base Excess (BEa) -12.5 mEq/L (-2.0 to +3.0); CO2 Tension 31.9 mmHg (35.0-45.0); Calcium, Ionized (arterial) 1.22 mmol/L (1.12-1.30); Hemoglobin (Hb) 7.4 g/dL (14.0-18.0); O2 Tension (PaO2), arterial 70.7 mmHg (80.0-100.0); Potassium - ABG Lab 3.28 mmol/L (3.70-5.30)
[2021-09-12 12:56] LABS: ALV-art Gradient 110.455 mmHg (0-20); Puncture Site RBA; pH, Arterial 7.25 (7.35-7.45)
[2021-09-12] MEDS: Furosemide 40 MG/4 ML VIAL SLOW IVP SCH (15:30)
[2021-09-12] MEDS ORDERED: Furosemide 100 MG/10 ML VIAL SLOW IVP SCH (16:15)
[2021-09-12] MEDS ORDERED: hydrALAZINE 20 MG/ML VIAL SLOW IVP PRN (20:37)
[2021-09-12] MEDS: Pantoprazole 40 MG VIAL IVP SCH (22:15)
[2021-09-13 04:11] LABS: Anion Gap 18 mmol/L (10-20); BUN (Urea Nitrogen) 75 mg/dL (8.9-20.6); Calc. Creatinine Clearance 36 mL/min (70-130); Calcium 9.1 mg/dL (7.8-10.44); Carbon Dioxide 12 mmol/L (22-29); Chloride 106 mmol/L (98-107); Glucose 132 mg/dL (70-105); Sodium 133 mmol/L (136-145)
[2021-09-13 04:13] LABS: Band 8 % (5-11); Eosinophils 1 % (0-10); Hemoglobin 7.2 g/dL (14.0-18.0); Hypochromia SLIGHT = 6-15 cells (100X) (0-5/hpf); Lymphocytes 19 % (21-51); MDiff Complete? YES; Mean Corpuscular HGB CONC 34.8 g/dL (32.0-36.0); Mean Corpuscular Hemoglobin 33.8 pg (27.0-31.0); Mean Corpuscular Volume 97.4 fL (78.0-98.0); Neutrophil 72 % (42-75); Platelet Count 112 thou/uL (130-400); Platelet Morphology Comment Appears Decreased; RBC Distribution Width 13.8 % (11.5-14.5); Red Blood Cell (RBC) Count 2.12 mill/uL (4.70-6.10)
[2021-09-13 04:14] LABS: Potassium 2.7 mmol/L (3.5-5.1)
[2021-09-13 04:18] LABS: Vancomycin, Random 20.1 ug/mL (See Comment)
[2021-09-13] MEDS ORDERED: Vancomycin 1 GM in Premix Bag 1 BAG IVPB SCH (06:00)
[2021-09-13] MEDS: Furosemide 40 MG/4 ML VIAL SLOW IVP SCH ×2 (06:06→14:35)
[2021-09-13] MEDS: cefTRIAXone\\ROCEPHIN 2 GM in Sodium Chloride 0.9% 100 ML IVPB SCH (06:06)
[2021-09-13] MEDS: Potassium Chloride 20 MEQ in Premix Bag 1 BAG IVPB SCH ×4 (06:34→23:44)
[2021-09-13] MEDS ORDERED: Lactulose 10 GM/15 ML Oral Solution PR SCH (10:00)
[2021-09-13] MEDS: Ferrous Sulfate 325 MG TAB PO SCH ×2 (11:49→18:17)
[2021-09-13] MEDS: NIFEdipine XL 30 MG TAB PO SCH (11:49)
[2021-09-13] MEDS: hydrALAZINE 25 MG TAB PO SCH ×3 (11:49→20:31)
[2021-09-13] MEDS: Ascorbic Acid 500 mg Chewable Tablet PO SCH (11:49)
[2021-09-13] MEDS: Multivitamin W/ Minerals 1 TAB PO SCH (11:49)
[2021-09-13] MEDS: Nadolol 40 MG TAB PO SCH (11:49)
[2021-09-13] MEDS: Midodrine HCl 5 MG TAB PO SCH ×3 (11:49→20:33)
[2021-09-13] MEDS: PARoxetine 20 MG TAB PO SCH (11:50)
[2021-09-13] MEDS: Pantoprazole 40 MG VIAL IVP SCH ×2 (11:50→22:35)
[2021-09-13] MEDS: Rifaximin 550 MG TAB PO SCH ×2 (11:50→20:34)
[2021-09-13] MEDS: Sodium Bicarbonate Tab 325 MG TAB PO SCH ×3 (11:50→20:34)
[2021-09-13] MEDS: Thiamine 100 MG TAB PO SCH (11:51)
[2021-09-13] MEDS: Lactulose 10 GM/15 ML Oral Solution PR SCH ×3 (14:44→20:32)
[2021-09-13] MEDS: Lorazepam 2 MG/ML VIAL SLOW IVP PRN ×2 (16:47→20:38)
[2021-09-13 17:36] LABS: Anion Gap 19 mmol/L (10-20); BUN (Urea Nitrogen) 78 mg/dL (8.9-20.6); Calc. Creatinine Clearance 33 mL/min (70-130); Calcium 9.4 mg/dL (7.8-10.44); Carbon Dioxide 12 mmol/L (22-29); Chloride 107 mmol/L (98-107); Glucose 137 mg/dL (70-105); Sodium 135 mmol/L (136-145)
[2021-09-13 17:52] LABS: Potassium 2.7 mmol/L (3.5-5.1)
[2021-09-14] MEDS: cefTRIAXone\\ROCEPHIN 2 GM in Sodium Chloride 0.9% 100 ML IVPB SCH (05:50)
[2021-09-14] MEDS: Furosemide 40 MG/4 ML VIAL SLOW IVP SCH ×2 (05:51→15:52)
[2021-09-14 05:55] LABS: #Lymphocytes 0.5 thou/uL (1.20-3.40); #Monocytes 0.6 thou/uL (0.11-0.59); #Neutrophils 5.7 thou/uL (1.40-6.50); %Basophils 0.3 % (0.0-1.0); %Eosinophils 0.2 % (0.0-10.0); %Monocytes 9.1 % (0.0-10.0); %Neutrophils 83.4 % (42.0-75.0); Hemoglobin 7.7 g/dL (14.0-18.0); Mean Corpuscular HGB CONC 34.3 g/dL (32.0-36.0); Mean Corpuscular Hemoglobin 33.4 pg (27.0-31.0); Mean Corpuscular Volume 97.4 fL (78.0-98.0); Mean Platelet Volume 7.4 fL (7.4-10.4); Platelet Count 123 thou/uL (130-400); RBC Distribution Width 13.7 % (11.5-14.5); White Blood Cell (WBC) Count 6.8 thou/uL (4.8-10.8)
[2021-09-14 06:16] LABS: Vancomycin, Random 17.4 ug/mL (See Comment)
[2021-09-14] MEDS ORDERED: Vancomycin HCl 750 MG in Sodium Chloride 0.9% 250 ML 250 ML IVPB SCH (08:00)
[2021-09-14] MEDS: Ferrous Sulfate 325 MG TAB PO SCH ×2 (08:12→15:53)
[2021-09-14] MEDS: Multivitamin W/ Minerals 1 TAB PO SCH (08:12)
[2021-09-14] MEDS: Lactulose 10 GM/15 ML Oral Solution PR SCH ×3 (08:12→18:41)
[2021-09-14] MEDS: Midodrine HCl 5 MG TAB PO SCH ×2 (08:12→15:52)
[2021-09-14] MEDS: Ascorbic Acid 500 mg Chewable Tablet PO SCH (08:12)
[2021-09-14] MEDS: hydrALAZINE 25 MG TAB PO SCH ×2 (08:12→15:52)
[2021-09-14] MEDS: Nadolol 40 MG TAB PO SCH (08:13)
[2021-09-14] MEDS: Rifaximin 550 MG TAB PO SCH (08:13)
[2021-09-14] MEDS: Thiamine 100 MG TAB PO SCH (08:13)
[2021-09-14] MEDS: Sodium Bicarbonate Tab 325 MG TAB PO SCH ×2 (08:13→15:53)
[2021-09-14] MEDS: PARoxetine 20 MG TAB PO SCH (08:13)
[2021-09-14] MEDS: NIFEdipine XL 30 MG TAB PO SCH (08:13)
[2021-09-14] MEDS: Pantoprazole 40 MG VIAL IVP SCH (08:14)
[2021-09-14 09:15] LABS: Anion Gap 18 mmol/L (10-20); BUN (Urea Nitrogen) 76 mg/dL (8.9-20.6); Calc. Creatinine Clearance 31 mL/min (70-130); Calcium 9.2 mg/dL (7.8-10.44); Carbon Dioxide 11 mmol/L (22-29); Chloride 108 mmol/L (98-107); Glucose 116 mg/dL (70-105); Potassium 3.1 mmol/L (3.5-5.1); Sodium 134 mmol/L (136-145)
[2021-09-14 09:28] LABS: HBSAB Concentration Less than 8.00 mIU/mL; HBSAg Index 0.32 S/CO (0-0.99); Hep B Core Total Ab Non-Reactive (NonReactive); Hep B Core Total Index 0.15 S/CO (0-0.79); Hep B Surf AB Non-Reactive (NonReactive); Hep B Surf Ag Non-Reactive S/CO (NonReactive); Hep C IgG Ab Non-Reactive (NonReactive); Hep C Index 0.09 S/CO (0-0.79)
[2021-09-14] MEDS ORDERED: Heparin 10,000 UNITS/ 10 ML VIAL ONE (09:29)
[2021-09-15] MEDS: Lactulose 10 GM/15 ML Oral Solution PR SCH ×5 (00:19→22:08)
[2021-09-15] MEDS: Rifaximin 550 MG TAB PO SCH ×3 (00:40→22:20)
[2021-09-15] MEDS: Sodium Bicarbonate Tab 325 MG TAB PO SCH ×4 (00:40→22:20)
[2021-09-15] MEDS: Midodrine HCl 5 MG TAB PO SCH ×4 (00:40→22:19)
[2021-09-15] MEDS: Pantoprazole 40 MG VIAL IVP SCH ×3 (00:40→22:34)
[2021-09-15] MEDS: hydrALAZINE 25 MG TAB PO SCH ×4 (00:40→21:53)
[2021-09-15 04:25] LABS: Band 38 % (5-11); Hemoglobin 7.9 g/dL (14.0-18.0); Hypochromia SLIGHT = 6-15 cells (100X) (0-5/hpf); Lymphocytes 13 % (21-51); MDiff Complete? YES; Mean Corpuscular HGB CONC 33.2 g/dL (32.0-36.0); Mean Corpuscular Hemoglobin 32.6 pg (27.0-31.0); Mean Corpuscular Volume 98.2 fL (78.0-98.0); Mean Platelet Volume 7.8 fL (7.4-10.4); Metamyelocyte 1 % (0-0); Monocytes 1 % (0-10); Neutrophil 47 % (42-75); Platelet Count 110 thou/uL (130-400); Platelet Morphology Comment Appears Decreased; RBC Distribution Width 14.1 % (11.5-14.5); Red Blood Cell (RBC) Count 2.42 mill/uL (4.70-6.10); White Blood Cell (WBC) Count 12.1 thou/uL (4.8-10.8)
[2021-09-15 04:31] LABS: Vancomycin, Random 13.8 ug/mL (See Comment)
[2021-09-15 04:33] LABS: Magnesium 1.9 mg/dL (1.6-2.6)
[2021-09-15] MEDS: cefTRIAXone\\ROCEPHIN 2 GM in Sodium Chloride 0.9% 100 ML IVPB SCH (05:59)
[2021-09-15] MEDS ORDERED: VANCOMYCIN 1.25 GM/250 ML BAG 1.25 GM in Premix Bag 1 BAG IVPB SCH (06:00)
[2021-09-15] MEDS: Furosemide 40 MG/4 ML VIAL SLOW IVP SCH ×2 (06:03→15:11)
[2021-09-15] MEDS: Ferrous Sulfate 325 MG TAB PO SCH ×2 (07:32→15:13)
[2021-09-15] MEDS: Ascorbic Acid 500 mg Chewable Tablet PO SCH (07:32)
[2021-09-15] MEDS: Multivitamin W/ Minerals 1 TAB PO SCH (07:33)
[2021-09-15] MEDS: Nadolol 40 MG TAB PO SCH (07:33)
[2021-09-15] MEDS: NIFEdipine XL 30 MG TAB PO SCH (07:33)
[2021-09-15] MEDS: Thiamine 100 MG TAB PO SCH (07:34)
[2021-09-15] MEDS: PARoxetine 20 MG TAB PO SCH (07:34)
[2021-09-15 09:15] LABS: INR-International Normal Ratio 2.3; Prothrombin Time 25.5 sec (12.0-14.7)
[2021-09-15] MEDS ORDERED: Potassium Chloride 20 MEQ in Premix Bag 1 BAG IVPB SCH (11:00)
[2021-09-15 11:27] LABS: Magnesium 1.9 mg/dL (1.6-2.6)
[2021-09-15 14:42] LABS: Lactic Acid 1.7 mmol/L (0.5-2.2)
[2021-09-15 20:16] LABS: ALT (SGPT) 18 U/L (8-55); AST (SGOT) 31 U/L (5-34); Albumin 3.1 g/dL (3.5-5.0); Alkaline Phosphatase 48 U/L (40-110); Anion Gap 18 mmol/L (10-20); BUN (Urea Nitrogen) 67 mg/dL (8.9-20.6); Bilirubin, Total 0.6 mg/dL (0.2-1.2); Calc. Creatinine Clearance 29 mL/min (70-130); Calcium 8.4 mg/dL (7.8-10.44); Carbon Dioxide 16 mmol/L (22-29); Chloride 107 mmol/L (98-107); Globulin 2.4 g/dL (2.4-3.5); Glucose 135 mg/dL (70-105); Potassium 3.1 mmol/L (3.5-5.1); Protein, Total 5.5 g/dL (6.0-8.3); Sodium 138 mmol/L (136-145)
[2021-09-15] MEDS ORDERED: Norepinephrine 8 MG/0.9% NS 250 ML ONE (21:38)
[2021-09-15] MEDS ORDERED: Norepinephrine 8 MG/0.9% NS 250 ML IVPB SCH (21:45)
[2021-09-15 22:21] VITALS: BP 87/56
[2021-09-16 04:11] LABS: Vancomycin, Random 21.8 ug/mL (See Comment)
[2021-09-16 04:15] LABS: ALT (SGPT) 19 U/L (8-55); AST (SGOT) 33 U/L (5-34); Albumin 3.1 g/dL (3.5-5.0); Alkaline Phosphatase 55 U/L (40-110); Anion Gap 19 mmol/L (10-20); BUN (Urea Nitrogen) 48 mg/dL (8.9-20.6); Bilirubin, Total 0.8 mg/dL (0.2-1.2); Calc. Creatinine Clearance 40 mL/min (70-130); Calcium 8.8 mg/dL (7.8-10.44); Carbon Dioxide 18 mmol/L (22-29); Chloride 105 mmol/L (98-107); Glucose 132 mg/dL (70-105); INR-International Normal Ratio 2.1; Magnesium 1.9 mg/dL (1.6-2.6); Potassium 3.1 mmol/L (3.5-5.1); Protein, Total 6.1 g/dL (6.0-8.3); Sodium 139 mmol/L (136-145)
[2021-09-16] MEDS: cefTRIAXone\\ROCEPHIN 2 GM in Sodium Chloride 0.9% 100 ML IVPB SCH (04:29)
[2021-09-16] MEDS: Furosemide 40 MG/4 ML VIAL SLOW IVP SCH ×2 (05:40→13:26)
[2021-09-16 07:09] LABS: Hemoglobin 8.2 g/dL (14.0-18.0); Mean Corpuscular HGB CONC 33.2 g/dL (32.0-36.0); Mean Corpuscular Hemoglobin 32.9 pg (27.0-31.0); Platelet Count 115 thou/uL (130-400); RBC Distribution Width 14.5 % (11.5-14.5); Red Blood Cell (RBC) Count 2.49 mill/uL (4.70-6.10)
[2021-09-16] MEDS: Ferrous Sulfate 325 MG TAB PO SCH ×2 (07:38→17:18)
[2021-09-16 08:24] LABS: Band 50 % (5-11); Burr Cells SLIGHT = 2-5 cells (100X) (0-1/hpf); Lymphocytes 7 % (21-51); MDiff Complete? YES; Metamyelocyte 5 % (0-0); Monocytes 5 % (0-10); Myelocyte 1 % (0-0); Neutrophil 31 % (42-75); Platelet Morphology Comment Appears Decreased; Polychromasia SLIGHT = 2-3 cells (100X) (0-2/hpf); Reactive Lymphocytes 1 % (0-10)
[2021-09-16] MEDS: Ascorbic Acid 500 mg Chewable Tablet PO SCH (08:38)
[2021-09-16] MEDS: Multivitamin W/ Minerals 1 TAB PO SCH (08:38)
[2021-09-16] MEDS: Midodrine HCl 5 MG TAB PO SCH ×3 (08:38→20:45)
[2021-09-16] MEDS: Lactulose 10 GM/15 ML Oral Solution PR SCH ×4 (08:38→20:45)
[2021-09-16] MEDS: hydrALAZINE 25 MG TAB PO SCH ×2 (08:38→13:18)
[2021-09-16] MEDS: Nadolol 40 MG TAB PO SCH (08:38)
[2021-09-16] MEDS: Sodium Bicarbonate Tab 325 MG TAB PO SCH ×3 (08:39→20:46)
[2021-09-16] MEDS: NIFEdipine XL 30 MG TAB PO SCH (08:39)
[2021-09-16] MEDS: Thiamine 100 MG TAB PO SCH (08:39)
[2021-09-16] MEDS: Rifaximin 550 MG TAB PO SCH ×2 (08:39→20:45)
[2021-09-16] MEDS: PARoxetine 20 MG TAB PO SCH (08:39)
[2021-09-16] MEDS: Pantoprazole 40 MG VIAL IVP SCH ×2 (09:19→20:45)
[2021-09-16] MEDS ORDERED: Heparin 10,000 UNITS/ 10 ML VIAL ONE (09:33)
[2021-09-16 12:50] LABS: SARS-CoV-2 PCR by NAA Not Detected (NotDetected)
[2021-09-16] MEDS: Octreotide Acetate 1,250 MCG in Sodium Chloride 0.9% 250 ML 250 ML IVPB SCH (17:59)
[2021-09-16] MEDS: Norepinephrine 8 MG in Dextrose 5% in Water 242 ML IVPB PRN (18:02)
[2021-09-16] MEDS ORDERED: Piperacillin/Tazobactam 3.375 GM in Sodium Chloride 0.9% 100 ML IVPB SCH (20:00)
[2021-09-16] MEDS ORDERED: Piperacillin/Tazobactam 2.25 GM in Sodium Chloride 0.9% 100 ML IVPB SCH (22:00)
[2021-09-16] MEDS: Piperacillin/Tazobactam 3.375 GM in Sodium Chloride 0.9% 100 ML IVPB SCH (23:33)
[2021-09-17 04:43] LABS: Vancomycin, Random 16.2 ug/mL (See Comment)
[2021-09-17 04:46] LABS: ALT (SGPT) 16 U/L (8-55); AST (SGOT) 29 U/L (5-34); Albumin 2.8 g/dL (3.5-5.0); Alkaline Phosphatase 64 U/L (40-110); Anion Gap 16 mmol/L (10-20); BUN (Urea Nitrogen) 36 mg/dL (8.9-20.6); Bilirubin, Total 0.8 mg/dL (0.2-1.2); Calc. Creatinine Clearance 49 mL/min (70-130); Calcium 8.3 mg/dL (7.8-10.44); Carbon Dioxide 22 mmol/L (22-29); Chloride 103 mmol/L (98-107); Globulin 2.8 g/dL (2.4-3.5); Glucose 141 mg/dL (70-105); Potassium 3.4 mmol/L (3.5-5.1); Protein, Total 5.6 g/dL (6.0-8.3); Sodium 138 mmol/L (136-145)
[2021-09-17 04:49] LABS: Band 45 % (5-11); Hemoglobin 8.3 g/dL (14.0-18.0); Hypochromia SLIGHT = 6-15 cells (100X) (0-5/hpf); Lymphocytes 2 % (21-51); MDiff Complete? YES; Macrocytosis SLIGHT = 6-15 cells (100X) (0-5/hpf); Mean Corpuscular HGB CONC 33.7 g/dL (32.0-36.0); Mean Corpuscular Hemoglobin 33.3 pg (27.0-31.0); Mean Corpuscular Volume 98.9 fL (78.0-98.0); Mean Platelet Volume 7.9 fL (7.4-10.4); Monocytes 5 % (0-10); Neutrophil 48 % (42-75); Platelet Count 114 thou/uL (130-400); Platelet Morphology Comment Appears Decreased; RBC Distribution Width 14.7 % (11.5-14.5); Red Blood Cell (RBC) Count 2.49 mill/uL (4.70-6.10); White Blood Cell (WBC) Count 12.9 thou/uL (4.8-10.8)
[2021-09-17] MEDS ORDERED: VANCOMYCIN 1.25 GM/250 ML BAG 1.25 GM in Premix Bag 1 BAG IVPB SCH (06:00)
[2021-09-17] MEDS ORDERED: Vancomycin HCl 1.25 GM in Sodium Chloride 0.9% 250 ML 250 ML IVPB SCH ×2 (08:00→08:45)
[2021-09-17] MEDS: Ferrous Sulfate 325 MG TAB PO SCH ×2 (08:11→16:04)
[2021-09-17] MEDS ORDERED: Vancomycin 1 GM in Premix Bag 1 BAG IVPB SCH (08:45)
[2021-09-17] MEDS ORDERED: Vancomycin HCl 750 MG in Sodium Chloride 0.9% 250 ML 250 ML IVPB SCH (08:45)
[2021-09-17] MEDS ORDERED: HOLD VANCOMYCIN FOR LEVEL >20 FS SCH (08:45)
[2021-09-17] MEDS ORDERED: Vancomycin HCl 1.5 GM in Sodium Chloride 0.9% 250 ML 300 ML IVPB SCH (08:45)
[2021-09-17] MEDS ORDERED: Heparin 10,000 UNITS/ 10 ML VIAL ONE (08:59)
[2021-09-17] MEDS: Multivitamin W/ Minerals 1 TAB PO SCH (08:59)
[2021-09-17] MEDS: Midodrine HCl 5 MG TAB PO SCH ×3 (08:59→22:32)
[2021-09-17] MEDS: Ascorbic Acid 500 mg Chewable Tablet PO SCH (08:59)
[2021-09-17] MEDS: Thiamine 100 MG TAB PO SCH (09:00)
[2021-09-17] MEDS: PARoxetine 20 MG TAB PO SCH (09:00)
[2021-09-17] MEDS: Rifaximin 550 MG TAB PO SCH ×2 (09:00→22:33)
[2021-09-17] MEDS: Sodium Bicarbonate Tab 325 MG TAB PO SCH ×3 (09:00→22:33)
[2021-09-17] MEDS: Lactulose 10 GM/15 ML Oral Solution PR SCH ×4 (09:03→22:32)
[2021-09-17] MEDS: Pantoprazole 40 MG VIAL IVP SCH ×2 (09:03→22:38)
[2021-09-17] MEDS: Piperacillin/Tazobactam 3.375 GM in Sodium Chloride 0.9% 100 ML IVPB SCH (13:09)
[2021-09-17] MEDS ORDERED: Morphine 4 MG/ML VIAL SLOW IVP PRN (16:48)
[2021-09-17] MEDS: Octreotide Acetate 1,250 MCG in Sodium Chloride 0.9% 250 ML 250 ML IVPB SCH (21:33)
[2021-09-17] MEDS: Norepinephrine 8 MG in Dextrose 5% in Water 242 ML IVPB PRN (21:35)
[2021-09-18 05:18] LABS: Hemoglobin 7.8 g/dL (14.0-18.0); Mean Corpuscular HGB CONC 32.4 g/dL (32.0-36.0); Mean Corpuscular Hemoglobin 32.2 pg (27.0-31.0); Mean Corpuscular Volume 99.4 fL (78.0-98.0); Mean Platelet Volume 8.8 fL (7.4-10.4); Platelet Count 90 thou/uL (130-400); RBC Distribution Width 15.1 % (11.5-14.5); Red Blood Cell (RBC) Count 2.42 mill/uL (4.70-6.10); White Blood Cell (WBC) Count 8.9 thou/uL (4.8-10.8)
[2021-09-18 05:30] LABS: ALT (SGPT) 14 U/L (8-55); AST (SGOT) 26 U/L (5-34); Albumin 2.6 g/dL (3.5-5.0); Alkaline Phosphatase 65 U/L (40-110); Anion Gap 14 mmol/L (10-20); BUN (Urea Nitrogen) 28 mg/dL (8.9-20.6); Bilirubin, Total 0.9 mg/dL (0.2-1.2); Calc. Creatinine Clearance 52 mL/min (70-130); Calcium 8.1 mg/dL (7.8-10.44); Carbon Dioxide 25 mmol/L (22-29); Chloride 102 mmol/L (98-107); Globulin 2.6 g/dL (2.4-3.5); Glucose 131 mg/dL (70-105); Potassium 3.3 mmol/L (3.5-5.1); Protein, Total 5.2 g/dL (6.0-8.3); Sodium 138 mmol/L (136-145)
[2021-09-18 06:00] LABS: Band 24 % (5-11); Eosinophils 1 % (0-10); Lymphocytes 12 % (21-51); MDiff Complete? YES; Monocytes 7 % (0-10); Neutrophil 56 % (42-75); Platelet Morphology Comment Appears Decreased
[2021-09-18] MEDS: Lactulose 10 GM/15 ML Oral Solution PR SCH ×4 (09:08→20:41)
[2021-09-18] MEDS ORDERED: Potassium Chloride 40 MEQ in Premix Bag 1 BAG IVPB SCH (09:15)
[2021-09-18] MEDS: Midodrine HCl 5 MG TAB PO SCH (09:41)
[2021-09-18] MEDS: Rifaximin 550 MG TAB PO SCH ×2 (09:41→20:42)
[2021-09-18] MEDS: Sodium Bicarbonate Tab 325 MG TAB PO SCH ×3 (09:41→20:42)
[2021-09-18] MEDS: Thiamine 100 MG TAB PO SCH (09:42)
[2021-09-18] MEDS: PARoxetine 20 MG TAB PO SCH (09:49)
[2021-09-18] MEDS: Multivitamin W/ Minerals 1 TAB PO SCH (09:49)
[2021-09-18] MEDS: Ferrous Sulfate 325 MG TAB PO SCH (09:50)
[2021-09-18] MEDS: Ascorbic Acid 500 mg Chewable Tablet PO SCH (09:50)
[2021-09-18] MEDS: HYDROmorphone 0.5 MG/0.5 ML SYRINGE SLOW IVP PRN (09:51)
[2021-09-18] MEDS: Pantoprazole 40 MG VIAL IVP SCH ×2 (09:51→20:41)
[2021-09-18] MEDS: Piperacillin/Tazobactam 3.375 GM in Sodium Chloride 0.9% 100 ML IVPB SCH ×2 (12:04)
[2021-09-18] MEDS ORDERED: Heparin 10,000 UNITS/ 10 ML VIAL ONE (12:08)
[2021-09-18] MEDS: EPOETIN ALFA-EPBX (ESRD) 10,000 UNIT/ML VIAL SC SCH (16:06)
[2021-09-19] MEDS: Piperacillin/Tazobactam 3.375 GM in Sodium Chloride 0.9% 100 ML IVPB SCH ×2 (00:43→13:09)
[2021-09-19] MEDS: HYDROmorphone 0.5 MG/0.5 ML SYRINGE SLOW IVP PRN (02:22)
[2021-09-19 04:20] LABS: Anion Gap 14 mmol/L (10-20); BUN (Urea Nitrogen) 37 mg/dL (8.9-20.6); Calc. Creatinine Clearance 42 mL/min (70-130); Calcium 8.4 mg/dL (7.8-10.44); Carbon Dioxide 27 mmol/L (22-29); Chloride 105 mmol/L (98-107); Glucose 130 mg/dL (70-105); Potassium 3.6 mmol/L (3.5-5.1); Sodium 142 mmol/L (136-145)
[2021-09-19 05:31] LABS: Anisocytosis SLIGHT = 6-15 cells (100X) (0-5/hpf); Band 15 % (5-11); Eosinophils 4 % (0-10); Lymphocytes 23 % (21-51); MDiff Complete? YES; Mean Corpuscular HGB CONC 32.5 g/dL (32.0-36.0); Mean Corpuscular Hemoglobin 32.6 pg (27.0-31.0); Mean Platelet Volume 8.3 fL (7.4-10.4); Monocytes 11 % (0-10); Neutrophil 47 % (42-75); Platelet Count 65 thou/uL (130-400); Platelet Morphology Comment Appears Decreased; RBC Distribution Width 14.8 % (11.5-14.5); Red Blood Cell (RBC) Count 2.44 mill/uL (4.70-6.10); White Blood Cell (WBC) Count 6.5 thou/uL (4.8-10.8)
[2021-09-19] MEDS: Pantoprazole 40 MG VIAL IVP SCH ×2 (09:33→20:59)
[2021-09-19] MEDS: Sodium Bicarbonate Tab 325 MG TAB PO SCH ×3 (10:14→20:56)
[2021-09-19] MEDS: Rifaximin 550 MG TAB PO SCH ×2 (10:14→20:56)
[2021-09-19] MEDS: Thiamine 100 MG TAB PO SCH (10:14)
[2021-09-19] MEDS ORDERED: Heparin 10,000 UNITS/ 10 ML VIAL ONE (12:07)
[2021-09-19] MEDS: Lactulose 10 GM/15 ML Oral Solution PR SCH ×3 (13:02→20:59)
[2021-09-19] MEDS: Norepinephrine 8 MG in Dextrose 5% in Water 242 ML IVPB PRN (19:30)
[2021-09-20] MEDS: Piperacillin/Tazobactam 3.375 GM in Sodium Chloride 0.9% 100 ML IVPB SCH ×2 (00:19→11:54)
[2021-09-20 04:58] LABS: Hemoglobin 8.6 g/dL (14.0-18.0); Mean Corpuscular HGB CONC 32.7 g/dL (32.0-36.0); Mean Corpuscular Hemoglobin 32.7 pg (27.0-31.0); Mean Corpuscular Volume 99.9 fL (78.0-98.0); Mean Platelet Volume 8.8 fL (7.4-10.4); Platelet Count 57 thou/uL (130-400); RBC Distribution Width 14.9 % (11.5-14.5); Red Blood Cell (RBC) Count 2.65 mill/uL (4.70-6.10); White Blood Cell (WBC) Count 6.6 thou/uL (4.8-10.8)
[2021-09-20 05:28] LABS: Band 16 % (5-11); Eosinophils 3 % (0-10); Lymphocytes 17 % (21-51); MDiff Complete? YES; Monocytes 10 % (0-10); Myelocyte 3 % (0-0); Neutrophil 51 % (42-75); Platelet Morphology Comment Appears Decreased
[2021-09-20] MEDS: Pantoprazole 40 MG VIAL IVP SCH ×2 (08:22→21:44)
[2021-09-20] MEDS: Sodium Bicarbonate Tab 325 MG TAB PO SCH ×3 (10:19→21:22)
[2021-09-20] MEDS: Rifaximin 550 MG TAB PO SCH ×2 (10:19→21:21)
[2021-09-20] MEDS: Thiamine 100 MG TAB PO SCH (10:20)
[2021-09-20] MEDS ORDERED: Heparin 10,000 UNITS/ 10 ML VIAL ONE (12:07)
[2021-09-20] MEDS ORDERED: Dextrose 5% in Water 1,000 ML IV SCH (12:30)
[2021-09-20] MEDS: Norepinephrine 8 MG in Dextrose 5% in Water 242 ML IVPB PRN (13:51)
[2021-09-20] MEDS: Lactulose 10 GM/15 ML Oral Solution PR SCH ×2 (17:04→22:48)
[2021-09-21] MEDS: Piperacillin/Tazobactam 3.375 GM in Sodium Chloride 0.9% 100 ML IVPB SCH ×2 (01:04→11:43)
[2021-09-21 04:57] LABS: #Eosinphils 0.1 thou/uL (0.0-0.7); #Monocytes 0.6 thou/uL (0.11-0.59); #Neutrophils 5.3 thou/uL (1.40-6.50); %Basophils 0.1 % (0.0-1.0); %Eosinophils 1.4 % (0.0-10.0); %Lymphocytes 14.4 % (21.0-51.0); %Monocytes 8.7 % (0.0-10.0); %Neutrophils 75.4 % (42.0-75.0); Hemoglobin 9.5 g/dL (14.0-18.0); Mean Corpuscular HGB CONC 32.1 g/dL (32.0-36.0); Mean Corpuscular Hemoglobin 31.8 pg (27.0-31.0); Mean Corpuscular Volume 99.1 fL (78.0-98.0); Mean Platelet Volume 8.9 fL (7.4-10.4); Platelet Count 62 thou/uL (130-400); RBC Distribution Width 14.9 % (11.5-14.5); Red Blood Cell (RBC) Count 2.99 mill/uL (4.70-6.10); White Blood Cell (WBC) Count 7.1 thou/uL (4.8-10.8)
[2021-09-21 08:43] VITALS: BMI 32.7
[2021-09-21] MEDS: Pantoprazole 40 MG VIAL IVP SCH ×2 (09:21→21:06)
[2021-09-21 10:00] LABS: Anion Gap 14 mmol/L (10-20); BUN (Urea Nitrogen) 31 mg/dL (8.9-20.6); Calc. Creatinine Clearance 37 mL/min (70-130); Calcium 8.4 mg/dL (7.8-10.44); Carbon Dioxide 26 mmol/L (22-29); Chloride 104 mmol/L (98-107); Glucose 158 mg/dL (70-105); Potassium 3.4 mmol/L (3.5-5.1); Sodium 141 mmol/L (136-145)
[2021-09-21] MEDS: Rifaximin 550 MG TAB PO SCH ×2 (13:27→21:06)
[2021-09-21] MEDS: Nadolol 40 MG TAB PO SCH (13:27)
[2021-09-21] MEDS: Sodium Bicarbonate Tab 325 MG TAB PO SCH ×3 (13:27→21:02)
[2021-09-21] MEDS: Thiamine 100 MG TAB PO SCH (13:28)
[2021-09-21] MEDS: Lactulose 10 GM/15 ML Oral Solution PR SCH (13:29)
[2021-09-21] MEDS ORDERED: Sodium Chloride 0.9% 1,000 ML IV SCH (13:30)
[2021-09-21] MEDS ORDERED: Dextrose 5 % And 0.9 % NaCl 1,000 ML IV SCH (13:30)
[2021-09-21] MEDS: Norepinephrine 8 MG in Dextrose 5% in Water 242 ML IVPB PRN (19:40)
[2021-09-21] MEDS: HumaLOG 300 UNITS/3 ML VIAL SC PRN (22:28)
[2021-09-21] MEDS: Lorazepam 2 MG/ML VIAL SLOW IVP PRN (23:24)
[2021-09-22] MEDS: Piperacillin/Tazobactam 3.375 GM in Sodium Chloride 0.9% 100 ML IVPB SCH ×2 (00:26→12:17)
[2021-09-22 04:08] LABS: #Lymphocytes 1.1 thou/uL (1.20-3.40); #Monocytes 0.7 thou/uL (0.11-0.59); #Neutrophils 7.1 thou/uL (1.40-6.50); %Eosinophils 0.2 % (0.0-10.0); %Lymphocytes 11.8 % (21.0-51.0); %Monocytes 7.4 % (0.0-10.0); %Neutrophils 80.6 % (42.0-75.0); Hemoglobin 9.9 g/dL (14.0-18.0); Mean Corpuscular HGB CONC 32.2 g/dL (32.0-36.0); Mean Corpuscular Hemoglobin 32.4 pg (27.0-31.0); Mean Platelet Volume 8.5 fL (7.4-10.4); Platelet Count 72 thou/uL (130-400); RBC Distribution Width 15.9 % (11.5-14.5); Red Blood Cell (RBC) Count 3.04 mill/uL (4.70-6.10); White Blood Cell (WBC) Count 8.8 thou/uL (4.8-10.8)
[2021-09-22 04:23] LABS: Anion Gap 15 mmol/L (10-20); BUN (Urea Nitrogen) 39 mg/dL (8.9-20.6); Calc. Creatinine Clearance 27 mL/min (70-130); Calcium 8.6 mg/dL (7.8-10.44); Carbon Dioxide 21 mmol/L (22-29); Chloride 106 mmol/L (98-107); Glucose 181 mg/dL (70-105); Sodium 139 mmol/L (136-145)
[2021-09-22 04:33] LABS: Potassium 2.9 mmol/L (3.5-5.1)
[2021-09-22] MEDS ORDERED: Electrolyte Replacement Protocol 1 EACH FS PRN (04:56)
[2021-09-22] MEDS ORDERED: Potassium Chloride 20 MEQ TAB PO SCH (05:00)
[2021-09-22] MEDS: HumaLOG 300 UNITS/3 ML VIAL SC PRN (05:45)
[2021-09-22 09:26] LABS: Potassium 3.2 mmol/L (3.5-5.1)
[2021-09-22] MEDS: Norepinephrine 8 MG in Dextrose 5% in Water 242 ML IVPB PRN (09:26)
[2021-09-22] MEDS: Nadolol 40 MG TAB PO SCH (09:46)
[2021-09-22] MEDS: Thiamine 100 MG TAB PO SCH (09:47)
[2021-09-22] MEDS: Sodium Bicarbonate Tab 325 MG TAB PO SCH (09:48)
[2021-09-22] MEDS: Pantoprazole 40 MG VIAL IVP SCH (09:49)
[2021-09-22] MEDS: Rifaximin 550 MG TAB PO SCH (09:49)
[2021-09-22 15:02] VITALS: TEMP 98.9
== END 2021-09-22 13:26 | disposition expired | DRG 432 ==
LOC: ERS 14:24 → ERHOLD 17:45 → CCU 21:24 → 2NO 09-01 19:51 → IMCU/EMU 09-12 15:23 → CCU 09-16 05:11
PROVIDERS: ADMIT Hospitalist; ATTEND Internal Medicine
PROC: 30233N1 Transfusion of Nonautologous Red Blood Cells into Peripheral Vein, Percutaneous Approach (ICD-10-PCS; 2021-08-31)
PROC: 30233K0 Transfusion of Autologous Frozen Plasma into Peripheral Vein, Percutaneous Approach (ICD-10-PCS; 2021-09-01)
PROC: 0DJ08ZZ Inspection of Upper Intestinal Tract, Via Natural or Artificial Opening Endoscopic (ICD-10-PCS; principal; 2021-09-03)
PROC: 5A09357 Assistance with Respiratory Ventilation, Less than 24 Consecutive Hours, Continuous Positive Airway Pressure (ICD-10-PCS; 2021-09-12)
PROC: 5A1D70Z Performance of Urinary Filtration, Intermittent, Less than 6 Hours Per Day (ICD-10-PCS; 2021-09-14)
PROC: 06HY33Z Insertion of Infusion Device into Lower Vein, Percutaneous Approach (ICD-10-PCS; 2021-09-14)
PROC: 3E0G76Z Introduction of Nutritional Substance into Upper GI, Via Natural or Artificial Opening (ICD-10-PCS; 2021-09-14)
PROC: 3E043XZ Introduction of Vasopressor into Central Vein, Percutaneous Approach (ICD-10-PCS; 2021-09-15)
PROC: HZ2ZZZZ Detoxification Services for Substance Abuse Treatment (ICD-10-PCS; 2021-09-16)
PROC: 0D9670Z Drainage of Stomach with Drainage Device, Via Natural or Artificial Opening (ICD-10-PCS; 2021-09-16)
PROC: 0DH67UZ Insertion of Feeding Device into Stomach, Via Natural or Artificial Opening (ICD-10-PCS; 2021-09-21)
DX: K70.31 Alcoholic cirrhosis of liver with ascites (principal); Z66 Do not resuscitate; Z20.822 Contact with and (suspected) exposure to COVID-19; Z51.5 Encounter for palliative care; K76.7 Hepatorenal syndrome; N18.6 End stage renal disease; K72.00 Acute and subacute hepatic failure without coma; G92.8 Other toxic encephalopathy; J96.01 Acute respiratory failure with hypoxia; R40.20 Unspecified coma; K65.2 Spontaneous bacterial peritonitis; I85.11 Secondary esophageal varices with bleeding; E87.1 Hypo-osmolality and hyponatremia; E87.2 Acidosis; D62 Acute posthemorrhagic anemia; N17.9 Acute kidney failure, unspecified; K76.6 Portal hypertension; D68.4 Acquired coagulation factor deficiency; I13.0 Hypertensive heart and chronic kidney disease with heart failure and stage 1 through stage 4 chronic kidney disease, or unspecified chronic kidney disease; F10.239 Alcohol dependence with withdrawal, unspecified; E72.20 Disorder of urea cycle metabolism, unspecified; K56.7 Ileus, unspecified; K94.23 Gastrostomy malfunction; E11.22 Type 2 diabetes mellitus with diabetic chronic kidney disease; F17.210 Nicotine dependence, cigarettes, uncomplicated; E11.649 Type 2 diabetes mellitus with hypoglycemia without coma; D69.59 Other secondary thrombocytopenia; K72.10 Chronic hepatic failure without coma; F41.9 Anxiety disorder, unspecified; K31.89 Other diseases of stomach and duodenum; E87.6 Hypokalemia; I50.9 Heart failure, unspecified; E66.01 Morbid (severe) obesity due to excess calories; R29.6 Repeated falls; R04.0 Epistaxis; I95.89 Other hypotension; K63.89 Other specified diseases of intestine; Y84.9 Medical procedure, unspecified as the cause of abnormal reaction of the patient, or of later complication, without mention of misadventure at the time of the procedure; Z78.1 Physical restraint status; Z99.2 Dependence on renal dialysis; Z68.32 Body mass index [BMI] 32.0-32.9, adult; Z89.421 Acquired absence of other right toe(s); Z83.3 Family history of diabetes mellitus; Z91.81 History of falling; Z71.41 Alcohol abuse counseling and surveillance of alcoholic
CPT/HCPCS: 36415; 36416; 36430; 36600; 70450; 71045; 71250; 72125; 74018; 74177; 74230; 76705; 80048; 80053; 80202; 81003; 81015; 82140; 82805; 83605; 83690; 83735; 83930; 83935; 84100; 84132; 84133; 84145; 84300; 84443; 84484; 84550; 84560; 85025; 85610; 85730; 86704; 86706; 86803; 86850; 86900; 86901; 87040; 87077; 87086; 87149; 87186; 87340; 90935; 93005; 93306; 93970; 94660; 96365; 96366; 96375; 96376; C9113; G0257; J0360; J0696; J1170; J1642; J1644; J1815; J1940; J2060; J2250; J2354; J2543; J2704; J3010; J3370; J3411; J3480; J3490; J7042; J7050; J7070; P9016; P9047; P9059; Q5105; U0002; U0003; U0005